=== PATIENT | female | born 1965 | race Caucasian/White ===

== ENCOUNTER → 2020-02-29 11:05 | Outpatient (CLI) | payer OTHER, SELFPAY ==
[2020-02-29 11:20] LABS: Absolute Lymphocyte Count 1.88 X10^3/uL (0.83-4.51); Absolute Neutrophil Count 3.2 X10^3/uL (2.0-7.7); Basophil# 0.04 X10^3/uL; Basophil% 0.7 % (0-1); Eosinophil# 0.08 X10^3/uL; Eosinophils% 1.4 % (0-5); Hematocrit 37.9 % (37-47); Hemoglobin 12.8 g/dL (12.0-15.0); Lymphocyte # 1.88 X10^3/ul (4.0); Mean Corp Hgb Conc 33.8 g/dL (32-36); Mean Corpuscular Hgb 32.9 pg (27.0-32.0); Mean Corpuscular Volume 97.4 fL (81-99); Mean Platelet Vol. 10.2 fl (6.2-12.0); Monocyte# 0.35 X10^3/uL; Monocyte% 6.3 % (0-10); NRBC Flagged by Analyzer 0 % (0-5); Neutrophil # 3.17 X10^3/uL (2.7-7.7); Neutrophil % 57.4 % (47-70); Platelet Count 176 K/mm3 (150-450); RBC Distribution Width CV 12.3 % (11.6-14.6); RBC Distribution Width SD 43.5 fl (35.1-43.9); Red Blood Count 3.89 M/mm3 (4.2-5.4); White Blood Count 5.5 K/mm3 (4.4-11.0)
[2020-02-29 11:43] LABS: Anion Gap 3 (5-15); BUN 17 mg/dL (7-18); Calcium,Total 9.4 mg/dL (8.5-10.1); Chloride 109 mmol/L (98-107); Creatinine, Serum 0.71 mg/dL (0.55-1.02); EST Glomerular Filtration Rate 92 mL/min (>60); Est Glom Filt Rate - Afr Amer 111 mL/min (>60); Glucose 112 mg/dL (74-106); Potassium 3.6 mmol/L (3.5-5.1); Sodium Level 140 mmol/L (136-145)
--- NOTE | 2020-02-29 11:54 | EKG12_ITS ---
Test Reason : Blood Pressure : / mmHG Vent. Rate : 071 BPM Atrial Rate : 071 BPM P-R Int : 172 ms QRS Dur : 092 ms QT Int : 406 ms P-R-T Axes : 070 -07 090 degrees QTc Int : 441 ms Normal sinus rhythm Normal ECG Confirmed by SARAH BACK, RAYMOND ([id number]), video editor FREDIS MEDLEY ([id number]) on 03/03/2020 1:30:41 PM Referred By: Tahmina Vega Confirmed By:RAYMOND SMITH MD
== END ==
PROVIDERS: PCP Family Medicine; Referring Provider Registered Nurse; Visit Provider Registered Nurse
DX: Z01.818 Encounter for other preprocedural examination (principal); Z01.810 Encounter for preprocedural cardiovascular examination; Z11.59 Encounter for screening for other viral diseases
CPT/HCPCS: 36415; 80048; 85025; 87635; 93005; 94799; U0003

== ENCOUNTER 2021-06-05 12:46 | Emergency (ER) | payer MEDICARE, OTHER, SELFPAY ==
[2021-06-05] VITALS (9 sets, daily range): BP systolic 114–141; BP diastolic 71–81; PULSE 82–87; RESP 20–25; TEMP 36.6–37.2; O2SAT 87–96; BMI 41.1
--- NOTE | 2021-06-05 13:30 | CT_ITS ---
INDICATION: sob, hypoxia EXAMINATION: CTA Chest WO/W Contrast Injection TECHNIQUE: Helically acquired images were obtained of the chest following administration of IV contrast. A radiation dose optimization technique was used for this scan. 3D postprocessing images including MIPS were reviewed. IV Contrast dosage and agent: IV 100mL Isovue-370 COMPARISON: None. FINDINGS: Lungs: Diffuse bilateral groundglass and airspace opacities. Mediastinum: The cardiomediastinal silhouette is not enlarged. No mediastinal, hilar or axillary adenopathy. The thoracic aorta is unremarkable. No obvious filling defect seen within the visualized pulmonary arteries. Pleura: Unremarkable Bones/Soft tissues: There are diffuse degenerative changes of the spine. Upper abdomen: No visualized abnormalities in the upper abdomen. CT/CTA Chest W/WO Contrast IMPRESSION: No evidence of acute pulmonary emboli to the segmental level. Diffuse bilateral groundglass and airspace opacities consistent with Covid pneumonia. Electronically Signed: Johny Hernandez MD at 17:03 EST Tel , Service support ,
--- NOTE | 2021-06-05 13:31 | EKG12_ITS ---
Test Reason : SOB Blood Pressure : / mmHG Vent. Rate : 082 BPM Atrial Rate : 082 BPM P-R Int : 126 ms QRS Dur : 086 ms QT Int : 352 ms P-R-T Axes : -59 -11 084 degrees QTc Int : 411 ms Unusual P axis, possible ectopic atrial rhythm Abnormal ECG Confirmed by SIL BACK, BROOK ([id number]), graphics editor ARJUN MORAN ([id number]) on 06/08/2021 11:26:44 AM Referred By: PRAKASH Confirmed By:BROOK MUJICA MD
--- NOTE | 2021-06-05 13:33 | EDS_ITS ---
HPI History of Present Illness Chief Complaint: Shortness of Breath Informant: patient Onset/Context/Timing Onset: Days Current Severity: Mild Maximum Severity: Moderate Narrative Narrative: Patient presents secondary to shortness of breath, fever, chills. Patient reports 7-day history of fever, chills, cough. Last evening she developed shortness of breath. She reportedly went to the [facility] urgent care today where an x-ray revealed pneumonia consistent with Covid pattern. She was referred to the emergency room. O2 sat on room air was 91% however when walking to the room she dropped to 87%. She is on 2 L nasal cannula at the time of my exam. [facility] Medical History Hypertension Meniscal injury Home Medications cholecalciferol (vitamin D3) [Vitamin D3] 25 mcg PO DAILY 06/05/21 [History Last Taken Unknown] dexamethasone [Decadron] 6 mg PO DAILY #9 tab 06/05/21 [Rx Last Taken Unknown] fluoxetine 10 mg PO DAILY 06/05/21 [History Last Taken Unknown] hydrochlorothiazide 12.5 mg PO DAILY 06/05/21 [History Last Taken Unknown] loratadine 10 mg PO DAILY 06/05/21 [History Last Taken Unknown] losartan 50 mg PO DAILY 06/05/21 [History Last Taken Unknown] potassium chloride [Klor-Con M20] 20 meq PO BID 06/05/21 [History Last Taken Unknown] Allergy/AdvReac Type Severity Reaction Status Date / Time No Known Allergies Allergy Verified 06/05/21 12:46 Surgical History History of hysterectomy Previous back surgery Social History Smoking Status: Never smoker ROS ROS ED Constitutional Constitutional ED: Reports chills and fever(s) Eyes Eyes: Denies change in vision ENT ENT ED: Denies sore throat Cardiovascular Cardiovascular: Denies chest pain Respiratory/Chest Respiratory/Chest: Reports cough, dyspnea and sputum Gastrointestinal Gastrointestinal: Reports diarrhea; Denies abdominal pain, nausea or vomiting Genitourinary Genitourinary ED: Denies dysuria Musculoskeletal Musculoskeletal: Reports myalgias; Denies back pain Integumentary Denies rash Neurologic Neurologic: Denies headache(s) or weakness Allergic/Immunologic Allergic/Immunologic ED: Denies urticaria EXAM Physical Exam Const Vital Signs: 06/05/21 12:47 06/05/21 13:06 06/05/21 13:26 Temperature 98.7 F 98.7 F Temperature Source Temporal Oral Pulse Rate 87 83 Respiratory Rate 20 H 21 H Respiratory Effort Non-Labored Short of Breath Respiratory Depth Normal Respiratory Pattern Normal Blood Pressure 141/79 H 121/74 H Blood Pressure Mean 99 89 Pulse Ox 91 93 Oxygen Delivery Method Room Air Nasal Cannula Nasal Cannula Oxygen Flow Rate (L/min) 2 2 06/05/21 15:00 06/05/21 16:42 Temperature 97.9 F Temperature Source Oral Pulse Rate 82 Respiratory Rate 25 H Respiratory Effort Respiratory Depth Respiratory Pattern Blood Pressure 114/71 Blood Pressure Mean 85 Pulse Ox 94 92 Oxygen Delivery Method Nasal Cannula Nasal Cannula Oxygen Flow Rate (L/min) 2 Positive well nourished and well developed General Appearance ED: well developed Eyes PERRL and EOMs intact bilaterally Neck supple Chest Wall inspection of chest normal and palpation of chest normal Resp normal respiratory effort and clear to auscultation bilaterally Cardio regular rate and regular rhythm GI normal to inspection, nondistended, normoactive bowel sounds and non-tender Palpation: soft Extremity normal to inspection General Extremety ED: Negative for edema General Extremity: Negative for edema Neuro oriented x3 Sensorium / Orientation: alert Skin no rashes or lesions noted MDM MDM MDM Narrative Medical decision making narrative: Lab work, Covid swab, CTA chest obtained. Ambulating back to the room patient's O2 sat dropped to 87%. She is currently on 2 L nasal cannula. Lab Data Attestation: I reviewed the patient's lab results. Labs: Laboratory Results - last 24 hr 06/05/21 06/05/21 06/05/21 14:20 14:20 14:20 WBC 2.6 L RBC 3.88 L Hgb 12.5 Hct 35.9 L MCV 92.5 MCH 32.2 H MCHC 34.8 RDW Std Deviation 42.4 RDW Coeff of Brady 12.5 Plt Count 103 L MPV 10.1 Immature Gran % (Auto) 0.400 Neut % (Auto) 68.9 Lymph % (Auto) 27.2 Wilson % (Auto) 3.5 Eos % (Auto) 0.0 Baso % (Auto) 0.0 Absolute Neuts (auto) 1.8 L Absolute Lymphs (auto) 0.70 L Nucleated RBC % 0 Sodium 132 L Potassium 4.0 Chloride 98 Carbon Dioxide 27.0 Anion Gap 7 BUN 9 Creatinine 0.77 Estim Creat Clear Calc 78.19 Est GFR (MDRD) Af Amer 101 Est GFR (MDRD) Non-Af 83 BUN/Creatinine Ratio 11.7 Glucose 114 H Lactic Acid 0.7 Calcium 8.4 L Total Bilirubin 0.60 Direct Bilirubin 0.23 AST 77 H ALT 60 H Alkaline Phosphatase 68 Total Protein 7.6 Albumin 3.4 Globulin 4.2 Radiography Diagnostic Testing: Clinical Impression(s) from Imaging Studies Chest CTA 06/05/21 13:30 IMPRESSION: No evidence of acute pulmonary emboli to the segmental level. Diffuse bilateral groundglass and airspace opacities consistent with Covid pneumonia. Electronically Signed: Johny Hernandez MD at 17:03 EST Tel , Service support , EKG Initial EKG: Attestation: I personally reviewed and interpreted this EKG as follows: Interpretation: Sinus Rhythm (Sinus 82 with no acute ischemia.) Treatment and Re-Evaluation Comments:: Repeat evaluation patient resting comfortably. Lab work unremarkable. CT scan does reveal bilateral infiltrates consistent with Covid pneumonia. She is given p.o. Decadron. At this time patient would prefer to go home with home oxygen. This will be arranged for her. Return instructions are provided. Discharge Plan Triage Chief Complaint: Shortness of Breath ED Provider: Antonette Newsome Dx/Rx/DC Orders Clinical Impression: COVID-19, Pneumonia Instructions: Coronavirus Disease 2019 (COVID-19): Overview, Coronavirus D isease 2019 (COVID-19): Caring for Yourself or Others Prescriptions: New dexamethasone [Decadron] 6 mg tablet 6 mg PO DAILY Qty: 9 RF: 0 No Action losartan 50 mg Tablet 50 mg PO DAILY RF: 0 potassium chloride [Klor-Con M20] 20 mEq Tablet,Er Particles/Crystals 20 meq PO BID RF: 0 hydrochlorothiazide 12.5 mg Capsule 12.5 mg PO DAILY RF: 0 fluoxetine 10 mg Capsule 10 mg PO DAILY RF: 0 loratadine 10 mg Tablet 10 mg PO DAILY RF: 0 cholecalciferol (vitamin D3) [Vitamin D3] 25 mcg (1,000 unit) Capsule 25 mcg PO DAILY RF: 0 Primary Care Provider: Iggy Myers Referrals: Iggy Myers MD [Primary Care Provider] - 1-2 Weeks Disposition Disposition: Home, Self Care
[2021-06-05 14:30] LABS: Absolute Neutrophil Count 1.8 X10^3/uL (2.0-7.7); Hematocrit 35.9 % (37-47); Hemoglobin 12.5 g/dL (12.0-15.0); Lymphocyte % 27.2 % (19-41); Mean Corp Hgb Conc 34.8 g/dL (32-36); Mean Corpuscular Hgb 32.2 pg (27.0-32.0); Mean Corpuscular Volume 92.5 fL (81-99); Mean Platelet Vol. 10.1 fl (6.2-12.0); Monocyte# 0.09 X10^3/uL; Monocyte% 3.5 % (0-10); NRBC Flagged by Analyzer 0 % (0-5); Neutrophil # 1.77 X10^3/uL (2.7-7.7); Neutrophil % 68.9 % (47-70); Platelet Count 103 K/mm3 (150-450); RBC Distribution Width CV 12.5 % (11.6-14.6); RBC Distribution Width SD 42.4 fl (35.1-43.9); Red Blood Count 3.88 M/mm3 (4.2-5.4); White Blood Count 2.6 K/mm3 (4.4-11.0)
[2021-06-05 14:56] LABS: Lactic Acid 0.7 mmol/L (0.4-1.9)
[2021-06-05 14:57] LABS: AST(SGOT) 77 U/L (15-37); Alanine Aminotransfer ALT/SGPT 60 U/L (13-56); Albumin, Serum 3.4 g/dL (3.2-5.0); Alkaline Phosphatase 68 U/L (45-117); Anion Gap 7 (5-15); BUN 9 mg/dL (7-18); BUN/Creat Ratio 11.7 RATIO (10-20); Bilirubin, Direct 0.23 mg/dL (0.00-0.30); Calcium,Total 8.4 mg/dL (8.5-10.1); Chloride 98 mmol/L (98-107); Creatinine, Serum 0.77 mg/dL (0.55-1.02); EST Glomerular Filtration Rate 83 mL/min (>60); Est Glom Filt Rate - Afr Amer 101 mL/min (>60); Estimated Creatinine Clearance 78.19 ml/min; Globulin 4.2 g/dL (2.2-4.2); Glucose 114 mg/dL (74-106); Protein, Total 7.6 g/dL (6.4-8.2); Sodium Level 132 mmol/L (136-145)
[2021-06-05] MEDS: dexAMETHasone 4 MG Tablet 6 MG PO (17:59)
== END 2021-06-05 19:32 | disposition home or self-care (01) ==
PROVIDERS: Emergency Provider Emergency Medicine; PCP Family Medicine
DX: U07.1 COVID-19 (principal); J12.82 Pneumonia due to coronavirus disease 2019; I10 Essential (primary) hypertension; Z79.899 Other long term (current) drug therapy
CPT/HCPCS: 71275; 80048; 80076; 83605; 85025; 87040; 87426; 93005; 99284; Q9967; A4216

== ENCOUNTER 2021-06-07 16:58 | Inpatient (IN) | payer MEDICARE, SELFPAY ==
[2021-06-07] VITALS (12 sets, daily range): BP systolic 135–165; BP diastolic 74–95; PULSE 78–106; RESP 12–32; TEMP 36.8–37; O2SAT 91–95; BMI 40.9; BMI 40.4
--- NOTE | 2021-06-07 17:26 | EKG12_ITS ---
Test Reason : SOB Blood Pressure : / mmHG Vent. Rate : 085 BPM Atrial Rate : 085 BPM P-R Int : 140 ms QRS Dur : 094 ms QT Int : 352 ms P-R-T Axes : -56 -12 076 degrees QTc Int : 418 ms Unusual P axis, possible ectopic atrial rhythm Abnormal ECG Confirmed by KRISTIN MILAN ([id number]), purchase request editor ARJUN MORAN ([id number]) on 06/08/2021 11:10:58 AM Referred By: CANDACE Confirmed By:KRISTIN MILAN
--- NOTE | 2021-06-07 17:27 | RAD_ITS ---
STUDY: X-RAY CHEST REASON FOR EXAM: Female, 55 years old. cough hypoxia on oxygen TECHNIQUE: Frontal portable view of the chest COMPARISON: 05 June 2021 FINDINGS: There are multifocal moderately dense airspace opacities. There is no pneumothorax. Detection of pulmonary edema is not possible due to increased lung opacity. Heart size is normal. There are no effusions. RAD/Chest 1 View (Portable) IMPRESSION: Severe pneumonia. Electronically Signed: Deonna Randhawa MD at 18:05 EST Tel , Service support ,
--- NOTE | 2021-06-07 17:28 | ED.VIS.DYS ---
HPI History of Present Illness Chief Complaint: Shortness of Breath Narrative Narrative: Patient presenting with hypoxia. Patient has had Covid symptoms since 31 May. She tested positive on the . She has been home with home oxygen. She was found to be 88% on 5 L at home. She states she did not wear oxygen for this. She states that her chills, body aches, fevers have all resolved. She does not have any chest pain. She feels as though she cannot catch her breath. She is a past medical history of hypertension and depression. Patient is already been treated with dexamethasone as well. [facility] Medical History Depression Hypertension Meniscal injury Home Medications cholecalciferol (vitamin D3) [Vitamin D3] 25 mcg PO DAILY 06/05/21 [History Last Taken Unknown] dexamethasone [Decadron] 6 mg PO DAILY #9 tab 06/05/21 [Rx Last Taken Unknown] fluoxetine 10 mg PO DAILY 06/05/21 [History Last Taken Unknown] hydrochlorothiazide 12.5 mg PO DAILY 06/05/21 [History Last Taken Unknown] loratadine 10 mg PO DAILY 06/05/21 [History Last Taken Unknown] losartan 50 mg PO DAILY 06/05/21 [History Last Taken Unknown] potassium chloride [Klor-Con M20] 20 meq PO BID 06/05/21 [History Last Taken Unknown] Allergy/AdvReac Type Severity Reaction Status Date / Time No Known Allergies Allergy Verified 06/07/21 17:00 Surgical History History of hysterectomy Previous back surgery Social History Smoking Status: Never smoker ROS ROS ED Constitutional Constitutional ED: Denies chills or fever(s) Eyes Eyes: Denies blurry vision or diplopia ENT ENT ED: Denies rhinorrhea or sore throat Cardiovascular Cardiovascular: Denies chest pain or palpitations Respiratory/Chest Respiratory/Chest: Reports cough, dyspnea and dyspnea on exertion Gastrointestinal Gastrointestinal: Denies abdominal pain, nausea or vomiting Genitourinary Genitourinary ED: Denies dysuria or hematuria Musculoskeletal Musculoskeletal: Denies arthralgias or myalgias Integumentary Denies Abrasions or rash Neurologic Neurologic: Denies headache(s) or paresthesias EXAM Physical Exam Const Vital Signs: 06/07/21 17:00 06/07/21 17:03 06/07/21 18:16 Temperature 98.5 F 98.5 F 98.5 F Temperature Source Oral Oral Oral Pulse Rate 106 H 87 87 Respiratory Rate 29 H 32 H 23 H Respiratory Effort Short of Breath Respiratory Depth Shallow Respiratory Pattern Irregular Blood Pressure 165/94 H 165/94 H 145/95 H Blood Pressure Mean 117 117 111 Pulse Ox 93 93 94 Oxygen Delivery Method Non-Rebreather Non-Rebreather Venturi Mask Oxygen Flow Rate (L/min) 15 15 Fraction of Inspired Oxygen (FIO2) 100 100 06/07/21 19:00 06/07/21 19:12 06/07/21 19:20 Temperature 98.6 F Temperature Source Temporal Pulse Rate 88 85 Respiratory Rate 31 H 16 Respiratory Effort Respiratory Depth Respiratory Pattern Blood Pressure 164/95 H Blood Pressure Mean 118 Pulse Ox 95 92 Oxygen Delivery Method Bi-pap Oxygen Flow Rate (L/min) 15 Fraction of Inspired Oxygen (FIO2) 75 75 65 06/07/21 20:08 Temperature Temperature Source Pulse Rate 81 Respiratory Rate 31 H Respiratory Effort Respiratory Depth Respiratory Pattern Blood Pressure 135/93 H Blood Pressure Mean 107 Pulse Ox 91 Oxygen Delivery Method Bi-pap Oxygen Flow Rate (L/min) Fraction of Inspired Oxygen (FIO2) 65 Slightly tachypneic and 90% on nonrebreather at 15 L Positive well nourished General Appearance ED: Negative for pallor HEENT Reports moist mucous membranes atraumatic Eyes PERRL and EOMs intact bilaterally Resp normal respiratory effort Auscultation: rales bilateral Cardio regular rate and regular rhythm Neuro oriented x3 and CN's II-XII intact bilaterally Sensorium / Orientation: alert Motor Exam: strength 5/5 throughout Psych mental status grossly normal Thought Process: normal thought process Skin General Skin Exam: Negative for jaundice or pallor MDM MDM MDM Narrative Medical decision making narrative: Patient initially on 15 L with nonrebreather. She is switched to BiPAP. She appears to be doing okay with this and maintaining sats were 92 to 95%. Did obtain EKG and on my interpretation this is a sinus rhythm with a ventricular rate of 85 beats minute without sign of ischemic change. Chest x-ray on my interpretation shows diffuse bilateral pulmonary infiltrates. The radiologist does agree. CBC shows a white blood count of 7.8, hemoglobin 13.5, platelets 139, lymphopenia. Renal function and electrolytes are normal. Her AST is 78 her ALT is 61. Troponin is 9. I did obtain a CTA of the chest which does show severe bilateral pulmonary infiltrates without evidence of pulmonary embolism as interpreted by radiologist and reviewed by myself. Given patient's respiratory failure she will need to be admitted for further care. She was discussed with the hospitalist and admitted stable condition. Impression: 1. COVID-19 pneumonitis 2. Hypoxic respiratory failure Lab Data Labs: Laboratory Results - last 24 hr 06/07/21 06/07/21 17:45 17:45 WBC 7.8 RBC 4.17 L Hgb 13.5 Hct 38.5 MCV 92.3 MCH 32.4 H MCHC 35.1 RDW Std Deviation 42.3 RDW Coeff of Brady 12.3 Plt Count 139 L MPV 10.8 Immature Gran % (Auto) 0.500 Neut % (Auto) 89.0 H Lymph % (Auto) 5.4 L [place] % (Auto) 4.7 Eos % (Auto) 0.3 Baso % (Auto) 0.1 Absolute Neuts (auto) 6.9 Absolute Lymphs (auto) 0.42 L Nucleated RBC % 0 Differential Comment SCANNED Platelet Estimate SLT DEC Sodium 133 L Potassium 4.6 Chloride 100 Carbon Dioxide 25.0 Anion Gap 8 BUN 14 Creatinine 0.76 Estim Creat Clear Calc 79.22 Est GFR (MDRD) Af Amer 102 Est GFR (MDRD) Non-Af 84 BUN/Creatinine Ratio 18.4 Glucose 155 H Calcium 8.6 Total Bilirubin 0.50 AST 70 H ALT 61 H Alkaline Phosphatase 74 Troponin I High Sens 9 Total Protein 7.7 Albumin 2.9 L Globulin 4.8 H Albumin/Globulin Ratio 0.6 L Radiography Diagnostic Testing: Clinical Impression(s) from Imaging Studies Chest X-Ray 06/07/21 17:27 IMPRESSION: Severe pneumonia. Electronically Signed: Deonna Randhawa MD at 18:05 EST Tel , Service support , Chest CTA 06/07/21 18:23 IMPRESSION: 1. No demonstrated pulmonary embolism or arterial dissection. 2. There is bilateral pneumonia. Electronically Signed: César Marroquin MD at 18:59 EST , Service support , Discharge Plan Triage Chief Complaint: Shortness of Breath ED Provider: Kevin Mittal Dx/Rx/DC Orders Prescriptions: No Action losartan 50 mg Tablet 50 mg PO DAILY RF: 0 potassium chloride [Klor-Con M20] 20 mEq Tablet,Er Particles/Crystals 20 meq PO BID RF: 0 hydrochlorothiazide 12.5 mg Capsule 12.5 mg PO DAILY RF: 0 fluoxetine 10 mg Capsule 10 mg PO DAILY RF: 0 loratadine 10 mg Tablet 10 mg PO DAILY RF: 0 cholecalciferol (vitamin D3) [Vitamin D3] 25 mcg (1,000 unit) Capsule 25 mcg PO DAILY RF: 0 dexamethasone [Decadron] 6 mg tablet 6 mg PO DAILY Qty: 9 RF: 0 Primary Care Provider: Iggy Myers
[2021-06-07 18:13] LABS: ALB/GLOB Ratio 0.6 RATIO (0.9-2.4); AST(SGOT) 70 U/L (15-37); Alanine Aminotransfer ALT/SGPT 61 U/L (13-56); Albumin, Serum 2.9 g/dL (3.2-5.0); Alkaline Phosphatase 74 U/L (45-117); Anion Gap 8 (5-15); BUN 14 mg/dL (7-18); BUN/Creat Ratio 18.4 RATIO (10-20); Calcium,Total 8.6 mg/dL (8.5-10.1); Chloride 100 mmol/L (98-107); Creatinine, Serum 0.76 mg/dL (0.55-1.02); EST Glomerular Filtration Rate 84 mL/min (>60); Est Glom Filt Rate - Afr Amer 102 mL/min (>60); Estimated Creatinine Clearance 79.22 ml/min; Globulin 4.8 g/dL (2.2-4.2); Glucose 155 mg/dL (74-106); Potassium 4.6 mmol/L (3.5-5.1); Protein, Total 7.7 g/dL (6.4-8.2); Sodium Level 133 mmol/L (136-145); Troponin-I HS 9 pg/mL (3.0-54.0)
[2021-06-07 18:20] LABS: Absolute Lymphocyte Count 0.42 X10^3/uL (0.83-4.51); Absolute Neutrophil Count 6.9 X10^3/uL (2.0-7.7); Basophil# 0.01 X10^3/uL; Basophil% 0.1 % (0-1); Eosinophil# 0.02 X10^3/uL; Eosinophils% 0.3 % (0-5); Hematocrit 38.5 % (37-47); Hemoglobin 13.5 g/dL (12.0-15.0); Lymphocyte # 0.42 X10^3/ul (0.83-4.51); Lymphocyte % 5.4 % (19-41); Mean Corp Hgb Conc 35.1 g/dL (32-36); Mean Corpuscular Hgb 32.4 pg (27.0-32.0); Mean Corpuscular Volume 92.3 fL (81-99); Mean Platelet Vol. 10.8 fl (6.2-12.0); Monocyte# 0.37 X10^3/uL; Monocyte% 4.7 % (0-10); NRBC Flagged by Analyzer 0 % (0-5); Neutrophil # 6.94 X10^3/uL (2.7-7.7); POSITIVE COUNT YES; POSITIVE DIFFERENTIAL YES; RBC Distribution Width CV 12.3 % (11.6-14.6); RBC Distribution Width SD 42.3 fl (35.1-43.9); Red Blood Count 4.17 M/mm3 (4.2-5.4); White Blood Count 7.8 K/mm3 (4.4-11.0)
--- NOTE | 2021-06-07 18:23 | CT_ITS ---
EXAM: CT ANGIOGRAPHY CHEST WITHOUT AND WITH INTRAVENOUS CONTRAST CLINICAL INDICATION: hypoxia TECHNIQUE: Helically acquired angiography images were obtained of the chest without and with intravenous contrast. This CT exam was performed using one or more of the following dose reduction techniques: automated exposure control, adjustment of the mA and/or kV according to patient size, and/or use of iterative reconstruction technique. This report was created using setObject report generation technology. MIP reconstructed images were created and reviewed. CONTRAST: IV 100mL Isovue-370 COMPARISON: None. FINDINGS: PULMONARY ARTERIES: No demonstrated pulmonary embolism or arterial dissection. AORTA: Unremarkable. Normal in caliber. No evidence of dissection. GREAT VESSELS OF AORTIC ARCH: Unremarkable. Normal in caliber. No evidence of dissection. LUNGS AND PLEURAL SPACES: There is bilateral pneumonia. No mass. No pleural effusion or thickening. HEART: Unremarkable. Heart size is normal. No pericardial effusion. No signs of right heart strain, ratio of right ventricle to left ventricle measures less than 1. MEDIASTINUM: Unremarkable. No mediastinal or hilar adenopathy. Esophagus is unremarkable. No hiatal hernia. THYROID: Unremarkable. No thyroid lesions. BONES/JOINTS: There are degenerative findings of the thoracic spine. No suspicious lytic or blastic abnormality. CT/CTA Chest W/WO Contrast IMPRESSION: 1. No demonstrated pulmonary embolism or arterial dissection. 2. There is bilateral pneumonia. Electronically Signed: César Marroquin MD at 18:59 EST , Service support ,
[2021-06-07 18:24] LABS: Differential Indicated SCAN CRITERIA MET
[2021-06-07 18:55] LABS: Platelet Count 139 K/mm3 (150-450)
[2021-06-07 18:56] LABS: Differential Comment SCANNED; Platelet Estimate SLT DEC (ADEQ)
--- NOTE | 2021-06-07 20:21 | HP.PCM.HOS_ITS ---
HPI - General General Date of Admission: 06/07/21 Date of Service: 06/07/21 Chief Complaint: Shortness of breath HPI Narrative RENE MONROE, is a 55 F with a significant history of hypertension who presents to the emergency department with 9-day history of progressively worsening shortness of breath. Associated with her symptom is productive cough of clear and yellow sputum. Now she denies fever and chills. She reports loose stools and diarrhea. She reports anosmia and dysgeusia. She reports poor appetite. She denies muscle aches. She reports weakness. Patient was at hospital on 06/05/2022. She will discharged home on oxygen. At home; and while on 5 L nasal cannula oxygen and with minimal exertion after using the bathroom her oxygen saturation dropped to 73%. At the emergent department patient was placed on BiPAP [facility] Medical History (Updated 06/07/21 @ 20:[address] Paramjit Mcclain MD) Depression Hypertension Meniscal injury Home Medications cholecalciferol (vitamin D3) [Vitamin D3] 25 mcg PO DAILY 06/05/21 [History Last Taken Unknown] dexamethasone [Decadron] 6 mg PO DAILY #9 tab 06/05/21 [Rx Last Taken Unknown] fluoxetine 10 mg PO DAILY 06/05/21 [History Last Taken Unknown] hydrochlorothiazide 12.5 mg PO DAILY 06/05/21 [History Last Taken Unknown] loratadine 10 mg PO DAILY 06/05/21 [History Last Taken Unknown] losartan 50 mg PO DAILY 06/05/21 [History Last Taken Unknown] potassium chloride [Klor-Con M20] 20 meq PO BID 06/05/21 [History Last Taken Unknown] Allergy/AdvReac Type Severity Reaction Status Date / Time No Known Allergies Allergy Verified 06/07/21 17:00 Family History other other (Denies maternal and paternal medical history.) Surgical History (Updated 06/07/21 @ 20:[address] Paramjit Mcclain MD) H/O knee surgery History of hysterectomy Previous back surgery Social History Smoking Status: Never smoker ROS ROS Narrative Constitutional: Reports anorexia. Denies fever, chills, fatigue, and change in weight Eyes: Denies blurry vision, change in eye color, change in vision, discharge from eye(s), double vision, erythema, eye pain, loss of vision or other HEENT: Denies abnormal hearing, dysphagia, ear pain, epistaxis, headache(s), hearing loss, nasal congestion, nasal discharge, post nasal drip, sinus pressure, sore throat or other Cardiovascular: Denies chest pain or palpitations. Denies dyspnea on exertion, orthopnea and paroxysmal nocturnal dyspnea Respiratory/Chest: Reports shortness of breath; cough with sputum production. Gastrointestinal: Reports loose stools and diarrhea. Denies nausea or vomiting. Denies hematochezia or hematemesis. Genitourinary: Denies burning urination, difficulty urinating, dysuria, hematuria, nocturia, urinary frequency, urinary hesitancy, urinary incontinence, urinary urgency or other Musculoskeletal: Denies arthralgias, back pain, joint pain, joint stiffness, joint swelling, myalgias, neck pain or other Neurologic: Denies abnormal gait, abnormal speech, confusion, disequilibrium, dizziness, focal weakness, headache(s), numbness, paresthesias, seizure-like activity, seizures, syncope, tingling, tremor(s) or other Psychiatric: Denies anxiety, depression, homicidal ideation, suicidal ideation or other Endocrinology: Denies change in body appearance, cold intolerance, excessive sweating, heat intolerance, polydipsia, polyuria or other Hematologic/Lymphatic: Denies anemia, easy bleeding, easy bruising, lymphadenopathy or other Integumentary: Denies rashes Allergic/Immunologic: Denies rhinitis, hives, eczema, asthma or other Vital Signs Vital Signs Vital Signs: 06/07/21 17:00 06/07/21 17:03 06/07/21 18:16 Temperature 98.5 F 98.5 F 98.5 F Temperature Source Oral Oral Oral Pulse Rate 106 H 87 87 Respiratory Rate 29 H 32 H 23 H Respiratory Effort Short of Breath Respiratory Depth Shallow Respiratory Pattern Irregular Blood Pressure 165/94 H 165/94 H 145/95 H Blood Pressure Mean 117 117 111 Pulse Ox 93 93 94 Oxygen Delivery Method Non-Rebreather Non-Rebreather Venturi Mask Oxygen Flow Rate (L/min) 15 15 Fraction of Inspired Oxygen (FIO2) 100 100 06/07/21 19:00 06/07/21 19:12 06/07/21 19:20 Temperature 98.6 F Temperature Source Temporal Pulse Rate 88 85 Respiratory Rate 31 H 16 Respiratory Effort Respiratory Depth Respiratory Pattern Blood Pressure 164/95 H Blood Pressure Mean 118 Pulse Ox 95 92 Oxygen Delivery Method Bi-pap Oxygen Flow Rate (L/min) 15 Fraction of Inspired Oxygen (FIO2) 75 75 65 06/07/21 20:08 Temperature Temperature Source Pulse Rate 81 Respiratory Rate 31 H Respiratory Effort Respiratory Depth Respiratory Pattern Blood Pressure 135/93 H Blood Pressure Mean 107 Pulse Ox 91 Oxygen Delivery Method Bi-pap Oxygen Flow Rate (L/min) Fraction of Inspired Oxygen (FIO2) 65 Weight Weight: 115 kg Body Mass Index (BMI) 40.9 Physical Exam Narrative Physical exam: General: Well-nourished, well-developed. Head: Normocephalic, atraumatic, no tenderness Eyes: PERRLA, EOMI ENT, no trauma, moist mucous membranes, no rhinorrhea Neck: Nontender, full range of motion, no spinal tenderness, deformities, step- off CVS: Regular rate and rhythm. S1-S2 present. No murmur, gallop or rub. Respiratory : Using accessory muscles of respiration, tachypnea; Rales. Abdomen: Soft, nontender, nondistended, normal bowel sounds, no masses : Deferred Back: Nontender, no CVA tenderness, no midline spinal tenderness, deformities, step-offs Extremities: Nontender full range of motion, no trauma Skin: Normal color, no trauma, abrasions Neuro: Alert, oriented, cranial nerves II through XII grossly intact. Psychiatry: Normal mood. Normal affect. Not depressed. Not anxious. Results Lab / Micro Data Result Diagrams: 06/07/21 17:45 06/07/21 17:45 Labs: Laboratory Results - last 24 hr 06/07/21 17:45: WBC 7.8, RBC 4.17 L, Hgb 13.5, Hct 38.5, MCV 92.3, MCH 32.4 H, MCHC 35.1, RDW Std Deviation 42.3, RDW Coeff of Brady 12.3, Plt Count 139 L, MPV 10.8, Immature Gran % (Auto) 0.500, Neut % (Auto) 89.0 H, Lymph % (Auto) 5.4 L, [place] % (Auto) 4.7, Eos % (Auto) 0.3, Baso % (Auto) 0.1, Absolute Neuts (auto) 6.9, Absolute Lymphs (auto) 0.42 L, Nucleated RBC % 0, Differential Comment SCANNED, Platelet Estimate SLT DEC 06/07/21 17:45: Sodium 133 L, Potassium 4.6, Chloride 100, Carbon Dioxide 25.0, Anion Gap 8, BUN 14, Creatinine 0.76, Estim Creat Clear Calc 79.22, Est GFR (MDRD) Af Amer 102, Est GFR (MDRD) Non-Af 84, BUN/Creatinine Ratio 18.4, Glucose 155 H, Calcium 8.6, Total Bilirubin 0.50, AST 70 H, ALT 61 H, Alkaline Phosphatase 74, Troponin I High Sens 9, Total Protein 7.7, Albumin 2.9 L, Globulin 4.8 H, Albumin/Globulin Ratio 0.6 L Radiology Impression Chest X-Ray 06/07/21 17:27 IMPRESSION: Severe pneumonia. Electronically Signed: Deonna Randhawa MD at 18:05 EST Tel , Service support , Chest CTA 06/07/21 18:23 IMPRESSION: 1. No demonstrated pulmonary embolism or arterial dissection. 2. There is bilateral pneumonia. Electronically Signed: César Marroquin MD at 18:59 EST , Service support , Assessment & Plan Assessment/Plan (1) Acute hypoxemic respiratory failure: (2) Pneumonia due to COVID-19 virus: (3) COVID-19: PLAN: Acute hypoxemic respiratory failure secondary to SARS- COV 2 Patient while on home oxygen of 5 L was hypoxic with oxygen saturation 2%. At emergent department he was placed on nonrebreather mask, Venturi mask and then transition to BiPAP with FiO2 of 75%. Patient using oxygen most of respiration and tachypneic. BiPAP continued. Rapid Covid antigen on 06/05/2021 was positive. Her thinks that he had Covid recently. Patient is not vaccinated against COVID-19 virus. A chest x-ray and chest CT was independently interpreted. No acute dissection or PE noted. Bilateral severe pneumonia seen. I agree with radiologist interpretation. Procalcitonin ordered. On home Decadron; continue. AST and ALT are mildly elev ated. Creatinine clearance is more than 30. Will start on remdesivir. Trend CBC and CMP. Tylenol for fever and pain as needed. Infectious disease consult. Tylenol for fever Mucinex ordered Hypertension Blood pressure is not within goal Home blood pressure medication continued. Trend blood pressure and adjust blood pressure medications. Depression/anxiety Fluoxetine continued DVT prophylaxis: Subcutaneous Lovenox ordered. Charges/Coding Visit Charges Inpatient E&M: 72573 Init Hosp L3
--- NOTE | 2021-06-07 21:45 | PCS.PANDOC ---
PANDEMIC DOCUMENTATION INITIATED: Date: 03/09/2021 Time: 190
[2021-06-07] MEDS: guaiFENesin 1,200 MG Tablet 1200 MG PO (22:39)
[2021-06-07] MEDS: 0.9% Saline Lock 10 ML Syringe IV (22:39)
[2021-06-07] MEDS: Enoxaparin 40 MG/0.4 ML Syringe SC (22:40)
[2021-06-07] MEDS: MELATONIN 3 MG TABLET PO (22:57)
[2021-06-08] VITALS (20 sets, daily range): BP systolic 127–142; BP diastolic 69–94; PULSE 73–84; RESP 12–29; TEMP 36.6–36.9; O2SAT 86–95
[2021-06-08 07:20] LABS: Absolute Lymphocyte Count 0.67 X10^3/uL (0.83-4.51); Absolute Neutrophil Count 5.5 X10^3/uL (2.0-7.7); Basophil# 0.01 X10^3/uL; Basophil% 0.2 % (0-1); Hematocrit 38.6 % (37-47); Hemoglobin 13.3 g/dL (12.0-15.0); Lymphocyte # 0.67 X10^3/ul (0.83-4.51); Lymphocyte % 10.3 % (19-41); Mean Corp Hgb Conc 34.5 g/dL (32-36); Mean Corpuscular Hgb 31.6 pg (27.0-32.0); Mean Corpuscular Volume 91.7 fL (81-99); Mean Platelet Vol. 9.7 fl (6.2-12.0); Monocyte# 0.31 X10^3/uL; Monocyte% 4.8 % (0-10); NRBC Flagged by Analyzer 0 % (0-5); Neutrophil # 5.46 X10^3/uL (2.7-7.7); Neutrophil % 84.2 % (47-70); Platelet Count 176 K/mm3 (150-450); RBC Distribution Width CV 12.4 % (11.6-14.6); RBC Distribution Width SD 41.8 fl (35.1-43.9); Red Blood Count 4.21 M/mm3 (4.2-5.4); White Blood Count 6.5 K/mm3 (4.4-11.0)
[2021-06-08 07:47] LABS: ALB/GLOB Ratio 0.6 RATIO (0.9-2.4); AST(SGOT) 58 U/L (15-37); Alanine Aminotransfer ALT/SGPT 55 U/L (13-56); Albumin, Serum 2.8 g/dL (3.2-5.0); Alkaline Phosphatase 75 U/L (45-117); Anion Gap 5 (5-15); BUN 15 mg/dL (7-18); Calcium,Total 8.6 mg/dL (8.5-10.1); Chloride 100 mmol/L (98-107); EST Glomerular Filtration Rate 110 mL/min (>60); Est Glom Filt Rate - Afr Amer 133 mL/min (>60); Estimated Creatinine Clearance 100.34 ml/min; Globulin 4.9 g/dL (2.2-4.2); Glucose 122 mg/dL (74-106); Potassium 4.2 mmol/L (3.5-5.1); Protein, Total 7.7 g/dL (6.4-8.2); Sodium Level 133 mmol/L (136-145)
[2021-06-08] MEDS: guaiFENesin 1,200 MG Tablet 1200 MG PO ×2 (09:07→20:57)
[2021-06-08] MEDS: dexAMETHasone 4 MG Tablet 6 MG PO (09:07)
[2021-06-08] MEDS: Acetaminophen 325 MG Tablet 650 MG PO (09:08)
[2021-06-08] MEDS: Enoxaparin 40 MG/0.4 ML Syringe SC ×2 (09:08→20:58)
[2021-06-08 09:34] LABS: Procalcitonin 0.13 ng/mL (0.00-0.09)
--- NOTE | 2021-06-08 13:00 | CASEMGMT ---
RN CM called Karma for initial transition planning/care coordination assessment, as patient is currently on Bipap. RN CHING introduced self and role at [facility]. willing to participate in assessment and is able to answer all questions appropriately. Care providers, pharmacy, and demographics verified. wishes for patient to discharge home, denies need for home health at this time. states he has no further needs or concerns at this time. CM to follow for discharge planning needs that may arise. PCP: Lucia Specialists: none Preferred Pharmacy: [facility] with [facility] retail at discharge. Insurance: [employer] Prescription Benefit: none Living Will/HPOA: yes, Karma Harp LNOK: Living Arrangements: Patient lives with in a 2 story home with bed and bath on first floor. Patient was independent at home. Transportation: driving service DME/HHC: Patient was setup with oxygen through [facility] [employer] through the ED on Tuesday. Will monitor for HHC and additional home oxygen needs. Disposition Plan: Patient to discharge home with family support and follow-up plans in place. Iva VARGAS, RN, CM
--- NOTE | 2021-06-08 15:06 | PCM.CONS.GEN ---
Assessment & Plan Assessment/Plan (1) Pneumonia due to COVID-19 virus: PLAN: Sx since 05/30/21. Unvaccinated. Recommend vaccine after discharge; isolate until 06/19/21. On dex, remdesivir. Reviewed EUA and risks/benefits, we agree to start baricitinib. Will follow, thank you (2) Acute hypoxemic respiratory failure: HPI Consult Data Date of Consult: 06/08/21 HPI Narrative HPI Narrative: RENE MONROE, is a 55 F who presented with sx since 05/30. C/o headache, fever, chills, change in taste/smell, diarrhea, aches. with covid, recovering. Came to ED, hypoxic, admitted on dex and remdesivir. Now on bipap. Full ROS performed and neg except as noted above. Unvaccinated. [facility] Medical History Depression Hypertension Meniscal injury Home Medications cholecalciferol (vitamin D3) [Vitamin D3] 25 mcg PO DAILY 06/05/21 [History Last Taken Unknown] dexamethasone [Decadron] 6 mg PO DAILY #9 tab 06/05/21 [Rx Last Taken Unknown] fluoxetine 10 mg PO DAILY 06/05/21 [History Last Taken Unknown] hydrochlorothiazide 12.5 mg PO DAILY 06/05/21 [History Last Taken Unknown] loratadine 10 mg PO DAILY 06/05/21 [History Last Taken Unknown] losartan 50 mg PO DAILY 06/05/21 [History Last Taken Unknown] potassium chloride [Klor-Con M20] 20 meq PO BID 06/05/21 [History Last Taken Unknown] Allergy/AdvReac Type Severity Reaction Status Date / Time No Known Allergies Allergy Verified 06/07/21 17:00 Family History other Surgical History (Updated 06/07/21 @ 20:[address] Paramjit Mcclain MD) H/O knee surgery History of hysterectomy Previous back surgery Social History Smoking Status: Never smoker Physical Exam Const alert and oriented x3 General Appearance: cooperative Exam Limitations: no limitations HEENT normocephalic and head/scalp atraumatic Eyes PERRL and EOMs intact bilaterally Neck supple and No nodes Resp Auscultation: diminished lung sounds Cardio regular rate and regular rhythm GI normal to inspection, nondistended, normoactive bowel sounds Extremity no clubbing, cyanosis or edema Skin no rashes or lesions noted Neuro CN's II-XII intact bilaterally Lab / Micro Data Result Diagrams: 06/08/21 06:39 06/08/21 06:39 Labs: Laboratory Results - last 24 hr 06/07/21 17:45: WBC 7.8, RBC 4.17 L, Hgb 13.5, Hct 38.5, MCV 92.3, MCH 32.4 H, MCHC 35.1, RDW Std Deviation 42.3, RDW Coeff of Brady 12.3, Plt Count 139 L, MPV 10.8, Immature Gran % (Auto) 0.500, Neut % (Auto) 89.0 H, Lymph % (Auto) 5.4 L, [place] % (Auto) 4.7, Eos % (Auto) 0.3, Baso % (Auto) 0.1, Absolute Neuts (auto) 6.9, Absolute Lymphs (auto) 0.42 L, Nucleated RBC % 0, Differential Comment SCANNED, Platelet Estimate SLT DEC 06/07/21 17:45: Sodium 133 L, Potassium 4.6, Chloride 100, Carbon Dioxide 25.0, Anion Gap 8, BUN 14, Creatinine 0.76, Estim Creat Clear Calc 79.22, Est GFR (MDRD) Af Amer 102, Est GFR (MDRD) Non-Af 84, BUN/Creatinine Ratio 18.4, Glucose 155 H, Calcium 8.6, Total Bilirubin 0.50, AST 70 H, ALT 61 H, Alkaline Phosphatase 74, Troponin I High Sens 9, Total Protein 7.7, Albumin 2.9 L, Globulin 4.8 H, Albumin/Globulin Ratio 0.6 L 06/07/21 21:47: Procalcitonin 0.13 H 06/08/21 06:39: WBC 6.5, RBC 4.21, Hgb 13.3, Hct 38.6, MCV 91.7, MCH 31.6, MCHC 34.5, RDW Std Deviation 41.8, RDW Coeff of Brady 12.4, Plt Count 176, MPV 9.7, Immature Gran % (Auto) 0.500, Neut % (Auto) 84.2 H, Lymph % (Auto) 10.3 L, [place] % (Auto) 4.8, Eos % (Auto) 0.0, Baso % (Auto) 0.2, Absolute Neuts (auto) 5.5, Absolute Lymphs (auto) 0.67 L, Nucleated RBC % 0 06/08/21 06:39: Sodium 133 L, Potassium 4.2, Chloride 100, Carbon Dioxide 28.0, Anion Gap 5, BUN 15, Creatinine 0.60, Estim Creat Clear Calc 100.34, Est GFR (MDRD) Af Amer 133, Est GFR (MDRD) Non-Af 110, BUN/Creatinine Ratio 25.0 H, Glucose 122 H, Calcium 8.6, Total Bilirubin 0.60, AST 58 H, ALT 55, Alkaline Phosphatase 75, Total Protein 7.7, Albumin 2.8 L, Globulin 4.9 H, Albumin/Globulin Ratio 0.6 L Micro: Microbiology 06/08/21 03:45 Urine, Clean Catch Legionella Antigen - Final 06/08/21 03:45 Urine, Clean Catch Streptococcus pneumoniae Antigen (M - Final Radiology Impression Chest X-Ray 06/07/21 17:27 IMPRESSION: Severe pneumonia. Electronically Signed: Deonna Randhawa MD at 18:05 EST Tel , Service support , Chest CTA 06/07/21 18:23 IMPRESSION: 1. No demonstrated pulmonary embolism or arterial dissection. 2. There is bilateral pneumonia. Electronically Signed: César Marroquin MD at 18:59 EST , Service support ,
[2021-06-08] MEDS: Albuterol Sulfate 8 gm Inhaler (60 puffs) 2 PUFF INHALATION (18:34)
--- NOTE | 2021-06-08 19:41 | PN.HOSP_ITS ---
Subjective Subjective Patient was seen and examined today, she is currently on Airvo at a flow rate of 55 L. Patient was seen by infectious diseases today was placed on baricitinib, she remains on dexamethasone and remdesivir. Objective Data Objective Data Vital Signs: Vital Signs Temp Pulse Resp BP Pulse Ox 97.9 F 79 19 H 142/90 H 93 06/08/21 15:07 06/08/21 15:07 06/08/21 15:07 06/08/21 15:07 06/08/21 15:07 Oxygen Flow Rate (L/min) 55 Oxygen Delivery Method Airvo Weight: 113.8 kg Body Mass Index (BMI) 40.4 Intake & Output: Intake and Output for Last 24 Hours 06/06/21 06/07/21 06/08/21 23:59 23:59 23:59 Intake Total 1060.25 / 1060.25 Output Total 520 / 520 Balance 540.25 / 540.25 Lab / Micro Data Result Diagrams: 06/08/21 06:39 06/08/21 06:39 Labs: Laboratory Results - last 24 hr 06/07/21 21:47: Procalcitonin 0.13 H 06/08/21 06:39: WBC 6.5, RBC 4.21, Hgb 13.3, Hct 38.6, MCV 91.7, MCH 31.6, MCHC 34.5, RDW Std Deviation 41.8, RDW Coeff of Brady 12.4, Plt Count 176, MPV 9.7, Immature Gran % (Auto) 0.500, Neut % (Auto) 84.2 H, Lymph % (Auto) 10.3 L, [place] % (Auto) 4.8, Eos % (Auto) 0.0, Baso % (Auto) 0.2, Absolute Neuts (auto) 5.5, Absolute Lymphs (auto) 0.67 L, Nucleated RBC % 0 06/08/21 06:39: Sodium 133 L, Potassium 4.2, Chloride 100, Carbon Dioxide 28.0, Anion Gap 5, BUN 15, Creatinine 0.60, Estim Creat Clear Calc 100.34, Est GFR (MDRD) Af Amer 133, Est GFR (MDRD) Non-Af 110, BUN/Creatinine Ratio 25.0 H, Glucose 122 H, Calcium 8.6, Total Bilirubin 0.60, AST 58 H, ALT 55, Alkaline Phosphatase 75, Total Protein 7.7, Albumin 2.8 L, Globulin 4.9 H, Albumin/Globulin Ratio 0.6 L Micro: Microbiology 06/08/21 03:45 Urine, Clean Catch Legionella Antigen - Final 06/08/21 03:45 Urine, Clean Catch Streptococcus pneumoniae Antigen (M - Final Physical Exam Const alert, oriented x3 and no apparent distress Constitutional Narrative: Patient is morbidly obese General Appearance: cooperative, well kempt and well developed Orientation / Consciousness: awake, oriented to person, oriented to place and oriented to time HEENT normocephalic, head/scalp atraumatic and moist oral mucous membranes Head and Scalp: normocephalic Eyes PERRL, EOMs intact bilaterally and conjunctivae normal Neck nuchal rigidity, supple, no JVD, thyroid normal and no carotid bruits General: trachea midline Resp normal respiratory effort, no retractions, no use of accessory muscles and clear to auscultation bilaterally Auscultation: Negative for rales, rhonchi or wheezes Cardio regular rate, regular rhythm, S1 normal heart sound, S2 normal heart sound, no murmurs, no rub and no gallops GI normal to inspection, nondistended, normoactive bowel sounds, soft to palpation and non-tender GI Narrative: Patient is morbidly obese Extremity no clubbing, cyanosis or edema Skin no rashes or lesions noted General Skin Exam: no breakdown Neuro oriented x3, CN's II-XII intact bilaterally, no focal motor deficits and no sensory deficits noted Sensorium / Orientation: awake and alert Speech: speech normal Psych thought process normal and affect normal Assessment & Plan Assessment/Plan (1) Pneumonia due to COVID-19 virus: PLAN: 1. COVID-19 pneumonia-continue dexamethasone, remdesivir, and baricitinib, ID following patient, patient will need to be isolated until 06/19/2021 #2 acute hypoxic respiratory failure secondary to COVID-19 pneumonia-pulse ox will be monitored, patient states that she needs to be placed on a ventilator s he would agree to this. #3 morbid obesity Charges/Coding Visit Charges Inpatient E&M: 58979 Subs Hosp L2
[2021-06-08] MEDS: 0.9% Saline Lock 10 ML Syringe IV (21:04)
[2021-06-09] VITALS (19 sets, daily range): BP systolic 116–155; BP diastolic 75–94; PULSE 68–89; RESP 12–28; TEMP 36.5–37; O2SAT 87–93
--- NOTE | 2021-06-09 03:03 | CPS ---
o2 increased by nurse to 70% for low sat
--- NOTE | 2021-06-09 03:04 | CPS ---
o2 increased to 80% per nurse for low sat
[2021-06-09 07:18] LABS: Hemoglobin 13.6 g/dL (12.0-15.0); Mean Corp Hgb Conc 32.4 g/dL (32-36); Mean Corpuscular Hgb 31.8 pg (27.0-32.0); Mean Corpuscular Volume 98.1 fL (81-99); Mean Platelet Vol. 10.3 fl (6.2-12.0); Platelet Count 157 K/mm3 (150-450); RBC Distribution Width CV 12.7 % (11.6-14.6); RBC Distribution Width SD 45.4 fl (35.1-43.9); Red Blood Count 4.28 M/mm3 (4.2-5.4); White Blood Count 5.7 K/mm3 (4.4-11.0)
[2021-06-09 08:10] LABS: ALB/GLOB Ratio 0.6 RATIO (0.9-2.4); AST(SGOT) 54 U/L (15-37); Alanine Aminotransfer ALT/SGPT 36 U/L (13-56); Albumin, Serum 2.1 g/dL (3.2-5.0); Alkaline Phosphatase 88 U/L (45-117); Anion Gap 10 (5-15); BUN 21 mg/dL (7-18); BUN/Creat Ratio 21.2 RATIO (10-20); Calcium,Total 7.8 mg/dL (8.5-10.1); Chloride 109 mmol/L (98-107); Creatinine, Serum 0.99 mg/dL (0.55-1.02); EST Glomerular Filtration Rate 62 mL/min (>60); Est Glom Filt Rate - Afr Amer 75 mL/min (>60); Estimated Creatinine Clearance 60.81 ml/min; Globulin 3.6 g/dL (2.2-4.2); Glucose 105 mg/dL (74-106); Potassium 4.8 mmol/L (3.5-5.1); Protein, Total 5.7 g/dL (6.4-8.2); Sodium Level 138 mmol/L (136-145)
[2021-06-09] MEDS: dexAMETHasone 4 MG Tablet 6 MG PO (08:55)
[2021-06-09] MEDS: Acetaminophen 325 MG Tablet 650 MG PO (08:56)
[2021-06-09] MEDS: guaiFENesin 1,200 MG Tablet 1200 MG PO ×2 (08:56→21:11)
[2021-06-09] MEDS: Enoxaparin 40 MG/0.4 ML Syringe SC ×2 (08:58→21:11)
[2021-06-09] MEDS: 0.9% Saline Lock 10 ML Syringe IV ×2 (10:45→21:11)
[2021-06-09] MEDS: Furosemide 20 MG/2 ML VIAL IV (10:45)
--- NOTE | 2021-06-09 20:07 | PN.HOSP_ITS ---
Subjective Subjective Patient was seen and examined today, she states she feels better today, she is presently on Airvo, I wrote for some of her home medications-I have elected to place her on daily Lasix at a small dose orally instead of her hydrochlorothiazide. Patient was given 1 dose of IV Lasix today. Patient denies any shortness of breath at rest, chest pain, fever, or chills. Objective Data Objective Data Vital Signs: Vital Signs Temp Pulse Resp BP Pulse Ox 98.1 F 79 22 H 155/83 H 91 06/09/21 18:14 06/09/21 18:14 06/09/21 18:14 06/09/21 18:14 06/09/21 18:14 Oxygen Flow Rate (L/min) 60 Oxygen Delivery Method Airvo Weight: 113.8 kg Body Mass Index (BMI) 40.4 Intake & Output: Intake and Output for Last 24 Hours 06/07/21 06/08/21 06/09/21 23:59 23:59 23:59 Intake Total 1425.75 / 1425.75 894.75 / 894.75 Output Total 520 / 520 400 / 400 Balance 905.75 / 905.75 494.75 / 494.75 Lab / Micro Data Result Diagrams: 06/09/21 06:50 06/09/21 06:50 Labs: Laboratory Results - last 24 hr 06/09/21 06:50: WBC 5.7, RBC 4.28, Hgb 13.6, Hct 42.0, MCV 98.1 D, MCH 31.8, MCHC 32.4 D, RDW Std Deviation 45.4 H, RDW Coeff of Brady 12.7, Plt Count 157, MPV 10.3 06/09/21 06:50: Sodium 138, Potassium 4.8, Chloride 109 H, Carbon Dioxide 19.0 L , Anion Gap 10, BUN 21 H, Creatinine 0.99, Estim Creat Clear Calc 60.81, Est GFR (MDRD) Af Amer 75, Est GFR (MDRD) Non-Af 62, BUN/Creatinine Ratio 21.2 H, Glucose 105, Calcium 7.8 L, Total Bilirubin 0.80, AST 54 H, ALT 36, Alkaline Phosphatase 88, Total Protein 5.7 L, Albumin 2.1 L, Globulin 3.6, Albumin/Globulin Ratio 0.6 L Micro: Microbiology 06/08/21 03:45 Urine, Clean Catch Legionella Antigen - Final 06/08/21 03:45 Urine, Clean Catch Streptococcus pneumoniae Antigen (M - Final Physical Exam Narrative Physical exam: General: Well-nourished, well-developed. Head: Normocephalic, atraumatic, no tenderness Eyes: PERRLA, EOMI ENT, no trauma, moist mucous membranes, no rhinorrhea Neck: Nontender, full range of motion, no spinal tenderness, deformities, step- off CVS: Regular rate and rhythm. S1-S2 present. No murmur, gallop or rub. Respiratory : Using accessory muscles of respiration, tachypnea; Rales. Abdomen: Soft, nontender, nondistended, normal bowel sounds, no masses, patient is morbidly obese : Deferred Back: Nontender, no CVA tenderness, no midline spinal tenderness, deformities, step-offs Extremities: Nontender full range of motion, no trauma Skin: Normal color, no trauma, abrasions Neuro: Alert, oriented, cranial nerves II through XII grossly intact. Psychiatry: Normal mood. Normal affect. Not depressed. Not anxious. Const alert, oriented x3 and no apparent distress Constitutional Narrative: Patient is morbidly obese General Appearance: cooperative, well kempt and well developed Orientation / Consciousness: awake, oriented to person, oriented to place and oriented to time HEENT normocephalic, head/scalp atraumatic and moist oral mucous membranes Eyes PERRL, EOMs intact bilaterally and conjunctivae normal Neck nuchal rigidity, supple, no JVD, thyroid normal and no carotid bruits General: trachea midline Resp normal respiratory effort, no retractions, no use of accessory muscles and clear to auscultation bilaterally Auscultation: Negative for rales, rhonchi or wheezes Cardio regular rate, regular rhythm, S1 normal heart sound, S2 normal heart sound, no murmurs, no rub and no gallops GI normal to inspection, nondistended, normoactive bowel sounds, soft to palpation and non-tender GI Narrative: Patient is morbidly obese Extremity no clubbing, cyanosis or edema Skin no rashes or lesions noted General Skin Exam: no breakdown Neuro oriented x3, CN's II-XII intact bilaterally, no focal motor deficits and no sensory deficits noted Sensorium / Orientation: awake and alert Speech: speech normal Psych thought process normal and affect normal Assessment & Plan Assessment/Plan (1) Pneumonia due to COVID-19 virus: PLAN: 1. COVID-19 pneumonia-continue dexamethasone, remdesivir, and baricitinib, ID following patient, patient will need to be isolated until 06/19/2021 #2 acute hypoxic respiratory failure secondary to COVID-19 pneumonia-pulse ox will be monitored, patient states that she needs to be placed on a ventilator she would agree to this. #3 morbid obesity #4 chronic depression/anxiety #5 essential hypertension Charges/Coding Visit Charges Inpatient E&M: 36139 Subs Hosp L2
[2021-06-09] MEDS: Potassium Chloride Oral Tablet 20 MEQ PO (21:11)
[2021-06-09] MEDS: FLUoxetine 10 MG Capsule PO (21:11)
[2021-06-10] VITALS (30 sets, daily range): BP systolic 133–166; BP diastolic 03–108; PULSE 68–104; RESP 12–33; TEMP 36.4–37; O2SAT 87–97
[2021-06-10 07:45] LABS: Hematocrit 42.2 % (37-47); Hemoglobin 14.3 g/dL (12.0-15.0); Mean Corp Hgb Conc 33.9 g/dL (32-36); Mean Corpuscular Hgb 31.7 pg (27.0-32.0); Mean Corpuscular Volume 93.6 fL (81-99); Mean Platelet Vol. 9.7 fl (6.2-12.0); Platelet Count 243 K/mm3 (150-450); RBC Distribution Width CV 12.4 % (11.6-14.6); RBC Distribution Width SD 42.7 fl (35.1-43.9); Red Blood Count 4.51 M/mm3 (4.2-5.4)
[2021-06-10 08:29] LABS: ALB/GLOB Ratio 0.5 RATIO (0.9-2.4); AST(SGOT) 64 U/L (15-37); Alanine Aminotransfer ALT/SGPT 63 U/L (13-56); Albumin, Serum 2.8 g/dL (3.2-5.0); Alkaline Phosphatase 88 U/L (45-117); Anion Gap 7 (5-15); BUN 23 mg/dL (7-18); BUN/Creat Ratio 36.8 RATIO (10-20); Chloride 101 mmol/L (98-107); Creatinine, Serum 0.62 mg/dL (0.55-1.02); EST Glomerular Filtration Rate 105 mL/min (>60); Est Glom Filt Rate - Afr Amer 127 mL/min (>60); Estimated Creatinine Clearance 97.11 ml/min; Globulin 5.2 g/dL (2.2-4.2); Glucose 87 mg/dL (74-106); Potassium 3.9 mmol/L (3.5-5.1); Sodium Level 135 mmol/L (136-145)
[2021-06-10] MEDS: Furosemide 20 MG Tablet PO (09:02)
[2021-06-10] MEDS: Potassium Chloride Oral Tablet 20 MEQ PO ×2 (09:02→22:15)
[2021-06-10] MEDS: Enoxaparin 40 MG/0.4 ML Syringe SC ×2 (09:02→22:14)
[2021-06-10] MEDS: dexAMETHasone 4 MG Tablet 6 MG PO (09:02)
[2021-06-10] MEDS: guaiFENesin 1,200 MG Tablet 1200 MG PO ×2 (09:02→22:14)
[2021-06-10] MEDS: Cholecalciferol (VIT D3) 25 MCG TABLET (1,000 UNITS) PO (09:02)
[2021-06-10] MEDS: Losartan Potassium 50 MG Tablet PO (09:02)
--- NOTE | 2021-06-10 10:57 | NURSING ---
This RN called and updated on transfer to ICU 201, updated on POC and pt status
[2021-06-10] MEDS: Furosemide 40 MG/4 ML Vial IV (11:21)
[2021-06-10] MEDS: 0.9% Saline Lock 10 ML Syringe IV ×2 (11:21→22:18)
--- NOTE | 2021-06-10 11:45 | PN.HOSP_ITS ---
Subjective Subjective Worsening resp failure gone from Airvo to BIPAP. Objective Data Objective Data Vital Signs: Vital Signs Temp Pulse Resp BP Pulse Ox 36.9 C 98 27 H 154/97 H 97 06/10/21 11:10 06/10/21 11:27 06/10/21 11:27 06/10/21 11:10 06/10/21 11:27 Oxygen Flow Rate (L/min) 60 Oxygen Delivery Method Bi-pap Weight: 110.994 kg Body Mass Index (BMI) 40.4 Intake & Output: Intake and Output for Last 24 Hours 06/08/21 06/09/21 06/10/21 23:59 23:59 23:59 Intake Total 1425.75 / 1425.75 1144.75 / 1144.75 Output Total 520 / 520 400 / 400 850 / 850 Balance 905.75 / 905.75 744.75 / 744.75 -850 / -850 Lab / Micro Data Result Diagrams: 06/10/21 07:25 06/10/21 07:25 Labs: Laboratory Results - last 24 hr 06/10/21 07:25: WBC 9.0, RBC 4.51, Hgb 14.3, Hct 42.2, MCV 93.6, MCH 31.7, MCHC 33.9, RDW Std Deviation 42.7, RDW Coeff of Brady 12.4, Plt Count 243, MPV 9.7 06/10/21 07:25: Sodium 135 L, Potassium 3.9, Chloride 101, Carbon Dioxide 27.0, Anion Gap 7, BUN 23 H, Creatinine 0.62, Estim Creat Clear Calc 97.11, Est GFR (MDRD) Af Amer 127, Est GFR (MDRD) Non-Af 105, BUN/Creatinine Ratio 36.8 H, Glucose 87, Calcium 9.0, Total Bilirubin 0.90, AST 64 H, ALT 63 H, Alkaline Ph osphatase 88, Total Protein 8.0, Albumin 2.8 L, Globulin 5.2 H, Albumin/Globulin Ratio 0.5 L Micro: Microbiology 06/08/21 03:45 Urine, Clean Catch Legionella Antigen - Final 06/08/21 03:45 Urine, Clean Catch Streptococcus pneumoniae Antigen (M - Final Physical Exam Narrative alert. BiPAP. HEENT Head and Scalp: normocephalic Resp normal respiratory effort and no retractions Cardio regular rate, regular rhythm, S1 normal heart sound and S2 normal heart sound GI normal to inspection, nondistended, normoactive bowel sounds, soft to palpation, non-tender and non-distended Extremity normal to inspection Assessment & Plan Assessment/Plan (1) Acute hypoxemic respiratory failure: (2) Pneumonia due to COVID-19 virus: PLAN: 1. acute hypoxic resp failure * 2/2 covid * on 100%fio2 on BIPAP. * anticipate further decompensation * transfer to ICU * give dose of furosemide 2. COVID 19 pneumonia * unvaccinated * on remd, dexa, slade 3.VTE prophylaxis: LMWH Advanced care planning: spent 16 minutes verifying with pt full code status. Explained high chance of intubation given her rapid decline. Charges/Coding Visit Charges Inpatient E&M: 61884 Subs Hosp L2 Procedures Hospitalists Procedures: [id number] Advncd Care Plan 30 Min
--- NOTE | 2021-06-10 12:53 | PCS.PANDOC ---
PANDEMIC DOCUMENTATION INITIATED: Date: 03/09/2021 Time: 190
[2021-06-10] MEDS: FLUoxetine 10 MG Capsule PO (22:15)
[2021-06-11] VITALS (42 sets, daily range): BP systolic 92–220; BP diastolic 56–134; PULSE 78–124; RESP 12–35; TEMP 37–38.8; O2SAT 82–94
[2021-06-11 04:09] LABS: Absolute Lymphocyte Count 0.88 X10^3/uL (0.83-4.51); Absolute Neutrophil Count 8.7 X10^3/uL (2.0-7.7); Basophil# 0.05 X10^3/uL; Basophil% 0.5 % (0-1); Eosinophil# 0.01 X10^3/uL; Eosinophils% 0.1 % (0-5); Hematocrit 43.4 % (37-47); Hemoglobin 15.8 g/dL (12.0-15.0); Lymphocyte # 0.88 X10^3/ul (0.83-4.51); Lymphocyte % 8.7 % (19-41); Mean Corp Hgb Conc 36.4 g/dL (32-36); Mean Corpuscular Hgb 33.7 pg (27.0-32.0); Mean Corpuscular Volume 92.5 fL (81-99); Mean Platelet Vol. 9.5 fl (6.2-12.0); Monocyte# 0.32 X10^3/uL; Monocyte% 3.2 % (0-10); NRBC Flagged by Analyzer 0 % (0-5); Neutrophil # 8.65 X10^3/uL (2.7-7.7); Neutrophil % 85.9 % (47-70); Platelet Count 300 K/mm3 (150-450); RBC Distribution Width CV 12.3 % (11.6-14.6); RBC Distribution Width SD 42.1 fl (35.1-43.9); Red Blood Count 4.69 M/mm3 (4.2-5.4); White Blood Count 10.1 K/mm3 (4.4-11.0)
[2021-06-11 04:22] LABS: ALB/GLOB Ratio 0.5 RATIO (0.9-2.4); AST(SGOT) 48 U/L (15-37); Alanine Aminotransfer ALT/SGPT 55 U/L (13-56); Albumin, Serum 2.8 g/dL (3.2-5.0); Alkaline Phosphatase 89 U/L (45-117); Anion Gap 8 (5-15); BUN 28 mg/dL (7-18); BUN/Creat Ratio 38.3 RATIO (10-20); Chloride 101 mmol/L (98-107); Creatinine, Serum 0.73 mg/dL (0.55-1.02); EST Glomerular Filtration Rate 88 mL/min (>60); Est Glom Filt Rate - Afr Amer 106 mL/min (>60); Estimated Creatinine Clearance 82.47 ml/min; Globulin 5.5 g/dL (2.2-4.2); Glucose 126 mg/dL (74-106); Protein, Total 8.3 g/dL (6.4-8.2); Sodium Level 135 mmol/L (136-145)
--- NOTE | 2021-06-11 06:19 | EX.PCM.CONCC ---
Assessment & Plan Assessment/Plan (1) Pneumonia due to COVID-19 virus: (2) Acute hypoxemic respiratory failure: PLAN: RECOMMENDATIONS: 1. Continue assist control mode mechanical ventilation. Wean FiO2/PEEP for saturations greater than 90%. 2. Maintain plateau pressures less than 30 cmH2O. 3. Start empiric antimicrobials and check MRSA screen. 4. Continue remdesivir as ordered to complete treatment course. 5. Continue Decadron and baricitinib. 6. Obtain and send sputum for culture. 7. Start appropriate GI prophylaxis. IMPRESSIONS: 1. Acute hypoxemic respiratory failure secondary to COVID-19 pneumonia The patient presented to the hospital with worsening dyspnea and hypoxemia. Given that she was within 10 days of symptom onset, remdesivir was initiated. The patient was also started on Decadron and baricitinib following evaluation by infectious diseases. There was no evidence for PE on CTA chest. Therefore, prophylactic Lovenox will be continued. Despite the aforementioned, the patient continued to worsen from a respiratory perspective and had to be transferred to the ICU and ultimately intubated on June 11 after she failed to respond to noninvasive positive pressure ventilatory support. Plan to continue assist control mode of mechanical ventilation and wean FiO2 and PEEP to maintain saturations at or above 90%. Strive to maintain plateau pressures less than 30 cm of water. 2. Obesity/hypertension Complicates care, management, recovery and prognosis. Hold home antihypertensives for now. TIME: 39 minutes of critical care time, inclusive of procedures, was spent addressing the patient's acute hypoxemic respiratory failure secondary to COVID-19 pneumonia, review of all data and collaboration with the care team. HPI Consult Data Date of Consult: 06/11/21 HPI Narrative Reason for Consultation: Acute hypoxemic respiratory failure secondary to COVID-19 pneumonia HPI Narrative: The patient is a 55-year-old female, with a history as outlined below, who presented to the emergency department on June 07 with worsening dyspnea and hypoxemia. The patient had been evaluated in the emergency department on June 05 with dyspnea. She was found to be positive for COVID-19 and did require supplemental oxygen and Decadron at the time of her discharge from the emergency department. The patient is unvaccinated against coronavirus. On presentation to the emergency department, the patient was noted to be afebrile and hemodynamically stable. Initial laboratory evaluation revealed no evidence of a leukocytosis. Chemistry profile was largely unremarkable. AST and ALT were mildly increased to 70 and 61, respectively. Procalcitonin was noted to be 0.13. Repeat CTA chest showed no evidence for pulmonary embolism. There was evidence of interstitial groundglass changes bilaterally. The patient was initially started on remdesivir, Decadron and Lovenox. In addition, following evaluation by infectious diseases, baricitinib was initiated. Due to increasing oxygen requirements, the patient was transferred to the medical intensive care unit on June 10. She has essentially been dependent on noninvasive positive pressure ventilatory support for 48 hours now. On my evaluation of the patient this morning, she was maintaining saturations around 90% on 100% FiO2. Given her lack of clinical improvement over the last 48 hours, despite being on noninvasive positive pressure ventilatory support, I did recommend proceeding with intubation. This was discussed with the patient. She is in agreement to proceed. Intubation Indication: Respiratory failure Consent was obtained from: Patient The patient was placed in the appropriate sniffing position. Preoxygenated sedation via BiPAP was provided for a minimum of 3 minutes. The patient had continuous cardiac as well as pulse oximetry monitoring during the procedure. Procedure sedation was provided by the administration of 4 mg of Versed, 20 mg of etomidate and 100 mg of succinylcholine. Direct laryngoscopy was then performed using a number 3 MAC blade, which revealed a grade 1 view. A 7.5 mm endotracheal tube was visualized advancing between the cords to the level of 24 cm at the lip. The stylette was then removed and discarded. Tube placement was confirmed by fogging in the tube along with equal and bilateral breath sounds. Colorimetric change was visualized on the CO2 meter. The cuff was then inflated and the tube secured using a commercially available device. A good pulse oximetry waveform was seen on the monitor throughout the procedure. A portable chest x-ray has been ordered to confirm appropriate placement. The patient tolerated the procedure well. [facility] Medical History Depression Hypertension Meniscal injury Home Medications cholecalciferol (vitamin D3) [Vitamin D3] 25 mcg PO DAILY 06/05/21 [History Last Taken Unknown] dexamethasone [Decadron] 6 mg PO DAILY #9 tab 06/05/21 [Rx Last Taken Unknown] fluoxetine 10 mg PO DAILY 06/05/21 [History Last Taken Unknown] hydrochlorothiazide 12.5 mg PO DAILY 06/05/21 [History Last Taken Unknown] loratadine 10 mg PO DAILY 06/05/21 [History Last Taken Unknown] losartan 50 mg PO DAILY 06/05/21 [History Last Taken Unknown] potassium chloride [Klor-Con M20] 20 meq PO BID 06/05/21 [History Last Taken Unknown] Allergy/AdvReac Type Severity Reaction Status Date / Time No Known Allergies Allergy Verified 06/07/21 17:00 Family History other Surgical History (Updated 06/07/21 @ 20:[address] Paramjit Mcclain MD) H/O knee surgery History of hysterectomy Previous back surgery Social History Smoking Status: Never smoker ROS Constitutional Constitutional: Reports chills, fatigue and malaise Eyes Eyes: Denies blurry vision or change in vision ENT HEENT: Reports headache(s); Denies dysphagia, epistaxis, nasal congestion or nasal discharge Cardiovascular Cardiovascular: Reports dyspnea; Denies chest pain Respiratory/Chest Respiratory/Chest: Reports cough and dyspnea Gastrointestinal Gastrointestinal: Denies abdominal pain, diarrhea, nausea or vomiting Genitourinary Genitourinary: Denies difficulty urinating Musculoskeletal Musculoskeletal: Denies arthralgias, back pain or joint pain Integumentary Integumentary: Denies lesions, rash or skin ulcer Neurologic Neurologic: Denies abnormal gait or abnormal speech Psychiatric Psychiatric: Denies anxiety or depression Endocrine Endocrinology: Denies fatigue or polydipsia Hematologic/Lymphatic Hematologic/Lymphatic: Denies easy bleeding or easy bruising Physical Exam Const alert General Appearance: cooperative, ill appearing and on BiPAP Nutritional Appearance: obese HEENT normocephalic and head/scalp atraumatic Eyes PERRL and EOMs intact bilaterally Neck supple General: trachea midline Resp Effort and Inspection: tachypneic Auscultation: diminished lung sounds Cardio regular rate and regular rhythm GI normal to inspection, nondistended, normoactive bowel sounds Extremity no clubbing, cyanosis or edema Skin no rashes or lesions noted Neuro CN's II-XII intact bilaterally and no focal motor deficits Psych cooperative and affect normal Lab / Micro Data Result Diagrams: 06/11/21 03:55 06/11/21 03:55 Labs: Laboratory Results - last 24 hr 06/10/21 07:25: WBC 9.0, RBC 4.51, Hgb 14.3, Hct 42.2, MCV 93.6, MCH 31.7, MCHC 33.9, RDW Std Deviation 42.7, RDW Coeff of Brady 12.4, Plt Count 243, MPV 9.7 06/10/21 07:25: Sodium 135 L, Potassium 3.9, Chloride 101, Carbon Dioxide 27.0, Anion Gap 7, BUN 23 H, Creatinine 0.62, Estim Creat Clear Calc 97.11, Est GFR (MDRD) Af Amer 127, Est GFR (MDRD) Non-Af 105, BUN/Creatinine Ratio 36.8 H, Glucose 87, Calcium 9.0, Total Bilirubin 0.90, AST 64 H, ALT 63 H, Alkaline Phosphatase 88, Total Protein 8.0, Albumin 2.8 L, Globulin 5.2 H, Albumin/Globulin Ratio 0.5 L 06/11/21 03:55: WBC 10.1, RBC 4.69, Hgb 15.8 H, Hct 43.4, MCV 92.5, MCH 33.7 H, MCHC 36.4 H D, RDW Std Deviation 42.1, RDW Coeff of Brady 12.3, Plt Count 300, MPV 9.5, Immature Gran % (Auto) 1.600 H, Neut % (Auto) 85.9 H, Lymph % (Auto) 8.7 L, [place] % (Auto) 3.2, Eos % (Auto) 0.1, Baso % (Auto) 0.5, Absolute Neuts (auto) 8.7 H, Absolute Lymphs (auto) 0.88, Nucleated RBC % 0 06/11/21 03:55: Sodium 135 L, Potassium 4.0, Chloride 101, Carbon Dioxide 26.0, Anion Gap 8, BUN 28 H, Creatinine 0.73, Estim Creat Clear Calc 82.47, Est GFR (MDRD) Af Amer 106, Est GFR (MDRD) Non-Af 88, BUN/Creatinine Ratio 38.3 H, Glucose 126 H, Calcium 9.0, Total Bilirubin 1.20 H, AST 48 H, ALT 55, Alkaline Phosphatase 89, Total Protein 8.3 H, Albumin 2.8 L, Globulin 5.5 H, Albumin/Globulin Ratio 0.5 L Charges/Coding Procedures Hospitalists Procedures: [id number] [facility]
[2021-06-11] MEDS: Midazolam 2 MG/2 ML Syringe 4 MG IV (09:20)
[2021-06-11] MEDS: Etomidate 20 MG/10 ML Vial IV (09:22)
[2021-06-11] MEDS: Propofol 10MG/Ml 1,000 MG/100 ML Bottle 6.6 MG CONT INF (09:25)
--- NOTE | 2021-06-11 09:55 | RAD_ITS ---
STUDY: X-RAY CHEST REASON FOR EXAM: Female, 55 years old. Fever and cough TECHNIQUE: Single AP portable view of the chest. COMPARISON: 06/07/2021 FINDINGS: Since the previous study, the patient has been intubated, tip of the ET tube is 4 cm above the marquise. NG tube tip not seen but is below the diaphragm. Lungs are expanded, the previously described opacifications in both lung logan have become more organized since the previous study. No demonstrated effusions. Normal size heart. Normal mediastinum and scott. Normal visualized pulmonary arteries. Normal visualized aortic arch and descending thoracic aorta. There are diffuse degenerative changes of the visualized thoracic spine. There is degenerative osteoarthritis of the bilateral shoulders. There is no demonstrated abnormality of the visualized soft tissue structures of the upper abdomen. RAD/Chest 1 View (Portable) IMPRESSION: Support lines and tubes as described. No complications Persistent though more consolidated opacifications in both lung logan since the previous study. No demonstrated effusions Electronically Signed: Mj Lira MD at 10:40 EST , Service support ,
--- NOTE | 2021-06-11 10:07 | NURSING ---
Dr. Jones at bedside to intubate patient. RT and RNs present as well. Versed 4mg given at 0920, Etomidate 20mg given at 0922, Succinylcholine 100mg given at 0923. Successful intubation with positive color change and equal b/l breath sounds at 0924. ETT 7.5, 24 lip. Vitals stable
--- NOTE | 2021-06-11 10:23 | RAD_ITS ---
STUDY: X-RAY - ABDOMEN/PELVIS REASON FOR EXAM: Female, 55 years old. NG tube placement TECHNIQUE: Single AP view of the abdomen / pelvis. COMPARISON: None. FINDINGS: Diffuse interstitial edema noted in the visualized lung bases. An NG tube has been placed, tip is in the body of the stomach There is an unremarkable bowel gas pattern. There is no demonstrated free abdominal air. The visualized liver, spleen and kidneys are grossly normal in size and morphology. Normal soft tissue structures. There are diffuse degenerative changes of the visualized lumbar spine. RAD/Abdomen Single View (Portable) IMPRESSION: NG tube tip in the body of the stomach Lung bases show interstitial edema Degenerative bony changes Electronically Signed: Mj Lira MD at 10:37 EST , Service support ,
[2021-06-11 10:30] LABS: Base Excess 1 mmol/L (-2 to +2); Bicarbonate 25.8 mmol/L (22-26); Blood Gas Specimen Type ART; FI02 100; Mode AC; O2 Delivery Device Adult Vent; PEEP 15; PO2 61 mmHG (75-100); RR 15; SO2 91 % (95-99); Total Carbon Dioxide 27 mmol/L; Vt 350; pCO2 42.7 mmHg (35-45); pH 7.39 (7.35-7.45)
[2021-06-11] MEDS: Propofol 10MG/Ml 1,000 MG/100 ML Bottle 32.9 MG CONT INF ×5 (10:32→19:55)
[2021-06-11 11:22] LABS: CPK Total, Creatine Kinase 66 U/L (26-192); Triglycerides 110 mg/dL
[2021-06-11] MEDS: Potassium Chloride Oral Tablet 20 MEQ PO (12:31)
[2021-06-11] MEDS: dexAMETHasone 4 MG Tablet 6 MG PO (12:31)
[2021-06-11] MEDS: Cholecalciferol (VIT D3) 25 MCG TABLET (1,000 UNITS) PO (12:31)
[2021-06-11] MEDS: Enoxaparin 40 MG/0.4 ML Syringe SC ×2 (12:31→21:33)
--- NOTE | 2021-06-11 12:43 | PN.HOSP_ITS ---
Subjective Subjective Intubated today. Objective Data Objective Data Vital Signs: Vital Signs Temp Pulse Resp BP Pulse Ox 37.3 C 112 H 15 140/83 H 93 06/11/21 08:00 06/11/21 11:45 06/11/21 11:00 06/11/21 11:30 06/11/21 11:00 Oxygen Flow Rate (L/min) 60 Oxygen Delivery Method Mechanical Ventilator Weight: 109.6 kg Body Mass Index (BMI) 40.4 Intake & Output: Intake and Output for Last 24 Hours 06/09/21 06/10/21 06/11/21 23:59 23:59 23:59 Intake Total 1144.75 / 1144.75 0 / 0 308.73 / 308.73 Output Total 400 / 400 2400 / 2800 850 / 850 Balance 744.75 / 744.75 -2400 / -2800 -541.27 / -541.27 Lab / Micro Data Result Diagrams: 06/11/21 03:55 06/11/21 03:55 Labs: Laboratory Results - last 24 hr 06/11/21 03:55: WBC 10.1, RBC 4.69, Hgb 15.8 H, Hct 43.4, MCV 92.5, MCH 33.7 H, MCHC 36.4 H D, RDW Std Deviation 42.1, RDW Coeff of Brady 12.3, Plt Count 300, MPV 9.5, Immature Gran % (Auto) 1.600 H, Neut % (Auto) 85.9 H, Lymph % (Auto) 8.7 L, [place] % (Auto) 3.2, Eos % (Auto) 0.1, Baso % (Auto) 0.5, Absolute Neuts (auto) 8.7 H, Absolute Lymphs (auto) 0.88, Nucleated RBC % 0 06/11/21 03:55: Sodium 135 L, Potassium 4.0, Chloride 101, Carbon Dioxide 26.0, Anion Gap 8, BUN 28 H, Creatinine 0.73, Estim Creat Clear Calc 82.47, Est GFR (MDRD) Af Amer 106, Est GFR (MDRD) Non-Af 88, BUN/Creatinine Ratio 38.3 H, Glucose 126 H, Calcium 9.0, Total Bilirubin 1.20 H, AST 48 H, ALT 55, Alkaline Phosphatase 89, Total Protein 8.3 H, Albumin 2.8 L, Globulin 5.5 H, Albumin/Globulin Ratio 0.5 L 06/11/21 10:50: Total Creatine Kinase 66, Triglycerides 110 Micro: Microbiology 06/11/21 11:00 Urine Catheter - Lewis Legionella Antigen - Final 06/11/21 11:00 Urine Catheter - Lewis Streptococcus pneumoniae Antigen (M - Final 06/08/21 03:45 Urine, Clean Catch Legionella Antigen - Final 06/08/21 03:45 Urine, Clean Catch Streptococcus pneumoniae Antigen (M - Final ABG Data ABG results: ABG 06/11/21 10:22 Specimen Type ART pH 7.39 Bicarbonate Actual 25.8 Total CO2 27 Base Excess 1 O2 Saturation 91 L O2 % 100 ABG pCO2 42.7 ABG pO2 61 L Respiration Rate 15 O2 Delivery Device Adult Vent Vent Mode AC Tidal Volume 350 POC PEEP 15 Radiography Diagnostic Testing: Radiology Impression Chest X-Ray 06/11/21 09:55 IMPRESSION: Support lines and tubes as described. No complications Persistent though more consolidated opacifications in both lung logan since the previous study. No demonstrated effusions Electronically Signed: Mj Lira MD at 10:40 EST , Service support , KUB X-Ray 06/11/21 10:23 IMPRESSION: NG tube tip in the body of the stomach Lung bases show interstitial edema Degenerative bony changes Electronically Signed: Mj Lira MD at 10:37 EST , Service support , Physical Exam Const Constitutional Narrative: intubated. sedated. Resp normal respiratory effort and no retractions Resp Narrative: coarse BS bilaterally. Cardio regular rate, regular rhythm, S1 normal heart sound and S2 normal heart sound GI normal to inspection, nondistended, normoactive bowel sounds, soft to palpation, non-tender and non-distended Extremity normal to inspection Skin no rashes or lesions noted Assessment & Plan Assessment/Plan (1) Acute hypoxemic respiratory failure: (2) Pneumonia due to COVID-19 virus: PLAN: 1. acute hypoxic resp failure * 2/2 covid * intubated 06/11. currently on cisatracurium, propofol, fentanyl, dexmedetomidine. 100% FiO2. * CCM mgmt appreciated 2. COVID 19 pneumonia * unvaccinated * on remd, dexa, slade * ID following 3.VTE prophylaxis: LMWH 4. Prognosis: guarded. Charges/Coding Visit Charges Inpatient E&M: 28654 Subs Hosp L2
[2021-06-11 12:56] LABS: International Normalized Ratio 1.4; Prothrombin Time (Protime)PT. 16.7 SECONDS (11.7-14.9)
[2021-06-11 13:11] LABS: M R Staph aureus DNA By PCR Negative (Negative); Probe Check PASS; Specimen Processing Control PASS
[2021-06-11] MEDS: Potassium Chloride Oral Tablet 20 MEQ GT (21:33)
[2021-06-11] MEDS: FLUoxetine 10 MG Capsule GT (21:33)
[2021-06-11] MEDS: Propofol 10MG/Ml 1,000 MG/100 ML Bottle 26.3 MG CONT INF (23:04)
[2021-06-11] MEDS: Acetaminophen 650 MG/20 ML UDC GT (23:41)
[2021-06-12] VITALS (33 sets, daily range): BP systolic 76–106; BP diastolic 48–70; PULSE 61–91; RESP 15–16; TEMP 37.4–38.6; O2SAT 89–95
[2021-06-12] MEDS: Propofol 10MG/Ml 1,000 MG/100 ML Bottle 23 MG CONT INF (02:28)
[2021-06-12] MEDS: 0.9% Saline Lock 10 ML Syringe IV ×2 (03:13→11:38)
[2021-06-12 03:25] LABS: Absolute Lymphocyte Count 0.44 X10^3/uL (0.83-4.51); Absolute Neutrophil Count 9.2 X10^3/uL (2.0-7.7); Basophil# 0.05 X10^3/uL; Basophil% 0.5 % (0-1); Eosinophil# 0.02 X10^3/uL; Eosinophils% 0.2 % (0-5); Hematocrit 38.6 % (37-47); Hemoglobin 12.8 g/dL (12.0-15.0); Lymphocyte # 0.44 X10^3/ul (0.83-4.51); Lymphocyte % 4.3 % (19-41); Mean Corp Hgb Conc 33.2 g/dL (32-36); Mean Corpuscular Hgb 32.9 pg (27.0-32.0); Mean Corpuscular Volume 99.2 fL (81-99); Mean Platelet Vol. 9.6 fl (6.2-12.0); Monocyte# 0.22 X10^3/uL; Monocyte% 2.2 % (0-10); NRBC Flagged by Analyzer 0 % (0-5); Neutrophil # 9.24 X10^3/uL (2.7-7.7); Neutrophil % 90.8 % (47-70); POSITIVE DIFFERENTIAL YES; Platelet Count 214 K/mm3 (150-450); RBC Distribution Width CV 12.4 % (11.6-14.6); RBC Distribution Width SD 45.2 fl (35.1-43.9); Red Blood Count 3.89 M/mm3 (4.2-5.4); White Blood Count 10.2 K/mm3 (4.4-11.0)
[2021-06-12 03:32] LABS: Differential Indicated SCAN CRITERIA MET
[2021-06-12 03:45] LABS: Anion Gap 1 (5-15); BUN 30 mg/dL (7-18); BUN/Creat Ratio 33.6 RATIO (10-20); Calcium,Total 7.4 mg/dL (8.5-10.1); Chloride 102 mmol/L (98-107); Creatinine, Serum 0.89 mg/dL (0.55-1.02); EST Glomerular Filtration Rate 70 mL/min (>60); Est Glom Filt Rate - Afr Amer 84 mL/min (>60); Estimated Creatinine Clearance 67.65 ml/min; Glucose 175 mg/dL (74-106); Potassium 5.1 mmol/L (3.5-5.1); Sodium Level 133 mmol/L (136-145)
[2021-06-12] MEDS: TITRATION PARAMETER CHANGE 1 EACH IV (05:35)
[2021-06-12] MEDS: Propofol 10MG/Ml 1,000 MG/100 ML Bottle 23.2 MG CONT INF (06:12)
--- NOTE | 2021-06-12 06:19 | PN.CC_ITS ---
Assessment & Plan Assessment/Plan (1) Pneumonia due to COVID-19 virus: (2) Acute hypoxemic respiratory failure: PLAN: RECOMMENDATIONS: 1. Continue patient on assist control mode mechanical ventilation. Wean FiO2 and PEEP for saturations greater than 90%. 2. Maintain plateau pressures less than 30. 3. Continue current sedation regimen. 4. Continue cis atracurium for at least 24 additional hours. 5. Continue empiric antimicrobials. 6. Continue prophylactic Lovenox along with Decadron and baricitinib. 7. Continue appropriate GI prophylaxis. IMPRESSIONS: 1. Acute hypoxemic respiratory failure secondary to COVID-19 pneumonia The patient presented to the hospital with worsening dyspnea and hypoxemia. Given that she was within 10 days of symptom onset, remdesivir was initiated. The patient has since completed a treatment course of remdesivir. She will be continued on Decadron and baricitinib. There was no evidence for PE on CTA chest. Therefore, prophylactic Lovenox will be continued. Despite the aforementioned, the patient continued to worsen from a respiratory perspective and had to be transferred to the ICU and ultimately intubated on June 11 after she failed to respond to noninvasive positive pressure ventilatory support. Plan to continue assist control mode of mechanical ventilation and wean FiO2 and PEEP to maintain saturations at or above 90%. Strive to maintain plateau pressures less than 30 cm of water. Continue empiric antimicrobials. Continue paralytic agent for at least an additional 24 hours. 2. Obesity/hypertension Complicates care, management, recovery and prognosis. Hold home antihypertensives for now. TIME: 34 minutes of critical care time, inclusive of procedures, was spent addressing the patient's acute hypoxemic respiratory failure secondary to COVID-19 pneumonia, review of all data and collaboration with the care team. Subjective Subjective The patient was seen and examined at the bedside this morning. Events from the last 24 hours have been reviewed. The patient has been febrile with a T-max overnight of 102 ?F. The patient remains on assist control mode of mechanical ventilation with an FiO2 requirement of 100% and PEEP of 15. She remains sedated on a combination of propofol, fentanyl and Precedex. She is pharmacologically paralyzed on cis atracurium. The patient is currently documented to be overall net even for the hospitalization. Renal function is stable. The patient remains on empiric antimicrobials, twice daily Lovenox, Decadron and baricitinib. Objective Data Objective Data The patient's most recent lab work, culture data and imaging studies have all been personally reviewed. Rapid coronavirus antigen testing was positive on N ovember 12. Strep and urine Legionella antigens were negative. Sputum culture is pending. MRSA screen was negative. Vital Signs: Vital Signs Temp Pulse Resp BP Pulse Ox 101 F H 70 15 89/58 L 93 06/12/21 06:00 06/12/21 06:00 06/12/21 06:00 06/12/21 06:00 06/12/21 06:00 Oxygen Flow Rate (L/min) 100 Oxygen Delivery Method Mechanical Ventilator Weight: 110.7 kg Body Mass Index (BMI) 40.4 Intake & Output: Intake and Output for Last 24 Hours 06/10/21 06/11/21 06/12/21 23:59 23:59 23:59 Intake Total 0 / 0 1920.18 / 1993.36 796.45 / 796.45 Output Total 2400 / 2800 1675 / 1675 200 / 200 Balance -2400 / -2800 245.18 / 318.36 596.45 / 596.45 Lab / Micro Data Attestation: I reviewed the patient's lab results. Result Diagrams: 06/12/21 03:10 06/12/21 03:10 Labs: Laboratory Results - last 24 hr 06/11/21 10:50: Total Creatine Kinase 66, Triglycerides 110 06/11/21 11:00: MRSA (PCR) Negative 06/11/21 12:35: PT 16.7 H, INR 1.4 06/12/21 03:10: WBC 10.2, RBC 3.89 L, Hgb 12.8, Hct 38.6, MCV 99.2 H D, MCH 32.9 H, MCHC 33.2 D, RDW Std Deviation 45.2 H, RDW Coeff of Brady 12.4, Plt Count 214, MPV 9.6, Immature Gran % (Auto) 2.000 H, Neut % (Auto) 90.8 H, Lymph % (Auto) 4.3 L, [place] % (Auto) 2.2, Eos % (Auto) 0.2, Baso % (Auto) 0.5, Absolute Neuts (auto) 9.2 H, Absolute Lymphs (auto) 0.44 L, Nucleated RBC % 0 06/12/21 03:10: Sodium 133 L, Potassium 5.1, Chloride 102, Carbon Dioxide 30.0, Anion Gap 1 L, BUN 30 H, Creatinine 0.89, Estim Creat Clear Calc 67.65, Est GFR (MDRD) Af Amer 84, Est GFR (MDRD) Non-Af 70, BUN/Creatinine Ratio 33.6 H, Glucose 175 H, Calcium 7.4 L Micro: Microbiology 06/11/21 11:00 Urine Catheter - Lewis Legionella Antigen - Final 06/11/21 11:00 Urine Catheter - Lewis Streptococcus pneumoniae Antigen (M - Final 06/08/21 03:45 Urine, Clean Catch Legionella Antigen - Final 06/08/21 03:45 Urine, Clean Catch Streptococcus pneumoniae Antigen (M - Final ABG Data ABG results: ABG 06/11/21 10:22 Specimen Type ART pH 7.39 Bicarbonate Actual 25.8 Total CO2 27 Base Excess 1 O2 Saturation 91 L O2 % 100 ABG pCO2 42.7 ABG pO2 61 L Respiration Rate 15 O2 Delivery Device Adult Vent Vent Mode AC Tidal Volume 350 POC PEEP 15 Radiography Diagnostic Testing: Radiology Impression Chest X-Ray 06/11/21 09:55 IMPRESSION: Support lines and tubes as described. No complications Persistent though more consolidated opacifications in both lung logan since the previous study. No demonstrated effusions Electronically Signed: Mj Lira MD at 10:40 EST , Service support , KUB X-Ray 06/11/21 10:23 IMPRESSION: NG tube tip in the body of the stomach Lung bases show interstitial edema Degenerative bony changes Electronically Signed: Mj Lira MD at 10:37 EST , Service support , Physical Exam Const General Appearance: intubated and patient mechanically ventilated Nutritional Appearance: obese HEENT normocephalic and head/scalp atraumatic Mouth: endotracheal tube in place and OG tube in place Eyes PERRL and EOMs intact bilaterally Neck supple General: trachea midline Chest inspection of chest normal Resp Auscultation: diminished lung sounds; Negative for rales, rhonchi or wheezes Cardio regular rate and regular rhythm GI normal to inspection, nondistended, normoactive bowel sounds Extremity no clubbing, cyanosis or edema Skin no rashes or lesions noted Neuro Sensorium / Orientation: sedated on vent Charges/Coding Procedures Hospitalists Procedures: [id number] Critial Care 1st Hr
[2021-06-12] MEDS: Cholecalciferol (VIT D3) 25 MCG TABLET (1,000 UNITS) GT (09:25)
[2021-06-12] MEDS: dexAMETHasone 4 MG Tablet 6 MG GT (09:26)
[2021-06-12] MEDS: Enoxaparin 40 MG/0.4 ML Syringe SC ×2 (09:26→22:25)
[2021-06-12] MEDS: CHLORHEXIDINE GLUC 2% CLOTH 1 EACH TOWELETTE TOPICAL (09:31)
[2021-06-12] MEDS: Chlorhexidine 15 ML PO ×2 (09:31→22:14)
--- NOTE | 2021-06-12 10:16 | PN.HOSP_ITS ---
Subjective Subjective on vent. intubated and sedated. Objective Data Objective Data Vital Signs: Vital Signs Temp Pulse Resp BP Pulse Ox 37.9 C H 67 15 87/57 L 94 06/12/21 10:00 06/12/21 10:00 06/12/21 10:00 06/12/21 10:00 06/12/21 10:00 Oxygen Flow Rate (L/min) 100 Oxygen Delivery Method Mechanical Ventilator Weight: 110.7 kg Body Mass Index (BMI) 40.4 Intake & Output: Intake and Output for Last 24 Hours 06/10/21 06/11/21 06/12/21 23:59 23:59 23:59 Intake Total 0 / 0 1920.18 / 1993.36 1077.37 / 1077.37 Output Total 2400 / 2800 1675 / 1675 280 / 280 Balance -2400 / -2800 245.18 / 318.36 797.37 / 797.37 Lab / Micro Data Result Diagrams: 06/12/21 03:10 06/12/21 03:10 Labs: Laboratory Results - last 24 hr 06/11/21 10:50: Total Creatine Kinase 66, Triglycerides 110 06/11/21 11:00: MRSA (PCR) Negative 06/11/21 12:35: PT 16.7 H, INR 1.4 06/12/21 03:10: WBC 10.2, RBC 3.89 L, Hgb 12.8, Hct 38.6, MCV 99.2 H D, MCH 32.9 H, MCHC 33.2 D, RDW Std Deviation 45.2 H, RDW Coeff of Brady 12.4, Plt Count 214, MPV 9.6, Immature Gran % (Auto) 2.000 H, Neut % (Auto) 90.8 H, Lymph % (Auto) 4.3 L, [place] % (Auto) 2.2, Eos % (Auto) 0.2, Baso % (Auto) 0.5, Absolute Neuts (auto) 9.2 H, Absolute Lymphs (auto) 0.44 L, Nucleated RBC % 0 06/12/21 03:10: Sodium 133 L, Potassium 5.1, Chloride 102, Carbon Dioxide 30.0, Anion Gap 1 L, BUN 30 H, Creatinine 0.89, Estim Creat Clear Calc 67.65, Est GFR (MDRD) Af Amer 84, Est GFR (MDRD) Non-Af 70, BUN/Creatinine Ratio 33.6 H, Glucose 175 H, Calcium 7.4 L Micro: Microbiology 06/11/21 11:00 Urine Catheter - Lewis Legionella Antigen - Final 06/11/21 11:00 Urine Catheter - Lewis Streptococcus pneumoniae Antigen (M - Final 06/08/21 03:45 Urine, Clean Catch Legionella Antigen - Final 06/08/21 03:45 Urine, Clean Catch Streptococcus pneumoniae Antigen (M - Final ABG Data ABG results: ABG 06/11/21 10:22 Specimen Type ART pH 7.39 Bicarbonate Actual 25.8 Total CO2 27 Base Excess 1 O2 Saturation 91 L O2 % 100 ABG pCO2 42.7 ABG pO2 61 L Respiration Rate 15 O2 Delivery Device Adult Vent Vent Mode AC Tidal Volume 350 POC PEEP 15 Radiography Diagnostic Testing: Radiology Impression Chest X-Ray 06/11/21 09:55 IMPRESSION: Support lines and tubes as described. No complications Persistent though more consolidated opacifications in both lung logan since the previous study. No demonstrated effusions Electronically Signed: Mj Lira MD at 10:40 EST , Service support , KUB X-Ray 06/11/21 10:23 IMPRESSION: NG tube tip in the body of the stomach Lung bases show interstitial edema Degenerative bony changes Electronically Signed: Mj Lira MD at 10:37 EST , Service support , Physical Exam Const Constitutional Narrative: intubated and sedated. Resp normal respiratory effort, no retractions, no use of accessory muscles and clear to auscultation bilaterally Cardio regular rate, regular rhythm, S1 normal heart sound and S2 normal heart sound GI normal to inspection, nondistended, normoactive bowel sounds, soft to palpation, non-tender and non-distended Extremity normal to inspection Assessment & Plan Assessment/Plan (1) Acute hypoxemic respiratory failure: (2) Pneumonia due to COVID-19 virus: PLAN: 1. acute hypoxic resp failure * 2/2 covid * intubated 06/11. currently on cisatracurium, propofol, fentanyl, dexmedetomidine. 90% FiO2. * CCM mgmt appreciated 2. COVID 19 pneumonia * unvaccinated * on remd, dexa, slade * ID following 3.VTE prophylaxis: LMWH 4. Prognosis: guarded. Charges/Coding Visit Charges Inpatient E&M: 74706 Subs Hosp L2
[2021-06-12] MEDS: Propofol 10MG/Ml 1,000 MG/100 ML Bottle 16.6 MG CONT INF (11:42)
--- NOTE | 2021-06-12 15:18 | PCM.PN.ID ---
Physical Exam Narrative On vent, paralyzed Resp Auscultation: diminished lung sounds Cardio regular rate and regular rhythm Skin no rashes or lesions noted ID ID: Route of nutrition/ use of supplements: [] Nutritional Intake: [] IV Site: [] Lewis Catheter: [] Assessment & Plan Assessment/Plan (1) Pneumonia due to COVID-19 virus: PLAN: Sx since 05/30/21. Unvaccinated. Recommend vaccine after discharge; isolate until 06/19/21. On dex, baricitinib, completed remdesivir. Now on vent, paralyzed. Sputum with strep; on zosyn. Will follow (2) Acute hypoxemic respiratory failure:
[2021-06-12] MEDS: Propofol 10MG/Ml 1,000 MG/100 ML Bottle 3.3 MG CONT INF (22:16)
[2021-06-12] MEDS: FLUoxetine 10 MG Capsule GT (22:25)
[2021-06-13] VITALS (37 sets, daily range): BP systolic 98–140; BP diastolic 58–85; PULSE 60–83; RESP 14–17; TEMP 37.1–37.6; O2SAT 91–95
[2021-06-13] MEDS: CHLORHEXIDINE GLUC 2% CLOTH 1 EACH TOWELETTE TOPICAL (05:07)
[2021-06-13 05:24] LABS: Hematocrit 38.8 % (37-47); Hemoglobin 12.8 g/dL (12.0-15.0); Mean Corpuscular Hgb 32.1 pg (27.0-32.0); Mean Corpuscular Volume 97.2 fL (81-99); POSITIVE COUNT YES; POSITIVE MORPHOLOGY YES; Platelet Count 238 K/mm3 (150-450); RBC Distribution Width CV 12.1 % (11.6-14.6); RBC Distribution Width SD 43.8 fl (35.1-43.9); Red Blood Count 3.99 M/mm3 (4.2-5.4); White Blood Count 9.4 K/mm3 (4.4-11.0)
[2021-06-13 05:27] LABS: Differential Indicated MANUAL DIFF
--- NOTE | 2021-06-13 05:30 | PCM.PN.INT ---
Assessment & Plan Assessment/Plan (1) Pneumonia due to COVID-19 virus: (2) Acute hypoxemic respiratory failure: PLAN: RECOMMENDATIONS: 1. Continue patient on assist control mode mechanical ventilation. Wean FiO2 and PEEP for saturations greater than 90%. 2. Maintain plateau pressures less than 30. 3. Continue current sedation regimen. 4. Wean from cis atracurium today. 5. Continue empiric antimicrobials. 6. Continue prophylactic Lovenox along with Decadron and baricitinib. 7. Continue appropriate GI prophylaxis. 8. Gentle IV fluid hydration, given interval development of BRENDEN. IMPRESSIONS: 1. Acute hypoxemic respiratory failure secondary to COVID-19 pneumonia The patient presented to the hospital with worsening dyspnea and hypoxemia. Given that she was within 10 days of symptom onset, remdesivir was initiated. The patient has since completed a treatment course of remdesivir. She will be continued on Decadron and baricitinib. There was no evidence for PE on CTA chest. Therefore, prophylactic Lovenox will be continued. Despite the aforementioned, the patient continued to worsen from a respiratory perspective and had to be transferred to the ICU and ultimately intubated on June 11 after she failed to respond to noninvasive positive pressure ventilatory support. Plan to continue assist control mode of mechanical ventilation and wean FiO2 and PEEP to maintain saturations at or above 90%. Strive to maintain plateau pressures less than 30 cm of water. Continue empiric antimicrobials. Plan to wean off cis atracurium completely today. 2. Acute kidney injury Likely prerenal in etiology. We will start gentle IV fluid hydration today, given improvement in oxygenation status. Continue to monitor urine output for now. No current indication for renal replacement therapy. 3. Obesity/hypertension Complicates care, management, recovery and prognosis. Continue to hold home antihypertensives for now. TIME: 32 minutes of critical care time, inclusive of procedures, was spent addressing the patient's acute hypoxemic respiratory failure secondary to COVID-19 pneumonia, acute kidney injury, review of all data and collaboration with the care team. Subjective Subjective The patient was seen and examined at the bedside this morning. Events from the last 24 hours have been reviewed. The patient is currently afebrile hemodynamically stable. She remains on assist control mode mechanical ventilation with an FiO2 requirement of 60% and PEEP of 15. She remains sedated on a combination of propofol, fentanyl and Precedex. She is pharmacologically paralyzed on cis atracurium. The patient is currently documented to be overall net +950 mL for the hospital admission. Urine output has been on the low side. The patient remains on empiric antimicrobials, twice daily Lovenox, Decadron and baricitinib. Creatinine has worsened this morning to 1.63. Objective Data Objective Data The patient's most recent lab work, culture data and imaging studies have all been personally reviewed. Rapid coronavirus antigen testing was positive on June 05. Strep and urine Legionella antigens were negative. Sputum culture is pending. MRSA screen was negative. Vital Signs: Vital Signs Temp Pulse Resp BP Pulse Ox 99.1 F 80 15 118/67 94 06/13/21 03:00 06/13/21 04:31 06/13/21 04:31 06/13/21 03:00 06/13/21 04:31 Oxygen Flow Rate (L/min) 100 Oxygen Delivery Method Mechanical Ventilator Weight: 113.5 kg Body Mass Index (BMI) 40.4 Intake & Output: Intake and Output for Last 24 Hours 06/11/21 06/12/21 06/13/21 23:59 23:59 23:59 Intake Total 1920.18 / 1993.36 2014.86 / 2060.56 200.10 / 200.10 Output Total 1675 / 1675 445 / 770 325 / 325 Balance 245.18 / 318.36 1569.86 / 1290.56 -124.90 / -124.90 Lab / Micro Data Attestation: I reviewed the patient's lab results. Result Diagrams: 06/13/21 05:00 06/13/21 05:00 Labs: Laboratory Results - last 24 hr 06/13/21 05:00: WBC 9.4, RBC 3.99 L, Hgb 12.8, Hct 38.8, MCV 97.2, MCH 32.1 H, MCHC 33.0, RDW Std Deviation 43.8, RDW Coeff of Brady 12.1, Plt Count 238, MPV 10.0, Neut % (Auto) Not Reportable Micro: Microbiology 06/11/21 09:34 Sputum, Induced/Lukens Gram Stain - Final 06/11/21 09:34 Sputum, Induced/Lukens Respiratory Culture - Preliminary Alpha Hemolytic Streptococcus 06/11/21 11:00 Urine Catheter - Lewis Legionella Antigen - Final 06/11/21 11:00 Urine Catheter - Lewis Streptococcus pneumoniae Antigen (M - Final 06/08/21 03:45 Urine, Clean Catch Legionella Antigen - Final 06/08/21 03:45 Urine, Clean Catch Streptococcus pneumoniae Antigen (M - Final Physical Exam Const General Appearance: intubated and patient mechanically ventilated Nutritional Appearance: obese HEENT normocephalic and head/scalp atraumatic Mouth: endotracheal tube in place and OG tube in place Eyes PERRL and EOMs intact bilaterally Neck supple General: trachea midline Chest inspection of chest normal Resp Auscultation: diminished lung sounds; Negative for rales, rhonchi or wheezes Cardio regular rate and regular rhythm GI normal to inspection, nondistended, normoactive bowel sounds Extremity no clubbing, cyanosis or edema Skin no rashes or lesions noted Neuro Sensorium / Orientation: sedated on vent Charges/Coding Procedures Hospitalists Procedures: [id number] Critial Care 1st Hr
[2021-06-13 05:45] LABS: Absolute Neutrophil Count 7.4 X10^3/uL (2.0-7.7)
[2021-06-13 05:46] LABS: Absolute Lymphocyte Count 0.84 X10^3/uL (0.83-4.51); Eosinophil 1 % (0-5); Lymphocyte 9 % (19-41); Metamyelocyte 2 % (0-1); Monocyte 3 % (0-10); Myelocyte 6 % (0-0); Neutrophil-Band 2 % (0-5); Neutrophil-Segmented 77 % (47-70)
[2021-06-13 05:47] LABS: Platelet Estimate ADEQUATE (ADEQ)
[2021-06-13 05:48] LABS: Red Cell Morphology NORM C+C NORMAL (NORM C&C)
[2021-06-13 05:56] LABS: ALB/GLOB Ratio 0.4 RATIO (0.9-2.4); AST(SGOT) 30 U/L (15-37); Alanine Aminotransfer ALT/SGPT 40 U/L (13-56); Alkaline Phosphatase 62 U/L (45-117); Anion Gap 6 (5-15); BUN 57 mg/dL (7-18); Calcium,Total 7.9 mg/dL (8.5-10.1); Chloride 106 mmol/L (98-107); Creatinine, Serum 1.63 mg/dL (0.55-1.02); EST Glomerular Filtration Rate 35 mL/min (>60); Est Glom Filt Rate - Afr Amer 42 mL/min (>60); Estimated Creatinine Clearance 36.94 ml/min; Globulin 4.8 g/dL (2.2-4.2); Glucose 112 mg/dL (74-106); Potassium 4.4 mmol/L (3.5-5.1); Protein, Total 6.8 g/dL (6.4-8.2); Sodium Level 137 mmol/L (136-145)
[2021-06-13] MEDS: 0.45% Normal Saline 1,000 ML 100 ML IV ×2 (08:12→18:05)
[2021-06-13] MEDS: Chlorhexidine 15 ML PO ×2 (08:41→19:50)
[2021-06-13] MEDS: dexAMETHasone 4 MG Tablet 6 MG GT (10:29)
[2021-06-13] MEDS: Cholecalciferol (VIT D3) 25 MCG TABLET (1,000 UNITS) GT (10:30)
[2021-06-13] MEDS: Enoxaparin 40 MG/0.4 ML Syringe SC ×2 (10:30→19:51)
[2021-06-13] MEDS: Senna/Docusate Sodium 1 Tablet 2 TABLET GT (10:30)
[2021-06-13] MEDS: Vital AF 1.2 Cal Liquid 1,000 ML 25 ML GT (10:37)
[2021-06-13] MEDS: 0.9% Saline Lock 10 ML Syringe IV (10:45)
--- NOTE | 2021-06-13 13:20 | PN.HOSP_ITS ---
Subjective Subjective Decreased FiO2. Taken off cisatracurium. Objective Data Objective Data Vital Signs: Vital Signs Temp Pulse Resp BP Pulse Ox 37.5 C H 76 16 118/68 94 06/13/21 12:00 06/13/21 12:00 06/13/21 12:00 06/13/21 12:00 06/13/21 12:00 Oxygen Flow Rate (L/min) 100 Oxygen Delivery Method Mechanical Ventilator Weight: 113.5 kg Body Mass Index (BMI) 40.4 Intake & Output: Intake and Output for Last 24 Hours 06/11/21 06/12/21 06/13/21 23:59 23:59 23:59 Intake Total 1920.18 / 1993.36 2014.86 / 2060.56 1031.56 / 1031.56 Output Total 1675 / 1675 445 / 770 650 / 650 Balance 245.18 / 318.36 1569.86 / 1290.56 381.56 / 381.56 Lab / Micro Data Result Diagrams: 06/13/21 05:00 06/13/21 05:00 Labs: Laboratory Results - last 24 hr 06/13/21 05:00: WBC 9.4, RBC 3.99 L, Hgb 12.8, Hct 38.8, MCV 97.2, MCH 32.1 H, MCHC 33.0, RDW Std Deviation 43.8, RDW Coeff of Brady 12.1, Plt Count 238, MPV 10.0, Neut % (Auto) Not Reportable, Absolute Neuts (auto) 7.4, Absolute Lymphs (auto) 0.84, Neutrophils % (Manual) 77 H, Band Neutrophils % 2, Lymphocytes % (Manual) 9 L, Monocytes % (Manual) 3, Eosinophils % (Manual) 1, Metamyelocytes % 2 H, Myelocytes % 6 H, Diff Path Review May , Platelet Estimate ADEQUATE, RBC Morphology NORM C+C 06/13/21 05:00: Sodium 137, Potassium 4.4, Chloride 106, Carbon Dioxide 25.0, Anion Gap 6, BUN 57 H, Creatinine 1.63 H, Estim Creat Clear Calc 36.94, Est GFR (MDRD) Af Amer 42 L, Est GFR (MDRD) Non-Af 35 L, BUN/Creatinine Ratio 35.0 H, Glucose 112 H, Calcium 7.9 L, Total Bilirubin 0.80, AST 30, ALT 40, Alkaline Phosphatase 62, Total Protein 6.8, Albumin 2.0 L, Globulin 4.8 H, Albumin/Globulin Ratio 0.4 L Micro: Microbiology 06/11/21 09:34 Sputum, Induced/Lukens Gram Stain - Final 06/11/21 09:34 Sputum, Induced/Lukens Respiratory Culture - Final 06/11/21 11:00 Urine Catheter - Lewis Legionella Antigen - Final 06/11/21 11:00 Urine Catheter - Lewis Streptococcus pneumoniae Antigen (M - Final 06/08/21 03:45 Urine, Clean Catch Legionella Antigen - Final 06/08/21 03:45 Urine, Clean Catch Streptococcus pneumoniae Antigen (M - Final Physical Exam Const Constitutional Narrative: intubated. sedated. afebrile. HEENT head/scalp atraumatic Head and Scalp: normocephalic Resp normal respiratory effort, no retractions, no use of accessory muscles and clear to auscultation bilaterally Cardio regular rate, regular rhythm, S1 normal heart sound and S2 normal heart sound GI normal to inspection, nondistended, normoactive bowel sounds, soft to palpation, non-tender and non-distended Assessment & Plan Assessment/Plan (1) Acute hypoxemic respiratory failure: (2) Pneumonia due to COVID-19 virus: PLAN: 1. acute hypoxic resp failure * improving * 2/2 covid * intubated 06/11. currently on propofol, fentanyl, dexmedetomidine. 90% FiO2. * CCM mgmt appreciated 2. COVID 19 pneumonia * onset 05/30, quarantine through 06/19 * unvaccinated * on remd, dexa, slade * ID following 3.VTE prophylaxis: LMWH 4. Prognosis: guarded. Charges/Coding Visit Charges Inpatient E&M: 08612 Subs Hosp L2
[2021-06-13] MEDS: Propofol 10MG/Ml 1,000 MG/100 ML Bottle 3.4 MG CONT INF (13:25)
[2021-06-13] MEDS: FLUoxetine 10 MG Capsule GT (19:50)
[2021-06-13] MEDS: Vital AF 1.2 Cal Liquid 1,000 ML 35 ML GT (21:44)
[2021-06-14] VITALS (33 sets, daily range): BP systolic 98–141; BP diastolic 61–80; PULSE 60–87; RESP 15–26; TEMP 37.1–38.3; O2SAT 88–94
[2021-06-14 04:25] LABS: Absolute Lymphocyte Count 0.65 X10^3/uL (0.83-4.51); Absolute Neutrophil Count 6.3 X10^3/uL (2.0-7.7); Basophil# 0.02 X10^3/uL; Basophil% 0.3 % (0-1); Eosinophil# 0.08 X10^3/uL; Hematocrit 34.1 % (37-47); Hemoglobin 11.2 g/dL (12.0-15.0); Lymphocyte # 0.65 X10^3/ul (0.83-4.51); Lymphocyte % 8.4 % (19-41); Mean Corp Hgb Conc 32.8 g/dL (32-36); Mean Corpuscular Hgb 31.8 pg (27.0-32.0); Mean Corpuscular Volume 96.9 fL (81-99); Mean Platelet Vol. 9.7 fl (6.2-12.0); Monocyte# 0.36 X10^3/uL; Monocyte% 4.7 % (0-10); NRBC Flagged by Analyzer 0 % (0-5); Neutrophil # 6.26 X10^3/uL (2.7-7.7); Neutrophil % 81.3 % (47-70); Platelet Count 221 K/mm3 (150-450); RBC Distribution Width CV 12.1 % (11.6-14.6); RBC Distribution Width SD 42.5 fl (35.1-43.9); Red Blood Count 3.52 M/mm3 (4.2-5.4); White Blood Count 7.7 K/mm3 (4.4-11.0)
[2021-06-14] MEDS: 0.45% Normal Saline 1,000 ML 100 ML IV (04:39)
[2021-06-14 04:42] LABS: ALB/GLOB Ratio 0.4 RATIO (0.9-2.4); AST(SGOT) 26 U/L (15-37); Alanine Aminotransfer ALT/SGPT 36 U/L (13-56); Albumin, Serum 1.8 g/dL (3.2-5.0); Alkaline Phosphatase 51 U/L (45-117); Anion Gap 5 (5-15); BUN 61 mg/dL (7-18); BUN/Creat Ratio 39.1 RATIO (10-20); Calcium,Total 7.7 mg/dL (8.5-10.1); Chloride 105 mmol/L (98-107); Creatinine, Serum 1.56 mg/dL (0.55-1.02); EST Glomerular Filtration Rate 37 mL/min (>60); Est Glom Filt Rate - Afr Amer 44 mL/min (>60); Estimated Creatinine Clearance 38.59 ml/min; Globulin 4.5 g/dL (2.2-4.2); Glucose 128 mg/dL (74-106); Potassium 4.5 mmol/L (3.5-5.1); Protein, Total 6.3 g/dL (6.4-8.2); Sodium Level 136 mmol/L (136-145)
--- NOTE | 2021-06-14 05:41 | PN.CC_ITS ---
Assessment & Plan Assessment/Plan (1) Pneumonia due to COVID-19 virus: (2) Acute hypoxemic respiratory failure: PLAN: RECOMMENDATIONS: 1. Continue patient on assist control mode mechanical ventilation. Wean FiO2 and PEEP for saturations greater than 90%. 2. Maintain plateau pressures less than 30. 3. Continue current sedation regimen. 4. Continue empiric antimicrobials to complete 7-day treatment course. 5. Continue prophylactic Lovenox along with Decadron and baricitinib. 6. Continue appropriate GI prophylaxis. 7. Continue tube feeds as tolerated. IMPRESSIONS: 1. Acute hypoxemic respiratory failure secondary to COVID-19 pneumonia The patient presented to the hospital with worsening dyspnea and hypoxemia. Given that she was within 10 days of symptom onset, remdesivir was initiated. The patient has since completed a treatment course of remdesivir. She will be continued on Decadron and baricitinib. There was no evidence for PE on CTA chest. Therefore, prophylactic Lovenox will be continued. Despite the aforeme ntioned, the patient continued to worsen from a respiratory perspective and had to be transferred to the ICU and ultimately intubated on June 11, after she failed to respond to noninvasive positive pressure ventilatory support. Plan to continue assist control mode of mechanical ventilation and wean FiO2 and PEEP to maintain saturations at or above 90%. Strive to maintain plateau pressures less than 30 cm of water. Continue empiric antimicrobials. Continue tube feeds as tolerated. 2. Acute kidney injury Likely prerenal in etiology. Creatinine has plateaued at this time. Urine output is improving. No current indication for renal replacement therapy. Avoid nephrotoxic medications. 3. Obesity/hypertension Complicates care, management, recovery and prognosis. Continue to hold home antihypertensives for now. TIME: 33 minutes of critical care time, inclusive of procedures, was spent addressing the patient's acute hypoxemic respiratory failure secondary to COVID-19 pneumonia, acute kidney injury, review of all data and collaboration with the care team. ([id number]) Subjective Subjective The patient was seen and examined at the bedside this morning. Events from the last 24 hours have been reviewed. The patient is currently afebrile and hemodynamically stable. She remains on assist control mode mechanical ventilation with an FiO2 requirement of 50%and PEEP of 8. She remains sedated on fentanyl and Precedex. She is currently documented to be overall net +3.2 L for the hospitalization. Creatinine is somewhat improved this morning at 1.56. The patient remains on empiric antimicrobials, twice daily Lovenox, Decadron and baricitinib. She is tolerant of tube feeds. The patient is able to follow simple commands. Overall, she is improving daily from a respiratory perspective. Objective Data Objective Data The patient's most recent lab work, culture data and imaging studies have all been personally reviewed. Rapid coronavirus antigen testing was positive on June 05. Strep and urine Legionella antigens were negative. Sputum culture is pending. MRSA screen was negative. Sputum culture was negative. Vital Signs: Vital Signs Temp Pulse Resp BP Pulse Ox 99.1 F 72 16 112/69 91 06/14/21 05:00 06/14/21 05:00 06/14/21 05:00 06/14/21 05:00 06/14/21 05:00 Oxygen Flow Rate (L/min) 100 Oxygen Delivery Method Mechanical Ventilator Weight: 113.5 kg Body Mass Index (BMI) 40.4 Intake & Output: Intake and Output for Last 24 Hours 06/12/21 06/13/21 06/14/21 23:59 23:59 23:59 Intake Total 2014.86 / 2060.56 2693.07 / 2816.57 1367.5 / 1367.5 Output Total 445 / 770 1440 / 1590 430 / 430 Balance 1569.86 / 1290.56 1253.07 / 1226.57 937.5 / 937.5 Lab / Micro Data Attestation: I reviewed the patient's lab results. Result Diagrams: 06/14/21 04:00 06/14/21 04:00 Labs: Laboratory Results - last 24 hr 06/13/21 05:00: Absolute Neuts (auto) 7.4, Absolute Lymphs (auto) 0.84, Neutrophils % (Manual) 77 H, Band Neutrophils % 2, Lymphocytes % (Manual) 9 L, Monocytes % (Manual) 3, Eosinophils % (Manual) 1, Metamyelocytes % 2 H, Myelocytes % 6 H, Diff Path Review November, Platelet Estimate ADEQUATE, RBC Morphology NORM C+C 06/13/21 05:00: Sodium 137, Potassium 4.4, Chloride 106, Carbon Dioxide 25.0, Anion Gap 6, BUN 57 H, Creatinine 1.63 H, Estim Creat Clear Calc 36.94, Est GFR (MDRD) Af Amer 42 L, Est GFR (MDRD) Non-Af 35 L, BUN/Creatinine Ratio 35.0 H, Glucose 112 H, Calcium 7.9 L, Total Bilirubin 0.80, AST 30, ALT 40, Alkaline Phosphatase 62, Total Protein 6.8, Albumin 2.0 L, Globulin 4.8 H, Albumin/Glob ulin Ratio 0.4 L 06/14/21 04:00: WBC 7.7, RBC 3.52 L, Hgb 11.2 L, Hct 34.1 L, MCV 96.9, MCH 31.8, MCHC 32.8, RDW Std Deviation 42.5, RDW Coeff of Brady 12.1, Plt Count 221, MPV 9.7, Immature Gran % (Auto) 4.300 H, Neut % (Auto) 81.3 H, Lymph % (Auto) 8.4 L, [place] % (Auto) 4.7, Eos % (Auto) 1.0, Baso % (Auto) 0.3, Absolute Neuts (auto) 6.3, Absolute Lymphs (auto) 0.65 L, Nucleated RBC % 0 06/14/21 04:00: Sodium 136, Potassium 4.5, Chloride 105, Carbon Dioxide 26.0, Anion Gap 5, BUN 61 H, Creatinine 1.56 H, Estim Creat Clear Calc 38.59, Est GFR (MDRD) Af Amer 44 L, Est GFR (MDRD) Non-Af 37 L, BUN/Creatinine Ratio 39.1 H, Glucose 128 H, Calcium 7.7 L, Total Bilirubin 0.40, AST 26, ALT 36, Alkaline Phosphatase 51, Total Protein 6.3 L, Albumin 1.8 L, Globulin 4.5 H, Albumin/Globulin Ratio 0.4 L Micro: Microbiology 06/11/21 09:34 Sputum, Induced/Lukens Gram Stain - Final 06/11/21 09:34 Sputum, Induced/Lukens Respiratory Culture - Final 06/11/21 11:00 Urine Catheter - Lewis Legionella Antigen - Final 06/11/21 11:00 Urine Catheter - Lewis Streptococcus pneumoniae Antigen (M - Final 06/08/21 03:45 Urine, Clean Catch Legionella Antigen - Final 06/08/21 03:45 Urine, Clean Catch Streptococcus pneumoniae Antigen (M - Final Physical Exam Const Constitutional Narrative: No ventilator dyssynchrony. General Appearance: intubated and patient mechanically ventilated Nutritional Appearance: obese HEENT normocephalic and head/scalp atraumatic Mouth: endotracheal tube in place and OG tube in place Eyes PERRL and EOMs intact bilaterally Neck supple General: trachea midline Chest inspection of chest normal Resp Auscultation: diminished lung sounds; Negative for rales, rhonchi or wheezes Cardio regular rate and regular rhythm GI normal to inspection, nondistended, normoactive bowel sounds Extremity no clubbing, cyanosis or edema Skin no rashes or lesions noted Neuro Sensorium / Orientation: sedated on vent Charges/Coding Procedures Hospitalists Procedures: [id number] Critial Care 1st Hr
[2021-06-14] MEDS: Acetaminophen 650 MG/20 ML UDC GT (10:20)
[2021-06-14] MEDS: Senna/Docusate Sodium 1 Tablet 2 TABLET GT (10:21)
[2021-06-14] MEDS: Cholecalciferol (VIT D3) 25 MCG TABLET (1,000 UNITS) GT (10:21)
[2021-06-14] MEDS: dexAMETHasone 4 MG Tablet 6 MG GT (10:21)
[2021-06-14] MEDS: Enoxaparin 40 MG/0.4 ML Syringe SC ×2 (10:22→20:30)
[2021-06-14] MEDS: Chlorhexidine 15 ML PO ×2 (10:22→20:30)
--- NOTE | 2021-06-14 11:41 | PN.HOSP_ITS ---
Subjective Subjective Still on vent. Objective Data Objective Data Vital Signs: Vital Signs Temp Pulse Resp BP Pulse Ox 38.3 C H 85 23 H 134/74 H 89 06/14/21 11:00 06/14/21 11:00 06/14/21 11:00 06/14/21 11:00 06/14/21 11:00 Oxygen Flow Rate (L/min) 100 Oxygen Delivery Method Mechanical Ventilator Weight: 111.6 kg Body Mass Index (BMI) 40.4 Intake & Output: Intake and Output for Last 24 Hours 06/12/21 06/13/21 06/14/21 23:59 23:59 23:59 Intake Total 2014.86 / 2060.56 2693.07 / 2816.57 2176.49 / 2176.49 Output Total 445 / 770 1440 / 1590 705 / 705 Balance 1569.86 / 1290.56 1253.07 / 1226.57 1471.49 / 1471.49 Lab / Micro Data Result Diagrams: 06/14/21 04:00 06/14/21 04:00 Labs: Laboratory Results - last 24 hr 06/14/21 04:00: WBC 7.7, RBC 3.52 L, Hgb 11.2 L, Hct 34.1 L, MCV 96.9, MCH 31.8, MCHC 32.8, RDW Std Deviation 42.5, RDW Coeff of Brady 12.1, Plt Count 221, MPV 9.7, Immature Gran % (Auto) 4.300 H, Neut % (Auto) 81.3 H, Lymph % (Auto) 8.4 L, [place] % (Auto) 4.7, Eos % (Auto) 1.0, Baso % (Auto) 0.3, Absolute Neuts (auto) 6.3, Absolute Lymphs (auto) 0.65 L, Nucleated RBC % 0 06/14/21 04:00: Sodium 136, Potassium 4.5, Chloride 105, Carbon Dioxide 26.0, Anion Gap 5, BUN 61 H, Creatinine 1.56 H, Estim Creat Clear Calc 38.59, Est GFR (MDRD) Af Amer 44 L, Est GFR (MDRD) Non-Af 37 L, BUN/Creatinine Ratio 39.1 H, Glucose 128 H, Calcium 7.7 L, Total Bilirubin 0.40, AST 26, ALT 36, Alkaline Phosphatase 51, Total Protein 6.3 L, Albumin 1.8 L, Globulin 4.5 H, Albumin/Globulin Ratio 0.4 L Micro: Microbiology 06/11/21 09:34 Sputum, Induced/Lukens Gram Stain - Final 06/11/21 09:34 Sputum, Induced/Lukens Respiratory Culture - Final 06/11/21 11:00 Urine Catheter - Lewis Legionella Antigen - Final 06/11/21 11:00 Urine Catheter - Lewis Streptococcus pneumoniae Antigen (M - Final 06/08/21 03:45 Urine, Clean Catch Legionella Antigen - Final 06/08/21 03:45 Urine, Clean Catch Streptococcus pneumoniae Antigen (M - Final Physical Exam Const Constitutional Narrative: intubated and sedated HEENT Head and Scalp: normocephalic Resp normal respiratory effort and no retractions Resp Narrative: coarse BS bilaterally Cardio regular rate and regular rhythm Assessment & Plan Assessment/Plan (1) Acute hypoxemic respiratory failure: (2) Pneumonia due to COVID-19 virus: PLAN: 1. acute hypoxic resp failure * improving * 2/2 covid * intubated 06/11. currently on propofol, fentanyl, dexmedetomidine. 50% FiO2. * CCM mgmt appreciated 2. COVID 19 pneumonia * onset 05/30, quarantine through 06/19 * unvaccinated * on remd, dexa, slade * ID following 3.VTE prophylaxis: LMWH Charges/Coding Visit Charges Inpatient E&M: 06262 Subs Hosp L2
[2021-06-14] MEDS: Vital AF 1.2 Cal Liquid 1,000 ML 45 ML GT (12:23)
[2021-06-14] MEDS: CHLORHEXIDINE GLUC 2% CLOTH 1 EACH TOWELETTE TOPICAL (12:23)
[2021-06-14] MEDS: FLUoxetine 10 MG Capsule GT (20:30)
[2021-06-14] MEDS: Vital AF 1.2 Cal Liquid 1,000 ML 55 ML GT (22:53)
[2021-06-15] VITALS (39 sets, daily range): BP systolic 104–156; BP diastolic 64–88; PULSE 61–90; RESP 15–31; TEMP 37.3–38.6; O2SAT 89–98
[2021-06-15 04:01] LABS: Absolute Lymphocyte Count 0.71 X10^3/uL (0.83-4.51); Basophil# 0.02 X10^3/uL; Basophil% 0.2 % (0-1); Eosinophils% 1.1 % (0-5); Hematocrit 33.6 % (37-47); Hemoglobin 11.3 g/dL (12.0-15.0); Lymphocyte # 0.71 X10^3/ul (0.83-4.51); Lymphocyte % 7.6 % (19-41); Mean Corp Hgb Conc 33.6 g/dL (32-36); Mean Corpuscular Hgb 31.9 pg (27.0-32.0); Mean Corpuscular Volume 94.9 fL (81-99); Mean Platelet Vol. 9.9 fl (6.2-12.0); Monocyte# 0.29 X10^3/uL; Monocyte% 3.1 % (0-10); NRBC Flagged by Analyzer 0 % (0-5); Neutrophil # 8.03 X10^3/uL (2.7-7.7); Neutrophil % 85.8 % (47-70); Platelet Count 221 K/mm3 (150-450); RBC Distribution Width CV 11.9 % (11.6-14.6); RBC Distribution Width SD 41.8 fl (35.1-43.9); Red Blood Count 3.54 M/mm3 (4.2-5.4); White Blood Count 9.4 K/mm3 (4.4-11.0)
[2021-06-15 04:14] LABS: ALB/GLOB Ratio 0.4 RATIO (0.9-2.4); AST(SGOT) 31 U/L (15-37); Alanine Aminotransfer ALT/SGPT 32 U/L (13-56); Albumin, Serum 1.9 g/dL (3.2-5.0); Alkaline Phosphatase 51 U/L (45-117); Anion Gap 4 (5-15); BUN 52 mg/dL (7-18); BUN/Creat Ratio 38.5 RATIO (10-20); Calcium,Total 7.9 mg/dL (8.5-10.1); Chloride 106 mmol/L (98-107); Creatinine, Serum 1.35 mg/dL (0.55-1.02); EST Glomerular Filtration Rate 43 mL/min (>60); Est Glom Filt Rate - Afr Amer 52 mL/min (>60); Globulin 4.7 g/dL (2.2-4.2); Glucose 118 mg/dL (74-106); Potassium 4.3 mmol/L (3.5-5.1); Protein, Total 6.6 g/dL (6.4-8.2); Sodium Level 137 mmol/L (136-145)
--- NOTE | 2021-06-15 06:02 | RAD_ITS ---
HISTORY: Possible crepitus EXAMINATION/TECHNIQUE: XR Chest 1 View COMPARISON: [facility] chest x-ray from 06/11/21 FINDINGS: LINES/DEVICES: ET tube tip at level of clavicular heads. Left PICC tip at right atrium. Enteric tube tip below diaphragm and field of view. LUNGS: Hazy and prominent bilateral pulmonary interstitial markings with scattered airspace opacities. Stable mildly elevated right hemidiaphragm. No sizable pleural effusion. No pneumothorax detected. MEDIASTINUM AND CARDIOVASCULAR STRUCTURES: Heart size within normal limits for imaging technique. Central airways and mediastinal contour are unremarkable. BONES AND SOFT TISSUES: Degenerative changes and mild scoliotic curvature along spine. No subcutaneous emphysema demonstrated. RAD/Chest 1 View (Portable) IMPRESSION: Bilateral pulmonary airspace disease and probable mild pulmonary edema. at [id number] Reported and signed by: Valentin Son MD Electronically Signed: Valentin Son MD at 6:47 EST Tel , Service support ,
--- NOTE | 2021-06-15 06:59 | PCM.PN.INT ---
Assessment & Plan Assessment/Plan (1) Pneumonia due to COVID-19 virus: (2) Acute hypoxemic respiratory failure: PLAN: RECOMMENDATIONS: 1. Continue patient on assist control mode mechanical ventilation. Wean FiO2 and PEEP for saturations greater than 90%. 2. Maintain plateau pressures less than 30. 3. Continue current sedation regimen. 4. Continue empiric antimicrobials to complete 7-day treatment course. 5. Continue prophylactic Lovenox along with Decadron and baricitinib. 6. Continue appropriate GI prophylaxis. Advance tube feeds as tolerated 7. Challenge with diuretic therapy IMPRESSIONS: 1. Acute hypoxemic respiratory failure secondary to COVID-19 pneumonia The patient presented to the hospital with worsening dyspnea and hypoxemia. Given that she was within 10 days of symptom onset, remdesivir was initiated. The patient has since completed a treatment course of remdesivir. She will be continued on Decadron and baricitinib. There was no evidence for PE on CTA chest. Therefore, prophylactic Lovenox will be continued. Despite the aforementioned, the patient continued to worsen from a respiratory perspective and had to be transferred to the ICU and ultimately intubated on June 11, after she failed to respond to noninvasive positive pressure ventilatory support. Plan to continue assist control mode of mechanical ventilation and wean FiO2 and PEEP to maintain saturations at or above 90%. Strive to maintain plateau pressures less than 30 cm of water. Continue empiric antimicrobials. Continue tube feeds as tolerated. 2. Acute kidney injury Likely prerenal in etiology. Creatinine has plateaued at this time. Urine output is improving. No current indication for renal replacement therapy. Avoid nephrotoxic medications. Will attempt to challenge of diuretics as patient is 4 L positive over the course of the hospitalization 3. Obesity/hypertension Complicates care, management, recovery and prognosis. Continue to hold home antihypertensives for now. TIME: 35 minutes of critical care time, inclusive of procedures, was spent addressing the patient's acute hypoxemic respiratory failure secondary to COVID-19 pneumonia, acute kidney injury, review of all data and collaboration with the care team. (5:20 AM to 6:20 AM) Subjective Subjective Patient was some decompensation in respiratory status overnight. Nursing reported decreased synchrony leading to an increase in FiO2 to 70% and a PEEP of 8. There was also some concern the patient may have developed crepitus in the right neck, so a chest x-ray was obtained. Patient tolerating tube feeds, but not at goal. No bowel movement has been noted. Objective Data Objective Data Chest x-ray was personally reviewed and does not show any pneumomediastinum or subcutaneous emphysema that I can appreciate. Bilateral infiltrates still present. Vital Signs: Vital Signs Temp Pulse Resp BP Pulse Ox 38.2 C H 83 29 H 122/69 H 90 06/15/21 05:00 06/15/21 06:00 06/15/21 06:00 06/15/21 06:00 06/15/21 06:00 Oxygen Flow Rate (L/min) 100 Oxygen Delivery Method Mechanical Ventilator Weight: 112.9 kg Body Mass Index (BMI) 40.4 Intake & Output: Intake and Output for Last 24 Hours 06/13/21 06/14/21 06/15/21 23:59 23:59 23:59 Intake Total 2693.07 / 2816.57 3870.57 / 3896.77 432.54 / 432.54 Output Total 1440 / 1590 2030 / 2210 655 / 655 Balance 1253.07 / 1226.57 1840.57 / 1686.77 -222.46 / -222.46 Lab / Micro Data Result Diagrams: 06/15/21 03:45 06/15/21 03:45 Labs: Laboratory Results - last 24 hr 06/15/21 03:45: WBC 9.4, RBC 3.54 L, Hgb 11.3 L, Hct 33.6 L, MCV 94.9, MCH 31.9, MCHC 33.6, RDW Std Deviation 41.8, RDW Coeff of Brady 11.9, Plt Count 221, MPV 9.9, Immature Gran % (Auto) 2.200 H, Neut % (Auto) 85.8 H, Lymph % (Auto) 7.6 L, [place] % (Auto) 3.1, Eos % (Auto) 1.1, Baso % (Auto) 0.2, Absolute Neuts (auto) 8.0 H, Absolute Lymphs (auto) 0.71 L, Nucleated RBC % 0 06/15/21 03:45: Sodium 137, Potassium 4.3, Chloride 106, Carbon Dioxide 27.0, Anion Gap 4 L, BUN 52 H, Creatinine 1.35 H, Estim Creat Clear Calc 44.60, Est GFR (MDRD) Af Amer 52 L, Est GFR (MDRD) Non-Af 43 L, BUN/Creatinine Ratio 38.5 H, Glucose 118 H, Calcium 7.9 L, Total Bilirubin 0.60, AST 31, ALT 32, Alkaline Phosphatase 51, Total Protein 6.6, Albumin 1.9 L, Globulin 4.7 H, Albumin/Globulin Ratio 0.4 L Micro: Microbiology 06/11/21 09:34 Sputum, Induced/Lukens Gram Stain - Final 06/11/21 09:34 Sputum, Induced/Lukens Respiratory Culture - Final 06/11/21 11:00 Urine Catheter - Lewis Legionella Antigen - Final 06/11/21 11:00 Urine Catheter - Lewis Streptococcus pneumoniae Antigen (M - Final 06/08/21 03:45 Urine, Clean Catch Legionella Antigen - Final 06/08/21 03:45 Urine, Clean Catch Streptococcus pneumoniae Antigen (M - Final Radiography Diagnostic Testing: Radiology Impression Chest X-Ray 06/15/21 06:02 IMPRESSION: Bilateral pulmonary airspace disease and probable mild pulmonary edema. at 0648 Reported and signed by: Valentin Son MD Electronically Signed: Valentin Son MD at 6:47 EST Tel , Service support , Physical Exam Const Constitutional Narrative: No ventilator dyssynchrony. General Appearance: intubated and patient mechanically ventilated Nutritional Appearance: obese HEENT normocephalic and head/scalp atraumatic Mouth: endotracheal tube in place and OG tube in place Eyes PERRL and EOMs intact bilaterally Neck supple General: trachea midline Chest inspection of chest normal Chest: symmetrical chest wall rise; Negative for crepitus Resp Auscultation: diminished lung sounds; Negative for rales, rhonchi or wheezes Cardio regular rate and regular rhythm GI normal to inspection, nondistended, normoactive bowel sounds Extremity General Extremity: edema bilateral (Trace anasarca); Negative for clubbing or cyanosis Skin no rashes or lesions noted Neuro Sensorium / Orientation: sedated on vent Charges/Coding Procedures Hospitalists Procedures: 45223 Critial Care 1st Hr
--- NOTE | 2021-06-15 07:14 | PN.HOSP_ITS ---
Subjective Subjective Patient is intubated on ventilator. Low-grade fever, T-max 101.5 Fahrenheit Objective Data Objective Data Vital Signs: Vital Signs Temp Pulse Resp BP Pulse Ox 101.5 F H 81 27 H 130/79 H 91 06/15/21 07:00 06/15/21 07:00 06/15/21 07:00 06/15/21 07:00 06/15/21 07:00 Oxygen Flow Rate (L/min) 100 Oxygen Delivery Method Mechanical Ventilator Weight: 248 lb 14.43 oz Body Mass Index (BMI) 40.4 Intake & Output: Intake and Output for Last 24 Hours 06/13/21 06/14/21 06/15/21 23:59 23:59 23:59 Intake Total 2693.07 / 2816.57 3870.57 / 3896.77 466.74 / 466.74 Output Total 1440 / 1590 2030 / 2210 655 / 655 Balance 1253.07 / 1226.57 1840.57 / 1686.77 -188.26 / -188.26 Lab / Micro Data Result Diagrams: 06/15/21 03:45 06/15/21 03:45 Labs: Laboratory Results - last 24 hr 06/15/21 03:45: WBC 9.4, RBC 3.54 L, Hgb 11.3 L, Hct 33.6 L, MCV 94.9, MCH 31.9, MCHC 33.6, RDW Std Deviation 41.8, RDW Coeff of Brady 11.9, Plt Count 221, MPV 9.9, Immature Gran % (Auto) 2.200 H, Neut % (Auto) 85.8 H, Lymph % (Auto) 7.6 L, [place] % (Auto) 3.1, Eos % (Auto) 1.1, Baso % (Auto) 0.2, Absolute Neuts (auto) 8.0 H, Absolute Lymphs (auto) 0.71 L, Nucleated RBC % 0 06/15/21 03:45: Sodium 137, Potassium 4.3, Chloride 106, Carbon Dioxide 27.0, Anion Gap 4 L, BUN 52 H, Creatinine 1.35 H, Estim Creat Clear Calc 44.60, Est GFR (MDRD) Af Amer 52 L, Est GFR (MDRD) Non-Af 43 L, BUN/Creatinine Ratio 38.5 H , Glucose 118 H, Calcium 7.9 L, Total Bilirubin 0.60, AST 31, ALT 32, Alkaline Phosphatase 51, Total Protein 6.6, Albumin 1.9 L, Globulin 4.7 H, Albumin/Globulin Ratio 0.4 L Micro: Microbiology 06/11/21 09:34 Sputum, Induced/Lukens Gram Stain - Final 06/11/21 09:34 Sputum, Induced/Lukens Respiratory Culture - Final 06/11/21 11:00 Urine Catheter - Lewis Legionella Antigen - Final 06/11/21 11:00 Urine Catheter - Lewis Streptococcus pneumoniae Antigen (M - Final 06/08/21 03:45 Urine, Clean Catch Legionella Antigen - Final 06/08/21 03:45 Urine, Clean Catch Streptococcus pneumoniae Antigen (M - Final Radiography Diagnostic Testing: Radiology Impression Chest X-Ray 06/15/21 06:02 IMPRESSION: Bilateral pulmonary airspace disease and probable mild pulmonary edema. at 0648 Reported and signed by: Valentin Son MD Electronically Signed: Valentin Son MD at 6:47 EST Tel , Service support , Physical Exam Narrative As per nursing staff, the patient did not move bowel. On MiraLAX General: Sedated. HEENT: Atraumatic, PERRLA, EOMI, Normocephalic Oral: No Gingival or Mucosal Lesions/ Ulcerations Neck: Supple, No JVD, Negative Carotid Bruits Lungs: Air entry diminished in bilateral lung bases. Bilateral rhonchi. On ventilator. High FiO2 and PEEP Cardiovascular: Sinus rhythm rhythm, Normal S1, Normal S2, No murmurs Abdomen: Bowel Sounds sluggish, soft, Non Tender, Non-Distended : No renal angle tenderness. No suprapubic tenderness. Extremities: No edema, Capillary Refill Less than 3 Seconds Skin: No rashes, No breakdown Musculoskeletal: No Tenderness to Palpation of Joints or Extremities Neurological: C detail neuro exam no palpable Psych/Mental Status: Assessment & Plan Assessment/Plan (1) Acute hypoxemic respiratory failure: (2) Pneumonia due to COVID-19 virus: PLAN: 1. acute hypoxic resp failure secondary to bilateral COVID-19 pneumonia: Patient intubated on 06/11. Currently on sedatives. High FiO2 and PEEP. 90% FiO2 PEEP 10. Being managed by new client banking services clerk. No palpable subcutaneous emphysema or crepitations in the neck and supraclavicular area. 2. COVID 19 pneumonia: Onset 05/30, quarantine through 06/19. Patient on dexamethasone remdesivir and baricitinib. She is unvaccinated. ID has been consulted. 3.VTE prophylaxis: LMWH Charges/Coding Visit Charges Inpatient E&M: 05654 Subs Hosp L3
[2021-06-15] MEDS: Furosemide 40 MG/4 ML Vial IV (08:39)
[2021-06-15] MEDS: Enoxaparin 40 MG/0.4 ML Syringe SC ×2 (08:41→20:25)
[2021-06-15] MEDS: Senna/Docusate Sodium 1 Tablet 2 TABLET GT (08:41)
[2021-06-15] MEDS: Polyethylene Glycol 3350 17 GM PACKET PO (08:41)
[2021-06-15] MEDS: dexAMETHasone 4 MG Tablet 6 MG GT (08:43)
[2021-06-15] MEDS: Cholecalciferol (VIT D3) 25 MCG TABLET (1,000 UNITS) GT (08:43)
[2021-06-15] MEDS: Vital AF 1.2 Cal Liquid 1,000 ML 55 ML GT (08:44)
[2021-06-15] MEDS: Chlorhexidine 15 ML PO ×2 (08:45→20:26)
[2021-06-15] MEDS: CHLORHEXIDINE GLUC 2% CLOTH 1 EACH TOWELETTE TOPICAL (08:46)
[2021-06-15] MEDS: Acetaminophen 650 MG/20 ML UDC GT ×2 (12:05→20:25)
--- NOTE | 2021-06-15 15:07 | PCM.PN.ID ---
Physical Exam Narrative On vent. Fever. Const Constitutional Narrative: sedated Resp Auscultation: diminished lung sounds Cardio regular rate and regular rhythm GI normal to inspection, nondistended, normoactive bowel sounds Skin no rashes or lesions noted ID ID: Route of nutrition/ use of supplements: [] Nutritional Intake: [] IV Site: [] Lewis Catheter: [] Assessment & Plan Assessment/Plan (1) Pneumonia due to COVID-19 virus: PLAN: Sx since 05/30/21. Unvaccinated. Recommend vaccine after discharge; isolate until 06/19/21. On dex, baricitinib, completed remdesivir. Now on vent, off paralytics. Fever, so will check sputum cx, bcx x2, d-dimer. On zosyn. Will follow (2) Acute hypoxemic respiratory failure:
[2021-06-15 16:30] LABS: D-Dimer Quantitative (DVT/PE) 2.18 FEU/ug/m (0.27-0.49)
[2021-06-15 16:52] LABS: BNP,B-Type NATRIURETIC PEPTIDE 56.7 pg/mL (0-100)
[2021-06-15 17:01] LABS: Procalcitonin 0.26 ng/mL (0.00-0.09)
[2021-06-15] MEDS: Bisacodyl 10 MG Suppository RC (18:26)
--- NOTE | 2021-06-15 19:04 | NURSING ---
reviewed Mina Lind RN charting
[2021-06-15] MEDS: FLUoxetine 10 MG Capsule GT (20:25)
[2021-06-15] MEDS: 0.9% Saline Lock 10 ML Syringe IV (20:30)
[2021-06-16] VITALS (34 sets, daily range): BP systolic 110–169; BP diastolic 70–102; PULSE 61–88; RESP 15–35; TEMP 37.2–38.1; O2SAT 17–95
[2021-06-16] MEDS: Vital AF 1.2 Cal Liquid 1,000 ML 70 ML GT ×2 (00:49→16:11)
[2021-06-16 05:58] LABS: Absolute Lymphocyte Count 0.71 X10^3/uL (0.83-4.51); Absolute Neutrophil Count 8.1 X10^3/uL (2.0-7.7); Basophil# 0.01 X10^3/uL; Basophil% 0.1 % (0-1); Eosinophil# 0.08 X10^3/uL; Eosinophils% 0.9 % (0-5); Hematocrit 31.6 % (37-47); Hemoglobin 10.9 g/dL (12.0-15.0); Lymphocyte # 0.71 X10^3/ul (0.83-4.51); Lymphocyte % 7.6 % (19-41); Mean Corp Hgb Conc 34.5 g/dL (32-36); Mean Corpuscular Hgb 32.2 pg (27.0-32.0); Mean Corpuscular Volume 93.2 fL (81-99); Mean Platelet Vol. 10.5 fl (6.2-12.0); Monocyte# 0.25 X10^3/uL; Monocyte% 2.7 % (0-10); NRBC Flagged by Analyzer 0 % (0-5); Neutrophil # 8.14 X10^3/uL (2.7-7.7); Neutrophil % 86.6 % (47-70); Platelet Count 202 K/mm3 (150-450); RBC Distribution Width CV 12.1 % (11.6-14.6); RBC Distribution Width SD 41.2 fl (35.1-43.9); Red Blood Count 3.39 M/mm3 (4.2-5.4); White Blood Count 9.4 K/mm3 (4.4-11.0)
[2021-06-16 06:10] LABS: ALB/GLOB Ratio 0.4 RATIO (0.9-2.4); AST(SGOT) 31 U/L (15-37); Alanine Aminotransfer ALT/SGPT 37 U/L (13-56); Albumin, Serum 1.8 g/dL (3.2-5.0); Alkaline Phosphatase 50 U/L (45-117); Anion Gap 5 (5-15); BUN 54 mg/dL (7-18); BUN/Creat Ratio 41.9 RATIO (10-20); Calcium,Total 8.1 mg/dL (8.5-10.1); Chloride 104 mmol/L (98-107); Creatinine, Serum 1.29 mg/dL (0.55-1.02); EST Glomerular Filtration Rate 46 mL/min (>60); Est Glom Filt Rate - Afr Amer 55 mL/min (>60); Estimated Creatinine Clearance 46.67 ml/min; Globulin 4.9 g/dL (2.2-4.2); Glucose 130 mg/dL (74-106); Potassium 3.9 mmol/L (3.5-5.1); Protein, Total 6.7 g/dL (6.4-8.2); Sodium Level 138 mmol/L (136-145)
[2021-06-16] MEDS: TITRATION PARAMETER CHANGE 1 EACH IV (06:36)
--- NOTE | 2021-06-16 06:53 | PCM.PN.INT ---
Assessment & Plan Assessment/Plan (1) Pneumonia due to COVID-19 virus: (2) Acute hypoxemic respiratory failure: PLAN: RECOMMENDATIONS: 1. Continue patient on assist control mode mechanical ventilation. Wean FiO2 and PEEP for saturations greater than 90%. 2. Maintain plateau pressures less than 30. 3. Continue current sedation regimen. 4. Continue empiric antimicrobials to complete 7-day treatment course. 5. Continue prophylactic Lovenox along with Decadron (05/17/2021) and baricitinib (05/21/2021). 6. Continue appropriate GI prophylaxis. Advance tube feeds as tolerated 7. Challenge with diuretic therapy IMPRESSIONS: 1. Acute hypoxemic respiratory failure secondary to COVID-19 pneumonia The patient presented to the hospital with worsening dyspnea and hypoxemia. Given that she was within 10 days of symptom onset on presentation, remdesivir was initiated and subsequently completed. She will be continued on Decadron and baricitinib. There was no evidence for PE on CTA chest. Therefore, prophylactic Lovenox will be continued. Despite the aforementioned, the patient continued to worsen from a respiratory perspective and had to be transferred to the ICU and ultimately intubated on June 11, after she failed to respond to noninvasive positive pressure ventilatory support. Plan to continue assist control mode of mechanical ventilation and wean FiO2 and PEEP to maintain saturations at or above 90%. Strive to maintain plateau pressures less than 30 cm of water. Continue empiric antimicrobials. Continue tube feeds as tolerated. Unfortunately, PEEP did have to be increased yesterday. Patient appears to be stabilizing. 2. Acute kidney injury Improving. Likely prerenal in etiology. Creatinine has plateaued at this time. Urine output is improving. No current indication for renal replacement therapy. Avoid nephrotoxic medications. Will attempt to challenge of diuretics as patient is 4 L positive over the course of the hospitalization 3. Obesity/hypertension Complicates care, management, recovery and prognosis. Continue to hold home antihypertensives for now. TIME: 32 minutes of critical care time, inclusive of procedures, was spent addressing the patient's acute hypoxemic respiratory failure secondary to COVID-19 pneumonia, acute kidney injury, review of all data and collaboration with the care team. (5:30 AM to 6:30 AM) Subjective Subjective Patient did okay overnight. No acute issues were reported. Patient is more interactive today. No bowel movements have been noted. Nursing did report increased residuals overnight, but tube feeds have been continued. Oxygenation is slightly improved compared to yesterday. Objective Data Objective Data Vital Signs: Vital Signs Temp Pulse Resp BP Pulse Ox 37.4 C H 78 22 H 126/80 H 92 06/16/21 06:00 06/16/21 06:00 06/16/21 06:00 06/16/21 06:00 06/16/21 06:00 Oxygen Flow Rate (L/min) 100 Oxygen Delivery Method Mechanical Ventilator Weight: 111.4 kg Body Mass Index (BMI) 40.4 Intake & Output: Intake and Output for Last 24 Hours 06/14/21 06/15/21 06/16/21 23:59 23:59 23:59 Intake Total 3922.57 / 3948.77 3856.04 / 3890.04 1003.15 / 1003.15 Output Total 2029 / 2209 3595 / 3995 800 / 800 Balance 1892.57 / 1738.77 261.04 / -104.96 203.15 / 203.15 Lab / Micro Data Result Diagrams: 06/16/21 04:00 06/16/21 04:00 Labs: Laboratory Results - last 24 hr 06/15/21 15:50: D-Dimer Quant (PE/DVT) 2.18 H* 06/15/21 15:50: B-Natriuretic Peptide 56.7 06/15/21 15:50: Procalcitonin 0.26 H 06/16/21 04:00: Sodium 138, Potassium 3.9, Chloride 104, Carbon Dioxide 29.0, Anion Gap 5, BUN 54 H, Creatinine 1.29 H, Estim Creat Clear Calc 46.67, Est GFR (MDRD) Af Amer 55 L, Est GFR (MDRD) Non-Af 46 L, BUN/Creatinine Ratio 41.9 H, Glucose 130 H, Calcium 8.1 L, Total Bilirubin 0.60, AST 31, ALT 37, Alkaline Phosphatase 50, Total Protein 6.7, Albumin 1.8 L, Globulin 4.9 H, Albumin/Globulin Ratio 0.4 L 06/16/21 04:00: WBC 9.4, RBC 3.39 L, Hgb 10.9 L, Hct 31.6 L, MCV 93.2, MCH 32.2 H, MCHC 34.5, RDW Std Deviation 41.2, RDW Coeff of Brady 12.1, Plt Count 202, MPV 10.5, Immature Gran % (Auto) 2.100 H, Neut % (Auto) 86.6 H, Lymph % (Auto) 7.6 L, [place] % (Auto) 2.7, Eos % (Auto) 0.9, Baso % (Auto) 0.1, Absolute Neuts (auto) 8.1 H, Absolute Lymphs (auto) 0.71 L, Nucleated RBC % 0 Micro: Microbiology 06/11/21 09:34 Sputum, Induced/Lukens Gram Stain - Final 06/11/21 09:34 Sputum, Induced/Lukens Respiratory Culture - Final 06/11/21 11:00 Urine Catheter - Lewis Legionella Antigen - Final 06/11/21 11:00 Urine Catheter - Lewis Streptococcus pneumoniae Antigen (M - Final 06/08/21 03:45 Urine, Clean Catch Legionella Antigen - Final 06/08/21 03:45 Urine, Clean Catch Streptococcus pneumoniae Antigen (M - Final Physical Exam Const Constitutional Narrative: No ventilator dyssynchrony. General Appearance: intubated and patient mechanically ventilated Nutritional Appearance: obese HEENT normocephalic and head/scalp atraumatic Mouth: endotracheal tube in place and OG tube in place Eyes PERRL and EOMs intact bilaterally Neck supple General: trachea midline Chest inspection of chest normal Chest: symmetrical chest wall rise; Negative for crepitus Resp Auscultation: diminished lung sounds; Negative for rales, rhonchi or wheezes Cardio regular rate and regular rhythm GI normal to inspection, nondistended, normoactive bowel sounds Extremity General Extremity: edema bilateral (Trace anasarca); Negative for clubbing or cyanosis Skin no rashes or lesions noted Neuro Sensorium / Orientation: sedated on vent Charges/Coding Procedures Hospitalists Procedures: [id number] Critial Care 1st Hr
--- NOTE | 2021-06-16 07:26 | PN.HOSP_ITS ---
Subjective Subjective Patient has low-grade fever T-max 100.1 Fahrenheit. On maximum vent capacity 100% FiO2, PEEP 12 Objective Data Objective Data Vital Signs: Vital Signs Temp Pulse Resp BP Pulse Ox 99.6 F H 77 22 H 144/86 H 90 06/16/21 07:00 06/16/21 07:10 06/16/21 07:10 06/16/21 07:00 06/16/21 07:10 Oxygen Flow Rate (L/min) 100 Oxygen Delivery Method Mechanical Ventilator Weight: 245 lb 9.519 oz Body Mass Index (BMI) 40.4 Intake & Output: Intake and Output for Last 24 Hours 06/14/21 06/15/21 06/16/21 23:59 23:59 23:59 Intake Total 3922.57 / 3948.77 3856.04 / 3890.04 1026.50 / 1026.50 Output Total 2029 / 2209 3595 / 3995 800 / 800 Balance 1892.57 / 1738.77 261.04 / -104.96 226.50 / 226.50 Lab / Micro Data Result Diagrams: 06/16/21 04:00 06/16/21 04:00 Labs: Laboratory Results - last 24 hr 06/15/21 15:50: D-Dimer Quant (PE/DVT) 2.18 H* 06/15/21 15:50: B-Natriuretic Peptide 56.7 06/15/21 15:50: Procalcitonin 0.26 H 06/16/21 04:00: Sodium 138, Potassium 3.9, Chloride 104, Carbon Dioxide 29.0, Anion Gap 5, BUN 54 H, Creatinine 1.29 H, Estim Creat Clear Calc 46.67, Est GFR (MDRD) Af Amer 55 L, Est GFR (MDRD) Non-Af 46 L, BUN/Creatinine Ratio 41.9 H, Glucose 130 H, Calcium 8.1 L, Total Bilirubin 0.60, AST 31, ALT 37, Alkaline Phosphatase 50, Total Protein 6.7, Albumin 1.8 L, Globulin 4.9 H, Albumin/Globulin Ratio 0.4 L 06/16/21 04:00: WBC 9.4, RBC 3.39 L, Hgb 10.9 L, Hct 31.6 L, MCV 93.2, MCH 32.2 H, MCHC 34.5, RDW Std Deviation 41.2, RDW Coeff of Brady 12.1, Plt Count 202, MPV 10.5, Immature Gran % (Auto) 2.100 H, Neut % (Auto) 86.6 H, Lymph % (Auto) 7.6 L , [place] % (Auto) 2.7, Eos % (Auto) 0.9, Baso % (Auto) 0.1, Absolute Neuts (auto) 8.1 H, Absolute Lymphs (auto) 0.71 L, Nucleated RBC % 0 Micro: Microbiology 06/11/21 09:34 Sputum, Induced/Lukens Gram Stain - Final 06/11/21 09:34 Sputum, Induced/Lukens Respiratory Culture - Final 06/11/21 11:00 Urine Catheter - Lewis Legionella Antigen - Final 06/11/21 11:00 Urine Catheter - Lewis Streptococcus pneumoniae Antigen (M - Final 06/08/21 03:45 Urine, Clean Catch Legionella Antigen - Final 06/08/21 03:45 Urine, Clean Catch Streptococcus pneumoniae Antigen (M - Final Physical Exam Narrative On exam General: Sedated. HEENT: Atraumatic, PERRLA, EOMI, Normocephalic. No palpable subcu emphysema or crepitus Oral: No Gingival or Mucosal Lesions/ Ulcerations Neck: Supple, No JVD, Negative Carotid Bruits Lungs: Air entry diminished in bilateral lung bases. Bilateral rhonchi. On ventilator. High FiO2 and PEEP Cardiovascular: Sinus rhythm rhythm, Normal S1, Normal S2, No murmurs Abdomen: Bowel Sounds sluggish, soft, Non Tender, Non-Distended : No renal angle tenderness. No suprapubic tenderness. Extremities: No edema, Capillary Refill Less than 3 Seconds Skin: No rashes, No breakdown Musculoskeletal: No Tenderness to Palpation of Joints or Extremities Neurological: detail neuro exam no palpable Psych/Mental Status: Sedated Assessment & Plan Assessment/Plan (1) Acute hypoxemic respiratory failure: (2) Pneumonia due to COVID-19 virus: PLAN: 1. acute hypoxic resp failure secondary to bilateral COVID-19 pneumonia: Patient intubated on 06/11. Currently on sedatives. High FiO2 and PEEP. 90% FiO2 PEEP 10. Being managed by shank tapper. No palpable subcutaneous emphysema or crepitations in the neck and supraclavicular area. 06/16: Patient 100% FiO2, PEEP 12, maximal capacity of ventilator. I did not feel subcutaneous emphysema crepitations but patient is likely to have barotrauma, pneumomediastinum or pneumothorax or subcu emphysema. Bowel and bladder care 2. COVID 19 pneumonia: Onset 05/30, quarantine through 06/19. Patient on dexamethasone remdesivir and baricitinib. She is unvaccinated. ID has been consulted. 3.VTE prophylaxis: LMWH Charges/Coding Visit Charges Inpatient E&M: 25315 Subs Hosp L3
[2021-06-16] MEDS: Chlorhexidine 15 ML PO ×2 (07:46→21:13)
[2021-06-16] MEDS: Potassium Chloride Oral Soln 20 MEQ/15 ML UDC 40 MEQ PO (07:49)
[2021-06-16] MEDS: Polyethylene Glycol 3350 17 GM PACKET PO (07:53)
[2021-06-16] MEDS: Enoxaparin 40 MG/0.4 ML Syringe SC ×2 (07:53→21:16)
[2021-06-16] MEDS: dexAMETHasone 4 MG Tablet 6 MG GT (07:55)
[2021-06-16] MEDS: CHLORHEXIDINE GLUC 2% CLOTH 1 EACH TOWELETTE TOPICAL (07:55)
[2021-06-16] MEDS: Cholecalciferol (VIT D3) 25 MCG TABLET (1,000 UNITS) GT (07:56)
[2021-06-16] MEDS: Furosemide 10 MG/ML Liquid 40 MG PO ×3 (07:57→21:14)
[2021-06-16] MEDS: guaiFENesin 10 ML UDC (200MG/10ML) 20 ML PO ×2 (10:15→21:17)
[2021-06-16] MEDS: FLUoxetine 10 MG Capsule GT (21:17)
[2021-06-16] MEDS: Acetaminophen 650 MG/20 ML UDC GT (21:17)
[2021-06-17] VITALS (37 sets, daily range): BP systolic 111–143; BP diastolic 75–92; PULSE 67–107; RESP 14–38; TEMP 37.9–38.2; O2SAT 87–93
--- NOTE | 2021-06-17 03:39 | NURSING ---
According to MAR it shows that Precedex drip was due to be changed at 0237. There was still volume left in the bag and drip was not changed to new bag until 314. Mar also showed that Fentanyl drip was due to be changed at 0156. There was still volume left in bag and drip was not changed to new bag until 314. When administering new drips both were verified with Mark Ziegler RN.
[2021-06-17 03:43] LABS: Absolute Lymphocyte Count 0.95 X10^3/uL (0.83-4.51); Absolute Neutrophil Count 10.7 X10^3/uL (2.0-7.7); Basophil# 0.02 X10^3/uL; Basophil% 0.2 % (0-1); Eosinophil# 0.14 X10^3/uL; Eosinophils% 1.1 % (0-5); Hemoglobin 11.5 g/dL (12.0-15.0); Lymphocyte # 0.95 X10^3/ul (0.83-4.51); Lymphocyte % 7.7 % (19-41); Mean Corp Hgb Conc 33.8 g/dL (32-36); Mean Corpuscular Hgb 31.6 pg (27.0-32.0); Mean Corpuscular Volume 93.4 fL (81-99); Mean Platelet Vol. 10.6 fl (6.2-12.0); Monocyte# 0.35 X10^3/uL; Monocyte% 2.8 % (0-10); NRBC Flagged by Analyzer 0 % (0-5); Neutrophil # 10.74 X10^3/uL (2.7-7.7); Neutrophil % 86.9 % (47-70); Platelet Count 231 K/mm3 (150-450); RBC Distribution Width CV 12.1 % (11.6-14.6); RBC Distribution Width SD 42.2 fl (35.1-43.9); Red Blood Count 3.64 M/mm3 (4.2-5.4); White Blood Count 12.4 K/mm3 (4.4-11.0)
[2021-06-17 03:57] LABS: ALB/GLOB Ratio 0.4 RATIO (0.9-2.4); AST(SGOT) 31 U/L (15-37); Alanine Aminotransfer ALT/SGPT 45 U/L (13-56); Albumin, Serum 2.1 g/dL (3.2-5.0); Alkaline Phosphatase 72 U/L (45-117); Anion Gap 7 (5-15); BUN 55 mg/dL (7-18); BUN/Creat Ratio 35.9 RATIO (10-20); Calcium,Total 8.9 mg/dL (8.5-10.1); Chloride 98 mmol/L (98-107); Creatinine, Serum 1.53 mg/dL (0.55-1.02); EST Glomerular Filtration Rate 38 mL/min (>60); Est Glom Filt Rate - Afr Amer 45 mL/min (>60); Estimated Creatinine Clearance 39.35 ml/min; Globulin 5.5 g/dL (2.2-4.2); Glucose 141 mg/dL (74-106); Potassium 3.7 mmol/L (3.5-5.1); Protein, Total 7.6 g/dL (6.4-8.2); Sodium Level 137 mmol/L (136-145)
--- NOTE | 2021-06-17 07:35 | PN.CC_ITS ---
Assessment & Plan Assessment/Plan (1) Pneumonia due to COVID-19 virus: (2) Acute hypoxemic respiratory failure: PLAN: RECOMMENDATIONS: 1. Continue patient on assist control mode mechanical ventilation. Wean FiO2 and PEEP for saturations greater than 90%. 2. Maintain plateau pressures less than 30. 3. Continue current sedation regimen. 4. Continue empiric antimicrobials (06/18/2021) to complete 7-day treatment course. 5. Continue prophylactic Lovenox along with Decadron (05/17/2021) and baricitinib (05/21/2021). 6. Continue appropriate GI prophylaxis. Advance tube feeds as tolerated 7. Hold challenge with diuretic therapy given increase in creatinine IMPRESSIONS: 1. Acute hypoxemic respiratory failure secondary to COVID-19 pneumonia The patient presented to the hospital with worsening dyspnea and hypoxemi a. Given that she was within 10 days of symptom onset on presentation, remdesivir was initiated and subsequently completed. She will be continued on Decadron and baricitinib. There was no evidence for PE on CTA chest. Therefore, prophylactic Lovenox will be continued. Despite the aforementioned, the patient continued to worsen from a respiratory perspective and had to be transferred to the ICU and ultimately intubated on June 11, after she failed to respond to noninvasive positive pressure ventilatory support. Plan to continue assist control mode of mechanical ventilation and wean FiO2 and PEEP to maintain saturations at or above 90%. Strive to maintain plateau pressures less than 30 cm of water. Continue empiric antimicrobials until 06/18/2021. Continue tube feeds as tolerated. Unfortunately, PEEP did have to be increased yesterday. Patient appears to be stabilizing. 2. Acute kidney injury Worse. Likely prerenal in etiology. Urine output is improving. No current indication for renal replacement therapy. Avoid nephrotoxic medications. Patient is down to only +1.5 L over the course of the hospitalization. We will hold on diuretic therapy today. 3. Obesity/hypertension Complicates care, management, recovery and prognosis. Continue to hold home antihypertensives for now. TIME: 35 minutes of critical care time, inclusive of procedures, was spent addressing the patient's acute hypoxemic respiratory failure secondary to COVID- 19 pneumonia, acute kidney injury, review of all data and collaboration with the care team. (6 AM to 7 AM) Subjective Subjective The patient did okay overnight. Patient was able to be advanced to full tube feeds. Patient did tolerate diuresis well. Patient is not reporting any pain. Oxygenation has remained relatively stable. No change in secretions reported by nursing or respiratory. Objective Data Objective Data Vital Signs: Vital Signs Temp Pulse Resp BP Pulse Ox 38.1 C H 83 26 H 122/85 H 90 06/17/21 04:00 06/17/21 07:24 06/17/21 07:24 06/17/21 06:00 06/17/21 07:24 Oxygen Flow Rate (L/min) 100 Oxygen Delivery Method Mechanical Ventilator Weight: 110.8 kg Body Mass Index (BMI) 40.4 Intake & Output: Intake and Output for Last 24 Hours 06/15/21 06/16/21 06/17/21 23:59 23:59 23:59 Intake Total 3856.04 / 3890.04 3480.20 / 3520.00 574.50 / 574.50 Output Total 3595 / 3995 5350 / 5750 1750 / 1750 Balance 261.04 / -104.96 -1869.80 / -2230.00 -1175.50 / -1175.50 Lab / Micro Data Result Diagrams: 06/17/21 03:10 06/17/21 03:10 Labs: Laboratory Results - last 24 hr 06/17/21 03:10: WBC 12.4 H, RBC 3.64 L, Hgb 11.5 L, Hct 34.0 L, MCV 93.4, MCH 31.6, MCHC 33.8, RDW Std Deviation 42.2, RDW Coeff of Brady 12.1, Plt Count 231, MPV 10.6, Immature Gran % (Auto) 1.300 H, Neut % (Auto) 86.9 H, Lymph % (Auto) 7.7 L, [place] % (Auto) 2.8, Eos % (Auto) 1.1, Baso % (Auto) 0.2, Absolute Neuts (auto) 10.7 H, Absolute Lymphs (auto) 0.95, Nucleated RBC % 0 06/17/21 03:10: Sodium 137, Potassium 3.7, Chloride 98, Carbon Dioxide 32.0, Anion Gap 7, BUN 55 H, Creatinine 1.53 H, Estim Creat Clear Calc 39.35, Est GFR (MDRD) Af Amer 45 L, Est GFR (MDRD) Non-Af 38 L, BUN/Creatinine Ratio 35.9 H, Glucose 141 H, Calcium 8.9, Total Bilirubin 0.80, AST 31, ALT 45, Alkaline Phosphatase 72, Total Protein 7.6, Albumin 2.1 L, Globulin 5.5 H, Albumin/Rohini bulin Ratio 0.4 L Micro: Microbiology 06/15/21 13:50 Sputum, Induced/Lukens Gram Stain - Final 06/11/21 09:34 Sputum, Induced/Lukens Gram Stain - Final 06/11/21 09:34 Sputum, Induced/Lukens Respiratory Culture - Final 06/11/21 11:00 Urine Catheter - Lewis Legionella Antigen - Final 06/11/21 11:00 Urine Catheter - Lewis Streptococcus pneumoniae Antigen (M - Final 06/08/21 03:45 Urine, Clean Catch Legionella Antigen - Final 06/08/21 03:45 Urine, Clean Catch Streptococcus pneumoniae Antigen (M - Final Physical Exam Const Constitutional Narrative: No ventilator dyssynchrony. General Appearance: intubated and patient mechanically ventilated Nutritional Appearance: obese HEENT normocephalic and head/scalp atraumatic Mouth: endotracheal tube in place and OG tube in place Eyes PERRL and EOMs intact bilaterally Neck supple General: trachea midline Chest inspection of chest normal Chest: symmetrical chest wall rise; Negative for crepitus Resp Auscultation: diminished lung sounds; Negative for rales, rhonchi or wheezes Cardio regular rate and regular rhythm GI normal to inspection, nondistended, normoactive bowel sounds Extremity General Extremity: edema bilateral (Trace anasarca); Negative for clubbing or cyanosis Skin no rashes or lesions noted Neuro Sensorium / Orientation: sedated on vent Charges/Coding Procedures Hospitalists Procedures: 82469 Critial Care 1st Hr
[2021-06-17] MEDS: Potassium Chloride 20mEq/100mL 20 MEQ/100 ML IV.SOLN. 100 MEQ IV BOLUS ×2 (08:28→09:50)
[2021-06-17] MEDS: guaiFENesin 10 ML UDC (200MG/10ML) 20 ML PO ×2 (08:29→19:46)
[2021-06-17] MEDS: dexAMETHasone 4 MG Tablet 6 MG GT (08:30)
[2021-06-17] MEDS: Potassium Chloride Oral Soln 20 MEQ/15 ML UDC 40 MEQ GT (08:30)
[2021-06-17] MEDS: Cholecalciferol (VIT D3) 25 MCG TABLET (1,000 UNITS) GT (08:32)
[2021-06-17] MEDS: Polyethylene Glycol 3350 17 GM PACKET PO (08:33)
[2021-06-17] MEDS: Enoxaparin 40 MG/0.4 ML Syringe SC ×2 (08:33→19:46)
[2021-06-17] MEDS: Senna/Docusate Sodium 1 Tablet 2 TABLET GT (08:33)
[2021-06-17] MEDS: Vital AF 1.2 Cal Liquid 1,000 ML 70 ML GT (08:37)
[2021-06-17] MEDS: Chlorhexidine 15 ML PO ×2 (08:40→19:46)
[2021-06-17 09:21] LABS: Pathologist Review Reviewed
--- NOTE | 2021-06-17 09:34 | CASEMGMT ---
SW participated in ICU rounds, called [facility] to offer support, message left. SW remains available for support to family. CINDY Nunez
[2021-06-17] MEDS: CHLORHEXIDINE GLUC 2% CLOTH 1 EACH TOWELETTE TOPICAL (12:11)
--- NOTE | 2021-06-17 13:04 | PCM.PN.HOSP ---
Subjective Subjective Currently on FiO2 65%, PEEP 12. Patient is awake, on light sedation Objective Data Objective Data Vital Signs: Vital Signs Temp Pulse Resp BP Pulse Ox 100.8 F H 80 23 H 123/80 H 90 06/17/21 12:00 06/17/21 12:00 06/17/21 12:00 06/17/21 12:00 06/17/21 12:00 Oxygen Flow Rate (L/min) 100 Oxygen Delivery Method Mechanical Ventilator Weight: 244 lb 4.355 oz Body Mass Index (BMI) 40.4 Intake & Output: Intake and Output for Last 24 Hours 06/15/21 06/16/21 06/17/21 23:59 23:59 23:59 Intake Total 3856.04 / 3890.04 3480.20 / 3520.00 823.14 / 823.14 Output Total 3595 / 3995 5350 / 5750 2200 / 2200 Balance 261.04 / -104.96 -1869.80 / -2230.00 -1376.86 / -1376.86 Lab / Micro Data Result Diagrams: 06/17/21 03:10 06/17/21 03:10 Labs: Laboratory Results - last 24 hr 06/13/21 05:00: Diff Path Review Reviewed 06/17/21 03:10: WBC 12.4 H, RBC 3.64 L, Hgb 11.5 L, Hct 34.0 L, MCV 93.4, MCH 31.6, MCHC 33.8, RDW Std Deviation 42.2, RDW Coeff of Brady 12.1, Plt Count 231, MPV 10.6, Immature Gran % (Auto) 1.300 H, Neut % (Auto) 86.9 H, Lymph % (Auto) 7.7 L, [place] % (Auto) 2.8, Eos % (Auto) 1.1, Baso % (Auto) 0.2, Absolute Neuts (auto) 10.7 H, Absolute Lymphs (auto) 0.95, Nucleated RBC % 0 06/17/21 03:10: Sodium 137, Potassium 3.7, Chloride 98, Carbon Dioxide 32.0, Anion Gap 7, BUN 55 H, Creatinine 1.53 H, Estim Creat Clear Calc 39.35, Est GFR (MDRD) Af Amer 45 L, Est GFR (MDRD) Non-Af 38 L, BUN/Creatinine Ratio 35.9 H, Glucose 141 H, Calcium 8.9, Total Bilirubin 0.80, AST 31, ALT 45, Alkaline Phosphatase 72, Total Protein 7.6, Albumin 2.1 L, Globulin 5.5 H, Albumin/Globulin Ratio 0.4 L Micro: Microbiology 06/15/21 13:50 Sputum, Induced/Lukens Gram Stain - Final 06/15/21 13:50 Sputum, Induced/Lukens Respiratory Culture - Final Presumptive C albicans 06/11/21 09:34 Sputum, Induced/Lukens Gram Stain - Final 06/11/21 09:34 Sputum, Induced/Lukens Respiratory Culture - Final 06/11/21 11:00 Urine Catheter - Lewis Legionella Antigen - Final 06/11/21 11:00 Urine Catheter - Lewis Streptococcus pneumoniae Antigen (M - Final 06/08/21 03:45 Urine, Clean Catch Legionella Antigen - Final 06/08/21 03:45 Urine, Clean Catch Streptococcus pneumoniae Antigen (M - Final Physical Exam Narrative On exam General: Awake HEENT: Atraumatic, PERRLA, EOMI, Normocephalic. No palpable subcut emphysema or crepitus Oral: No Gingival or Mucosal Lesions/ Ulcerations Neck: Supple, No JVD, Negative Carotid Bruits Lungs: Air entry diminished in bilateral lung bases. On controlled mode ventilator. Cardiovascular: Sinus rhythm rhythm, Normal S1, Normal S2, No murmurs Abdomen: Bowel Sounds sluggish, soft, Non Tender, Non-Distended : No renal angle tenderness. No suprapubic tenderness. Extremities: No edema, Capillary Refill Less than 3 Seconds Skin: No rashes, No breakdown Musculoskeletal: No Tenderness to Palpation of Joints or Extremities Neurological: detail neuro exam no palpable Psych/Mental Status: Awake Assessment & Plan Assessment/Plan (1) Acute hypoxemic respiratory failure: (2) Pneumonia due to COVID-19 virus: PLAN: 1. acute hypoxic resp failure secondary to bilateral COVID-19 pneumonia: Patient intubated on 06/11. Currently on sedatives. High FiO2 and PEEP. 90% FiO2 PEEP 10. Being managed by staff nurse midwife. No palpable subcutaneous emphysema or crepitations in the neck and supraclavicular area. 06/16: Patient 100% FiO2, PEEP 12, maximal capacity of ventilator. I did not feel subcutaneous emphysema crepitations but patient is likely to have barotrauma, pneumomediastinum or pneumothorax or subcu emphysema. Bowel and bladder care 06/17: FiO2 65%, PEEP 12. Patient is on synchronized sleep awake sedative ICU protocol. 2. COVID 19 pneumonia: Onset 05/30, quarantine through 06/19. Patient on dexamethasone remdesivir and baricitinib. She is unvaccinated. ID has been consulted. IV Zosyn was started on 06/11. Will complete 7-day tomorrow and discontinue afterwards 3.VTE prophylaxis: LMWH Charges/Coding Visit Charges Inpatient E&M: 00519 Subs Hosp L3
--- NOTE | 2021-06-17 13:59 | PCM.PN.ID ---
Physical Exam Narrative Eyes open, on vent, low grade fever Const no apparent distress Resp clear to auscultation bilaterally Auscultation: diminished lung sounds Cardio regular rate and regular rhythm GI normal to inspection, nondistended, normoactive bowel sounds Skin no rashes or lesions noted ID ID: Route of nutrition/ use of supplements: [] Nutritional Intake: [] IV Site: [] Lewis Catheter: [] Assessment & Plan Assessment/Plan (1) Pneumonia due to COVID-19 virus: PLAN: Sx since 05/30/21. Unvaccinated. Recommend vaccine after discharge; isolate until 06/19/21. On dex, baricitinib, completed remdesivir. Now on vent, off paralytics. O2 improving slowly. On zosyn since 06/11, cxs have all been neg. Wbc slightly up today, still low grade fever, may be related to precedex. Ok to stop zosyn tomorrow to complete 7 day course if she remains stable. Will follow (2) Acute hypoxemic respiratory failure:
[2021-06-17] MEDS: FLUoxetine 10 MG Capsule GT (19:46)
[2021-06-17] MEDS: Dexmedetomidine 1,000 mcg in 0.9% NS 240 mL 27.7 MCG CONT INF (23:44)
[2021-06-18] VITALS (36 sets, daily range): BP systolic 107–153; BP diastolic 72–101; PULSE 69–88; RESP 15–32; TEMP 38–38.5; O2SAT 90–94
[2021-06-18] MEDS: Vital AF 1.2 Cal Liquid 1,000 ML 70 ML GT ×2 (02:54→17:30)
[2021-06-18 04:23] LABS: Absolute Lymphocyte Count 0.96 X10^3/uL (0.83-4.51); Absolute Neutrophil Count 10.3 X10^3/uL (2.0-7.7); Basophil# 0.01 X10^3/uL; Basophil% 0.1 % (0-1); Eosinophils% 0.8 % (0-5); Hematocrit 32.3 % (37-47); Hemoglobin 10.9 g/dL (12.0-15.0); Lymphocyte # 0.96 X10^3/ul (0.83-4.51); Mean Corp Hgb Conc 33.7 g/dL (32-36); Mean Corpuscular Hgb 31.9 pg (27.0-32.0); Mean Corpuscular Volume 94.4 fL (81-99); Mean Platelet Vol. 10.5 fl (6.2-12.0); Monocyte# 0.42 X10^3/uL; Monocyte% 3.5 % (0-10); NRBC Flagged by Analyzer 0 % (0-5); Neutrophil # 10.33 X10^3/uL (2.7-7.7); Neutrophil % 86.7 % (47-70); Platelet Count 230 K/mm3 (150-450); RBC Distribution Width CV 12.2 % (11.6-14.6); RBC Distribution Width SD 42.2 fl (35.1-43.9); Red Blood Count 3.42 M/mm3 (4.2-5.4); White Blood Count 11.9 K/mm3 (4.4-11.0)
[2021-06-18 04:58] LABS: ALB/GLOB Ratio 0.4 RATIO (0.9-2.4); AST(SGOT) 30 U/L (15-37); Alanine Aminotransfer ALT/SGPT 44 U/L (13-56); Albumin, Serum 1.9 g/dL (3.2-5.0); Alkaline Phosphatase 53 U/L (45-117); Anion Gap 7 (5-15); BUN 59 mg/dL (7-18); BUN/Creat Ratio 46.5 RATIO (10-20); Calcium,Total 8.5 mg/dL (8.5-10.1); Chloride 101 mmol/L (98-107); Creatinine, Serum 1.27 mg/dL (0.55-1.02); EST Glomerular Filtration Rate 47 mL/min (>60); Est Glom Filt Rate - Afr Amer 56 mL/min (>60); Estimated Creatinine Clearance 47.41 ml/min; Globulin 5.2 g/dL (2.2-4.2); Glucose 158 mg/dL (74-106); Protein, Total 7.1 g/dL (6.4-8.2); Sodium Level 137 mmol/L (136-145)
--- NOTE | 2021-06-18 05:36 | PN.CC_ITS ---
Assessment & Plan Assessment/Plan (1) Pneumonia due to COVID-19 virus: (2) Acute hypoxemic respiratory failure: PLAN: RECOMMENDATIONS: 1. Continue patient on assist control mode mechanical ventilation. Wean FiO2 and PEEP for saturations greater than 90%. 2. Maintain plateau pressures less than 30. 3. Continue current sedation regimen. 4. Continue empiric antimicrobials to complete 7-day treatment course. 5. Continue prophylactic Lovenox along with baricitinib. 6. Continue appropriate GI prophylaxis. 7. Continue tube feeds as tolerated. IMPRESSIONS: 1. Acute hypoxemic respiratory failure secondary to COVID-19 pneumonia The patient presented to the hospital with worsening dyspnea and hypoxemia. Given that she was within 10 days of symptom onset, remdesivir was initiated. The patient has since completed a treatment course of remdesivir. She will be continued on baricitinib. There was no evidence for PE on CTA chest. Therefore, prophylactic Lovenox will be continued. Despite the aforementioned, the patient continued to worsen from a respiratory perspective and had to be transferred to the ICU and ultimately intubated on June 11, after she failed to respond to noninvasive positive pressure ventilatory support. Plan to continue assist control mode of mechanical ventilation and wean FiO2 and PEEP to maintain saturations at or above 90%. Strive to maintain plateau pressures less than 30 cm of water. Continue empiric antimicrobials. Continue tube feeds as tolerated. 2. Acute kidney injury Likely prerenal in etiology. Creatinine has plateaued at this time. Urine output is improving. No current indication for renal replacement therapy. Avoid nephrotoxic medications. 3. Obesity/hypertension Complicates care, management, recovery and prognosis. Continue to hold home antihypertensives for now. TIME: 34 minutes of critical care time, inclusive of procedures, was spent addressing the patient's acute hypoxemic respiratory failure secondary to COVID-19 pneumonia, acute kidney injury, review of all data and collaboration with the care team. Subjective Subjective The patient was seen and examined at the bedside this morning. Events from the last 24 hours have been reviewed. The patient currently has a low-grade fever but remains otherwise hemodynamically stable. She remains on assist control mode of mechanical ventilation with an FiO2 requirement of 65%. She is currently documented to be overall net +900 mL for the hospitalization. Creatinine is stable at 1.27. The patient remains sedated on a combination of propofol, fentanyl and Precedex. She remains on antimicrobials, twice daily Lovenox and baricitinib. Objective Data Objective Data The patient's most recent lab work, culture data and imaging studies have all been personally reviewed. Rapid coronavirus antigen testing was positive on June 05. Strep and urine Legionella antigens were negative. Sputum culture is pending. MRSA screen was negative. Sputum culture was negative. Vital Signs: Vital Signs Temp Pulse Resp BP Pulse Ox 100.5 F H 73 28 H 139/93 H 92 06/18/21 04:00 06/18/21 05:13 06/18/21 05:13 06/18/21 04:00 06/18/21 05:13 Oxygen Flow Rate (L/min) 100 Oxygen Delivery Method Mechanical Ventilator Weight: 113.6 kg Body Mass Index (BMI) 40.4 Intake & Output: Intake and Output for Last 24 Hours 06/16/21 06/17/21 06/18/21 23:59 23:59 23:59 Intake Total 3480.20 / 3520.00 2356.64 / 2381.53 415.79 / 415.79 Output Total 5350 / 5750 3875 / 3875 570 / 570 Balance -1869.80 / -2230.00 -1518.36 / -1493.47 -154.21 / -154.21 Lab / Micro Data Attestation: I reviewed the patient's lab results. Result Diagrams: 06/18/21 04:15 06/18/21 04:15 Labs: Laboratory Results - last 24 hr 06/13/21 05:00: Diff Path Review Reviewed 06/18/21 04:15: WBC 11.9 H, RBC 3.42 L, Hgb 10.9 L, Hct 32.3 L, MCV 94.4, MCH 31.9, MCHC 33.7, RDW Std Deviation 42.2, RDW Coeff of Brady 12.2, Plt Count 230, MPV 10.5, Immature Gran % (Auto) 0.900, Neut % (Auto) 86.7 H, Lymph % (Auto) 8.0 L, [place] % (Auto) 3.5, Eos % (Auto) 0.8, Baso % (Auto) 0.1, Absolute Neuts (auto) 10.3 H, Absolute Lymphs (auto) 0.96, Nucleated RBC % 0 06/18/21 04:15: Sodium 137, Potassium 4.0, Chloride 101, Carbon Dioxide 29.0, Anion Gap 7, BUN 59 H, Creatinine 1.27 H, Estim Creat Clear Calc 47.41, Est GFR (MDRD) Af Amer 56 L, Est GFR (MDRD) Non-Af 47 L, BUN/Creatinine Ratio 46.5 H, Glucose 158 H, Calcium 8.5, Total Bilirubin 0.70, AST 30, ALT 44, Alkaline Phosphatase 53, Total Protein 7.1, Albumin 1.9 L, Globulin 5.2 H, Albumin/Rohini bulin Ratio 0.4 L Micro: Microbiology 06/15/21 13:50 Sputum, Induced/Lukens Gram Stain - Final 06/15/21 13:50 Sputum, Induced/Lukens Respiratory Culture - Final Presumptive C albicans 06/11/21 09:34 Sputum, Induced/Lukens Gram Stain - Final 06/11/21 09:34 Sputum, Induced/Lukens Respiratory Culture - Final 06/11/21 11:00 Urine Catheter - Lewis Legionella Antigen - Final 06/11/21 11:00 Urine Catheter - Lewis Streptococcus pneumoniae Antigen (M - Final 06/08/21 03:45 Urine, Clean Catch Legionella Antigen - Final 06/08/21 03:45 Urine, Clean Catch Streptococcus pneumoniae Antigen (M - Final Physical Exam Const Constitutional Narrative: No ventilator dyssynchrony. General Appearance: intubated and patient mechanically ventilated Nutritional Appearance: obese HEENT normocephalic and head/scalp atraumatic Mouth: endotracheal tube in place and OG tube in place Eyes PERRL and EOMs intact bilaterally Neck supple General: trachea midline Chest inspection of chest normal Resp Auscultation: diminished lung sounds; Negative for rales, rhonchi or wheezes Cardio regular rate and regular rhythm GI normal to inspection, nondistended, normoactive bowel sounds Extremity no clubbing, cyanosis or edema Skin no rashes or lesions noted Neuro Sensorium / Orientation: sedated on vent Charges/Coding Procedures Hospitalists Procedures: [id number] Critial Care 1st Hr
--- NOTE | 2021-06-18 07:38 | PCM.PN.HOSP ---
Subjective Subjective Patient overnight with low-grade temperatures, stable vital signs otherwise with continued FiO2 65%, continued antimicrobials with plan 7-day course IV zosyn empirically. Patient tolerating tube feeds. Patient continued on barcitinib. Patient answering questions with head nodding, still interactive despite sedation and denies any acute needs or complaints at this time. Patient without obvious evidence of chills, nausea, emesis, abdominal pain, chest pain. Objective Data Objective Data Vital Signs: Vital Signs Temp Pulse Resp BP Pulse Ox 100.7 F H 77 29 H 136/90 H 93 06/18/21 06:00 06/18/21 07:06 06/18/21 07:06 06/18/21 07:00 06/18/21 07:06 Oxygen Flow Rate (L/min) 100 Oxygen Delivery Method Mechanical Ventilator Weight: 250 lb 7.122 oz Body Mass Index (BMI) 40.4 Intake & Output: Intake and Output for Last 24 Hours 06/16/21 06/17/21 06/18/21 23:59 23:59 23:59 Intake Total 3480.20 / 3520.00 2356.64 / 2381.53 508.89 / 508.89 Output Total 5350 / 5750 3875 / 3875 570 / 570 Balance -1869.80 / -2230.00 -1518.36 / -1493.47 -61.11 / -61.11 Lab / Micro Data Result Diagrams: 06/18/21 04:15 06/18/21 04:15 Labs: Laboratory Results - last 24 hr 06/13/21 05:00: Diff Path Review Reviewed 06/18/21 04:15: WBC 11.9 H, RBC 3.42 L, Hgb 10.9 L, Hct 32.3 L, MCV 94.4, MCH 31.9, MCHC 33.7, RDW Std Deviation 42.2, RDW Coeff of Brady 12.2, Plt Count 230, MPV 10.5, Immature Gran % (Auto) 0.900, Neut % (Auto) 86.7 H, Lymph % (Auto) 8.0 L, [place] % (Auto) 3.5, Eos % (Auto) 0.8, Baso % (Auto) 0.1, Absolute Neuts (auto) 10.3 H, Absolute Lymphs (auto) 0.96, Nucleated RBC % 0 06/18/21 04:15: Sodium 137, Potassium 4.0, Chloride 101, Carbon Dioxide 29.0, Anion Gap 7, BUN 59 H, Creatinine 1.27 H, Estim Creat Clear Calc 47.41, Est GFR (MDRD) Af Amer 56 L, Est GFR (MDRD) Non-Af 47 L, BUN/Creatinine Ratio 46.5 H, Glucose 158 H, Calcium 8.5, Total Bilirubin 0.70, AST 30, ALT 44, Alkaline Phosphatase 53, Total Protein 7.1, Albumin 1.9 L, Globulin 5.2 H, Albumin/Globulin Ratio 0.4 L Micro: Microbiology 06/15/21 15:40 Blood Culture (Wb) - Right Hand Blood Culture - Preliminary No growth in 48 hours. 06/15/21 15:50 Blood Culture (Wb) - Pic Blood Culture - Preliminary No growth in 48 hours. 06/15/21 13:50 Sputum, Induced/Lukens Gram Stain - Final 06/15/21 13:50 Sputum, Induced/Lukens Respiratory Culture - Final Presumptive C albicans 06/11/21 09:34 Sputum, Induced/Lukens Gram Stain - Final 06/11/21 09:34 Sputum, Induced/Lukens Respiratory Culture - Final 06/11/21 11:00 Urine Catheter - Lewis Legionella Antigen - Final 06/11/21 11:00 Urine Catheter - Lewis Streptococcus pneumoniae Antigen (M - Final 06/08/21 03:45 Urine, Clean Catch Legionella Antigen - Final 06/08/21 03:45 Urine, Clean Catch Streptococcus pneumoniae Antigen (M - Final Physical Exam Narrative Physical Examination: General: Awake, alert, unable to answer orientation questions secondary to intubated status, patient is sedated however she is alert and can nod her head, denies any acute needs or complaints at this time. Skin: Normal color, normal turgor, no icterus, no cyanosis. HEENT: AT/NC, EOMI, PERRLA, mildly dry MM, intubated. Lungs: Diffusely diminished, greater bilateral bases, intubated with symmetric rise, no rales, ronchi or wheezing. Heart: Regular rate and rhythm; no gallop, rub audible. Abdomen: Soft, morbidly obese, NTTP, mildly distended, distant mildly hyperactive BS. Extremities: No cyanosis, no clubbing, mild bilateral ankle edema. Neurological: Patient awake, alert, oriented as noted, cognitive function improved and despite sedation is able to interact however not completely baseline intact; pupils equally reactive to light and accommodation, cranial nerves grossly normal except limited given intubated and sedated status, moving all extremities, strength severely global decreased given acute presentation. Psychiatric: Affect appears fatigued, no acute evidence of depressive or anxiety feelings. Assessment & Plan Assessment/Plan (1) Pneumonia due to COVID-19 virus: (2) Acute hypoxemic respiratory failure: PLAN: The patient is a 55 y/o F w/ PMHx: HTN, Depression and Anxiety, Allergic rhinitis who presented to the [facility] ED on 06/07/21 secondary to 9 day history of worsening dyspnea, mildly productive cough, diarrhea as well as altered taste and smell with hypoxia noted in the ED with evidence of respiratory failure requiring BIPAP w/ + COVID testing. 1. Acute Hypoxic Respiratory Failure secondary to Acute Bilateral Pneumonia secondary to Acute Viral Syndrome, COVID-19 with unvaccinated status: Patient maintained in the ICU, 06/07/2021 CTPA with no demonstrated PE or dissection with bilateral pneumonia evident, Legionella as well as streptococcal antigens negative, 06/11/2021 respiratory culture with mixed organisms with repeat 06/15/2021 with noted presumptive albicans otherwise no organisms, 06/15/2021 blood culture pending, intubated 06/11 and prior to this had been maintained on BiPAP however worsened, technical planner following, continued quarantine through 06/19/2021, treated with dexamethasone, remdesivir as well as barcitinib with infectious disease also consulted and following, started 06/11/2021 on IV Zosyn secondary to concern for concurrent bacterial superimposed infection with completion of 7-day regimen 06/18/2021. 2. Acute kidney injury: Secondary to likely acute presentation #1 and prerenal additionally, initial urine output has been decreased but is been improving. Admission BUN/Cr appropriate however function increased 06/13/2021 with BUN/creatinine 57/1.63 with baseline creatinine 0.89, most recently 06/17/21 BUN/Cr 55/1.53--> 06/18/2021 BUN/creatinine 59/1.27, improving. Patient had been diuresing with Lasix given acute presentation #1, temporarily on hold. Avoid nephrotoxic regimen as able. Currently +900 positive since admission. 3. Hypertension: Holding patient home oral regimen, currently low normal BP possibly secondary to sedation with acute #1 as well as pulse dose IV Lasix, will add back once clinically appropriate. 4. Anxiety and depression: Continued on patient Prozac regimen. 5. Obesity: Weight loss and lifestyle changes encouraged. 6. GI prophylaxis/GERD: Continued on PPI. 7. DVT prophylaxis: SCDs, Lovenox. 8. CODE STATUS: Full code. Charges/Coding Visit Charges Inpatient E&M: 71814 Subs Hosp L3
[2021-06-18] MEDS: Dexmedetomidine 1,000 mcg in 0.9% NS 240 mL 33.2 MCG CONT INF ×2 (08:07→15:58)
[2021-06-18] MEDS: Acetaminophen 650 MG/20 ML UDC GT ×2 (08:07→18:45)
[2021-06-18] MEDS: Chlorhexidine 15 ML PO ×2 (10:03→20:07)
[2021-06-18] MEDS: Senna/Docusate Sodium 1 Tablet 2 TABLET GT ×2 (10:04)
[2021-06-18] MEDS: Enoxaparin 40 MG/0.4 ML Syringe SC ×2 (10:04→20:07)
[2021-06-18] MEDS: CHLORHEXIDINE GLUC 2% CLOTH 1 EACH TOWELETTE TOPICAL (10:04)
[2021-06-18] MEDS: guaiFENesin 10 ML UDC (200MG/10ML) 20 ML PO ×2 (10:04→20:06)
[2021-06-18] MEDS: Polyethylene Glycol 3350 17 GM PACKET PO (10:05)
[2021-06-18] MEDS: Cholecalciferol (VIT D3) 25 MCG TABLET (1,000 UNITS) GT (10:05)
[2021-06-18] MEDS: FLUoxetine 10 MG Capsule GT (20:07)
[2021-06-19] VITALS (35 sets, daily range): BP systolic 129–168; BP diastolic 74–97; PULSE 75–122; RESP 15–40; TEMP 37.9–38.6; O2SAT 89–94
[2021-06-19] MEDS: Dexmedetomidine 1,000 mcg in 0.9% NS 240 mL 33.2 MCG CONT INF (00:01)
[2021-06-19] MEDS: Acetaminophen 650 MG/20 ML UDC GT ×3 (00:31→23:26)
[2021-06-19 04:16] LABS: Absolute Lymphocyte Count 0.72 X10^3/uL (0.83-4.51); Absolute Neutrophil Count 10.8 X10^3/uL (2.0-7.7); Basophil# 0.02 X10^3/uL; Basophil% 0.2 % (0-1); Eosinophil# 0.08 X10^3/uL; Eosinophils% 0.7 % (0-5); Hematocrit 29.9 % (37-47); Hemoglobin 10.3 g/dL (12.0-15.0); Lymphocyte # 0.72 X10^3/ul (0.83-4.51); Mean Corp Hgb Conc 34.4 g/dL (32-36); Mean Corpuscular Hgb 32.7 pg (27.0-32.0); Mean Corpuscular Volume 94.9 fL (81-99); Mean Platelet Vol. 11.1 fl (6.2-12.0); Monocyte# 0.44 X10^3/uL; Monocyte% 3.6 % (0-10); NRBC Flagged by Analyzer 0 % (0-5); Neutrophil # 10.76 X10^3/uL (2.7-7.7); Neutrophil % 88.8 % (47-70); Platelet Count 219 K/mm3 (150-450); RBC Distribution Width CV 12.5 % (11.6-14.6); RBC Distribution Width SD 43.3 fl (35.1-43.9); Red Blood Count 3.15 M/mm3 (4.2-5.4); White Blood Count 12.1 K/mm3 (4.4-11.0)
[2021-06-19 04:37] LABS: ALB/GLOB Ratio 0.4 RATIO (0.9-2.4); AST(SGOT) 30 U/L (15-37); Alanine Aminotransfer ALT/SGPT 49 U/L (13-56); Albumin, Serum 1.9 g/dL (3.2-5.0); Alkaline Phosphatase 53 U/L (45-117); Anion Gap 6 (5-15); BUN 54 mg/dL (7-18); BUN/Creat Ratio 42.9 RATIO (10-20); Calcium,Total 8.3 mg/dL (8.5-10.1); Chloride 105 mmol/L (98-107); Creatinine, Serum 1.26 mg/dL (0.55-1.02); EST Glomerular Filtration Rate 47 mL/min (>60); Est Glom Filt Rate - Afr Amer 57 mL/min (>60); Estimated Creatinine Clearance 47.78 ml/min; Glucose 152 mg/dL (74-106); Protein, Total 6.9 g/dL (6.4-8.2); Sodium Level 138 mmol/L (136-145)
--- NOTE | 2021-06-19 05:54 | PN.CC_ITS ---
Assessment & Plan Assessment/Plan (1) Pneumonia due to COVID-19 virus: (2) Acute hypoxemic respiratory failure: PLAN: RECOMMENDATIONS: 1. Continue patient on assist control mode mechanical ventilation. Wean FiO2 and PEEP for saturations greater than 90%. 2. Maintain plateau pressures less than 30. 3. Continue current sedation regimen. 4. 7-day treatment course of antimicrobials completed. Continue prophylactic Lovenox along with baricitinib. 5. Continue appropriate GI prophylaxis. 6. Continue tube feeds as tolerated. IMPRESSIONS: 1. Acute hypoxemic respiratory failure secondary to COVID-19 pneumonia The patient presented to the hospital with worsening dyspnea and hypoxemia. Given that she was within 10 days of symptom onset, remdesivir was initiated. The patient has since completed a treatment course of remdesivir and antimicrobials. She will be continued on baricitinib. There was no evidence for PE on CTA chest. Therefore, prophylactic Lovenox will be continued. Despite the aforementioned, the patient continued to worsen from a respiratory perspective and had to be transferred to the ICU and ultimately intubated on June 11, after she failed to respond to noninvasive positive pressure ventilatory support. Plan to continue assist control mode of mechanical ventilation and wean FiO2 and PEEP to maintain saturations at or above 90%. Strive to maintain plateau pressures less than 30 cm of water. Continue tube feeds as tolerated. 2. Acute kidney injury Likely prerenal in etiology. Creatinine has plateaued at this time. Urine output is improving. No current indication for renal replacement therapy. Avoid nephrotoxic medications. 3. Obesity/hypertension Complicates care, management, recovery and prognosis. Continue to hold home antihypertensives for now. TIME: 33 minutes of critical care time, inclusive of procedures, was spent addressing the patient's acute hypoxemic respiratory failure secondary to COVID-19 pneumonia, acute kidney injury, review of all data and collaboration with the care team. Subjective Subjective The patient was seen and examined at the bedside this morning. Events from the last 24 hours have been reviewed. The patient is currently febrile with a T-max overnight of 101.2 ?F. She remains otherwise hemodynamically stable. She remains on assist control mode of mechanical ventilation with an FiO2 re quirement of 65% and PEEP of 12. Nursing staff did report that the patient experienced anxiety overnight. She is currently documented to be overall net +500 mL for the hospitalization. Creatinine is stable at 1.26. The patient remains sedated on a combination of propofol, fentanyl and Precedex. She has completed her treatment course of antimicrobials. She remains on twice daily Lovenox and baricitinib. She is currently tolerating tube feeds. Objective Data Objective Data The patient's most recent lab work, culture data and imaging studies have all been personally reviewed. Rapid coronavirus antigen testing was positive on June 05. Strep and urine Legionella antigens were negative. Sputum culture is pending. MRSA screen was negative. Sputum culture was negative. Vital Signs: Vital Signs Temp Pulse Resp BP Pulse Ox 101.1 F H 75 34 H 132/85 H 89 06/19/21 05:00 06/19/21 05:00 06/19/21 05:00 06/19/21 05:00 06/19/21 05:00 Oxygen Flow Rate (L/min) 100 Oxygen Delivery Method Mechanical Ventilator Weight: 108.9 kg Body Mass Index (BMI) 40.4 Intake & Output: Intake and Output for Last 24 Hours 06/17/21 06/18/21 06/19/21 23:59 23:59 23:59 Intake Total 2356.64 / 2381.53 1565.55 / 1599.54 576.30 / 576.30 Output Total 3875 / 3875 2155 / 2155 600 / 600 Balance -1518.36 / -1493.47 -589.45 / -555.46 -23.70 / -23.70 Lab / Micro Data Attestation: I reviewed the patient's lab results. Result Diagrams: 06/19/21 03:45 06/19/21 03:45 Labs: Laboratory Results - last 24 hr 06/19/21 03:45: WBC 12.1 H, RBC 3.15 L, Hgb 10.3 L, Hct 29.9 L, MCV 94.9, MCH 32.7 H, MCHC 34.4, RDW Std Deviation 43.3, RDW Coeff of Brady 12.5, Plt Count 219, MPV 11.1, Immature Gran % (Auto) 0.700, Neut % (Auto) 88.8 H, Lymph % (Auto) 6.0 L, [place] % (Auto) 3.6, Eos % (Auto) 0.7, Baso % (Auto) 0.2, Absolute Neuts (auto) 10.8 H, Absolute Lymphs (auto) 0.72 L, Nucleated RBC % 0 06/19/21 03:45: Sodium 138, Potassium 4.0, Chloride 105, Carbon Dioxide 27.0, Anion Gap 6, BUN 54 H, Creatinine 1.26 H, Estim Creat Clear Calc 47.78, Est GFR (MDRD) Af Amer 57 L, Est GFR (MDRD) Non-Af 47 L, BUN/Creatinine Ratio 42.9 H, Glucose 152 H, Calcium 8.3 L, Total Bilirubin 0.70, AST 30, ALT 49, Alkaline Phosphatase 53, Total Protein 6.9, Albumin 1.9 L, Globulin 5.0 H, Albumin/Globulin Ratio 0.4 L Micro: Microbiology 06/15/21 15:40 Blood Culture (Wb) - Right Hand Blood Culture - Preliminary No growth in 48 hours. 06/15/21 15:50 Blood Culture (Wb) - Pic Blood Culture - Preliminary No growth in 48 hours. 06/15/21 13:50 Sputum, Induced/Lukens Gram Stain - Final 06/15/21 13:50 Sputum, Induced/Lukens Respiratory Culture - Final Presumptive C albicans 06/11/21 09:34 Sputum, Induced/Lukens Gram Stain - Final 06/11/21 09:34 Sputum, Induced/Lukens Respiratory Culture - Final 06/11/21 11:00 Urine Catheter - Lewis Legionella Antigen - Final 06/11/21 11:00 Urine Catheter - Lewis Streptococcus pneumoniae Antigen (M - Final 06/08/21 03:45 Urine, Clean Catch Legionella Antigen - Final 06/08/21 03:45 Urine, Clean Catch Streptococcus pneumoniae Antigen (M - Final Physical Exam Const Constitutional Narrative: No ventilator dyssynchrony. General Appearance: intubated and patient mechanically ventilated Nutritional Appearance: obese HEENT normocephalic and head/scalp atraumatic Mouth: endotracheal tube in place and OG tube in place Eyes PERRL and EOMs intact bilaterally Neck supple General: trachea midline Chest inspection of chest normal Resp Auscultation: diminished lung sounds; Negative for rales, rhonchi or wheezes Cardio regular rate and regular rhythm GI normal to inspection, nondistended, normoactive bowel sounds Extremity no clubbing, cyanosis or edema Skin no rashes or lesions noted Neuro Sensorium / Orientation: sedated on vent Charges/Coding Procedures Hospitalists Procedures: 85218 Critial Care 1st Hr
--- NOTE | 2021-06-19 06:33 | PCM.PN.HOSP ---
Subjective Subjective Patient with continued fevers overnight with stable vital signs, continued ventilation with FiO2 65% and PEEP of 12 with episodes of significant anxiety per discussion with ICU staff. Patient upon evaluation today was extremely diaphoretic and febrile at the time but had recently had significant anxiety. She is also on Precedex which could be contributing. Patient of note has completed her recent Zosyn antibiotic therapy. Patient denies any acute complaints at this time. Patient denies fevers, chills, nausea, emesis, abdominal pain, chest pain. Objective Data Objective Data Vital Signs: Vital Signs Temp Pulse Resp BP Pulse Ox 101.2 F H 77 31 H 129/84 H 92 06/19/21 06:00 06/19/21 06:00 06/19/21 06:00 06/19/21 06:00 06/19/21 06:00 Oxygen Flow Rate (L/min) 100 Oxygen Delivery Method Mechanical Ventilator Weight: 240 lb 1.334 oz Body Mass Index (BMI) 40.4 Intake & Output: Intake and Output for Last 24 Hours 06/17/21 06/18/21 06/19/21 23:59 23:59 23:59 Intake Total 2356.64 / 2381.53 1565.55 / 1599.54 605.70 / 605.70 Output Total 3875 / 3875 2155 / 2155 600 / 600 Balance -1518.36 / -1493.47 -589.45 / -555.46 5.70 / 5.70 Lab / Micro Data Result Diagrams: 06/19/21 03:45 06/19/21 03:45 Labs: Laboratory Results - last 24 hr 06/19/21 03:45: WBC 12.1 H, RBC 3.15 L, Hgb 10.3 L, Hct 29.9 L, MCV 94.9, MCH 32.7 H, MCHC 34.4, RDW Std Deviation 43.3, RDW Coeff of Brady 12.5, Plt Count 219, MPV 11.1, Immature Gran % (Auto) 0.700, Neut % (Auto) 88.8 H, Lymph % (Auto) 6.0 L, [place] % (Auto) 3.6, Eos % (Auto) 0.7, Baso % (Auto) 0.2, Absolute Neuts (auto) 10.8 H, Absolute Lymphs (auto) 0.72 L, Nucleated RBC % 0 06/19/21 03:45: Sodium 138, Potassium 4.0, Chloride 105, Carbon Dioxide 27.0, Anion Gap 6, BUN 54 H, Creatinine 1.26 H, Estim Creat Clear Calc 47.78, Est GFR (MDRD) Af Amer 57 L, Est GFR (MDRD) Non-Af 47 L, BUN/Creatinine Ratio 42.9 H, Glucose 152 H, Calcium 8.3 L, Total Bilirubin 0.70, AST 30, ALT 49, Alkaline Phosphatase 53, Total Protein 6.9, Albumin 1.9 L, Globulin 5.0 H, Albumin/Globulin Ratio 0.4 L Micro: Microbiology 06/15/21 15:40 Blood Culture (Wb) - Right Hand Blood Culture - Preliminary No growth in 48 hours. 06/15/21 15:50 Blood Culture (Wb) - Pic Blood Culture - Preliminary No growth in 48 hours. 06/15/21 13:50 Sputum, Induced/Lukens Gram Stain - Final 06/15/21 13:50 Sputum, Induced/Lukens Respiratory Culture - Final Presumptive C albicans 06/11/21 09:34 Sputum, Induced/Lukens Gram Stain - Final 06/11/21 09:34 Sputum, Induced/Lukens Respiratory Culture - Final 06/11/21 11:00 Urine Catheter - Lewis Legionella Antigen - Final 06/11/21 11:00 Urine Catheter - Lewis Streptococcus pneumoniae Antigen (M - Final 06/08/21 03:45 Urine, Clean Catch Legionella Antigen - Final 06/08/21 03:45 Urine, Clean Catch Streptococcus pneumoniae Antigen (M - Final Physical Exam Narrative Physical Examination: General: Awake, alert, unable to answer orientation questions secondary to intubated status, patient answering questions with head nod, flushed and diaphoretic this time, febrile on monitor. Skin: Flushed color, normal turgor, no icterus, no cyanosis. HEENT: AT/NC, EOMI, PERRLA, mildly dry MM, intubated. Lungs: Diffusely diminished, greater bilateral bases, intubated with symmetric rise, no rales, ronchi or wheezing. Heart: Regular rate and rhythm; no gallop, rub audible. Abdomen: Soft, morbidly obese, NTTP, mildly distended, distant mildly hyperactive BS. Extremities: No cyanosis, no clubbing, mild bilateral ankle edema. Neurological: Patient awake, alert, oriented as noted, cognitive function improved and despite sedation is able to interact however not completely baseline intact; pupils equally reactive to light and accommodation, cranial nerves grossly normal except limited given intubated and sedated status, moving all extremities, strength remains severely global decreased given acute presentation. Psychiatric: Affect appears fatigued, no acute evidence of depressive or anxiety feelings. Assessment & Plan Assessment/Plan (1) Pneumonia due to COVID-19 virus: (2) Acute hypoxemic respiratory failure: PLAN: The patient is a 55 y/o F w/ PMHx: HTN, Depression and Anxiety, Allergic rhinitis who presented to the [facility] ED on 06/07/21 secondary to 9 day history of worsening dyspnea, mildly productive cough, diarrhea as well as altered taste and smell with hypoxia noted in the ED with evidence of respiratory failure requiring BIPAP w/ + COVID testing. 1. Acute Hypoxic Respiratory Failure secondary to Acute Bilateral Pneumonia secondary to Acute Viral Syndrome, COVID-19 with unvaccinated status: Patient maintained in the ICU, 06/07/2021 CTPA with no demonstrated PE or dissection with bilateral pneumonia evident, Legionella as well as streptococcal antigens negative, 06/11/2021 respiratory culture with mixed organisms with repeat 06/15/2021 with noted presumptive albicans otherwise no organisms, 06/15/2021 blood culture with no growth, intubated 06/11 and prior to this had been maintained on BiPAP however worsened, script girl following, off quarantine 06/19/2021, treated with dexamethasone, remdesivir as well as barcitinib with infectious disease also consulted and following, started 06/11/2021 on IV Zosyn secondary to concern for concurrent bacterial superimposed infection possibility completed 06/18/2021. Repeat sputum culture requested 06/19/2021. 2. Acute kidney injury: Secondary to likely acute presentation #1 and prerenal additionally, initial urine output has been decreased but is been improving. Admission BUN/Cr appropriate however function increased 06/13/2021 with BUN/creatinine 57/1.63 with baseline creatinine 0.89, most recently 06/17/21 BUN/Cr 55/1.53--> 06/19/2021 BUN/creatinine 54/1.26, improving. Patient had been diuresing with Lasix given acute presentation #1, temporarily on hold. Avoid nephrotoxic regimen as able. Currently +500 positive since admission. 3. Hypertension: Holding patient home oral regimen, currently low normal BP possibly secondary to sedation with acute #1 as well as pulse dose IV Lasix, will add back once clinically appropriate. 4. Anxiety and depression: Continued on patient Prozac regimen. 5. Obesity: Weight loss and lifestyle changes encouraged. 6. GI prophylaxis/GERD: Continued on PPI. 7. DVT prophylaxis: SCDs, Lovenox. 8. CODE STATUS: Full code. Charges/Coding Visit Charges Inpatient E&M: 82558 Subs Hosp L2
[2021-06-19] MEDS: Dexmedetomidine 1,000 mcg in 0.9% NS 240 mL 38.8 MCG CONT INF (07:02)
[2021-06-19] MEDS: guaiFENesin 10 ML UDC (200MG/10ML) 20 ML PO ×2 (09:58→21:58)
[2021-06-19] MEDS: CHLORHEXIDINE GLUC 2% CLOTH 1 EACH TOWELETTE TOPICAL (09:58)
[2021-06-19] MEDS: Chlorhexidine 15 ML PO ×2 (09:58→22:05)
[2021-06-19] MEDS: Cholecalciferol (VIT D3) 25 MCG TABLET (1,000 UNITS) GT (09:59)
[2021-06-19] MEDS: Polyethylene Glycol 3350 17 GM PACKET PO (09:59)
[2021-06-19] MEDS: Enoxaparin 40 MG/0.4 ML Syringe SC ×2 (09:59→22:03)
[2021-06-19] MEDS: Vital AF 1.2 Cal Liquid 1,000 ML 70 ML GT (10:10)
--- NOTE | 2021-06-19 10:47 | PCM.PN.ID ---
Physical Exam Narrative Awake, on vent, still fever Const no apparent distress Resp Effort and Inspection: mechanically ventilated Auscultation: diminished lung sounds Cardio regular rate and regular rhythm GI normal to inspection, nondistended, normoactive bowel sounds Neuro CN's II-XII intact bilaterally ID ID: Route of nutrition/ use of supplements: [] Nutritional Intake: [] IV Site: [] Lewis Catheter: [] Assessment & Plan Assessment/Plan (1) Pneumonia due to COVID-19 virus: PLAN: Sx since 05/30/21. Unvaccinated. Recommend vaccine after discharge; isolate until 06/19/21. On dex, baricitinib, completed remdesivir. Now on vent, off paralytics. O2 improving slowly. On zosyn since 06/11, cxs have all been neg. Wbc stable, still low grade fever, may be related to precedex. Completed 7 days of zosyn. Will follow (2) Acute hypoxemic respiratory failure:
[2021-06-19] MEDS: Dexmedetomidine 1,000 mcg in 0.9% NS 240 mL 40.8 MCG CONT INF ×2 (13:27→19:30)
[2021-06-19] MEDS: FLUoxetine 10 MG Capsule GT (22:04)
[2021-06-20] VITALS (37 sets, daily range): BP systolic 107–181; BP diastolic 70–102; PULSE 74–113; RESP 15–41; TEMP 37.7–38.6; O2SAT 86–97
[2021-06-20] MEDS: Vital AF 1.2 Cal Liquid 1,000 ML 70 ML GT ×2 (01:00→14:38)
[2021-06-20] MEDS: Dexmedetomidine 1,000 mcg in 0.9% NS 240 mL 40.8 MCG CONT INF ×2 (01:38→08:34)
[2021-06-20 04:13] LABS: Absolute Lymphocyte Count 0.75 X10^3/uL (0.83-4.51); Absolute Neutrophil Count 11.1 X10^3/uL (2.0-7.7); Basophil# 0.02 X10^3/uL; Basophil% 0.2 % (0-1); Eosinophil# 0.08 X10^3/uL; Eosinophils% 0.6 % (0-5); Hematocrit 31.8 % (37-47); Hemoglobin 10.7 g/dL (12.0-15.0); Lymphocyte # 0.75 X10^3/ul (0.83-4.51); Mean Corp Hgb Conc 33.6 g/dL (32-36); Mean Corpuscular Hgb 32.3 pg (27.0-32.0); Mean Corpuscular Volume 96.1 fL (81-99); Mean Platelet Vol. 10.7 fl (6.2-12.0); Monocyte# 0.53 X10^3/uL; Monocyte% 4.2 % (0-10); NRBC Flagged by Analyzer 0 % (0-5); Neutrophil # 11.09 X10^3/uL (2.7-7.7); Neutrophil % 88.4 % (47-70); Platelet Count 249 K/mm3 (150-450); RBC Distribution Width CV 12.2 % (11.6-14.6); RBC Distribution Width SD 43.2 fl (35.1-43.9); Red Blood Count 3.31 M/mm3 (4.2-5.4); White Blood Count 12.6 K/mm3 (4.4-11.0)
[2021-06-20] MEDS: 0.9% Saline Lock 10 ML Syringe IV (04:18)
[2021-06-20 04:31] LABS: ALB/GLOB Ratio 0.4 RATIO (0.9-2.4); AST(SGOT) 28 U/L (15-37); Alanine Aminotransfer ALT/SGPT 51 U/L (13-56); Albumin, Serum 2.1 g/dL (3.2-5.0); Alkaline Phosphatase 58 U/L (45-117); Anion Gap 6 (5-15); BUN 46 mg/dL (7-18); Calcium,Total 8.7 mg/dL (8.5-10.1); Chloride 105 mmol/L (98-107); Creatinine, Serum 1.15 mg/dL (0.55-1.02); EST Glomerular Filtration Rate 52 mL/min (>60); Est Glom Filt Rate - Afr Amer 63 mL/min (>60); Estimated Creatinine Clearance 52.35 ml/min; Globulin 5.5 g/dL (2.2-4.2); Glucose 172 mg/dL (74-106); Protein, Total 7.6 g/dL (6.4-8.2); Sodium Level 139 mmol/L (136-145)
[2021-06-20] MEDS: Acetaminophen 650 MG/20 ML UDC GT ×2 (06:09→21:26)
--- NOTE | 2021-06-20 06:13 | PCM.PN.HOSP ---
Subjective Subjective Patient with no acute events overnight per self with head nod responding, staff and discussion with ICU physician except ongoing febrile state suspected secondary to Precedex sedation. Patient continued on baricitinib regimen, nearly completed. Patient denies chills, nausea, emesis, abdominal pain, chest pain. Objective Data Objective Data Vital Signs: Vital Signs Temp Pulse Resp BP Pulse Ox 101.5 F H 86 30 H 155/95 H 92 06/20/21 06:00 06/20/21 06:00 06/20/21 06:00 06/20/21 06:00 06/20/21 06:00 Oxygen Flow Rate (L/min) 100 Oxygen Delivery Method Mechanical Ventilator Weight: 251 lb 1.704 oz Body Mass Index (BMI) 40.4 Intake & Output: Intake and Output for Last 24 Hours 06/18/21 06/19/21 06/20/21 23:59 23:59 23:59 Intake Total 1565.55 / 1599.54 2447.97 / 2505.44 1131.76 / 1131.76 Output Total 2155 / 2155 1300 / 2100 1250 / 1250 Balance -589.45 / -555.46 1147.97 / 405.44 -118.24 / -118.24 Lab / Micro Data Result Diagrams: 06/20/21 04:00 06/20/21 04:00 Labs: Laboratory Results - last 24 hr 06/20/21 04:00: WBC 12.6 H, RBC 3.31 L, Hgb 10.7 L, Hct 31.8 L, MCV 96.1, MCH 32.3 H, MCHC 33.6, RDW Std Deviation 43.2, RDW Coeff of Brady 12.2, Plt Count 249, MPV 10.7, Immature Gran % (Auto) 0.600, Neut % (Auto) 88.4 H, Lymph % (Auto) 6.0 L, [place] % (Auto) 4.2, Eos % (Auto) 0.6, Baso % (Auto) 0.2, Absolute Neuts (auto) 11.1 H, Absolute Lymphs (auto) 0.75 L, Nucleated RBC % 0 06/20/21 04:00: Sodium 139, Potassium 4.0, Chloride 105, Carbon Dioxide 28.0, Anion Gap 6, BUN 46 H, Creatinine 1.15 H, Estim Creat Clear Calc 52.35, Est GFR (MDRD) Af Amer 63, Est GFR (MDRD) Non-Af 52 L, BUN/Creatinine Ratio 40.0 H, Glucose 172 H, Calcium 8.7, Total Bilirubin 0.70, AST 28, ALT 51, Alkaline Phosphatase 58, Total Protein 7.6, Albumin 2.1 L, Globulin 5.5 H, Albumin/Globulin Ratio 0.4 L Micro: Microbiology 06/19/21 12:00 Sputum, Induced/Lukens Gram Stain - Final 06/15/21 15:40 Blood Culture (Wb) - Right Hand Blood Culture - Preliminary No growth in 48 hours. 06/15/21 15:50 Blood Culture (Wb) - Pic Blood Culture - Preliminary No growth in 48 hours. 06/15/21 13:50 Sputum, Induced/Lukens Gram Stain - Final 06/15/21 13:50 Sputum, Induced/Lukens Respiratory Culture - Final Presumptive C albicans 06/11/21 09:34 Sputum, Induced/Lukens Gram Stain - Final 06/11/21 09:34 Sputum, Induced/Lukens Respiratory Culture - Final 06/11/21 11:00 Urine Catheter - Lewis Legionella Antigen - Final 06/11/21 11:00 Urine Catheter - Lewis Streptococcus pneumoniae Antigen (M - Final 06/08/21 03:45 Urine, Clean Catch Legionella Antigen - Final 06/08/21 03:45 Urine, Clean Catch Streptococcus pneumoniae Antigen (M - Final Physical Exam Narrative Physical Examination: General: Awake, alert, unable to answer orientation questions secondary to intubated status, patient answering questions with head nod, less flushed than day prior. Skin: Less flushed color, normal turgor, no icterus, no cyanosis. HEENT: AT/NC, EOMI, PERRLA, mildly dry MM, intubated. Lungs: Diffusely diminished, greater bilateral bases, intubated with symmetric rise, no rales, ronchi or wheezing. Heart: Regular rate and rhythm; no gallop, rub audible. Abdomen: Soft, morbidly obese, NTTP, mildly distended, normalized bowel sounds. Extremities: No cyanosis, no clubbing, mild bilateral ankle edema. Neurological: Patient awake, alert, oriented as noted, cognitive function improved and despite sedation is able to interact however not completely baseline intact; pupils equally reactive to light and accommodation, cranial nerves grossly normal except limited given intubated and sedated status, moving all extremities, strength remains severely global decreased given acute presentation. Psychiatric: Affect appears more awake, less fatigued, no acute evidence of depressive or anxiety feelings. Assessment & Plan Assessment/Plan (1) Pneumonia due to COVID-19 virus: (2) Acute hypoxemic respiratory failure: PLAN: The patient is a 55 y/o F w/ PMHx: HTN, Depression and Anxiety, Allergic rhinitis who presented to the [facility] ED on 06/07/21 secondary to 9 day history of worsening dyspnea, mildly productive cough, diarrhea as well as altered taste and smell with hypoxia noted in the ED with evidence of respiratory failure requiring BIPAP w/ + COVID testing. 1. Acute Hypoxic Respiratory Failure secondary to Acute Bilateral Pneumonia secondary to Acute Viral Syndrome, COVID-19 with unvaccinated status: Patient maintained in the ICU, 06/07/2021 CTPA with no demonstrated PE or dissection with bilateral pneumonia evident, Legionella as well as streptococcal antigens negative, 06/11/2021 respiratory culture with mixed organisms with repeat 06/15/2021 with noted presumptive albicans otherwise no organisms, 06/15/2021 blood culture with no growth, intubated 06/11 and prior to this had been maintained on BiPAP however worsened, environmental economist following, off quarantine 06/19/2021, treated with dexamethasone, remdesivir as well as barcitinib 06/20/2021 5 of 6 doses completed. Completed 7-day course of IV Zosyn therapy for concern for superimposed bacterial infection. 06/19/2021 sputum culture still pending. Patient has been febrile but this is suspected secondary to Precedex therapy. 2. Acute kidney injury: Secondary to likely acute presentation #1 and prerenal additionally, initial urine output has been decreased but is been improving. Admission BUN/Cr appropriate however function increased 06/13/2021 with BUN/creatinine 57/1.63 with baseline creatinine 0.89, most recently 06/17/21 BUN/Cr 55/1.53--> 06/20/2021 BUN/creatinine 46/1.15, improving. Avoiding nephrotoxic regimen as able in addition to avoiding aggressive IV fluids given #1. Patient baseline renal function prior 0.6 primarily 0.8, add back hydrochlorothiazide, losartan once appropriate. 3. Hypertension: Initially held patient oral regimen, BP is initially low, had been given pulse dose IV Lasix as noted above which was held given BRENDEN. BP is now elevated holding patient home oral regimen, currently low normal BP possibly secondary to sedation with acute #1 as well as pulse dose IV Lasix, will add back once clinically appropriate. Will have as needed IV hydralazine added. Patient baseline renal function prior 0.6 primarily 0.8, add back hydrochlorothiazide, losartan once appropriate. 4. Anxiety and depression: Continued on patient Prozac regimen. 5. Obesity: Weight loss and lifestyle changes encouraged. 6. GI prophylaxis/GERD: Continued on PPI. 7. DVT prophylaxis: SCDs, Lovenox. 8. CODE STATUS: Full code. Charges/Coding Visit Charges Inpatient E&M: 93791 Subs Hosp L2
--- NOTE | 2021-06-20 06:53 | PCM.PN.INT ---
Assessment & Plan Assessment/Plan (1) Pneumonia due to COVID-19 virus: (2) Acute hypoxemic respiratory failure: PLAN: RECOMMENDATIONS: 1. Continue patient on assist control mode mechanical ventilation. Wean FiO2 and PEEP for saturations greater than 90%. 2. Maintain plateau pressures less than 30. 3. Continue current sedation regimen. 4. 7-day treatment course of antimicrobials completed. Continue prophylactic Lovenox along with baricitinib. 5. Continue appropriate GI prophylaxis. 6. Continue tube feeds as tolerated. IMPRESSIONS: 1. Acute hypoxemic respiratory failure secondary to COVID-19 pneumonia The patient presented to the hospital with worsening dyspnea and hypoxemia. Given that she was within 10 days of symptom onset, remdesivir was initiated. The patient has since completed a treatment course of remdesivir and antimicrobials. She will be continued on baricitinib. There was no evidence for PE on CTA chest. Therefore, prophylactic Lovenox will be continued. Despite the aforementioned, the patient continued to worsen from a respiratory perspective and had to be transferred to the ICU and ultimately intubated on June 11, after she failed to respond to noninvasive positive pressure ventilatory support. Plan to continue assist control mode of mechanical ventilation and wean FiO2 and PEEP to maintain saturations at or above 90%. Strive to maintain plateau pressures less than 30 cm of water. Continue tube feeds as tolerated. Continue mucolytic therapy 2. Acute kidney injury Likely prerenal in etiology. Creatinine is improving at this time. Urine output is improving. No current indication for renal replacement therapy. Avoid nephrotoxic medications. We will hold on diuresis for now as patient is only +1.6 L. 3. Obesity/hypertension Complicates care, management, recovery and prognosis. Continue to hold home antihypertensives for now. 4. Persistent fever Patient has not shown any change in secretions or hemodynamic instability. Clinical suspicion for drug fever secondary to Precedex therapy. TIME: 35 minutes of critical care time, inclusive of procedures, was spent addressing the patient's acute hypoxemic respiratory failure secondary to COVID-19 pneumonia, acute kidney injury, review of all data and collaboration with the care team (5:15 AM to 6:15 AM). Subjective Subjective Patient did okay overnight. Patient has been persistently febrile, but nursing is not reporting any change in respiratory secretions. Patient has been tolerating tube feeds. No hemodynamic instability is reported. Objective Data Objective Data Vital Signs: Vital Signs Temp Pulse Resp BP Pulse Ox 38.6 C H 86 30 H 155/95 H 92 06/20/21 06:00 06/20/21 06:00 06/20/21 06:00 06/20/21 06:00 06/20/21 06:00 Oxygen Flow Rate (L/min) 100 Oxygen Delivery Method Mechanical Ventilator Weight: 113.9 kg Body Mass Index (BMI) 40.4 Intake & Output: Intake and Output for Last 24 Hours 06/18/21 06/19/21 06/20/21 23:59 23:59 23:59 Intake Total 1565.55 / 1599.54 2447.97 / 2505.44 1250.03 / 1250.03 Output Total 2155 / 2155 1300 / 2100 1250 / 1250 Balance -589.45 / -555.46 1147.97 / 405.44 0.03 / 0.03 Lab / Micro Data Result Diagrams: 06/20/21 04:00 06/20/21 04:00 Labs: Laboratory Results - last 24 hr 06/20/21 04:00: WBC 12.6 H, RBC 3.31 L, Hgb 10.7 L, Hct 31.8 L, MCV 96.1, MCH 32.3 H, MCHC 33.6, RDW Std Deviation 43.2, RDW Coeff of Brady 12.2, Plt Count 249, MPV 10.7, Immature Gran % (Auto) 0.600, Neut % (Auto) 88.4 H, Lymph % (Auto) 6.0 L, [place] % (Auto) 4.2, Eos % (Auto) 0.6, Baso % (Auto) 0.2, Absolute Neuts (auto) 11.1 H, Absolute Lymphs (auto) 0.75 L, Nucleated RBC % 0 06/20/21 04:00: Sodium 139, Potassium 4.0, Chloride 105, Carbon Dioxide 28.0, Anion Gap 6, BUN 46 H, Creatinine 1.15 H, Estim Creat Clear Calc 52.35, Est GFR (MDRD) Af Amer 63, Est GFR (MDRD) Non-Af 52 L, BUN/Creatinine Ratio 40.0 H, Glucose 172 H, Calcium 8.7, Total Bilirubin 0.70, AST 28, ALT 51, Alkaline Phosphatase 58, Total Protein 7.6, Albumin 2.1 L, Globulin 5.5 H, Albumin/Globulin Ratio 0.4 L Micro: Microbiology 06/19/21 12:00 Sputum, Induced/Lukens Gram Stain - Final 06/15/21 15:40 Blood Culture (Wb) - Right Hand Blood Culture - Preliminary No growth in 48 hours. 06/15/21 15:50 Blood Culture (Wb) - Pic Blood Culture - Preliminary No growth in 48 hours. 06/15/21 13:50 Sputum, Induced/Lukens Gram Stain - Final 06/15/21 13:50 Sputum, Induced/Lukens Respiratory Culture - Final Presumptive C albicans 06/11/21 09:34 Sputum, Induced/Lukens Gram Stain - Final 06/11/21 09:34 Sputum, Induced/Lukens Respiratory Culture - Final 06/11/21 11:00 Urine Catheter - Lewis Legionella Antigen - Final 06/11/21 11:00 Urine Catheter - Lewis Streptococcus pneumoniae Antigen (M - Final 06/08/21 03:45 Urine, Clean Catch Legionella Antigen - Final 06/08/21 03:45 Urine, Clean Catch Streptococcus pneumoniae Antigen (M - Final Physical Exam Const Constitutional Narrative: No ventilator dyssynchrony. General Appearance: intubated and patient mechanically ventilated Nutritional Appearance: obese HEENT normocephalic and head/scalp atraumatic Mouth: endotracheal tube in place and OG tube in place Eyes PERRL and EOMs intact bilaterally Neck supple General: trachea midline Chest inspection of chest normal Chest: symmetrical chest wall rise; Negative for crepitus Resp Auscultation: diminished lung sounds; Negative for rales, rhonchi or wheezes Cardio regular rate and regular rhythm GI normal to inspection, nondistended, normoactive bowel sounds Extremity no clubbing, cyanosis or edema Skin no rashes or lesions noted Neuro Sensorium / Orientation: sedated on vent Charges/Coding Procedures Hospitalists Procedures: [id number] Critial Care 1st Hr
[2021-06-20] MEDS: Polyethylene Glycol 3350 17 GM PACKET PO (08:35)
[2021-06-20] MEDS: Enoxaparin 40 MG/0.4 ML Syringe SC ×2 (08:35→21:28)
[2021-06-20] MEDS: Senna/Docusate Sodium 1 Tablet 2 TABLET GT (08:36)
[2021-06-20] MEDS: guaiFENesin 10 ML UDC (200MG/10ML) 20 ML PO ×2 (08:36→21:35)
[2021-06-20] MEDS: Cholecalciferol (VIT D3) 25 MCG TABLET (1,000 UNITS) GT (08:36)
[2021-06-20] MEDS: Propofol 10MG/Ml 1,000 MG/100 ML Bottle 6.5 MG CONT INF (09:27)
[2021-06-20] MEDS: Chlorhexidine 15 ML PO ×2 (10:44→21:28)
[2021-06-20] MEDS: CHLORHEXIDINE GLUC 2% CLOTH 1 EACH TOWELETTE TOPICAL ×2 (12:21→22:28)
[2021-06-20] MEDS: Dexmedetomidine 1,000 mcg in 0.9% NS 240 mL 35.4 MCG CONT INF ×2 (14:37→21:29)
[2021-06-20] MEDS: Propofol 10MG/Ml 1,000 MG/100 ML Bottle 13.1 MG CONT INF ×2 (16:23→21:30)
[2021-06-20] MEDS: FLUoxetine 10 MG Capsule GT (21:27)
[2021-06-21] VITALS (39 sets, daily range): BP systolic 87–130; BP diastolic 58–83; PULSE 61–91; RESP 15–32; TEMP 37.5–38.4; O2SAT 90–99
[2021-06-21] MEDS: Propofol 10MG/Ml 1,000 MG/100 ML Bottle 19.6 MG CONT INF (02:06)
[2021-06-21] MEDS: Vital AF 1.2 Cal Liquid 1,000 ML 70 ML GT ×2 (03:58→17:44)
[2021-06-21 04:14] LABS: Absolute Lymphocyte Count 0.77 X10^3/uL (0.83-4.51); Basophil# 0.02 X10^3/uL; Basophil% 0.2 % (0-1); Eosinophil# 0.12 X10^3/uL; Eosinophils% 1.3 % (0-5); Hematocrit 30.7 % (37-47); Hemoglobin 9.9 g/dL (12.0-15.0); Lymphocyte # 0.77 X10^3/ul (0.83-4.51); Lymphocyte % 8.2 % (19-41); Mean Corp Hgb Conc 32.2 g/dL (32-36); Mean Corpuscular Hgb 31.9 pg (27.0-32.0); Monocyte# 0.42 X10^3/uL; Monocyte% 4.5 % (0-10); NRBC Flagged by Analyzer 0 % (0-5); Neutrophil # 7.97 X10^3/uL (2.7-7.7); Neutrophil % 85.4 % (47-70); Platelet Count 235 K/mm3 (150-450); RBC Distribution Width CV 12.6 % (11.6-14.6); RBC Distribution Width SD 45.5 fl (35.1-43.9); White Blood Count 9.3 K/mm3 (4.4-11.0)
[2021-06-21 05:00] LABS: ALB/GLOB Ratio 0.4 RATIO (0.9-2.4); AST(SGOT) 26 U/L (15-37); Alanine Aminotransfer ALT/SGPT 48 U/L (13-56); Albumin, Serum 1.9 g/dL (3.2-5.0); Alkaline Phosphatase 57 U/L (45-117); Anion Gap 5 (5-15); BUN 42 mg/dL (7-18); BUN/Creat Ratio 40.8 RATIO (10-20); Calcium,Total 8.9 mg/dL (8.5-10.1); Chloride 108 mmol/L (98-107); Creatinine, Serum 1.03 mg/dL (0.55-1.02); EST Glomerular Filtration Rate 59 mL/min (>60); Est Glom Filt Rate - Afr Amer 72 mL/min (>60); Estimated Creatinine Clearance 58.45 ml/min; Globulin 5.3 g/dL (2.2-4.2); Glucose 183 mg/dL (74-106); Potassium 3.9 mmol/L (3.5-5.1); Protein, Total 7.2 g/dL (6.4-8.2); Sodium Level 140 mmol/L (136-145)
[2021-06-21] MEDS: Dexmedetomidine 1,000 mcg in 0.9% NS 240 mL 40.8 MCG CONT INF (05:05)
--- NOTE | 2021-06-21 05:43 | PN.HOSP_ITS ---
Subjective Subjective Patient overnight with increased sedation requirements. Patient continues to have increased work of breathing appearance despite increase sedation. Discussed with sugar cane planting equipment operator and he noted intention to obtain ABG. Patient denies any acute complaints at this time and remains able to answer questions with head nodding. Patient denies chills, nausea, emesis, abdominal pain, chest pain or dyspnea. Objective Data Objective Data Vital Signs: Vital Signs Temp Pulse Resp BP Pulse Ox 100 F H 89 23 H 124/80 H 93 06/21/21 00:00 06/21/21 04:23 06/21/21 04:23 06/21/21 03:00 06/21/21 04:23 Oxygen Flow Rate (L/min) 100 Oxygen Delivery Method Mechanical Ventilator Weight: 243 lb 6.245 oz Body Mass Index (BMI) 40.4 Intake & Output: Intake and Output for Last 24 Hours 06/19/21 06/20/21 06/21/21 23:59 23:59 23:59 Intake Total 2447.97 / 2505.44 3689.16 / 3757.46 1083.42 / 1083.42 Output Total 1300 / 2100 2425 / 2425 350 / 350 Balance 1147.97 / 405.44 1264.16 / 1332.46 733.42 / 733.42 Lab / Micro Data Result Diagrams: 06/21/21 03:45 06/21/21 03:45 Labs: Laboratory Results - last 24 hr 06/21/21 03:45: WBC 9.3, RBC 3.10 L, Hgb 9.9 L, Hct 30.7 L, MCV 99.0, MCH 31.9, MCHC 32.2, RDW Std Deviation 45.5 H, RDW Coeff of Brady 12.6, Plt Count 235, MPV 11.0, Immature Gran % (Auto) 0.400, Neut % (Auto) 85.4 H, Lymph % (Auto) 8.2 L, [place] % (Auto) 4.5, Eos % (Auto) 1.3, Baso % (Auto) 0.2, Absolute Neuts (auto) 8.0 H, Absolute Lymphs (auto) 0.77 L, Nucleated RBC % 0 06/21/21 03:45: Sodium 140, Potassium 3.9, Chloride 108 H, Carbon Dioxide 27.0, Anion Gap 5, BUN 42 H, Creatinine 1.03 H, Estim Creat Clear Calc 58.45, Est GFR (MDRD) Af Amer 72, Est GFR (MDRD) Non-Af 59 L, BUN/Creatinine Ratio 40.8 H, Glucose 183 H, Calcium 8.9, Total Bilirubin 0.60, AST 26, ALT 48, Alkaline Phosphatase 57, Total Protein 7.2, Albumin 1.9 L, Globulin 5.3 H, Albumin/Globulin Ratio 0.4 L Micro: Microbiology 06/19/21 12:00 Sputum, Induced/Lukens Gram Stain - Final 06/15/21 15:40 Blood Culture (Wb) - Right Hand Blood Culture - Preliminary No growth in 48 hours. 06/15/21 15:50 Blood Culture (Wb) - Pic Blood Culture - Preliminary No growth in 48 hours. 06/15/21 13:50 Sputum, Induced/Lukens Gram Stain - Final 06/15/21 13:50 Sputum, Induced/Lukens Respiratory Culture - Final Presumptive C albicans 06/11/21 09:34 Sputum, Induced/Lukens Gram Stain - Final 06/11/21 09:34 Sputum, Induced/Lukens Respiratory Culture - Final 06/11/21 11:00 Urine Catheter - Lewis Legionella Antigen - Final 06/11/21 11:00 Urine Catheter - Lewis Streptococcus pneumoniae Antigen (M - Final 06/08/21 03:45 Urine, Clean Catch Legionella Antigen - Final 06/08/21 03:45 Urine, Clean Catch Streptococcus pneumoniae Antigen (M - Final Physical Exam Narrative Physical Examination: General: Awake, alert, unable to answer orientation questions secondary to intubated status, patient answering questions with head nod despite maximize sedation, fatigued appearance. Skin: Normal color, normal turgor, no icterus, no cyanosis. HEENT: AT/NC, EOMI, PERRLA, mildly dry MM, intubated. Lungs: Diffusely diminished, greater bilateral bases, intubated with symmetric rise, no rales, ronchi or wheezing. Heart: Regular rate and rhythm; no gallop, rub audible. Abdomen: Soft, morbidly obese, NTTP, remains mildly distended, normalized bowel sounds. Extremities: No cyanosis, no clubbing, mild bilateral ankle edema. Neurological: Patient awake, alert, oriented as noted, cognitive function improved and despite sedation is able to interact however not completely baseline intact; pupils equally reactive to light and accommodation, cranial nerves grossly normal except limited given intubated and sedated status, moving all extremities, strength remains severely global decreased given acute presentation. Psychiatric: Affect appears alert and awake despite increased sedation at times, no acute evidence of depressive or anxiety feelings. Assessment & Plan Assessment/Plan (1) Pneumonia due to COVID-19 virus: (2) Acute hypoxemic respiratory failure: PLAN: The patient is a 55 y/o F w/ PMHx: HTN, Depression and Anxiety, Allergic rhinitis who presented to the [facility] ED on 06/07/21 secondary to 9 day history of worsening dyspnea, mildly productive cough, diarrhea as well as altered taste and smell with hypoxia noted in the ED with evidence of respiratory failure requiring BIPAP w/ + COVID testing. 1. Acute Hypoxic Respiratory Failure secondary to Acute Bilateral Pneumonia secondary to Acute Viral Syndrome, COVID-19 with unvaccinated status: Patient maintained in the ICU, 06/07/2021 CTPA with no demonstrated PE or dissection with bilateral pneumonia evident, Legionella as well as streptococcal antigens negative, 06/11/2021 respiratory culture with mixed organisms with repeat 06/15/2021 with noted presumptive albicans otherwise no organisms, 06/15/2021 blood culture with no growth, intubated 06/11 and prior to this had been maintained on BiPAP however worsened, sugar cane planting equipment operator following, off quarantine 06/19/2021, treated with dexamethasone, remdesivir as well as barcitinib 06/20/2021 5 of 6 doses completed. Completed 7-day course of IV Zosyn therapy for concern for superimposed bacterial infection. 06/19/2021 sputum culture still pending. Patient has been intermittently febrile but this is suspected secondary to Precedex therapy. 06/21/2021 increased appearance of work of b reathing with maximize sedation settings, ABG pending per sugar cane planting equipment operator. 2. Acute kidney injury: Secondary to likely acute presentation #1 and prerenal additionally, initial urine output has been decreased but is been improving. Admission BUN/Cr appropriate however function increased 06/13/2021 with BUN/creatinine 57/1.63 with baseline creatinine 0.89, most recently 06/17/21 BUN/Cr 55/1.53--> 06/21/2021 BUN/creatinine 42/1.03, improving. Patient baseline renal function prior 0.6 primarily 0.8, consider adding back hydrochlorothiazide, losartan once renal function resolved and BP appropriate, currently decreased given maximize sedation as noted above #1. 3. Hypertension: Initially held patient oral regimen, BP is initially low, had been given pulse dose IV Lasix as noted above which was held given BRENDEN. BP was transiently elevated however now 06/21/2021 decrease likely secondary to max imize sedation on several agents. 4. Anxiety and depression: Continued on patient Prozac regimen. 5. Obesity: Weight loss and lifestyle changes encouraged. 6. GI prophylaxis/GERD: Continued on PPI. 7. DVT prophylaxis: SCDs, Lovenox. 8. CODE STATUS: Full code. Charges/Coding Visit Charges Inpatient E&M: 75951 Subs Hosp L2
[2021-06-21] MEDS: Propofol 10MG/Ml 1,000 MG/100 ML Bottle 19.9 MG CONT INF ×2 (06:40→10:57)
[2021-06-21] MEDS: TITRATION PARAMETER CHANGE 1 EACH IV (06:47)
--- NOTE | 2021-06-21 08:09 | PN.CC_ITS ---
Assessment & Plan Assessment/Plan (1) Pneumonia due to COVID-19 virus: (2) Acute hypoxemic respiratory failure: PLAN: RECOMMENDATIONS: 1. Continue patient on assist control mode mechanical ventilation. Wean FiO2 and PEEP for saturations greater than 90%. 2. Maintain plateau pressures less than 30. Increase tidal volume 3. Continue current sedation regimen. 4. 7-day treatment course of antimicrobials completed. Continue prophylactic Lovenox along with baricitinib. 5. Continue appropriate GI prophylaxis. 6. Continue tube feeds as tolerated. IMPRESSIONS: 1. Acute hypoxemic respiratory failure secondary to COVID-19 pneumonia The patient presented to the hospital with worsening dyspnea and hypoxemia. Given that she was within 10 days of symptom onset, remdesivir was initiated. The patient has since completed a treatment course of remdesivir and antimicrobials. She will be continued on baricitinib. There was no evidence for PE on CTA chest. Therefore, prophylactic Lovenox will be continued. Despite the aforementioned, the patient continued to worsen from a respiratory perspective and had to be transferred to the ICU and ultimately intubated on June 11, after she failed to respond to noninvasive positive pressure ventilatory support. Patient has continued to be tachypneic, but ABG shows adequate oxygenation and ventilation on the current settings. Will increase tidal volume in an effort to minimize barotrauma. Patient will also be challenged with Lasix therapy today. 2. Acute kidney injury Likely prerenal in etiology. Creatinine is improving at this time. Urine output is improving. No current indication for renal replacement therapy. Avoid nephrotoxic medications. Patient 3 L positive for hospitalization. 3. Obesity/hypertension Complicates care, management, recovery and prognosis. Continue to hold home antihypertensives for now. 4. Persistent fever Patient has not shown any change in secretions or hemodynamic instability. Clinical suspicion for drug fever secondary to Precedex therapy. TIME: 32 minutes of critical care time, inclusive of procedures, was spent addressing the patient's acute hypoxemic respiratory failure secondary to COVID- 19 pneumonia, acute kidney injury, review of all data and collaboration with the care team. Subjective Subjective Patient did okay overnight. Patient continues to be difficult to sedate and is currently on propofol, fentanyl and Precedex. Patient has been tolerating tube feeds. No changes on FiO2 of been accomplished overnight. Patient was febrile, but no hemodynamic instability was reported. Given persistent tachypnea, an ABG was ordered this morning. Objective Data Objective Data Vital Signs: Vital Signs Temp Pulse Resp BP Pulse Ox 37.5 C H 78 27 H 122/76 H 93 06/21/21 04:00 06/21/21 07:43 06/21/21 07:00 06/21/21 07:00 06/21/21 07:00 Oxygen Flow Rate (L/min) 100 Oxygen Delivery Method Mechanical Ventilator Weight: 110.4 kg Body Mass Index (BMI) 40.4 Intake & Output: Intake and Output for Last 24 Hours 06/19/21 06/20/21 06/21/21 23:59 23:59 23:59 Intake Total 2447.97 / 2505.44 3689.16 / 3757.46 1352.39 / 1352.39 Output Total 1300 / 2100 2425 / 2425 950 / 950 Balance 1147.97 / 405.44 1264.16 / 1332.46 402.39 / 402.39 Lab / Micro Data Result Diagrams: 06/21/21 03:45 06/21/21 03:45 Labs: Laboratory Results - last 24 hr 06/21/21 03:45: WBC 9.3, RBC 3.10 L, Hgb 9.9 L, Hct 30.7 L, MCV 99.0, MCH 31.9, MCHC 32.2, RDW Std Deviation 45.5 H, RDW Coeff of Brady 12.6, Plt Count 235, MPV 11.0, Immature Gran % (Auto) 0.400, Neut % (Auto) 85.4 H, Lymph % (Auto) 8.2 L, [place] % (Auto) 4.5, Eos % (Auto) 1.3, Baso % (Auto) 0.2, Absolute Neuts (auto) 8.0 H, Absolute Lymphs (auto) 0.77 L, Nucleated RBC % 0 06/21/21 03:45: Sodium 140, Potassium 3.9, Chloride 108 H, Carbon Dioxide 27.0, Anion Gap 5, BUN 42 H, Creatinine 1.03 H, Estim Creat Clear Calc 58.45, Est GFR (MDRD) Af Amer 72, Est GFR (MDRD) Non-Af 59 L, BUN/Creatinine Ratio 40.8 H, Glucose 183 H, Calcium 8.9, Total Bilirubin 0.60, AST 26, ALT 48, Alkaline Phosphatase 57, Total Protein 7.2, Albumin 1.9 L, Globulin 5.3 H, Albumin/Rohini bulin Ratio 0.4 L Micro: Microbiology 06/15/21 15:40 Blood Culture (Wb) - Right Hand Blood Culture - Final No growth in 5 days. 06/15/21 15:50 Blood Culture (Wb) - Pic Blood Culture - Final No growth in 5 days. 06/19/21 12:00 Sputum, Induced/Lukens Gram Stain - Final 06/15/21 13:50 Sputum, Induced/Lukens Gram Stain - Final 06/15/21 13:50 Sputum, Induced/Lukens Respiratory Culture - Final Presumptive C albicans 06/11/21 09:34 Sputum, Induced/Lukens Gram Stain - Final 06/11/21 09:34 Sputum, Induced/Lukens Respiratory Culture - Final 06/11/21 11:00 Urine Catheter - Lewis Legionella Antigen - Final 06/11/21 11:00 Urine Catheter - Lewis Streptococcus pneumoniae Antigen (M - Final 06/08/21 03:45 Urine, Clean Catch Legionella Antigen - Final 06/08/21 03:45 Urine, Clean Catch Streptococcus pneumoniae Antigen (M - Final Physical Exam Const Constitutional Narrative: No ventilator dyssynchrony, but tachypneic. General Appearance: intubated and patient mechanically ventilated Nutritional Appearance: obese HEENT normocephalic and head/scalp atraumatic Mouth: endotracheal tube in place and OG tube in place Eyes PERRL and EOMs intact bilaterally Neck supple General: trachea midline Chest inspection of chest normal Chest: symmetrical chest wall rise; Negative for crepitus Resp Auscultation: diminished lung sounds; Negative for rales, rhonchi or wheezes Cardio regular rate and regular rhythm GI normal to inspection, nondistended, normoactive bowel sounds Extremity no clubbing, cyanosis or edema Skin no rashes or lesions noted Neuro Sensorium / Orientation: sedated on vent Charges/Coding Procedures Hospitalists Procedures: [id number] Critial Care 1st Hr
[2021-06-21 08:11] LABS: Allen Test Positive; Base Excess 1 mmol/L (-2 to +2); Bicarbonate 26.9 mmol/L (22-26); Blood Gas Specimen Type ART; FI02 70; Mode AC; O2 Delivery Device Adult Vent; PEEP 12; PO2 56 mmHG (75-100); RR 15; SITE R Radial; SO2 87 % (95-99); Total Carbon Dioxide 28 mmol/L; Vt 350; pCO2 49.2 mmHg (35-45); pH 7.35 (7.35-7.45)
[2021-06-21] MEDS: Acetaminophen 650 MG/20 ML UDC GT (08:51)
[2021-06-21] MEDS: Chlorhexidine 15 ML PO ×2 (08:51→21:49)
[2021-06-21] MEDS: Furosemide 40 MG/4 ML Vial IV (08:51)
[2021-06-21] MEDS: Polyethylene Glycol 3350 17 GM PACKET PO (08:52)
[2021-06-21] MEDS: Enoxaparin 40 MG/0.4 ML Syringe SC ×2 (08:52→21:49)
[2021-06-21] MEDS: Cholecalciferol (VIT D3) 25 MCG TABLET (1,000 UNITS) GT (08:52)
[2021-06-21] MEDS: Senna/Docusate Sodium 1 Tablet 2 TABLET GT (08:52)
[2021-06-21] MEDS: guaiFENesin 10 ML UDC (200MG/10ML) 20 ML PO ×2 (08:54→21:49)
[2021-06-21] MEDS: Dexmedetomidine 1,000 mcg in 0.9% NS 240 mL 41.4 MCG CONT INF ×2 (10:57→17:05)
[2021-06-21] MEDS: Propofol 10MG/Ml 1,000 MG/100 ML Bottle 16.6 MG CONT INF ×2 (15:53→21:24)
[2021-06-21] MEDS: FLUoxetine 10 MG Capsule GT (21:49)
[2021-06-22] VITALS (37 sets, daily range): BP systolic 85–131; BP diastolic 54–87; PULSE 64–103; RESP 14–33; TEMP 37.7–38.4; O2SAT 89–95
[2021-06-22] MEDS: Propofol 10MG/Ml 1,000 MG/100 ML Bottle 16.6 MG CONT INF (01:28)
[2021-06-22] MEDS: CHLORHEXIDINE GLUC 2% CLOTH 1 EACH TOWELETTE TOPICAL (03:53)
[2021-06-22 04:22] LABS: Absolute Lymphocyte Count 0.72 X10^3/uL (0.83-4.51); Absolute Neutrophil Count 6.3 X10^3/uL (2.0-7.7); Basophil# 0.02 X10^3/uL; Basophil% 0.3 % (0-1); Eosinophil# 0.12 X10^3/uL; Eosinophils% 1.6 % (0-5); Hematocrit 26.7 % (37-47); Hemoglobin 8.7 g/dL (12.0-15.0); Lymphocyte # 0.72 X10^3/ul (0.83-4.51); Lymphocyte % 9.4 % (19-41); Mean Corp Hgb Conc 32.6 g/dL (32-36); Mean Corpuscular Hgb 31.9 pg (27.0-32.0); Mean Corpuscular Volume 97.8 fL (81-99); Mean Platelet Vol. 10.8 fl (6.2-12.0); Monocyte# 0.39 X10^3/uL; Monocyte% 5.1 % (0-10); NRBC Flagged by Analyzer 0 % (0-5); Neutrophil # 6.32 X10^3/uL (2.7-7.7); Neutrophil % 82.9 % (47-70); Platelet Count 219 K/mm3 (150-450); RBC Distribution Width CV 12.6 % (11.6-14.6); RBC Distribution Width SD 45.2 fl (35.1-43.9); Red Blood Count 2.73 M/mm3 (4.2-5.4); White Blood Count 7.6 K/mm3 (4.4-11.0)
[2021-06-22 04:43] LABS: ALB/GLOB Ratio 0.3 RATIO (0.9-2.4); AST(SGOT) 23 U/L (15-37); Alanine Aminotransfer ALT/SGPT 41 U/L (13-56); Albumin, Serum 1.7 g/dL (3.2-5.0); Alkaline Phosphatase 65 U/L (45-117); Anion Gap 6 (5-15); BUN 43 mg/dL (7-18); BUN/Creat Ratio 36.4 RATIO (10-20); Calcium,Total 8.9 mg/dL (8.5-10.1); Chloride 107 mmol/L (98-107); Creatinine, Serum 1.18 mg/dL (0.55-1.02); EST Glomerular Filtration Rate 51 mL/min (>60); Est Glom Filt Rate - Afr Amer 61 mL/min (>60); Estimated Creatinine Clearance 51.02 ml/min; Globulin 5.1 g/dL (2.2-4.2); Glucose 165 mg/dL (74-106); Potassium 3.6 mmol/L (3.5-5.1); Protein, Total 6.8 g/dL (6.4-8.2); Sodium Level 139 mmol/L (136-145)
[2021-06-22] MEDS: TITRATION PARAMETER CHANGE 1 EACH IV (05:15)
[2021-06-22] MEDS: Dexmedetomidine 1,000 mcg in 0.9% NS 240 mL 41.4 MCG CONT INF ×2 (05:27)
[2021-06-22] MEDS: Propofol 10MG/Ml 1,000 MG/100 ML Bottle 19.9 MG CONT INF (05:27)
[2021-06-22] MEDS: Potassium Chloride Oral Tablet 20 MEQ 40 MEQ GT (05:43)
[2021-06-22] MEDS: Furosemide 40 MG/4 ML Vial IV (05:43)
--- NOTE | 2021-06-22 06:17 | PCM.PN.HOSP ---
Subjective Subjective Patient overnight with unfortunately events valve malfunction with vent replacement however patient transiently did require higher FiO2 but is since resumed previous 70%. Patient vitals otherwise remained stable and patient did receive pulse dose of Lasix IV x1. Patient remains alert and able to head nod despite sedation. Patient denies chills, nausea, emesis, abdominal pain, chest pain or dyspnea. Objective Data Objective Data Vital Signs: Vital Signs Temp Pulse Resp BP Pulse Ox 100.3 F H 98 22 H 131/87 H 93 06/22/21 04:00 06/22/21 06:00 06/22/21 06:00 06/22/21 06:00 06/22/21 06:00 Oxygen Flow Rate (L/min) 100 Oxygen Delivery Method Mechanical Ventilator Weight: 253 lb 12.033 oz Body Mass Index (BMI) 40.4 Intake & Output: Intake and Output for Last 24 Hours 06/20/21 06/21/21 06/22/21 23:59 23:59 23:59 Intake Total 3689.16 / 3757.46 4080.67 / 4122.32 804.46 / 804.46 Output Total 2425 / 2425 3350 / 3450 350 / 350 Balance 1264.16 / 1332.46 730.67 / 672.32 454.46 / 454.46 Lab / Micro Data Result Diagrams: 06/22/21 04:00 06/22/21 04:00 Labs: Laboratory Results - last 24 hr 06/22/21 04:00: WBC 7.6, RBC 2.73 L, Hgb 8.7 L, Hct 26.7 L, MCV 97.8, MCH 31.9, MCHC 32.6, RDW Std Deviation 45.2 H, RDW Coeff of Brady 12.6, Plt Count 219, MPV 10.8, Immature Gran % (Auto) 0.700, Neut % (Auto) 82.9 H, Lymph % (Auto) 9.4 L, [place] % (Auto) 5.1, Eos % (Auto) 1.6, Baso % (Auto) 0.3, Absolute Neuts (auto) 6.3, Absolute Lymphs (auto) 0.72 L, Nucleated RBC % 0 06/22/21 04:00: Sodium 139, Potassium 3.6, Chloride 107, Carbon Dioxide 26.0, Anion Gap 6, BUN 43 H, Creatinine 1.18 H, Estim Creat Clear Calc 51.02, Est GFR (MDRD) Af Amer 61, Est GFR (MDRD) Non-Af 51 L, BUN/Creatinine Ratio 36.4 H, Glucose 165 H, Calcium 8.9, Total Bilirubin 0.60, AST 23, ALT 41, Alkaline Phosphatase 65, Total Protein 6.8, Albumin 1.7 L, Globulin 5.1 H, Albumin/Globulin Ratio 0.3 L Micro: Microbiology 06/19/21 12:00 Sputum, Induced/Lukens Gram Stain - Final 06/19/21 12:00 Sputum, Induced/Lukens Respiratory Culture - Final Presumptive C albicans 06/15/21 15:40 Blood Culture (Wb) - Right Hand Blood Culture - Final No growth in 5 days. 06/15/21 15:50 Blood Culture (Wb) - Pic Blood Culture - Final No growth in 5 days. 06/15/21 13:50 Sputum, Induced/Lukens Gram Stain - Final 06/15/21 13:50 Sputum, Induced/Lukens Respiratory Culture - Final Presumptive C albicans 06/11/21 09:34 Sputum, Induced/Lukens Gram Stain - Final 06/11/21 09:34 Sputum, Induced/Lukens Respiratory Culture - Final 06/11/21 11:00 Urine Catheter - Lewis Legionella Antigen - Final 06/11/21 11:00 Urine Catheter - Lewis Streptococcus pneumoniae Antigen (M - Final 06/08/21 03:45 Urine, Clean Catch Legionella Antigen - Final 06/08/21 03:45 Urine, Clean Catch Streptococcus pneumoniae Antigen (M - Final ABG Data ABG results: ABG 06/21/21 08:04 Specimen Type ART Sample Site R Radial pH 7.35 Bicarbonate Actual 26.9 H Total CO2 28 Base Excess 1 O2 Saturation 87 L O2 % 70 ABG pCO2 49.2 H ABG pO2 56 L Lex Test Positive Respiration Rate 15 O2 Delivery Device Adult Vent Vent Mode AC Tidal Volume 350 POC PEEP 12 Physical Exam Narrative Physical Examination: General: Awake, alert, unable to answer orientation questions secondary to intubated status, patient answering questions with head nod despite maximize sedation, fatigued appearance. Skin: Normal color, normal turgor, no icterus, no cyanosis. HEENT: AT/NC, EOMI, PERRLA, mildly dry MM, intubated. Lungs: Diffusely diminished, greater bilateral bases, intubated with symmetric rise, no rales, ronchi or wheezing. Heart: Regular rate and rhythm; no gallop, rub audible. Abdomen: Soft, morbidly obese, NTTP, ND, normalized bowel sounds. Extremities: No cyanosis, no clubbing, mild bilateral ankle edema. Neurological: Patient awake, alert, oriented as noted, cognitive function improved and despite sedation is able to interact however not completely baseline intact; pupils equally reactive to light and accommodation, cranial nerves grossly normal except limited given intubated and sedated status, moving all extremities, strength remains severely global decreased given acute presentation. Psychiatric: Affect appears alert and awake, head nodding answers, no acute evidence of depressive or anxiety feelings. Assessment & Plan Assessment/Plan (1) Pneumonia due to COVID-19 virus: (2) Acute hypoxemic respiratory failure: PLAN: The patient is a 55 y/o F w/ PMHx: HTN, Depression and Anxiety, Allergic rhinitis who presented to the [facility] ED on 06/07/21 secondary to 9 day history of worsening dyspnea, mildly productive cough, diarrhea as well as altered taste and smell with hypoxia noted in the ED with evidence of respiratory failure requiring BIPAP w/ + COVID testing. 1. Acute Hypoxic Respiratory Failure secondary to Acute Bilateral Pneumonia secondary to Acute Viral Syndrome, COVID-19 with unvaccinated status: Patient maintained in the ICU, 06/07/2021 CTPA with no demonstrated PE or dissection with bilateral pneumonia evident, Legionella as well as streptococcal antigens negative, 06/11/2021 respiratory culture with mixed organisms with repeat 06/15/2021 with noted presumptive albicans otherwise no organisms, 06/15/2021 blood culture with no growth, intubated 06/11 and prior to this had been maintained on BiPAP however worsened, organizational development consultant following, off quarantine 06/19/2021, treated with dexamethasone, remdesivir as well as barcitinib all completed. Completed 7-day course of IV Zosyn therapy for concern for superimposed bacterial infection. 06/19/2021 sputum culture with noted presumptive C albicans only. Patient has been intermittently febrile but this is suspected secondary to Precedex therapy. 06/22/2021 reinitiation of pulse dose Lasix. 2. Acute kidney injury: Secondary to likely acute presentation #1 and prerenal additionally, initial urine output has been decreased but is been improving. Admission BUN/Cr appropriate however function increased 06/13/2021 with BUN/creatinine 57/1.63 with baseline creatinine 0.89, most recently 06/17/21 BUN/Cr 55/1.53--> 06/22/2021 BUN/creatinine 43/1.18, still not at baseline, 06/22/2021 initiation pulse dose Lasix, continue to closely monitor renal function. 3. Hypertension: Patient BP decreased with recent pulse dose Lasix, hold on resumption of patient oral regimen given likely continue need for pulse dose Lasix. 4. Normocytic anemia: Presentation hemoglobin 13.5, trending downward since admission, 06/22/2021 hemoglobin 8.7, no evidence of any rectal bright red blood or melanotic stools. Patient has been initially hydrated and pulse dose diuresed, will continue to trend 5. Anxiety and depression: Continued on patient Prozac regimen. 6. Morbid Obesity: Nutrition consulted and following, tube feeds per nutrition, if extubated will encourage weight loss and lifestyle changes. 7. GI prophylaxis/GERD: Continued on PPI. 8. DVT prophylaxis: SCDs, Lovenox. 9. CODE STATUS: Full code. Charges/Coding Visit Charges Inpatient E&M: 14273 Subs Hosp L2
--- NOTE | 2021-06-22 06:49 | PN.CC_ITS ---
Assessment & Plan Assessment/Plan (1) Pneumonia due to COVID-19 virus: (2) Acute hypoxemic respiratory failure: PLAN: RECOMMENDATIONS: 1. Continue patient on assist control mode mechanical ventilation. Wean FiO2 and PEEP for saturations greater than 90%. 2. Maintain plateau pressures less than 30. Continue higher tidal volume. Wean PEEP if FiO2 50% 3. Continue current sedation regimen. 4. 7-day treatment course of antimicrobials completed. Continue prophylactic Lovenox along with baricitinib. 5. Continue appropriate GI prophylaxis. 6. Continue tube feeds as tolerated. 7. Attempt diuresis IMPRESSIONS: 1. Acute hypoxemic respiratory failure secondary to COVID-19 pneumonia The patient presented to the hospital with worsening dyspnea and hypoxemia. Given that she was within 10 days of symptom onset, remdesivir was initiated. The patient has since completed a treatment course of remdesivir and antimicrobials. She will be continued on baricitinib. There was no evidence for PE on CTA chest. Therefore, prophylactic Lovenox will be continued. Despite the aforementioned, the patient continued to worsen from a respiratory perspective and had to be transferred to the ICU and ultimately intubated on May, after she failed to respond to noninvasive positive pressure ventilatory support. Clinical suspicion for worsening overnight secondary to derecruitment. Continue to wean FiO2 as tolerated. If able to tolerate 50%, will wean PEEP. Patient will be given diuretics and potassium. 2. Acute kidney injury Likely prerenal in etiology. Creatinine is improving at this time. Urine output is improving. No current indication for renal replacement therapy. Avoid nephrotoxic medications. Patient 4 L positive for hospitalization. Diuretic challenge today. 3. Obesity/hypertension Complicates care, management, recovery and prognosis. Continue to hold home antihypertensives for now. 4. Persistent fever Patient has not shown any change in secretions or hemodynamic instability. Clinical suspicion for drug fever secondary to Precedex therapy. TIME: 34 minutes of critical care time, inclusive of procedures, was spent addressing the patient's acute hypoxemic respiratory failure secondary to COVID- 19 pneumonia, acute kidney injury, review of all data and collaboration with the care team. Subjective Subjective The patient did okay yesterday. Patient was down to 55% FiO2, but then there was a vent malfunction. This required changing events and patient was placed back on 100% secondary to loss of recruitment. Patient has improved overnight. No bleeding has been reported. Patient has had some slightly increased residuals, but not enough to hold tube feeds. Objective Data Objective Data Vital Signs: Vital Signs Temp Pulse Resp BP Pulse Ox 37.9 C H 98 22 H 131/87 H 93 06/22/21 04:00 06/22/21 06:00 06/22/21 06:00 06/22/21 06:00 06/22/21 06:00 Oxygen Flow Rate (L/min) 100 Oxygen Delivery Method Mechanical Ventilator Weight: 115.1 kg Body Mass Index (BMI) 40.4 Intake & Output: Intake and Output for Last 24 Hours 06/20/21 06/21/21 06/22/21 23:59 23:59 23:59 Intake Total 3689.16 / 3757.46 4080.67 / 4122.32 804.46 / 804.46 Output Total 2425 / 2425 3350 / 3450 350 / 350 Balance 1264.16 / 1332.46 730.67 / 672.32 454.46 / 454.46 Lab / Micro Data Result Diagrams: 06/22/21 04:00 06/22/21 04:00 Labs: Laboratory Results - last 24 hr 06/22/21 04:00: WBC 7.6, RBC 2.73 L, Hgb 8.7 L, Hct 26.7 L, MCV 97.8, MCH 31.9, MCHC 32.6, RDW Std Deviation 45.2 H, RDW Coeff of Brady 12.6, Plt Count 219, MPV 10.8, Immature Gran % (Auto) 0.700, Neut % (Auto) 82.9 H, Lymph % (Auto) 9.4 L, [place] % (Auto) 5.1, Eos % (Auto) 1.6, Baso % (Auto) 0.3, Absolute Neuts (auto) 6.3, Absolute Lymphs (auto) 0.72 L, Nucleated RBC % 0 06/22/21 04:00: Sodium 139, Potassium 3.6, Chloride 107, Carbon Dioxide 26.0, Anion Gap 6, BUN 43 H, Creatinine 1.18 H, Estim Creat Clear Calc 51.02, Est GFR (MDRD) Af Amer 61, Est GFR (MDRD) Non-Af 51 L, BUN/Creatinine Ratio 36.4 H, Glucose 165 H, Calcium 8.9, Total Bilirubin 0.60, AST 23, ALT 41, Alkaline Phosphatase 65, Total Protein 6.8, Albumin 1.7 L, Globulin 5.1 H, Albumin/Globulin Ratio 0.3 L Micro: Microbiology 06/19/21 12:00 Sputum, Induced/Lukens Gram Stain - Final 06/19/21 12:00 Sputum, Induced/Lukens Respiratory Culture - Final Presumptive C albicans 06/15/21 15:40 Blood Culture (Wb) - Right Hand Blood Culture - Final No growth in 5 days. 06/15/21 15:50 Blood Culture (Wb) - Pic Blood Culture - Final No growth in 5 days. 06/15/21 13:50 Sputum, Induced/Lukens Gram Stain - Final 06/15/21 13:50 Sputum, Induced/Lukens Respiratory Culture - Final Presumptive C albicans 06/11/21 09:34 Sputum, Induced/Lukens Gram Stain - Final 06/11/21 09:34 Sputum, Induced/Lukens Respiratory Culture - Final 06/11/21 11:00 Urine Catheter - Lewis Legionella Antigen - Final 06/11/21 11:00 Urine Catheter - Lewis Streptococcus pneumoniae Antigen (M - Final 06/08/21 03:45 Urine, Clean Catch Legionella Antigen - Final 06/08/21 03:45 Urine, Clean Catch Streptococcus pneumoniae Antigen (M - Final ABG Data ABG results: ABG 06/21/21 08:04 Specimen Type ART Sample Site R Radial pH 7.35 Bicarbonate Actual 26.9 H Total CO2 28 Base Excess 1 O2 Saturation 87 L O2 % 70 ABG pCO2 49.2 H ABG pO2 56 L Lex Test Positive Respiration Rate 15 O2 Delivery Device Adult Vent Vent Mode AC Tidal Volume 350 POC PEEP 12 Physical Exam Const Constitutional Narrative: No ventilator dyssynchrony. Tachypnea improved General Appearance: intubated and patient mechanically ventilated Nutritional Appearance: obese HEENT normocephalic and head/scalp atraumatic Mouth: endotracheal tube in place and OG tube in place Eyes PERRL and EOMs intact bilaterally Neck supple General: trachea midline Chest inspection of chest normal Chest: symmetrical chest wall rise; Negative for crepitus Resp Auscultation: diminished lung sounds; Negative for rales, rhonchi or wheezes Cardio regular rate and regular rhythm GI normal to inspection, nondistended, normoactive bowel sounds Extremity no clubbing, cyanosis or edema Skin no rashes or lesions noted Neuro Sensorium / Orientation: sedated on vent Charges/Coding Procedures Hospitalists Procedures: 33694 Critial Care 1st Hr
[2021-06-22] MEDS: Chlorhexidine 15 ML PO ×2 (08:40→21:51)
[2021-06-22] MEDS: Enoxaparin 40 MG/0.4 ML Syringe SC ×2 (08:41→21:54)
[2021-06-22] MEDS: guaiFENesin 10 ML UDC (200MG/10ML) 20 ML PO ×2 (08:42→21:54)
[2021-06-22] MEDS: Senna/Docusate Sodium 1 Tablet 2 TABLET GT (08:42)
[2021-06-22] MEDS: Polyethylene Glycol 3350 17 GM PACKET PO (08:42)
[2021-06-22] MEDS: Cholecalciferol (VIT D3) 25 MCG TABLET (1,000 UNITS) GT (08:42)
[2021-06-22] MEDS: Vital AF 1.2 Cal Liquid 1,000 ML 70 ML GT ×2 (08:44→21:54)
[2021-06-22] MEDS: Propofol 10MG/Ml 1,000 MG/100 ML Bottle 17.3 MG CONT INF (09:36)
[2021-06-22] MEDS: Dexmedetomidine 1,000 mcg in 0.9% NS 240 mL 43.2 MCG CONT INF ×3 (11:41→23:10)
[2021-06-22] MEDS: Propofol 10MG/Ml 1,000 MG/100 ML Bottle 20.7 MG CONT INF ×3 (13:33→21:53)
[2021-06-22] MEDS: Acetaminophen 650 MG/20 ML UDC GT ×2 (13:34→21:58)
[2021-06-22] MEDS: FLUoxetine 10 MG Capsule GT (21:54)
[2021-06-23] VITALS (37 sets, daily range): BP systolic 104–161; BP diastolic 64–96; PULSE 63–115; RESP 17–37; TEMP 38–38.8; O2SAT 17–94
[2021-06-23] MEDS: Propofol 10MG/Ml 1,000 MG/100 ML Bottle 20.7 MG CONT INF ×5 (03:41→21:00)
[2021-06-23 04:48] LABS: Absolute Lymphocyte Count 0.71 X10^3/uL (0.83-4.51); Absolute Neutrophil Count 5.2 X10^3/uL (2.0-7.7); Basophil# 0.02 X10^3/uL; Basophil% 0.3 % (0-1); Eosinophil# 0.12 X10^3/uL; Eosinophils% 1.9 % (0-5); Hematocrit 18.2 % (37-47); Hemoglobin 6.2 g/dL (12.0-15.0); Lymphocyte # 0.71 X10^3/ul (0.83-4.51); Mean Corp Hgb Conc 34.1 g/dL (32-36); Mean Corpuscular Hgb 33.5 pg (27.0-32.0); Mean Corpuscular Volume 98.4 fL (81-99); Mean Platelet Vol. 10.9 fl (6.2-12.0); Monocyte# 0.35 X10^3/uL; Monocyte% 5.4 % (0-10); NRBC Flagged by Analyzer 0 % (0-5); Neutrophil % 80.8 % (47-70); Platelet Count 238 K/mm3 (150-450); RBC Distribution Width CV 12.6 % (11.6-14.6); Red Blood Count 1.85 M/mm3 (4.2-5.4); White Blood Count 6.4 K/mm3 (4.4-11.0)
[2021-06-23] MEDS: Dexmedetomidine 1,000 mcg in 0.9% NS 240 mL 43.2 MCG CONT INF ×4 (05:01→22:24)
[2021-06-23 05:05] LABS: ALB/GLOB Ratio 0.3 RATIO (0.9-2.4); AST(SGOT) 24 U/L (15-37); Alanine Aminotransfer ALT/SGPT 38 U/L (13-56); Albumin, Serum 1.6 g/dL (3.2-5.0); Alkaline Phosphatase 51 U/L (45-117); Anion Gap 7 (5-15); BUN 40 mg/dL (7-18); Chloride 105 mmol/L (98-107); EST Glomerular Filtration Rate 61 mL/min (>60); Est Glom Filt Rate - Afr Amer 74 mL/min (>60); Estimated Creatinine Clearance 60.21 ml/min; Globulin 4.9 g/dL (2.2-4.2); Glucose 143 mg/dL (74-106); Potassium 3.6 mmol/L (3.5-5.1); Protein, Total 6.5 g/dL (6.4-8.2); Sodium Level 137 mmol/L (136-145)
[2021-06-23] MEDS: Potassium Chloride Oral Soln 20 MEQ/15 ML UDC 40 MEQ PO (06:02)
--- NOTE | 2021-06-23 06:26 | PN.HOSP_ITS ---
Subjective Subjective Patient overnight with significant hemoglobin decline down to a hemoglobin 6.2, slowly trending down since initial presentation, stool guaiac was obtained and was noted to be positive. Patient was administered 2 unit PRBC and following repeat hemoglobin 10.4. As result patient anticoagulation discontinued and pat ient maintained on IV PPI. Patient continued to be pulsed dosed with Lasix given renal function improvement. Patient with head-nodding denies fevers, chills, nausea, emesis, abdominal pain, chest pain. Objective Data Objective Data Vital Signs: Vital Signs Temp Pulse Resp BP Pulse Ox 100.4 F H 70 22 H 115/74 90 06/23/21 04:00 06/23/21 04:00 06/23/21 04:00 06/23/21 04:00 06/23/21 04:00 Oxygen Flow Rate (L/min) 100 Oxygen Delivery Method Mechanical Ventilator Weight: 253 lb 12.033 oz Body Mass Index (BMI) 40.4 Intake & Output: Intake and Output for Last 24 Hours 06/21/21 06/22/21 06/23/21 23:59 23:59 23:59 Intake Total 4080.67 / 4122.32 4845.20 / 4978.23 773.65 / 773.65 Output Total 3350 / 3450 3575 / 3825 450 / 450 Balance 730.67 / 672.32 1270.20 / 1153.23 323.65 / 323.65 Lab / Micro Data Result Diagrams: 06/23/21 16:15 06/23/21 04:40 Labs: Laboratory Results - last 24 hr 06/23/21 04:40: WBC 6.4, RBC 1.85 L, Hgb 6.2 L, Hct 18.2 L, MCV 98.4, MCH 33.5 H , MCHC 34.1, RDW Std Deviation 45.0 H, RDW Coeff of Brady 12.6, Plt Count 238, MPV 10.9, Immature Gran % (Auto) 0.600, Neut % (Auto) 80.8 H, Lymph % (Auto) 11.0 L, [place] % (Auto) 5.4, Eos % (Auto) 1.9, Baso % (Auto) 0.3, Absolute Neuts (auto) 5.2, Absolute Lymphs (auto) 0.71 L, Nucleated RBC % 0 06/23/21 04:40: Sodium 137, Potassium 3.6, Chloride 105, Carbon Dioxide 25.0, Anion Gap 7, BUN 40 H, Creatinine 1.00, Estim Creat Clear Calc 60.21, Est GFR (MDRD) Af Amer 74, Est GFR (MDRD) Non-Af 61, BUN/Creatinine Ratio 40.0 H, Glucose 143 H, Calcium 8.0 L, Total Bilirubin 0.70, AST 24, ALT 38, Alkaline Phosphatase 51, Total Protein 6.5, Albumin 1.6 L, Globulin 4.9 H, Album in/Globulin Ratio 0.3 L Micro: Microbiology 06/19/21 12:00 Sputum, Induced/Lukens Gram Stain - Final 06/19/21 12:00 Sputum, Induced/Lukens Respiratory Culture - Final Presumptive C albicans 06/15/21 15:40 Blood Culture (Wb) - Right Hand Blood Culture - Final No growth in 5 days. 06/15/21 15:50 Blood Culture (Wb) - Pic Blood Culture - Final No growth in 5 days. 06/15/21 13:50 Sputum, Induced/Lukens Gram Stain - Final 06/15/21 13:50 Sputum, Induced/Lukens Respiratory Culture - Final Presumptive C albicans 06/11/21 09:34 Sputum, Induced/Lukens Gram Stain - Final 06/11/21 09:34 Sputum, Induced/Lukens Respiratory Culture - Final 06/11/21 11:00 Urine Catheter - Lewis Legionella Antigen - Final 06/11/21 11:00 Urine Catheter - Lewis Streptococcus pneumoniae Antigen (M - Final 06/08/21 03:45 Urine, Clean Catch Legionella Antigen - Final 06/08/21 03:45 Urine, Clean Catch Streptococcus pneumoniae Antigen (M - Final Physical Exam Narrative Physical Examination: General: Awake, alert, unable to answer orientation questions secondary to intubated status, patient answering questions with head nod despite maximize sedation, fatigued appearance. Skin: Normal color, normal turgor, no icterus, no cyanosis. HEENT: AT/NC, EOMI, PERRLA, mildly dry MM, intubated. Lungs: Diffusely diminished, greater bilateral bases, intubated with symmetric rise, no rales, ronchi or wheezing. Heart: Regular rate and rhythm; no gallop, rub audible. Abdomen: Soft, morbidly obese, NTTP, moderately distended, hyperactive bowel sounds. Extremities: No cyanosis, no clubbing, mild bilateral ankle edema. Neurological: Patient awake, alert, oriented as noted, cognitive function improved and despite sedation is able to interact however not completely baseline intact; pupils equally reactive to light and accommodation, cranial nerves grossly normal except limited given intubated and sedated status, moving all extremities, strength remains severely global decreased given acute presentation. Psychiatric: Affect appears alert and awake, head nodding answers, no acute evidence of depressive or anxiety feelings. Assessment & Plan Assessment/Plan (1) Pneumonia due to COVID-19 virus: (2) Acute hypoxemic respiratory failure: PLAN: The patient is a 55 y/o F w/ PMHx: HTN, Depression and Anxiety, Allergic rhinitis who presented to the [facility] ED on 06/07/21 secondary to 9 day history of worsening dyspnea, mildly productive cough, diarrhea as well as altered taste and smell with hypoxia noted in the ED with evidence of respiratory failure requiring BIPAP w/ + COVID testing. 1. Acute Hypoxic Respiratory Failure secondary to Acute Bilateral Pneumonia secondary to Acute Viral Syndrome, COVID-19 with unvaccinated status: Patient maintained in the ICU, 06/07/2021 CTPA with no demonstrated PE or dissection with bilateral pneumonia evident, Legionella as well as streptococcal antigens negative, 06/11/2021 respiratory culture with mixed organisms with repeat 06/15/2021 with noted presumptive albicans otherwise no organisms, 06/15/2021 blood culture with no growth, intubated 06/11 and prior to this had been m aintained on BiPAP however worsened, glassware engraver following, off quarantine 06/19/2021, treated with dexamethasone, remdesivir as well as barcitinib all completed. Completed 7-day course of IV Zosyn therapy for concern for superimposed bacterial infection. 06/19/2021 sputum culture with noted presum ptive C albicans only. Patient has been intermittently febrile but this is suspected secondary to Precedex therapy. 06/22/2021 reinitiation of pulse dose Lasix with continued pulse dosing 06/23/2021. 2. Acute kidney injury: Secondary to likely acute presentation #1 and prerenal additionally, initial urine output has been decreased but is been improving. Admission BUN/Cr appropriate however function increased 06/13/2021 with BUN/creatinine 57/1.63 with baseline creatinine 0.89, most recently 06/17/21 BUN/Cr 55/1.53--> 06/22/2021 BUN/creatinine 43/1.18, still not at baseline, 06/22/2021 initiation pulse dose Lasix, continue to closely monitor renal function. 3. Acute GI Bleed w/ resultant Acute Blood Loss Anemia: Patient with hemoglobin trending downward since initial presentation, presentation hemoglobin 13.5 with decreased at its lowest 06/23/2021 6.2, 2 unit PRBC administered with repeat hemoglobin 10.4, guaiac positive, deferring fluids given acute presentation #1, continued actually on pulse dose Lasix, will continue H&H as per glassware engraver discretion, maintained currently on IV PPI, anticoagulant therapy discontinued. 4. Hypertension: Patient with ongoing pulse dosed IV Lasix. 5. Anxiety and depression: Continued on patient Prozac regimen. 6. Morbid Obesity: Nutrition consulted and following, if extubated will encourage weight loss and lifestyle changes. Given #3 will defer to feed continuation versus hold to glassware engraver team. 7. GI prophylaxis/GERD: Continued on IV PPI. 8. DVT prophylaxis: SCDs, previously on Lovenox, discontinued given evidence of GI bleeding as noted #3. 9. CODE STATUS: Full code. Charges/Coding Visit Charges Inpatient E&M: 50902 [facility] Hosp L3
[2021-06-23] MEDS: Chlorhexidine 15 ML PO ×2 (07:59→22:07)
[2021-06-23] MEDS: Senna/Docusate Sodium 1 Tablet 2 TABLET GT (08:02)
[2021-06-23] MEDS: Furosemide 40 MG/4 ML Vial IV ×2 (08:03→16:17)
[2021-06-23] MEDS: guaiFENesin 10 ML UDC (200MG/10ML) 20 ML PO ×2 (08:03→22:11)
[2021-06-23] MEDS: CHLORHEXIDINE GLUC 2% CLOTH 1 EACH TOWELETTE TOPICAL (08:04)
[2021-06-23] MEDS: Polyethylene Glycol 3350 17 GM PACKET PO (08:04)
[2021-06-23] MEDS: Cholecalciferol (VIT D3) 25 MCG TABLET (1,000 UNITS) GT (08:04)
--- NOTE | 2021-06-23 08:26 | PN.CC_ITS ---
Assessment & Plan Assessment/Plan (1) Pneumonia due to COVID-19 virus: (2) Acute hypoxemic respiratory failure: PLAN: RECOMMENDATIONS: 1. Continue patient on assist control mode mechanical ventilation. Wean FiO2 and PEEP for saturations greater than 90%. 2. Maintain plateau pressures less than 30. Continue higher tidal volume. Wean PEEP if FiO2 50% 3. Continue current sedation regimen. 4. Check stool guaiac. Transfuse 2 units of blood. 5. Continue appropriate GI prophylaxis. 6. Continue tube feeds as tolerated. 7. Possible CT ABD/Pelvis for retroperitoneal hematoma if guaiac negative IMPRESSIONS: 1. Acute hypoxemic respiratory failure secondary to COVID-19 pneumonia The patient presented to the hospital with worsening dyspnea and hypoxemia. Given that she was within 10 days of symptom onset, remdesivir was initiated. The patient has since completed a treatment course of remdesivir and antimicrobials. She will be continued on baricitinib. There was no evidence for PE on CTA chest. Therefore, prophylactic Lovenox will be continued. Despite the aforementioned, the patient continued to worsen from a respiratory perspective and had to be transferred to the ICU and ultimately intubated on June 11, after she failed to respond to noninvasive positive pressure ventilatory support. Clinical suspicion for worsening overnight secondary to derecruitment. Continue to wean FiO2 as tolerated. If able to tolerate 50%, will wean PEEP. Patient will be given diuretics and potassium as able. 2. Acute kidney injury Likely prerenal in etiology. Creatinine is improving at this time. Urine output is improving. No current indication for renal replacement therapy. Avoid nephrotoxic medications. Patient 5 L positive for hospitalization. Diuretic challenge today. 3. Obesity/hypertension Complicates care, management, recovery and prognosis. Continue to hold home antihypertensives for now. 4. Persistent fever Patient has not shown any change in secretions or hemodynamic instability. Clinical suspicion for drug fever secondary to Precedex therapy. 5. Acute blood loss anemia Unclear etiology. No obvious clinic signs of bleeding. Hold lovenox. Transfuse 2 units pRBCs. Recheck HH later. TIME: 38 minutes of critical care time, inclusive of procedures, was spent addressing the patient's acute hypoxemic respiratory failure secondary to COVID- 19 pneumonia, acute kidney injury, review of all data and collaboration with the care team. Subjective Subjective Patient did okay overnight from a hemodynamic standpoint. No clinical bleeding has been reported. Patient tolerating tube feeds. Oxygenation slightly improved. Patient denies pain. Objective Data Objective Data Vital Signs: Vital Signs Temp Pulse Resp BP Pulse Ox 38.1 C H 67 22 H 117/76 90 06/23/21 06:00 06/23/21 07:00 06/23/21 07:00 06/23/21 07:00 06/23/21 07:00 Oxygen Flow Rate (L/min) 100 Oxygen Delivery Method Mechanical Ventilator Weight: 111.1 kg Body Mass Index (BMI) 40.4 Intake & Output: Intake and Output for Last 24 Hours 06/21/21 06/22/21 06/23/21 23:59 23:59 23:59 Intake Total 4080.67 / 4122.32 4845.20 / 4978.23 946.42 / 946.42 Output Total 3350 / 3450 3575 / 3825 750 / 750 Balance 730.67 / 672.32 1270.20 / 1153.23 196.42 / 196.42 Lab / Micro Data Result Diagrams: 06/23/21 04:40 06/23/21 04:40 Labs: Laboratory Results - last 24 hr 06/23/21 04:40: WBC 6.4, RBC 1.85 L, Hgb 6.2 L, Hct 18.2 L, MCV 98.4, MCH 33.5 H , MCHC 34.1, RDW Std Deviation 45.0 H, RDW Coeff of Brady 12.6, Plt Count 238, MPV 10.9, Immature Gran % (Auto) 0.600, Neut % (Auto) 80.8 H, Lymph % (Auto) 11.0 L, [place] % (Auto) 5.4, Eos % (Auto) 1.9, Baso % (Auto) 0.3, Absolute Neuts (auto) 5.2, Absolute Lymphs (auto) 0.71 L, Nucleated RBC % 0 06/23/21 04:40: Sodium 137, Potassium 3.6, Chloride 105, Carbon Dioxide 25.0, Anion Gap 7, BUN 40 H, Creatinine 1.00, Estim Creat Clear Calc 60.21, Est GFR (MDRD) Af Amer 74, Est GFR (MDRD) Non-Af 61, BUN/Creatinine Ratio 40.0 H, Glucose 143 H, Calcium 8.0 L, Total Bilirubin 0.70, AST 24, ALT 38, Alkaline Phosphatase 51, Total Protein 6.5, Albumin 1.6 L, Globulin 4.9 H, Albumin/Globulin Ratio 0.3 L 06/23/21 06:30: Blood Type A POSITIVE, Antibody Screen NEGATIVE, Crossmatch See Detail Micro: Microbiology 06/19/21 12:00 Sputum, Induced/Lukens Gram Stain - Final 06/19/21 12:00 Sputum, Induced/Lukens Respiratory Culture - Final Presumptive C albicans 06/15/21 15:40 Blood Culture (Wb) - Right Hand Blood Culture - Final No growth in 5 days. 06/15/21 15:50 Blood Culture (Wb) - Pic Blood Culture - Final No growth in 5 days. 06/15/21 13:50 Sputum, Induced/Lukens Gram Stain - Final 06/15/21 13:50 Sputum, Induced/Lukens Respiratory Culture - Final Presumptive C albicans 06/11/21 09:34 Sputum, Induced/Lukens Gram Stain - Final 06/11/21 09:34 Sputum, Induced/Lukens Respiratory Culture - Final 06/11/21 11:00 Urine Catheter - Lewis Legionella Antigen - Final 06/11/21 11:00 Urine Catheter - Lewis Streptococcus pneumoniae Antigen (M - Final 06/08/21 03:45 Urine, Clean Catch Legionella Antigen - Final 06/08/21 03:45 Urine, Clean Catch Streptococcus pneumoniae Antigen (M - Final Physical Exam Const Constitutional Narrative: No ventilator dyssynchrony. Tachypnea improved General Appearance: intubated and patient mechanically ventilated Nutritional Appearance: obese HEENT normocephalic and head/scalp atraumatic Mouth: endotracheal tube in place and OG tube in place Eyes PERRL and EOMs intact bilaterally Neck supple General: trachea midline Chest inspection of chest normal Chest: symmetrical chest wall rise; Negative for crepitus Resp Auscultation: diminished lung sounds; Negative for rales, rhonchi or wheezes Cardio regular rate and regular rhythm GI normal to inspection, nondistended, normoactive bowel sounds Extremity no clubbing, cyanosis or edema Skin no rashes or lesions noted Skin Narrative: Punctate hematoma at lovenox sites. Varicosities of ankles. no bruising noted. Neuro Sensorium / Orientation: sedated on vent Charges/Coding Procedures Hospitalists Procedures: 00462 Critial Care 1st Hr
[2021-06-23] MEDS: Acetaminophen 650 MG/20 ML UDC GT ×2 (10:17→22:06)
--- NOTE | 2021-06-23 12:57 | CASEMGMT ---
Social Work SW participated in ICU rounds this morning. SW spoke w/ this afternoon, offered support. SW remains available for support to family as needed. CINDY Nunez
[2021-06-23] MEDS: Vital AF 1.2 Cal Liquid 1,000 ML 70 ML GT (14:43)
[2021-06-23 16:22] LABS: Hematocrit 30.9 % (37-47); Hemoglobin 10.4 g/dL (12.0-15.0)
[2021-06-23] MEDS: FLUoxetine 10 MG Capsule GT (22:11)
[2021-06-23] MEDS: 0.9% Saline Lock 10 ML Syringe IV (22:11)
[2021-06-23] MEDS: Loperamide 2 MG Capsule GT (22:12)
[2021-06-23 23:49] LABS: Hematocrit 27.8 % (37-47); Hemoglobin 9.5 g/dL (12.0-15.0)
[2021-06-24] VITALS (35 sets, daily range): BP systolic 100–132; BP diastolic 66–88; PULSE 64–89; RESP 12–84; TEMP 36.3–38.9; O2SAT 90–97
[2021-06-24] MEDS: Propofol 10MG/Ml 1,000 MG/100 ML Bottle 20.7 MG CONT INF ×2 (00:37→05:27)
--- NOTE | 2021-06-24 02:50 | NURSING ---
06/24/21 @ 0230- Previous marroquin catheter removed due to leaking and replaced with new marroquin catheter per GUY Grey.
[2021-06-24] MEDS: Dexmedetomidine 1,000 mcg in 0.9% NS 240 mL 43.2 MCG CONT INF (04:16)
[2021-06-24] MEDS: CHLORHEXIDINE GLUC 2% CLOTH 1 EACH TOWELETTE TOPICAL (04:17)
[2021-06-24 04:46] LABS: Absolute Lymphocyte Count 0.44 X10^3/uL (0.83-4.51); Absolute Neutrophil Count 6.1 X10^3/uL (2.0-7.7); Basophil# 0.02 X10^3/uL; Basophil% 0.3 % (0-1); Eosinophils% 1.4 % (0-5); Hemoglobin 9.9 g/dL (12.0-15.0); Lymphocyte # 0.44 X10^3/ul (0.83-4.51); Lymphocyte % 6.2 % (19-41); Mean Corp Hgb Conc 35.4 g/dL (32-36); Mean Corpuscular Hgb 33.2 pg (27.0-32.0); Mean Platelet Vol. 11.2 fl (6.2-12.0); Monocyte# 0.38 X10^3/uL; Monocyte% 5.3 % (0-10); NRBC Flagged by Analyzer 0 % (0-5); Neutrophil # 6.14 X10^3/uL (2.7-7.7); Neutrophil % 86.4 % (47-70); POSITIVE DIFFERENTIAL YES; Platelet Count 204 K/mm3 (150-450); RBC Distribution Width CV 13.6 % (11.6-14.6); RBC Distribution Width SD 46.4 fl (35.1-43.9); Red Blood Count 2.98 M/mm3 (4.2-5.4); White Blood Count 7.1 K/mm3 (4.4-11.0)
[2021-06-24 05:07] LABS: CPK Total, Creatine Kinase 81 U/L (26-192); Triglycerides 821 mg/dL
[2021-06-24 05:23] LABS: Differential Indicated SCAN CRITERIA MET
[2021-06-24 05:33] LABS: ALB/GLOB Ratio 0.3 RATIO (0.9-2.4); AST(SGOT) 34 U/L (15-37); Alanine Aminotransfer ALT/SGPT 37 U/L (13-56); Albumin, Serum 1.6 g/dL (3.2-5.0); Alkaline Phosphatase 52 U/L (45-117); Anion Gap 8 (5-15); BUN 38 mg/dL (7-18); BUN/Creat Ratio 40.3 RATIO (10-20); Calcium,Total 7.5 mg/dL (8.5-10.1); Chloride 104 mmol/L (98-107); Creatinine, Serum 0.94 mg/dL (0.55-1.02); EST Glomerular Filtration Rate 66 mL/min (>60); Est Glom Filt Rate - Afr Amer 79 mL/min (>60); Estimated Creatinine Clearance 64.05 ml/min; Globulin 4.9 g/dL (2.2-4.2); Glucose 143 mg/dL (74-106); Potassium 3.4 mmol/L (3.5-5.1); Protein, Total 6.5 g/dL (6.4-8.2); Sodium Level 137 mmol/L (136-145)
[2021-06-24] MEDS: Vital AF 1.2 Cal Liquid 1,000 ML 70 ML GT ×2 (05:45→20:37)
--- NOTE | 2021-06-24 06:49 | PN.HOSP_ITS ---
Subjective Subjective Patient overnight with no acute events per nursing report. Patient head-nodding and denies any complaints at this time. Hemoglobin remained stable at 9.2. Patient does remain off of anticoagulant therapy but is high risk given current presentation which was discussed with ICU physician. Patient vent settings re mained stable. Patient with continued pulse dose therapy of Lasix per operations recruiter discretion. Patient without evidence of chills, nausea, emesis, abdominal pain, chest pain or worsened appearance dyspnea. Objective Data Objective Data Vital Signs: Vital Signs Temp Pulse Resp BP Pulse Ox 100.2 F H 74 25 H 113/77 94 06/24/21 04:00 06/24/21 06:00 06/24/21 06:00 06/24/21 06:00 06/24/21 06:00 Oxygen Flow Rate (L/min) 100 Oxygen Delivery Method Mechanical Ventilator Weight: 247 lb 2.211 oz Body Mass Index (BMI) 40.4 Intake & Output: Intake and Output for Last 24 Hours 06/22/21 06/23/21 06/24/21 23:59 23:59 23:59 Intake Total 4845.20 / 4978.23 4108.50 / 4672.40 1469.23 / 1469.23 Output Total 3575 / 3825 4800 / 4950 500 / 500 Balance 1270.20 / 1153.23 -691.50 / -277.60 969.23 / 969.23 Lab / Micro Data Result Diagrams: 06/24/21 04:40 06/24/21 04:40 Labs: Laboratory Results - last 24 hr 06/23/21 06:30: Blood Type A POSITIVE, Antibody Screen NEGATIVE, Crossmatch See Detail 06/23/21 16:15: Hgb 10.4 L, Hct 30.9 L 06/23/21 23:43: Hgb 9.5 L, Hct 27.8 L 06/24/21 04:40: WBC 7.1, RBC 2.98 L, Hgb 9.9 L, Hct 28.0 L, MCV 94.0, MCH 33.2 H , MCHC 35.4, RDW Std Deviation 46.4 H, RDW Coeff of Brady 13.6, Plt Count 204, MPV 11.2, Immature Gran % (Auto) 0.400, Neut % (Auto) 86.4 H, Lymph % (Auto) 6.2 L, [place] % (Auto) 5.3, Eos % (Auto) 1.4, Baso % (Auto) 0.3, Absolute Neuts (auto) 6.1, Absolute Lymphs (auto) 0.44 L, Nucleated RBC % 0 06/24/21 04:40: Sodium 137, Potassium 3.4 L, Chloride 104, Carbon Dioxide 25.0, Anion Gap 8, BUN 38 H, Creatinine 0.94, Estim Creat Clear Calc 64.05, Est GFR (MDRD) Af Amer 79, Est GFR (MDRD) Non-Af 66, BUN/Creatinine Ratio 40.3 H, Glucose 143 H, Calcium 7.5 L, Total Bilirubin 0.90, AST 34, ALT 37, Alkaline Phosphatase 52, Total Protein 6.5, Albumin 1.6 L, Globulin 4.9 H, Albumin/Globulin Ratio 0.3 L 06/24/21 04:40: Total Creatine Kinase 81, Triglycerides 821 H Micro: Microbiology 06/23/21 10:30 Stool Stool Occult Blood (YASEMIN) - Final Occult Blood Positive 06/19/21 12:00 Sputum, Induced/Lukens Gram Stain - Final 06/19/21 12:00 Sputum, Induced/Lukens Respiratory Culture - Final Presumptive C albicans 06/15/21 15:40 Blood Culture (Wb) - Right Hand Blood Culture - Final No growth in 5 days. 06/15/21 15:50 Blood Culture (Wb) - Pic Blood Culture - Final No growth in 5 days. 06/15/21 13:50 Sputum, Induced/Lukens Gram Stain - Final 06/15/21 13:50 Sputum, Induced/Lukens Respiratory Culture - Final Presumptive C albicans 06/11/21 09:34 Sputum, Induced/Lukens Gram Stain - Final 06/11/21 09:34 Sputum, Induced/Lukens Respiratory Culture - Final 06/11/21 11:00 Urine Catheter - Lewis Legionella Antigen - Final 06/11/21 11:00 Urine Catheter - Lewis Streptococcus pneumoniae Antigen (M - Final 06/08/21 03:45 Urine, Clean Catch Legionella Antigen - Final 06/08/21 03:45 Urine, Clean Catch Streptococcus pneumoniae Antigen (M - Final Physical Exam Narrative Physical Examination: General: Awake, alert, unable to answer orientation questions secondary to intubated status, patient head nodding answering questions. Skin: Normal color, normal turgor, no icterus, no cyanosis. HEENT: AT/NC, EOMI, PERRLA, mildly dry MM, intubated. Lungs: Diffusely diminished, greater bilateral bases, intubated with symmetric rise, no rales, ronchi or wheezing. Heart: Regular rate and rhythm; no gallop, rub audible. Abdomen: Soft, morbidly obese, NTTP, less distended, still ongoing hyperactive bowel sounds. Extremities: No cyanosis, no clubbing, mild bilateral ankle edema. Neurological: Patient awake, alert, oriented as noted, cognitive function improved and despite sedation is able to interact however not completely baseline intact; pupils equally reactive to light and accommodation, cranial nerves grossly normal except limited given intubated and sedated status, moving all extremities, strength remains severely global decreased given acute presentation. Psychiatric: Affect appears alert and awake, head nodding answers, no acute evidence of depressive or anxiety feelings. Assessment & Plan Assessment/Plan (1) Pneumonia due to COVID-19 virus: (2) Acute hypoxemic respiratory failure: PLAN: The patient is a 55 y/o F w/ PMHx: HTN, Depression and Anxiety, Allergic rhinitis who presented to the [facility] ED on 06/07/21 secondary to 9 day history of worsening dyspnea, mildly productive cough, diarrhea as well as altered taste and smell with hypoxia noted in the ED with evidence of respiratory failure requiring BIPAP w/ + COVID testing. 1. Acute Hypoxic Respiratory Failure secondary to Acute Bilateral Pneumonia secondary to Acute Viral Syndrome, COVID-19 with unvaccinated status: Patient maintained in the ICU, 06/07/2021 CTPA with no demonstrated PE or dissection with bilateral pneumonia evident, Legionella as well as streptococcal antigens negative, 06/11/2021 respiratory culture with mixed organisms with repeat 06/15/2021 with noted presumptive albicans otherwise no organisms, 06/15/2021 blood culture with no growth, intubated 06/11 and prior to this had been maintained on BiPAP however worsened, operations recruiter following, off quarantine 06/19/2021, treated with dexamethasone, remdesivir as well as barcitinib all completed. Completed 7-day course of IV Zosyn therapy for concern for superimposed bacterial infection. 06/19/2021 sputum culture with noted presumptive C albicans only. Patient has been intermittently febrile but this is suspected secondary to Precedex therapy. 06/22/2021 reinitiation of pulse dose Lasix regimen per operations recruiter discretion. 2. Acute kidney injury: Secondary to likely acute presentation #1 and prerenal additionally, initial urine output has been decreased but is been improving. Admission BUN/Cr appropriate however function increased 06/13/2021 with BUN/creatinine 57/1.63 with baseline creatinine 0.89, 06/22/2021 BUN/creatinine 43/1.18 with 06/22/2021 reinitiation pulse dose Lasix, 06/24/2021 BUN/creatinine 38/0.94, continue to monitor. 3. Acute GI Bleed w/ resultant Acute Blood Loss Anemia: Patient with hemoglobin trending downward since initial presentation, presentation hemoglobin 13.5 with decreased at its lowest 06/23/2021 6.2, 2 unit PRBC administered with repeat hemoglobin 10.4, guaiac positive, deferring fluids given acute presentation #1, continued actually on pulse dose Lasix, continued on IV PPI, 06/24/2021 hemoglobin 9.9. We will continue to trend. 4. Hypertension: Patient with ongoing pulse dosed IV Lasix. 5. Anxiety and depression: Continued on patient Prozac regimen. 6. Morbid Obesity: Nutrition consulted and following, if extubated will encourage weight loss and lifestyle changes. Given #3 will defer to feed continuation versus hold to operations recruiter team. 7. GI prophylaxis/GERD: Continued on IV PPI. 8. DVT prophylaxis: SCDs, previously on Lovenox, discontinued given evidence of GI bleeding as noted #3. 9. CODE STATUS: Full code. Charges/Coding Visit Charges Inpatient E&M: 38221 Subs Hosp L2
[2021-06-24] MEDS: TITRATION PARAMETER CHANGE 1 EACH IV (06:52)
--- NOTE | 2021-06-24 06:56 | PN.CC_ITS ---
Assessment & Plan Assessment/Plan (1) Pneumonia due to COVID-19 virus: (2) Acute hypoxemic respiratory failure: PLAN: RECOMMENDATIONS: 1. Continue to wean FiO2 and PEEP for saturations greater than 90%. 2. Continue current sedation regimen. 3. Continue tube feeds as tolerated. 4. Continue PPI therapy twice daily. 5. Monitor H&H daily. Transfuse if hemoglobin is less than 7 g/dL. 6. Diuresis as tolerated by hemodynamics and renal function. 7. Goals of care discussion with the patient's family. IMPRESSIONS: 1. Acute hypoxemic respiratory failure secondary to COVID-19 pneumonia The patient presented to the hospital with worsening dyspnea and hypoxemia. Given that she was within 10 days of symptom onset, remdesivir was initiated. The patient has since completed a treatment course of remdesivir, antimicrobials, Decadron and baricitinib. There was no evidence for PE on CTA chest. Although she was initially placed on Lovenox, the medication was discontinued over concerns for GI blood loss. She is therefore not on any pharmacologic prophylaxis at the current time. She continues to have high FiO2 and PEEP requirements. Plan to continue tube feeds as tolerated. Will need to discuss goals of care with the patient's family. 2. Acute kidney injury Resolved. Likely prerenal in etiology. Continue attempts at diuresis as tolerated by hemodynamics and renal function. 3. Anemia Concern for GI source of blood loss. The patient has been transfused with appr opriate improvement in her blood counts. Continue to monitor H&H daily. Transfuse for hemoglobin less than 7 g/dL. Continue PPI therapy twice daily. 4. Hypokalemia Electrolyte repletion as indicated. Recheck levels in the morning. 5. Obesity/hypertension Complicates care, management, recovery and prognosis. Continue to hold home antihypertensives for now. TIME: 34 minutes of critical care time, independent of procedures, was spent addressing the patient's acute hypoxemic respiratory failure secondary to COVID- 19 pneumonia, acute kidney injury, anemia, review of all data and collaboration with the care team. Subjective Subjective The patient was seen and examined at the bedside this morning. Events from the last 24 hours have been reviewed. Today is vent day #14. The patient did have fevers overnight with a T-max noted to be 102 ?F. She remains on assist control mode of mechanical ventilation with an FiO2 requirement of 70% and PEEP of 12. She is currently tolerating tube feeds. She remains sedated on propofol, fent anyl and Precedex. She has completed a treatment course of antimicrobials, Decadron and baricitinib. Hemoglobin is stable this morning at 9.9 g/dL. Potassium is low at 3.4. Creatinine is stable. Objective Data Objective Data The patient's most recent lab work, culture data and imaging studies have all been personally reviewed. Rapid coronavirus antigen testing was positive on June 05. Strep and urine Legionella antigens were negative. Sputum culture is pending. MRSA screen was negative. Sputum culture was negative. Vital Signs: Vital Signs Temp Pulse Resp BP Pulse Ox 100.2 F H 68 27 H 113/77 93 06/24/21 04:00 06/24/21 06:52 06/24/21 06:52 06/24/21 06:00 06/24/21 06:52 Oxygen Flow Rate (L/min) 100 Oxygen Delivery Method Mechanical Ventilator Weight: 112.1 kg Body Mass Index (BMI) 40.4 Intake & Output: Intake and Output for Last 24 Hours 06/22/21 06/23/21 06/24/21 23:59 23:59 23:59 Intake Total 4845.20 / 4978.23 4108.50 / 4695.15 1645.18 / 1645.18 Output Total 3575 / 3825 4800 / 4950 500 / 500 Balance 1270.20 / 1153.23 -691.50 / -254.85 1145.18 / 1145.18 Lab / Micro Data Attestation: I reviewed the patient's lab results. Result Diagrams: 06/24/21 04:40 06/24/21 04:40 Labs: Laboratory Results - last 24 hr 06/23/21 06:30: Blood Type A POSITIVE, Antibody Screen NEGATIVE, Crossmatch See Detail 06/23/21 16:15: Hgb 10.4 L, Hct 30.9 L 06/23/21 23:43: Hgb 9.5 L, Hct 27.8 L 06/24/21 04:40: WBC 7.1, RBC 2.98 L, Hgb 9.9 L, Hct 28.0 L, MCV 94.0, MCH 33.2 H , MCHC 35.4, RDW Std Deviation 46.4 H, RDW Coeff of [place] 13.6, Plt Count 204, MPV 11.2, Immature Gran % (Auto) 0.400, Neut % (Auto) 86.4 H, Lymph % (Auto) 6.2 L, [place] % (Auto) 5.3, Eos % (Auto) 1.4, Baso % (Auto) 0.3, Absolute Neuts (auto) 6.1, Absolute Lymphs (auto) 0.44 L, Nucleated RBC % 0 06/24/21 04:40: Sodium 137, Potassium 3.4 L, Chloride 104, Carbon Dioxide 25.0, Anion Gap 8, BUN 38 H, Creatinine 0.94, Estim Creat Clear Calc 64.05, Est GFR (MDRD) Af Amer 79, Est GFR (MDRD) Non-Af 66, BUN/Creatinine Ratio 40.3 H, Glucose 143 H, Calcium 7.5 L, Total Bilirubin 0.90, AST 34, ALT 37, Alkaline Phosphatase 52, Total Protein 6.5, Albumin 1.6 L, Globulin 4.9 H, Albumin/Globulin Ratio 0.3 L 06/24/21 04:40: Total Creatine Kinase 81, Triglycerides 821 H Micro: Microbiology 06/23/21 10:30 Stool Stool Occult Blood (YASEMIN) - Final Occult Blood Positive 06/19/21 12:00 Sputum, Induced/Lukens Gram Stain - Final 06/19/21 12:00 Sputum, Induced/Lukens Respiratory Culture - Final Presumptive C albicans 06/15/21 15:40 Blood Culture (Wb) - Right Hand Blood Culture - Final No growth in 5 days. 06/15/21 15:50 Blood Culture (Wb) - Pic Blood Culture - Final No growth in 5 days. 06/15/21 13:50 Sputum, Induced/Lukens Gram Stain - Final 06/15/21 13:50 Sputum, Induced/Lukens Respiratory Culture - Final Presumptive C albicans 06/11/21 09:34 Sputum, Induced/Lukens Gram Stain - Final 06/11/21 09:34 Sputum, Induced/Lukens Respiratory Culture - Final 06/11/21 11:00 Urine Catheter - Lewis Legionella Antigen - Final 06/11/21 11:00 Urine Catheter - Lewis Streptococcus pneumoniae Antigen (M - Final 06/08/21 03:45 Urine, Clean Catch Legionella Antigen - Final 06/08/21 03:45 Urine, Clean Catch Streptococcus pneumoniae Antigen (M - Final Physical Exam Const Constitutional Narrative: No ventilator dyssynchrony. General Appearance: intubated and patient mechanically ventilated Nutritional Appearance: obese HEENT normocephalic and head/scalp atraumatic Mouth: endotracheal tube in place and OG tube in place Eyes PERRL and EOMs intact bilaterally Neck supple General: trachea midline Chest inspection of chest normal Resp Auscultation: diminished lung sounds; Negative for rales, rhonchi or wheezes Cardio regular rate and regular rhythm GI normal to inspection, nondistended, normoactive bowel sounds Extremity no clubbing, cyanosis or edema Skin no rashes or lesions noted Neuro Sensorium / Orientation: sedated on vent Charges/Coding Procedures Hospitalists Procedures: [id number] Critial Care 1st Hr
[2021-06-24] MEDS: Chlorhexidine 15 ML PO ×2 (08:03→21:19)
[2021-06-24] MEDS: Polyethylene Glycol 3350 17 GM PACKET PO (08:04)
[2021-06-24] MEDS: Cholecalciferol (VIT D3) 25 MCG TABLET (1,000 UNITS) GT (08:04)
[2021-06-24] MEDS: guaiFENesin 10 ML UDC (200MG/10ML) 20 ML PO ×2 (08:04→21:19)
[2021-06-24] MEDS: Furosemide 40 MG/4 ML Vial IV ×2 (08:52→16:42)
[2021-06-24] MEDS: Potassium Chloride 10mEq/100mL 10 MEQ/100 ML IV.SOLN. 100 MEQ IV BOLUS ×4 (08:52→12:21)
[2021-06-24] MEDS: Propofol 10MG/Ml 1,000 MG/100 ML Bottle 20.2 MG CONT INF ×3 (09:53→17:59)
[2021-06-24] MEDS: Dexmedetomidine 1,000 mcg in 0.9% NS 240 mL 42 MCG CONT INF ×3 (10:30→22:26)
--- NOTE | 2021-06-24 14:35 | CASEMGMT ---
Social Work SW attended ICU rounds. Pt continue on ventilator at this time. Care goals to be addressed with family. After rounds, phone call placed to pt Karma Harp and requested family meeting with physician to discuss care goals. Mr. Harp will be here at 0930 morning for family meeting. Dr. Robert vance. DEX Rudd
[2021-06-24] MEDS: 0.9% Saline Lock 10 ML Syringe IV (20:42)
[2021-06-24] MEDS: FLUoxetine 10 MG Capsule GT (21:19)
--- NOTE | 2021-06-24 21:31 | NURSING ---
when this rn came on shift propofol was running at 35 a hr.
[2021-06-24] MEDS: Propofol 10MG/Ml 1,000 MG/100 ML Bottle 23.5 MG CONT INF (22:23)
[2021-06-25] VITALS (33 sets, daily range): BP systolic 95–165; BP diastolic 62–97; PULSE 70–125; RESP 16–46; TEMP 36.2–38.6; O2SAT 87–97
[2021-06-25] MEDS: Propofol 10MG/Ml 1,000 MG/100 ML Bottle 20.2 MG CONT INF ×5 (02:44→21:00)
[2021-06-25 04:59] LABS: Absolute Lymphocyte Count 0.48 X10^3/uL (0.83-4.51); Absolute Neutrophil Count 5.4 X10^3/uL (2.0-7.7); Basophil# 0.01 X10^3/uL; Basophil% 0.2 % (0-1); Eosinophil# 0.12 X10^3/uL; Eosinophils% 1.9 % (0-5); Hematocrit 27.6 % (37-47); Hemoglobin 9.6 g/dL (12.0-15.0); Lymphocyte # 0.48 X10^3/ul (0.83-4.51); Lymphocyte % 7.4 % (19-41); Mean Corp Hgb Conc 34.8 g/dL (32-36); Mean Corpuscular Hgb 32.9 pg (27.0-32.0); Mean Corpuscular Volume 94.5 fL (81-99); Mean Platelet Vol. 11.5 fl (6.2-12.0); Monocyte# 0.38 X10^3/uL; Monocyte% 5.9 % (0-10); NRBC Flagged by Analyzer 0 % (0-5); Neutrophil % 83.7 % (47-70); POSITIVE DIFFERENTIAL YES; Platelet Count 208 K/mm3 (150-450); RBC Distribution Width CV 13.2 % (11.6-14.6); RBC Distribution Width SD 46.2 fl (35.1-43.9); Red Blood Count 2.92 M/mm3 (4.2-5.4); White Blood Count 6.5 K/mm3 (4.4-11.0)
[2021-06-25] MEDS: Dexmedetomidine 1,000 mcg in 0.9% NS 240 mL 42 MCG CONT INF (05:00)
[2021-06-25] MEDS: CHLORHEXIDINE GLUC 2% CLOTH 1 EACH TOWELETTE TOPICAL (05:13)
[2021-06-25 05:14] LABS: Differential Indicated SCAN CRITERIA MET
[2021-06-25 05:46] LABS: ALB/GLOB Ratio 0.3 RATIO (0.9-2.4); AST(SGOT) 34 U/L (15-37); Alanine Aminotransfer ALT/SGPT 36 U/L (13-56); Albumin, Serum 1.3 g/dL (3.2-5.0); Alkaline Phosphatase 47 U/L (45-117); Anion Gap 6 (5-15); BUN 35 mg/dL (7-18); BUN/Creat Ratio 39.5 RATIO (10-20); Calcium,Total 7.1 mg/dL (8.5-10.1); Chloride 103 mmol/L (98-107); Creatinine, Serum 0.89 mg/dL (0.55-1.02); EST Glomerular Filtration Rate 70 mL/min (>60); Est Glom Filt Rate - Afr Amer 85 mL/min (>60); Estimated Creatinine Clearance 67.65 ml/min; Globulin 4.8 g/dL (2.2-4.2); Glucose 141 mg/dL (74-106); Potassium 3.3 mmol/L (3.5-5.1); Protein, Total 6.1 g/dL (6.4-8.2); Sodium Level 134 mmol/L (136-145)
--- NOTE | 2021-06-25 06:09 | PN.CC_ITS ---
Assessment & Plan Assessment/Plan (1) Pneumonia due to COVID-19 virus: (2) Acute hypoxemic respiratory failure: PLAN: RECOMMENDATIONS: 1. Continue to wean FiO2 and PEEP for saturations greater than 90%. 2. Continue current sedation regimen. 3. Continue tube feeds as tolerated. 4. Continue PPI therapy twice daily. 5. Monitor H&H daily. Transfuse if hemoglobin is less than 7 g/dL. 6. Diuresis as tolerated by hemodynamics and renal function. 7. Potassium repletion as ordered. 8. Goals of care discussion with the patient's family. IMPRESSIONS: 1. Acute hypoxemic respiratory failure secondary to COVID-19 pneumonia The patient presented to the hospital with worsening dyspnea and hypoxemia. Given that she was within 10 days of symptom onset, remdesivir was initiated. The patient has since completed a treatment course of remdesivir, antimicrobials, Decadron and baricitinib. There was no evidence for PE on CTA chest. Although she was initially placed on Lovenox, the medication was discontinued over concerns for GI blood loss. She is therefore not on any pharmacologic prophylaxis at the current time. She continues to have high FiO2 and PEEP requirements. Plan to continue tube feeds as tolerated. Will need to discuss goals of care with the patient's family. 2. Acute kidney injury Resolved. Likely prerenal in etiology. Continue attempts at diuresis as tolerated by hemodynamics and renal function. 3. Anemia Concern for GI source of blood loss. The patient has been transfused with appropriate improvement in her blood counts. Continue to monitor H&H daily. Transfuse for hemoglobin less than 7 g/dL. Continue PPI therapy twice daily. 4. Hypokalemia Additional electrolyte repletion as indicated. Recheck levels in the morning. 5. Obesity/hypertension Complicates care, management, recovery and prognosis. Continue to hold home antihypertensives for now. UPDATE: Following my discussion with the patient's family this morning, they have elected to proceed with tracheostomy and PEG tube placement with eventual LTAC disposition. Consultation orders have been placed for general surgery and ENT. TIME: 38 minutes of critical care time, independent of procedures, was spent addressing the patient's acute hypoxemic respiratory failure secondary to COVID- 19 pneumonia, acute kidney injury, anemia, review of all data and collaboration with the care team. Subjective Subjective The patient was seen and examined at the bedside this morning. Events from the last 24 hours have been reviewed. Today is vent day #15. The patient is currently afebrile and hemodynamically stable. She remains on assist control mode mechanical ventilation with an FiO2 requirement of 65% and PEEP of 12. She remains sedated on a combination of propofol, fentanyl and Precedex. She is currently tolerating tube feeds. She has completed a treatment course of antimicrobials, Decadron and baricitinib. She is currently documented to be overall net +5.9 L for the hospitalization. Potassium is low this morning at 3.3. Creatinine is stable. Family meeting is planned for this morning to discuss overall goals of care. Objective Data Objective Data The patient's most recent lab work, culture data and imaging studies have all been personally reviewed. Rapid coronavirus antigen testing was positive on June 05. Strep and urine Legionella antigens were negative. Sputum culture is pending. MRSA screen was negative. Sputum culture was negative. Vital Signs: Vital Signs Temp Pulse Resp BP Pulse Ox 98.1 F 78 34 H 113/73 91 06/25/21 05:00 06/25/21 05:00 06/25/21 05:00 06/25/21 05:00 06/25/21 05:00 Oxygen Flow Rate (L/min) 1 Oxygen Delivery Method Mechanical Ventilator Weight: 112.8 kg Body Mass Index (BMI) 40.4 Intake & Output: Intake and Output for Last 24 Hours 06/23/21 06/24/21 06/25/21 23:59 23:59 23:59 Intake Total 4108.50 / 4695.15 5798.05 / 5883.55 556.20 / 556.20 Output Total 4800 / 4950 3050 / 4250 1600 / 1600 Balance -691.50 / -254.85 2748.05 / 1633.55 -1043.80 / -1043.80 Lab / Micro Data Result Diagrams: 06/25/21 04:40 06/25/21 04:40 Labs: Laboratory Results - last 24 hr 06/25/21 04:40: WBC 6.5, RBC 2.92 L, Hgb 9.6 L, Hct 27.6 L, MCV 94.5, MCH 32.9 H , MCHC 34.8, RDW Std Deviation 46.2 H, RDW Coeff of Brady 13.2, Plt Count 208, MPV 11.5, Immature Gran % (Auto) 0.900, Neut % (Auto) 83.7 H, Lymph % (Auto) 7.4 L, [place] % (Auto) 5.9, Eos % (Auto) 1.9, Baso % (Auto) 0.2, Absolute Neuts (auto) 5.4, Absolute Lymphs (auto) 0.48 L, Nucleated RBC % 0 06/25/21 04:40: Sodium 134 L, Potassium 3.3 L, Chloride 103, Carbon Dioxide 25.0, Anion Gap 6, BUN 35 H, Creatinine 0.89, Estim Creat Clear Calc 67.65, Est GFR (MDRD) Af Amer 85, Est GFR (MDRD) Non-Af 70, BUN/Creatinine Ratio 39.5 H, Glucose 141 H, Calcium 7.1 L, Total Bilirubin 1.00, AST 34, ALT 36, Alkaline Phosphatase 47, Total Protein 6.1 L, Albumin 1.3 L, Globulin 4.8 H, Albumin/Globulin Ratio 0.3 L Micro: Microbiology 06/23/21 10:30 Stool Stool Occult Blood (YASEMIN) - Final Occult Blood Positive 06/19/21 12:00 Sputum, Induced/Lukens Gram Stain - Final 06/19/21 12:00 Sputum, Induced/Lukens Respiratory Culture - Final Presumptive C albicans 06/15/21 15:40 Blood Culture (Wb) - Right Hand Blood Culture - Final No growth in 5 days. 06/15/21 15:50 Blood Culture (Wb) - Pic Blood Culture - Final No growth in 5 days. 06/15/21 13:50 Sputum, Induced/Lukens Gram Stain - Final 06/15/21 13:50 Sputum, Induced/Lukens Respiratory Culture - Final Presumptive C albicans 06/11/21 09:34 Sputum, Induced/Lukens Gram Stain - Final 06/11/21 09:34 Sputum, Induced/Lukens Respiratory Culture - Final 06/11/21 11:00 Urine Catheter - Lewis Legionella Antigen - Final 06/11/21 11:00 Urine Catheter - Lewis Streptococcus pneumoniae Antigen (M - Final 06/08/21 03:45 Urine, Clean Catch Legionella Antigen - Final 06/08/21 03:45 Urine, Clean Catch Streptococcus pneumoniae Antigen (M - Final Physical Exam Const Constitutional Narrative: No ventilator dyssynchrony. General Appearance: intubated and patient mechanically ventilated Nutritional Appearance: obese HEENT normocephalic and head/scalp atraumatic Mouth: endotracheal tube in place and OG tube in place Eyes PERRL and EOMs intact bilaterally Neck supple General: trachea midline Chest inspection of chest normal Resp Auscultation: diminished lung sounds; Negative for rales, rhonchi or wheezes Cardio regular rate and regular rhythm GI normal to inspection, nondistended, normoactive bowel sounds Extremity no clubbing, cyanosis or edema Skin no rashes or lesions noted Neuro Sensorium / Orientation: sedated on vent Charges/Coding Procedures Hospitalists Procedures: 09673 Critial Care 1st Hr
[2021-06-25] MEDS: TITRATION PARAMETER CHANGE 1 EACH IV (06:11)
--- NOTE | 2021-06-25 06:20 | PCM.PN.HOSP ---
Subjective Subjective Patient overnight with mild decrease from FiO2 need of 70 to 65% transiently, remained afebrile on propofol, fentanyl and Precedex. Patient with continued pulse dose Lasix administration. Family meeting today with decision to proceed with evaluation for PEG tube and tracheostomy placement. Patient with very flat affect today and less interactive than days prior. Discussed suspicion of depression. Patient denies fevers, chills, nausea, emesis, abdominal pain, chest pain. Objective Data Objective Data Vital Signs: Vital Signs Temp Pulse Resp BP Pulse Ox 98.1 F 79 25 H 108/74 93 06/25/21 05:00 06/25/21 06:00 06/25/21 06:00 06/25/21 06:00 06/25/21 06:00 Oxygen Flow Rate (L/min) 1 Oxygen Delivery Method Mechanical Ventilator Weight: 248 lb 10.903 oz Body Mass Index (BMI) 40.4 Intake & Output: Intake and Output for Last 24 Hours 06/23/21 06/24/21 06/25/21 23:59 23:59 23:59 Intake Total 4108.50 / 4695.15 5798.05 / 5883.55 556.20 / 556.20 Output Total 4800 / 4950 3050 / 4250 1600 / 1600 Balance -691.50 / -254.85 2748.05 / 1633.55 -1043.80 / -1043.80 Lab / Micro Data Result Diagrams: 06/25/21 04:40 06/25/21 04:40 Labs: Laboratory Results - last 24 hr 06/25/21 04:40: WBC 6.5, RBC 2.92 L, Hgb 9.6 L, Hct 27.6 L, MCV 94.5, MCH 32.9 H, MCHC 34.8, RDW Std Deviation 46.2 H, RDW Coeff of Brady 13.2, Plt Count 208, MPV 11.5, Immature Gran % (Auto) 0.900, Neut % (Auto) 83.7 H, Lymph % (Auto) 7.4 L, [place] % (Auto) 5.9, Eos % (Auto) 1.9, Baso % (Auto) 0.2, Absolute Neuts (auto) 5.4, Absolute Lymphs (auto) 0.48 L, Nucleated RBC % 0 06/25/21 04:40: Sodium 134 L, Potassium 3.3 L, Chloride 103, Carbon Dioxide 25.0, Anion Gap 6, BUN 35 H, Creatinine 0.89, Estim Creat Clear Calc 67.65, Est GFR (MDRD) Af Amer 85, Est GFR (MDRD) Non-Af 70, BUN/Creatinine Ratio 39.5 H, Glucose 141 H, Calcium 7.1 L, Total Bilirubin 1.00, AST 34, ALT 36, Alkaline Phosphatase 47, Total Protein 6.1 L, Albumin 1.3 L, Globulin 4.8 H, Albumin/Globulin Ratio 0.3 L Micro: Microbiology 06/23/21 10:30 Stool Stool Occult Blood (YASEMIN) - Final Occult Blood Positive 06/19/21 12:00 Sputum, Induced/Lukens Gram Stain - Final 06/19/21 12:00 Sputum, Induced/Lukens Respiratory Culture - Final Presumptive C albicans 06/15/21 15:40 Blood Culture (Wb) - Right Hand Blood Culture - Final No growth in 5 days. 06/15/21 15:50 Blood Culture (Wb) - Pic Blood Culture - Final No growth in 5 days. 06/15/21 13:50 Sputum, Induced/Lukens Gram Stain - Final 06/15/21 13:50 Sputum, Induced/Lukens Respiratory Culture - Final Presumptive C albicans 06/11/21 09:34 Sputum, Induced/Lukens Gram Stain - Final 06/11/21 09:34 Sputum, Induced/Lukens Respiratory Culture - Final 06/11/21 11:00 Urine Catheter - Lewis Legionella Antigen - Final 06/11/21 11:00 Urine Catheter - Lewis Streptococcus pneumoniae Antigen (M - Final 06/08/21 03:45 Urine, Clean Catch Legionella Antigen - Final 06/08/21 03:45 Urine, Clean Catch Streptococcus pneumoniae Antigen (M - Final Physical Exam Narrative Physical Examination: General: Awake, alert, unable to answer orientation questions secondary to intubated status, patient head-nodding but less interactive than prior, very flat affect, do suspect depression. Skin: Normal color, normal turgor, no icterus, no cyanosis. HEENT: AT/NC, EOMI, PERRLA, mildly dry MM, intubated. Lungs: Diffusely diminished, greater bilateral bases, intubated with symmetric rise, no rales, ronchi or wheezing. Heart: Regular rate and rhythm; no gallop, rub audible. Abdomen: Soft, morbidly obese, NTTP, less distended, still ongoing hyperactive bowel sounds. Extremities: No cyanosis, no clubbing, mild bilateral ankle edema. Neurological: Patient awake, alert, oriented as noted, cognitive function improved and despite sedation is able to interact however not completely baseline intact; pupils equally reactive to light and accommodation, cranial nerves grossly normal except limited given intubated and sedated status and less interactive than day prior, moving all extremities, strength remains severely global decreased given acute presentation. Psychiatric: Affect appears alert and awake, very flat affect today, do suspect depression, no anxiety evident. Assessment & Plan Assessment/Plan (1) Pneumonia due to COVID-19 virus: (2) Acute hypoxemic respiratory failure: PLAN: The patient is a 55 y/o F w/ PMHx: HTN, Depression and Anxiety, Allergic rhinitis who presented to the [facility] ED on 06/07/21 secondary to 9 day history of worsening dyspnea, mildly productive cough, diarrhea as well as altered taste and smell with hypoxia noted in the ED with evidence of respiratory failure requiring BIPAP w/ + COVID testing. 1. Acute Hypoxic Respiratory Failure secondary to Acute Bilateral Pneumonia secondary to Acute Viral Syndrome, COVID-19 with unvaccinated status: Patient maintained in the ICU, 06/07/2021 CTPA with no demonstrated PE or dissection with bilateral pneumonia evident, Legionella as well as streptococcal antigens negative, 06/11/2021 respiratory culture with mixed organisms with repeat 06/15/2021 with noted presumptive albicans otherwise no organisms, 06/15/2021 blood culture with no growth, intubated 06/11 and prior to this had been maintained on BiPAP however worsened, plastics heat welder following, off quarantine 06/19/2021, treated with dexamethasone, remdesivir as well as barcitinib all completed. Completed 7-day course of IV Zosyn therapy for concern for superimposed bacterial infection. 06/19/2021 sputum culture with noted presumptive C albicans only. Patient has been intermittently febrile but this is suspected secondary to Precedex therapy. 06/22/2021 reinitiation of pulse dose Lasix regimen per plastics heat welder discretion. Family meeting with plastics heat welder team 06/25/2021 given patient noted to be vent day #15 with 06/25/2021 general surgery consultation with placement of PEG tube and 06/25/2021 ENT evaluation for tracheostomy however peak pressures need to decrease further therefore ENT will reevaluate in 1 week for consideration trach placement. 2. Acute kidney injury: Secondary to likely acute presentation #1 and prerenal additionally, initial urine output has been decreased but is been improving. Admission BUN/Cr appropriate however function increased 06/13/2021 with BUN/creatinine 57/1.63 with baseline creatinine 0.89, 06/22/2021 BUN/creatinine 43/1.18 with 06/22/2021 reinitiation pulse dose Lasix, 06/25/2021 BUN/creatinine 35/0.89, continue to monitor. 3. Acute GI Bleed w/ resultant Acute Blood Loss Anemia: Patient with hemoglobin trending downward since initial presentation, presentation hemoglobin 13.5 with decreased at its lowest 06/23/2021 6.2, 2 unit PRBC administered with repeat hemoglobin 10.4, guaiac positive, deferring fluids given acute presentation #1, continued actually on pulse dose Lasix, continued on IV PPI, 06/25/2021 hemoglobin 9.6. 4. Hypokalemia: Admission K+ 3.3, supplementation given, repeat level in AM, magnesium and phosphorus levels additionally requested. 4. Hypertension: Patient with ongoing pulse dosed IV Lasix. 5. Anxiety and depression: Continued on patient Prozac regimen. 6. Morbid Obesity: Nutrition consulted and following, tube feeds per their recommendation. 7. GI prophylaxis/GERD: Continued on IV PPI. 8. DVT prophylaxis: SCDs, previously on Lovenox, discontinued given evidence of GI bleeding as noted #3. 9. CODE STATUS: Full code. Charges/Coding Visit Charges Inpatient E&M: 39630 Subs Hosp L2
[2021-06-25] MEDS: Potassium Chloride 10mEq/100mL 10 MEQ/100 ML IV.SOLN. 100 MEQ IV BOLUS ×4 (06:28→10:01)
[2021-06-25] MEDS: Chlorhexidine 15 ML PO ×2 (07:56→21:04)
[2021-06-25] MEDS: Furosemide 40 MG Tablet PO ×2 (11:11→18:20)
[2021-06-25] MEDS: Polyethylene Glycol 3350 17 GM PACKET PO (11:11)
[2021-06-25] MEDS: guaiFENesin 10 ML UDC (200MG/10ML) 20 ML PO (11:11)
[2021-06-25] MEDS: Senna/Docusate Sodium 1 Tablet 2 TABLET GT (11:12)
[2021-06-25] MEDS: Dexmedetomidine 1,000 mcg in 0.9% NS 240 mL 42.3 MCG CONT INF ×3 (11:12→23:00)
[2021-06-25] MEDS: Cholecalciferol (VIT D3) 25 MCG TABLET (1,000 UNITS) GT (11:12)
[2021-06-25] MEDS: Vital AF 1.2 Cal Liquid 1,000 ML 70 ML GT (12:32)
[2021-06-25] MEDS: Cefazolin 2 GM in 0.9% Normal Saline 100 ML IV (14:16)
[2021-06-25] MEDS: Etomidate 20 MG/10 ML Vial IV ×2 (14:42→14:58)
--- NOTE | 2021-06-25 14:42 | NURSING ---
Dr Paige at bedside for PEG tube placement Dr Jones had this RN turn the Propofol up to 14:40 50mcg/kg/min and fentanyl up to 300mcg/hr 14:42 Etomidate 20mg IV push given at this time. 14:47 Bolus of 50mcg OF propofol given. 14:49 100mg of Succinlcholine given. 14: 57 New ETT placed by DR Jones at this time. 24@lip 7.5 ETT. 14:58 100mg of Succinlcholine given and also 20mg Etomidate. 15:19 PEG tube successfully placed. By Dr. Paige
[2021-06-25] MEDS: Succinylcholine Chloride 200 MG/10 ML Vial 100 MG IV (14:49)
[2021-06-25] MEDS: Succinylcholine Chloride 200 MG/10 ML SYRINGE 100 MG IV (14:58)
--- NOTE | 2021-06-25 15:46 | CPS ---
ET tube cuff was blown during PEG tube placement. Patient was reintubated at this time.
--- NOTE | 2021-06-25 16:32 | OP.EGD_ITS ---
Patient Name: Iza Harp Procedure Date: 06/25/2021 2:44 PM Date of : 1965 Age: 55 Procedure: Upper GI endoscopy Indications: Place PEG because patient is unable to eat Providers: Charlotte Paige MD Medicines: See the Anesthesia note for documentation of the administered medications Patient Profile: Refer to note in patient chart for documentation of history and physical. Complications: No immediate complications. Procedure: Pre-Anesthesia Assessment: - see anesthesia note After obtaining informed consent, the endoscope was passed under direct vision. Throughout the procedure, the patient's blood pressure, pulse, and oxygen saturations were monitored continuously. The Endoscope was introduced through the mouth, and advanced to the second part of duodenum. The upper GI endoscopy was accomplished without difficulty. The patient tolerated the procedure well. Scope In: 2:45:03 PM Scope Out: 3:21:50 PM Total Procedure Duration Time 0 hours 36 minutes 47 seconds Findings: The first portion of the duodenum and second portion of the duodenum were normal. Diffuse moderately erythematous mucosa with stigmata of recent bleeding was found in the entire examined stomach. A small hiatal hernia was present. The patient was placed in the supine position for PEG placement. The stomach was insufflated to appose gastric and abdominal fuchs. A site was located in the body of the stomach with excellent transillumination for placement. The abdominal wall was marked and prepped in a sterile manner. The area was anesthetized with 2 mL of 0.5% lidocaine. The trocar needle was introduced through the abdominal wall and into the stomach under direct endoscopic view. A snare was introduced through the endoscope and opened in the gastric lumen. The guide wire was passed through the trocar and into the open snare. The snare was closed around the guide wire. The endoscope and snare were removed, pulling the wire out through the mouth. A skin incision was made at the site of needle insertion. The externally removable 14 Fr Bard gastrostomy tube was lubricated. The G-tube was tied to the guide wire and pulled through the mouth and into the stomach. The trocar needle was removed, and the gastrostomy tube was pulled out from the stomach through the skin. The external bumper was attached to the gastrostomy tube, and the tube was cut to remove the guide wire. The final position of the gastrostomy tube was confirmed by relook endoscopy, and skin marking noted to be 3.5 cm at the skin and 4.0 at the external bumper. The final tension and compression of the abdominal wall by the PEG tube and external bumper were checked and revealed that the bumper was moderately tight and mildly deforming the skin. The feeding tube was capped, and the tube site cleaned and dressed. Impression: - Normal first portion of the duodenum and second portion of the duodenum. - Erythematous mucosa in the stomach, friable. - Small hiatal hernia. - An externally removable PEG placement was successfully completed. - No specimens collected. Recommendation: - Please follow the post-PEG recommendations including: may use PEG tomorrow for feedings and clean site with soap and water daily and dry thoroughly. - Continue present medications. Procedure Code(s): --- Professional --- 18596, Esophagogastroduodenoscopy, flexible, transoral; with directed placement of percutaneous gastrostomy tube Diagnosis Code(s): --- Professional --- K31.89, Other diseases of stomach and duodenum K44.9, Diaphragmatic hernia without obstruction or gangrene R63.3, Feeding difficulties Z43.1, Encounter for attention to gastrostomy CPT copyright 2017 [employer]. All rights reserved. The codes documented in this report are preliminary and upon surgical coder review may be revised to meet current compliance requirements. MD Charlotte Cervantes MD 06/25/2021 4:32:19 PM This report has been signed electronically. Number of Addenda: 0 Note Initiated On: 06/25/2021 2:44 PM
--- NOTE | 2021-06-25 16:33 | OP.CCLET_ITS ---
06/25/2021 Iggy Myers MD Re : Upper GI endoscopy procedure for Iza Harp Dear Dr. Myers This procedure was performed on June. My impressions and recommendations are as follows: Impressions : - Normal first portion of the duodenum and second portion of the duodenum. - Erythematous mucosa in the stomach, friable. - Small hiatal hernia. - An externally removable PEG placement was successfully completed. - No specimens collected. Recommendations : - Please follow the post-PEG recommendations including: may use PEG tomorrow for feedings and clean site with soap and water daily and dry thoroughly. - Continue present medications. My findings are described in the full procedure note, which is enclosed. If I can be of further assistance, please feel free to contact me at Doctor phone number(s): , Work: . Sincerely, MD Charlotte Cervantes MD 06/25/2021 4:32:19 PM This report has been signed electronically.
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
--- NOTE | 2021-06-25 19:37 | RAD_ITS ---
STUDY: X-RAY CHEST REASON FOR EXAM: Female, 55 years old. CHEST PAIN ETT exchange TECHNIQUE: XR Chest 1 View COMPARISON: 06.15.21 FINDINGS: There is no demonstrated pleural abnormality. There is bilateral infiltrate. ET tube in place. There is a left PICC line. There is mild cardiac enlargement. Normal mediastinum and scott. Normal visualized pulmonary arteries. There is atherosclerotic calcification of the aortic arch with tortuosity. There are diffuse degenerative changes of the visualized thoracic spine. There is degenerative osteoarthritis of the bilateral shoulders. There is no demonstrated abnormality of the visualized soft tissue structures of the upper abdomen. RAD/Chest 1 View (Portable) IMPRESSION: Pulmonary findings appear worse. Electronically Signed: César Marroquin MD at 19:55 EST , Service support ,
[2021-06-25] MEDS: Acetaminophen 650 MG Suppository RC (20:11)
[2021-06-26] VITALS (33 sets, daily range): BP systolic 90–163; BP diastolic 66–96; PULSE 69–120; RESP 21–33; TEMP 34.9–37.6; O2SAT 87–98
[2021-06-26] MEDS: Propofol 10MG/Ml 1,000 MG/100 ML Bottle 20.2 MG CONT INF (01:27)
[2021-06-26] MEDS: CHLORHEXIDINE GLUC 2% CLOTH 1 EACH TOWELETTE TOPICAL (04:35)
[2021-06-26] MEDS: Dexmedetomidine 1,000 mcg in 0.9% NS 240 mL 42.3 MCG CONT INF (04:36)
[2021-06-26 05:02] LABS: Hematocrit 31.5 % (37-47); Hemoglobin 10.4 g/dL (12.0-15.0); Mean Corpuscular Hgb 31.7 pg (27.0-32.0); POSITIVE DIFFERENTIAL YES; Platelet Count 212 K/mm3 (150-450); RBC Distribution Width CV 13.1 % (11.6-14.6); RBC Distribution Width SD 46.5 fl (35.1-43.9); Red Blood Count 3.28 M/mm3 (4.2-5.4); White Blood Count 7.7 K/mm3 (4.4-11.0)
--- NOTE | 2021-06-26 05:40 | PN.CC_ITS ---
Assessment & Plan Assessment/Plan (1) Pneumonia due to COVID-19 virus: (2) Acute hypoxemic respiratory failure: PLAN: RECOMMENDATIONS: 1. Continue to wean FiO2 and PEEP for saturations greater than 90%. 2. Discontinue propofol given elevated triglyceride level. Continue Precedex and fentanyl. 3. Avoid additional Lasix given BRENDEN. 4. Restart tube feeds as tolerated. 5. Continue PPI therapy twice daily. 6. Monitor H&H daily. Transfuse if hemoglobin is less than 7 g/dL. 7. Tentative plans for tracheostomy next week. IMPRESSIONS: 1. Acute hypoxemic respiratory failure secondary to COVID-19 pneumonia The patient presented to the hospital with worsening dyspnea and hypoxemia. Given that she was within 10 days of symptom onset, remdesivir was initiated. The patient has since completed a treatment course of remdesivir, ant imicrobials, Decadron and baricitinib. There was no evidence for PE on CTA chest. Although she was initially placed on Lovenox, the medication was discontinued over concerns for GI blood loss. She is therefore not on any pharmacologic prophylaxis at the current time. Plan to continue tube feeds as tolerated. Continue to wean FiO2 and PEEP to maintain oxygen saturations at or above 90%. Following a family discussion, they have elected to pursue tracheostomy and PEG tube placement, with eventual LTACH disposition. 2. Acute kidney injury Likely prerenal in etiology. Hold diuretics today and reevaluate tomorrow. 3. Anemia Concern for GI source of blood loss. The patient has been transfused with appropriate improvement in her blood counts. Continue to monitor H&H daily. Transfuse for hemoglobin less than 7 g/dL. Continue PPI therapy twice daily. 4. Obesity/hypertension Complicates care, management, recovery and prognosis. Continue to hold home antihypertensives for now. TIME: 34 minutes of critical care time, independent of procedures, was spent addressing the patient's acute hypoxemic respiratory failure secondary to COVID- 19 pneumonia, acute kidney injury, anemia, review of all data and collaboration with the care team. Subjective Subjective The patient was seen and examined at the bedside this morning. Events from the last 24 hours have been reviewed. Today is vent day #16. The patient is currently afebrile and hemodynamically stable. She remains on assist control mode mechanical ventilation with an FiO2 requirement of 60% and PEEP of 12. She remains sedated on a combination of propofol, fentanyl and Precedex. The patient did undergo successful PEG tube placement yesterday at the bedside. 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 This was accomplished without complication. The patient is tentatively scheduled for tracheostomy on Tuesday. She is currently documented to be overall net +8.4 L for the hospitalization. Creatinine increased to 1.21 this morning. Triglycerides are elevated at 821. The patient did receive 2 doses of Lasix yesterday. Objective Data Objective Data The patient's most recent lab work, culture data and imaging studies have all been personally reviewed. Rapid coronavirus antigen testing was positive on June 05. Strep and urine Legionella antigens were negative. Sputum culture is pending. MRSA screen was negative. Sputum culture was negative. Vital Signs: Vital Signs Temp Pulse Resp BP Pulse Ox 97.0 F L 102 H 27 H 117/86 H 92 06/26/21 04:00 06/26/21 05:10 06/26/21 05:10 06/26/21 05:00 06/26/21 05:10 Oxygen Flow Rate (L/min) 1 Oxygen Delivery Method Mechanical Ventilator Weight: 115.7 kg Body Mass Index (BMI) 40.4 Intake & Output: Intake and Output for Last 24 Hours 06/24/21 06/25/21 06/26/21 23:59 23:59 23:59 Intake Total 5798.05 / 5883.55 3944.97 / 4027.47 370.48 / 370.48 Output Total 3050 / 4250 2550 / 2550 450 / 450 Balance 2748.05 / 1633.55 1394.97 / 1477.47 -79.52 / -79.52 Lab / Micro Data Attestation: I reviewed the patient's lab results. Result Diagrams: 06/26/21 04:45 06/26/21 04:45 Labs: Laboratory Results - last 24 hr 06/25/21 04:40: Sodium 134 L, Potassium 3.3 L, Chloride 103, Carbon Dioxide 25.0, Anion Gap 6, BUN 35 H, Creatinine 0.89, Estim Creat Clear Calc 67.65, Est GFR (MDRD) Af Amer 85, Est GFR (MDRD) Non-Af 70, BUN/Creatinine Ratio 39.5 H, Glucose 141 H, Calcium 7.1 L, Total Bilirubin 1.00, AST 34, ALT 36, Alkaline Phosphatase 47, Total Protein 6.1 L, Albumin 1.3 L, Globulin 4.8 H, Albumin/Globulin Ratio 0.3 L 06/26/21 04:45: WBC 7.7, RBC 3.28 L, Hgb 10.4 L, Hct 31.5 L, MCV 96.0, MCH 31.7, MCHC 33.0 D, RDW Std Deviation 46.5 H, RDW Coeff of Brady 13.1, Plt Count 212, MPV 11.0, Neut % (Auto) Not Reportable Micro: Microbiology 06/23/21 10:30 Stool Stool Occult Blood (YASEMIN) - Final Occult Blood Positive 06/19/21 12:00 Sputum, Induced/Lukens Gram Stain - Final 06/19/21 12:00 Sputum, Induced/Lukens Respiratory Culture - Final Presumptive C albicans 06/15/21 15:40 Blood Culture (Wb) - Right Hand Blood Culture - Final No growth in 5 days. 06/15/21 15:50 Blood Culture (Wb) - Pic Blood Culture - Final No growth in 5 days. 06/15/21 13:50 Sputum, Induced/Lukens Gram Stain - Final 06/15/21 13:50 Sputum, Induced/Lukens Respiratory Culture - Final Presumptive C albicans 06/11/21 09:34 Sputum, Induced/Lukens Gram Stain - Final 06/11/21 09:34 Sputum, Induced/Lukens Respiratory Culture - Final 06/11/21 11:00 Urine Catheter - Lewis Legionella Antigen - Final 06/11/21 11:00 Urine Catheter - Lewis Streptococcus pneumoniae Antigen (M - Final 06/08/21 03:45 Urine, Clean Catch Legionella Antigen - Final 06/08/21 03:45 Urine, Clean Catch Streptococcus pneumoniae Antigen (M - Final Radiography Diagnostic Testing: Radiology Impression Chest X-Ray 06/25/21 19:37 IMPRESSION: Pulmonary findings appear worse. Electronically Signed: César Marroquin MD at 19:55 EST , Service support , Physical Exam Const Constitutional Narrative: No ventilator dyssynchrony. General Appearance: intubated and patient mechanically ventilated Nutritional Appearance: obese HEENT normocephalic and head/scalp atraumatic Mouth: endotracheal tube in place Eyes PERRL and EOMs intact bilaterally Neck supple General: trachea midline Chest inspection of chest normal Resp Auscultation: diminished lung sounds; Negative for rales, rhonchi or wheezes Cardio regular rate and regular rhythm GI normal to inspection, nondistended, normoactive bowel sounds Inspection: GI tube present Extremity no clubbing, cyanosis or edema Skin no rashes or lesions noted Neuro Sensorium / Orientation: sedated on vent Charges/Coding Procedures Hospitalists Procedures: 99795 Critial Care 1st Hr
[2021-06-26 05:50] LABS: ALB/GLOB Ratio 0.3 RATIO (0.9-2.4); AST(SGOT) 27 U/L (15-37); Alanine Aminotransfer ALT/SGPT 36 U/L (13-56); Albumin, Serum 1.8 g/dL (3.2-5.0); Alkaline Phosphatase 68 U/L (45-117); Anion Gap 7 (5-15); BUN 38 mg/dL (7-18); BUN/Creat Ratio 31.4 RATIO (10-20); Calcium,Total 9.1 mg/dL (8.5-10.1); Chloride 106 mmol/L (98-107); Creatinine, Serum 1.21 mg/dL (0.55-1.02); EST Glomerular Filtration Rate 49 mL/min (>60); Est Glom Filt Rate - Afr Amer 59 mL/min (>60); Estimated Creatinine Clearance 49.76 ml/min; Globulin 5.7 g/dL (2.2-4.2); Glucose 155 mg/dL (74-106); Magnesium 2.2 mg/dL (1.6-2.6); Potassium 4.5 mmol/L (3.5-5.1); Protein, Total 7.5 g/dL (6.4-8.2); Sodium Level 139 mmol/L (136-145)
[2021-06-26 05:59] LABS: Phosphorus 4.5 mg/dL (2.5-4.9)
[2021-06-26] MEDS: Propofol 10MG/Ml 1,000 MG/100 ML Bottle 23.5 MG CONT INF (06:12)
[2021-06-26 06:23] LABS: Differential Indicated SCAN CRITERIA MET
[2021-06-26 06:24] LABS: Absolute Lymphocyte Count 0.55 X10^3/uL (0.83-4.51); Absolute Neutrophil Count 6.6 X10^3/uL (2.0-7.7)
--- NOTE | 2021-06-26 06:35 | PCM.PN.HOSP ---
Subjective Subjective Patient overnight with no acute events, similar vent settings. Patient this AM with notable TG elevations with alteration of propofol. ENT still awaiting peak pressure decrease for trach consideration placement. Patient without any issues with PEG tube with planned TF restart today. Patient denies fevers, chills, nausea, emesis, abdominal pain, chest pain. Objective Data Objective Data Vital Signs: Vital Signs Temp Pulse Resp BP Pulse Ox 97.0 F L 98 28 H 109/80 93 06/26/21 04:00 06/26/21 06:00 06/26/21 06:00 06/26/21 06:00 06/26/21 06:00 Oxygen Flow Rate (L/min) 1 Oxygen Delivery Method Mechanical Ventilator Weight: 255 lb 1.197 oz Body Mass Index (BMI) 40.4 Intake & Output: Intake and Output for Last 24 Hours 06/24/21 06/25/21 06/26/21 23:59 23:59 23:59 Intake Total 5798.05 / 5883.55 3944.97 / 4027.47 592.24 / 592.24 Output Total 3050 / 4250 2550 / 2550 450 / 450 Balance 2748.05 / 1633.55 1394.97 / 1477.47 142.24 / 142.24 Lab / Micro Data Result Diagrams: 06/26/21 04:45 06/26/21 04:45 Labs: Laboratory Results - last 24 hr 06/26/21 04:45: WBC 7.7, RBC 3.28 L, Hgb 10.4 L, Hct 31.5 L, MCV 96.0, MCH 31.7, MCHC 33.0 D, RDW Std Deviation 46.5 H, RDW Coeff of Brady 13.1, Plt Count 212, MPV 11.0, Neut % (Auto) Not Reportable, Absolute Neuts (auto) 6.6, Absolute Lymphs (auto) 0.55 L 06/26/21 04:45: Sodium 139, Potassium 4.5, Chloride 106, Carbon Dioxide 26.0, Anion Gap 7, BUN 38 H, Creatinine 1.21 H, Estim Creat Clear Calc 49.76, Est GFR (MDRD) Af Amer 59 L, Est GFR (MDRD) Non-Af 49 L, BUN/Creatinine Ratio 31.4 H, Glucose 155 H, Calcium 9.1, Magnesium 2.2, Total Bilirubin 1.60 H, AST 27, ALT 36, Alkaline Phosphatase 68, Total Protein 7.5, Albumin 1.8 L, Globulin 5.7 H, Albumin/Globulin Ratio 0.3 L 06/26/21 04:45: Phosphorus 4.5 Micro: Microbiology 06/23/21 10:30 Stool Stool Occult Blood (YASEMIN) - Final Occult Blood Positive 06/19/21 12:00 Sputum, Induced/Lukens Gram Stain - Final 06/19/21 12:00 Sputum, Induced/Lukens Respiratory Culture - Final Presumptive C albicans 06/15/21 15:40 Blood Culture (Wb) - Right Hand Blood Culture - Final No growth in 5 days. 06/15/21 15:50 Blood Culture (Wb) - Pic Blood Culture - Final No growth in 5 days. 06/15/21 13:50 Sputum, Induced/Lukens Gram Stain - Final 06/15/21 13:50 Sputum, Induced/Lukens Respiratory Culture - Final Presumptive C albicans 06/11/21 09:34 Sputum, Induced/Lukens Gram Stain - Final 06/11/21 09:34 Sputum, Induced/Lukens Respiratory Culture - Final 06/11/21 11:00 Urine Catheter - Lewis Legionella Antigen - Final 06/11/21 11:00 Urine Catheter - Lewis Streptococcus pneumoniae Antigen (M - Final 06/08/21 03:45 Urine, Clean Catch Legionella Antigen - Final 06/08/21 03:45 Urine, Clean Catch Streptococcus pneumoniae Antigen (M - Final Radiography Diagnostic Testing: Radiology Impression Chest X-Ray 06/25/21 19:37 IMPRESSION: Pulmonary findings appear worse. Electronically Signed: César Marroquin MD at 19:55 EST , Service support , Physical Exam Narrative Physical Examination: General: Awake, alert, unable to answer orientation questions secondary to intubated status, patient with improved interactions, discussed depression and she denied, patient is amenable to planned trach and recent PEG, no acute distress. Skin: Normal color, normal turgor, no icterus, no cyanosis. HEENT: AT/NC, EOMI, PERRLA, mildly dry MM, intubated. Lungs: Diffusely diminished, greater bilateral bases, intubated with symmetric rise, no rales, ronchi or wheezing. Heart: Regular rate and rhythm; no gallop, rub audible. Abdomen: Soft, morbidly obese, NTTP, less distended, still ongoing hyperactive bowel sounds. Extremities: No cyanosis, no clubbing, mild bilateral ankle edema. Neurological: Patient awake, alert, oriented as noted, cognitive function improved and despite sedation is able to interact however not completely baseline intact; pupils equally reactive to light and accommodation, cranial nerves grossly normal except limited given intubated and sedated status and less interactive than day prior, moving all extremities, strength remains severely global decreased given acute presentation. Psychiatric: Affect appears alert and awake, improved interaction, denies anxiety, no anxiety evident. Assessment & Plan Assessment/Plan (1) Pneumonia due to COVID-19 virus: (2) Acute hypoxemic respiratory failure: PLAN: The patient is a 55 y/o F w/ PMHx: HTN, Depression and Anxiety, Allergic rhinitis who presented to the [facility] ED on 06/07/21 secondary to 9 day history of worsening dyspnea, mildly productive cough, diarrhea as well as altered taste and smell with hypoxia noted in the ED with evidence of respiratory failure requiring BIPAP w/ + COVID testing. 1. Acute Hypoxic Respiratory Failure secondary to Acute Bilateral Pneumonia secondary to Acute Viral Syndrome, COVID-19 with unvaccinated status: Patient maintained in the ICU, 06/07/2021 CTPA with no demonstrated PE or dissection with bilateral pneumonia evident, Legionella as well as streptococcal antigens negative, 06/11/2021 respiratory culture with mixed organisms with repeat 06/15/2021 with noted presumptive albicans otherwise no organisms, 06/15/2021 blood culture with no growth, intubated 06/11 and prior to this had been maintained on BiPAP however worsened, commercial credit officer following, off quarantine 06/19/2021, treated with dexamethasone, remdesivir as well as barcitinib all completed. Completed 7-day course of IV Zosyn therapy for concern for superimposed bacterial infection. 06/19/2021 sputum culture with noted presumptive C albicans only. Patient has been intermittently febrile but this is suspected secondary to Precedex therapy. 06/22/2021 reinitiation of pulse dose Lasix regimen per commercial credit officer discretion. Family meeting with commercial credit officer team 06/25/2021 given patient noted to be vent day #15 with 06/25/2021 general surgery consultation with placement of PEG tube with planned 06/26/21 restart TFs. 06/25/2021 ENT evaluation for tracheostomy however peak pressures need to decrease further therefore ENT will reevaluate this coming week to consider trach placement, potentially Tuesday. Discussions starting regarding potential LTAC placement following trach placement. 2. Acute kidney injury: Secondary to likely acute presentation #1 and prerenal additionally, initial urine output has been decreased but is been improving. Admission BUN/Cr appropriate however function increased 06/13/2021 with BUN/creatinine 57/1.63 with baseline creatinine 0.89, 06/22/2021 BUN/creatinine 43/1.18 with 06/22/2021 reinitiation pulse dose Lasix, 06/26/2021 BUN/creatinine 38/1.21, continue to monitor. 3. Acute GI Bleed w/ resultant Acute Blood Loss Anemia: Patient with hemoglobin trending downward since initial presentation, presentation hemoglobin 13.5 with decreased at its lowest 06/23/2021 6.2, 2 unit PRBC administered with repeat hemoglobin 10.4, guaiac positive, deferring fluids given acute presentation #1, continued actually on pulse dose Lasix, continued on IV PPI, 06/26/2021 hemoglobin 10.4. 4. Hypokalemia: Admission K+ 3.3, supplementation given, 06/26/21 K 4.5, magnesium and phosphorus levels additionally requested. 4. Hypertension: Patient with ongoing pulse dosed IV Lasix although as noted #2 renal function increasing 06/26/21, continue to monitor. 5. Anxiety and depression: Continued on patient Prozac regimen. 6. Morbid Obesity: Nutrition consulted and following, tube feeds per their recommendation. 7. GI prophylaxis/GERD: Continued on IV PPI. 8. DVT prophylaxis: SCDs, previously on Lovenox, discontinued given evidence of GI bleeding as noted #3. 9. CODE STATUS: Full code. Charges/Coding Visit Charges Inpatient E&M: 08453 Subs Hosp L2
[2021-06-26] MEDS: Chlorhexidine 15 ML PO ×2 (08:00→21:39)
[2021-06-26] MEDS: Polyethylene Glycol 3350 17 GM PACKET PO (10:24)
[2021-06-26] MEDS: QUEtiapine 25 MG Tablet 50 MG PO ×2 (10:24→21:43)
[2021-06-26] MEDS: TITRATION PARAMETER CHANGE 1 EACH IV (10:25)
[2021-06-26] MEDS: guaiFENesin 10 ML UDC (200MG/10ML) 20 ML PO ×2 (10:25→21:37)
[2021-06-26] MEDS: Senna/Docusate Sodium 1 Tablet 2 TABLET GT (10:25)
[2021-06-26] MEDS: Cholecalciferol (VIT D3) 25 MCG TABLET (1,000 UNITS) GT (10:26)
[2021-06-26] MEDS: Vital AF 1.2 Cal Liquid 1,000 ML 70 ML GT (10:31)
[2021-06-26] MEDS: Dexmedetomidine 1,000 mcg in 0.9% NS 240 mL 43.4 MCG CONT INF ×3 (11:16→23:16)
--- NOTE | 2021-06-26 11:20 | CASEMGMT ---
Social Work SW attended ICU rounds. After rounds SW met with pt and and offered support. SW will remain available for further needs. DEX Rudd
--- NOTE | 2021-06-26 11:39 | CASEMGMT ---
Addendum entered by Ava Paula 06/26/21 11:44: Referral packet faxed to [facility] in [place]. Original Note: GUY FLOWER NOTE: Pt had PEG placed yesterday and is tentatively scheduled for Trach placement on Tuesday. GUY FLOWER to room to talk w/pt and who is at bedside. Discussed LTACH and is agreeable. states he is aware it would be self-pay. He states pt does not have ACFG or AA, but they do have an [facility] religion they belong to that offers financial assistance. Given list of local LTACH's and 1st choice is [facility] in [place]. TC to [facility] and referral made. She is aware of tentative trach placement on Tuesday. She states once trach is placed they require a minimum of 24 hrs before pt could be admitted to LTACH, and would also be dependent upon O2 requirements. Awaiting response from [facility] re: acceptance. Apolinar VARGAS RN, CM
[2021-06-26] MEDS: FLUoxetine 10 MG Capsule GT (21:37)
[2021-06-26] MEDS: 0.9% Saline Lock 10 ML Syringe IV (21:43)
[2021-06-27] VITALS (39 sets, daily range): BP systolic 126–212; BP diastolic 68–107; PULSE 82–128; RESP 26–41; TEMP 36.5–37.1; O2SAT 89–96
[2021-06-27] MEDS: Vital AF 1.2 Cal Liquid 1,000 ML 70 ML GT ×2 (03:00→20:00)
[2021-06-27] MEDS: CHLORHEXIDINE GLUC 2% CLOTH 1 EACH TOWELETTE TOPICAL (04:00)
[2021-06-27] MEDS: TITRATION PARAMETER CHANGE 1 EACH IV (04:06)
[2021-06-27 04:28] LABS: Absolute Lymphocyte Count 0.48 X10^3/uL (0.83-4.51); Absolute Neutrophil Count 4.1 X10^3/uL (2.0-7.7); Basophil# 0.01 X10^3/uL; Basophil% 0.2 % (0-1); Eosinophil# 0.13 X10^3/uL; Eosinophils% 2.6 % (0-5); Hematocrit 26.4 % (37-47); Hemoglobin 8.5 g/dL (12.0-15.0); Lymphocyte # 0.48 X10^3/ul (0.83-4.51); Lymphocyte % 9.4 % (19-41); Mean Corp Hgb Conc 32.2 g/dL (32-36); Mean Corpuscular Volume 96.4 fL (81-99); Mean Platelet Vol. 11.1 fl (6.2-12.0); Monocyte# 0.34 X10^3/uL; Monocyte% 6.7 % (0-10); NRBC Flagged by Analyzer 0 % (0-5); Neutrophil # 4.08 X10^3/uL (2.7-7.7); Neutrophil % 80.3 % (47-70); POSITIVE DIFFERENTIAL YES; Platelet Count 187 K/mm3 (150-450); RBC Distribution Width CV 13.2 % (11.6-14.6); RBC Distribution Width SD 46.5 fl (35.1-43.9); Red Blood Count 2.74 M/mm3 (4.2-5.4); White Blood Count 5.1 K/mm3 (4.4-11.0)
[2021-06-27 04:35] LABS: Differential Indicated SCAN CRITERIA MET
[2021-06-27 04:57] LABS: ALB/GLOB Ratio 0.3 RATIO (0.9-2.4); AST(SGOT) 20 U/L (15-37); Alanine Aminotransfer ALT/SGPT 32 U/L (13-56); Albumin, Serum 1.4 g/dL (3.2-5.0); Alkaline Phosphatase 54 U/L (45-117); Anion Gap 5 (5-15); BUN 30 mg/dL (7-18); BUN/Creat Ratio 39.3 RATIO (10-20); Calcium,Total 7.8 mg/dL (8.5-10.1); Chloride 110 mmol/L (98-107); Creatinine, Serum 0.76 mg/dL (0.55-1.02); EST Glomerular Filtration Rate 84 mL/min (>60); Est Glom Filt Rate - Afr Amer 101 mL/min (>60); Estimated Creatinine Clearance 79.22 ml/min; Globulin 4.8 g/dL (2.2-4.2); Glucose 136 mg/dL (74-106); Magnesium 1.9 mg/dL (1.6-2.6); Phosphorus 2.4 mg/dL (2.5-4.9); Potassium 3.1 mmol/L (3.5-5.1); Protein, Total 6.2 g/dL (6.4-8.2); Sodium Level 140 mmol/L (136-145)
[2021-06-27] MEDS: Dexmedetomidine 1,000 mcg in 0.9% NS 240 mL 42.2 MCG CONT INF ×3 (05:09→18:37)
--- NOTE | 2021-06-27 05:40 | PCM.PN.INT ---
Assessment & Plan Assessment/Plan (1) Pneumonia due to COVID-19 virus: (2) Acute hypoxemic respiratory failure: PLAN: RECOMMENDATIONS: 1. Continue to wean FiO2 and PEEP for saturations greater than 90%. 2. Continue Precedex and fentanyl. Titrate Seroquel dosing upward if needed. 3. Continue tube feeds as tolerated. 4. Continue PPI therapy twice daily. 5. Continue to monitor H&H daily. Transfuse if hemoglobin is less than 7 g/dL. 6. Tentative plans for tracheostomy on Tuesday. IMPRESSIONS: 1. Acute hypoxemic respiratory failure secondary to COVID-19 pneumonia The patient presented to the hospital with worsening dyspnea and hypoxemia. Given that she was within 10 days of symptom onset, remdesivir was initiated. The patient has since completed a treatment course of remdesivir, antimicrobials, Decadron and baricitinib. There was no evidence for PE on CTA chest. Although she was initially placed on Lovenox, the medication was discontinued over concerns for GI blood loss. She is therefore not on any pharmacologic prophylaxis at the current time. Plan to continue tube feeds as tolerated. Continue to wean FiO2 and PEEP to maintain oxygen saturations at or above 90%. Following a family discussion, they have elected to pursue tracheostomy and PEG tube placement, with eventual LTACH disposition. 2. Acute kidney injury Likely prerenal in etiology. Reattempt diuretic challenge as tolerated by hemodynamics and renal function. 3. Anemia Concern for GI source of blood loss. The patient has been transfused with appropriate improvement in her blood counts. Continue to monitor H&H daily. Transfuse for hemoglobin less than 7 g/dL. Continue PPI therapy twice daily. 4. Obesity/hypertension Complicates care, management, recovery and prognosis. Continue to hold home antihypertensives for now. TIME: 32 minutes of critical care time, independent of procedures, was spent addressing the patient's acute hypoxemic respiratory failure secondary to COVID-19 pneumonia, acute kidney injury, anemia, review of all data and collaboration with the care team. Subjective Subjective The patient was seen and examined at the bedside this morning. Events from the last 24 hours have been reviewed. Today is vent day #17. The patient is currently afebrile and hemodynamically stable. She remains on assist control mode mechanical ventilation with an FiO2 requirement of 50% and PEEP of 12. She remains sedated on a combination of fentanyl and Precedex. She is currently documented to be overall net +10.6 L for the hospitalization. However, prior use of diuretics has led to increases in her creatinine. Potassium is low at 3.1. Renal function has once again normalized. The patient is currently tolerating tube feeds. Objective Data Objective Data The patient's most recent lab work, culture data and imaging studies have all been personally reviewed. Rapid coronavirus antigen testing was positive on June 05. Strep and urine Legionella antigens were negative. Sputum culture is pending. MRSA screen was negative. Sputum culture was negative. Vital Signs: Vital Signs Temp Pulse Resp BP Pulse Ox 98.8 F 96 29 H 161/80 H 93 06/27/21 00:00 06/27/21 04:33 06/27/21 04:33 06/27/21 01:00 06/27/21 04:33 Oxygen Flow Rate (L/min) 1 Oxygen Delivery Method Mechanical Ventilator Weight: 112.4 kg Body Mass Index (BMI) 40.4 Intake & Output: Intake and Output for Last 24 Hours 06/25/21 06/26/21 06/27/21 23:59 23:59 23:59 Intake Total 3944.97 / 4027.47 3071.26 / 3623.84 860.75 / 860.75 Output Total 2550 / 2550 1400 / 1600 200 / 200 Balance 1394.97 / 1477.47 1671.26 / 2023.84 660.75 / 660.75 Lab / Micro Data Attestation: I reviewed the patient's lab results. Result Diagrams: 06/27/21 04:00 06/27/21 04:00 Labs: Laboratory Results - last 24 hr 06/26/21 04:45: Absolute Neuts (auto) 6.6, Absolute Lymphs (auto) 0.55 L 06/26/21 04:45: Sodium 139, Potassium 4.5, Chloride 106, Carbon Dioxide 26.0, Anion Gap 7, BUN 38 H, Creatinine 1.21 H, Estim Creat Clear Calc 49.76, Est GFR (MDRD) Af Amer 59 L, Est GFR (MDRD) Non-Af 49 L, BUN/Creatinine Ratio 31.4 H, Glucose 155 H, Calcium 9.1, Magnesium 2.2, Total Bilirubin 1.60 H, AST 27, ALT 36, Alkaline Phosphatase 68, Total Protein 7.5, Albumin 1.8 L, Globulin 5.7 H, Albumin/Globulin Ratio 0.3 L 06/26/21 04:45: Phosphorus 4.5 06/27/21 04:00: Sodium 140, Potassium 3.1 L, Chloride 110 H, Carbon Dioxide 25.0, Anion Gap 5, BUN 30 H, Creatinine 0.76, Estim Creat Clear Calc 79.22, Est GFR (MDRD) Af Amer 101, Est GFR (MDRD) Non-Af 84, BUN/Creatinine Ratio 39.3 H, Glucose 136 H, Calcium 7.8 L, Phosphorus 2.4 L, Magnesium 1.9, Total Bilirubin 0.90, AST 20, ALT 32, Alkaline Phosphatase 54, Total Protein 6.2 L, Albumin 1.4 L, Globulin 4.8 H, Albumin/Globulin Ratio 0.3 L 06/27/21 04:00: WBC 5.1, RBC 2.74 L, Hgb 8.5 L, Hct 26.4 L, MCV 96.4, MCH 31.0, MCHC 32.2, RDW Std Deviation 46.5 H, RDW Coeff of Brady 13.2, Plt Count 187, MPV 11.1, Immature Gran % (Auto) 0.800, Neut % (Auto) 80.3 H, Lymph % (Auto) 9.4 L, [place] % (Auto) 6.7, Eos % (Auto) 2.6, Baso % (Auto) 0.2, Absolute Neuts (auto) 4.1, Absolute Lymphs (auto) 0.48 L, Nucleated RBC % 0 Micro: Microbiology 06/23/21 10:30 Stool Stool Occult Blood (YASEMIN) - Final Occult Blood Positive 06/19/21 12:00 Sputum, Induced/Lukens Gram Stain - Final 06/19/21 12:00 Sputum, Induced/Lukens Respiratory Culture - Final Presumptive C albicans 06/15/21 15:40 Blood Culture (Wb) - Right Hand Blood Culture - Final No growth in 5 days. 06/15/21 15:50 Blood Culture (Wb) - Pic Blood Culture - Final No growth in 5 days. 06/15/21 13:50 Sputum, Induced/Lukens Gram Stain - Final 06/15/21 13:50 Sputum, Induced/Lukens Respiratory Culture - Final Presumptive C albicans 06/11/21 09:34 Sputum, Induced/Lukens Gram Stain - Final 06/11/21 09:34 Sputum, Induced/Lukens Respiratory Culture - Final 06/11/21 11:00 Urine Catheter - Lewis Legionella Antigen - Final 06/11/21 11:00 Urine Catheter - Lewis Streptococcus pneumoniae Antigen (M - Final 06/08/21 03:45 Urine, Clean Catch Legionella Antigen - Final 06/08/21 03:45 Urine, Clean Catch Streptococcus pneumoniae Antigen (M - Final Physical Exam Const alert Constitutional Narrative: No ventilator dyssynchrony. General Appearance: intubated and patient mechanically ventilated Nutritional Appearance: morbidly obese HEENT normocephalic and head/scalp atraumatic Mouth: endotracheal tube in place Eyes PERRL and EOMs intact bilaterally Neck supple General: trachea midline Chest inspection of chest normal Resp Effort and Inspection: tachypneic Auscultation: diminished lung sounds; Negative for rales, rhonchi or wheezes Cardio regular rate and regular rhythm GI normal to inspection, nondistended, normoactive bowel sounds Inspection: GI tube present Extremity no clubbing, cyanosis or edema Skin no rashes or lesions noted Neuro Neuro Narrative: Alert and able to follow simple commands. Sensorium / Orientation: sedated on vent Charges/Coding Procedures Hospitalists Procedures: [id number] Critial Care 1st Hr
[2021-06-27 05:48] LABS: Differential Comment SCANNED
[2021-06-27] MEDS: Potassium Chloride Oral Soln 20 MEQ/15 ML UDC 40 MEQ PO (06:08)
[2021-06-27] MEDS: Potassium Chloride 10mEq/100mL 10 MEQ/100 ML IV.SOLN. 100 MEQ IV BOLUS ×4 (06:09→09:45)
[2021-06-27] MEDS: Furosemide 40 MG/4 ML Vial IV (08:37)
[2021-06-27] MEDS: Chlorhexidine 15 ML PO ×2 (09:45→21:08)
[2021-06-27] MEDS: guaiFENesin 10 ML UDC (200MG/10ML) 20 ML PO ×2 (09:46→21:06)
[2021-06-27] MEDS: Polyethylene Glycol 3350 17 GM PACKET PO (09:46)
[2021-06-27] MEDS: QUEtiapine 25 MG Tablet 50 MG PO (09:46)
[2021-06-27] MEDS: Senna/Docusate Sodium 1 Tablet 2 TABLET GT (09:46)
[2021-06-27] MEDS: Cholecalciferol (VIT D3) 25 MCG TABLET (1,000 UNITS) GT (09:47)
[2021-06-27] MEDS: hydrALAZINE 20 MG/ML Vial 10 MG IV ×2 (10:08→20:10)
[2021-06-27] MEDS: Enalaprilat 1.25 MG/ML Vial 0.625 MG IV ×3 (12:03→22:00)
[2021-06-27] MEDS: 0.9% Saline Lock 10 ML Syringe IV ×3 (12:05→21:07)
[2021-06-27] MEDS: Albuterol 2.5 MG/3 ML VIAL.NEB. INHALATION (13:00)
--- NOTE | 2021-06-27 13:36 | PN.HOSP_ITS ---
Objective Data Objective Data Vital Signs: Vital Signs Temp Pulse Resp BP Pulse Ox 97.8 F 100 39 H 164/82 H 93 06/27/21 12:00 06/27/21 13:00 06/27/21 13:00 06/27/21 12:27 06/27/21 13:00 Oxygen Flow Rate (L/min) 1 Oxygen Delivery Method Mechanical Ventilator Weight: 112.4 kg Body Mass Index (BMI) 40.4 Intake & Output: Intake and Output for Last 24 Hours 06/25/21 06/26/21 06/27/21 23:59 23:59 23:59 Intake Total 3944.97 / 4027.47 3071.26 / 3623.84 2892.00 / 2892.00 Output Total 2550 / 2550 1400 / 1600 2700 / 2700 Balance 1394.97 / 1477.47 1671.26 / 2023.84 192.00 / 192.00 Lab / Micro Data Result Diagrams: 06/27/21 04:00 06/27/21 04:00 Labs: Laboratory Results - last 24 hr 06/27/21 04:00: Sodium 140, Potassium 3.1 L, Chloride 110 H, Carbon Dioxide 25.0, Anion Gap 5, BUN 30 H, Creatinine 0.76, Estim Creat Clear Calc 79.22, Est GFR (MDRD) Af Amer 101, Est GFR (MDRD) Non-Af 84, BUN/Creatinine Ratio 39.3 H, Glucose 136 H, Calcium 7.8 L, Phosphorus 2.4 L, Magnesium 1.9, Total Bilirubin 0.90, AST 20, ALT 32, Alkaline Phosphatase 54, Total Protein 6.2 L, Albumin 1.4 L, Globulin 4.8 H, Albumin/Globulin Ratio 0.3 L 06/27/21 04:00: WBC 5.1, RBC 2.74 L, Hgb 8.5 L, Hct 26.4 L, MCV 96.4, MCH 31.0, MCHC 32.2, RDW Std Deviation 46.5 H, RDW Coeff of Brady 13.2, Plt Count 187, MPV 11.1, Immature Gran % (Auto) 0.800, Neut % (Auto) 80.3 H, Lymph % (Auto) 9.4 L, [place] % (Auto) 6.7, Eos % (Auto) 2.6, Baso % (Auto) 0.2, Absolute Neuts (auto) 4.1, Absolute Lymphs (auto) 0.48 L, Nucleated RBC % 0, Differential Comment SCANNED Micro: Microbiology 06/23/21 10:30 Stool Stool Occult Blood (YASEMIN) - Final Occult Blood Positive 06/19/21 12:00 Sputum, Induced/Lukens Gram Stain - Final 06/19/21 12:00 Sputum, Induced/Lukens Respiratory Culture - Final Presumptive C albicans 06/15/21 15:40 Blood Culture (Wb) - Right Hand Blood Culture - Final No growth in 5 days. 06/15/21 15:50 Blood Culture (Wb) - Pic Blood Culture - Final No growth in 5 days. 06/15/21 13:50 Sputum, Induced/Lukens Gram Stain - Final 06/15/21 13:50 Sputum, Induced/Lukens Respiratory Culture - Final Presumptive C albicans 06/11/21 09:34 Sputum, Induced/Lukens Gram Stain - Final 06/11/21 09:34 Sputum, Induced/Lukens Respiratory Culture - Final 06/11/21 11:00 Urine Catheter - Lewis Legionella Antigen - Final 06/11/21 11:00 Urine Catheter - Lewis Streptococcus pneumoniae Antigen (M - Final 06/08/21 03:45 Urine, Clean Catch Legionella Antigen - Final 06/08/21 03:45 Urine, Clean Catch Streptococcus pneumoniae Antigen (M - Final Physical Exam Const alert and no apparent distress Constitutional Narrative: Morbidly obese white female, intubated, follows commands, nontoxic-appearing Nutritional Appearance: morbidly obese HEENT head/scalp atraumatic HEENT Narrative: ET tube in place Head and Scalp: normocephalic Resp normal respiratory effort, no retractions, no use of accessory muscles and clear to auscultation bilaterally Resp Narrative: Diffusely diminished Auscultation: Negative for crackles, rales, rhonchi or wheezes Cardio regular rate, regular rhythm, S1 normal heart sound, S2 normal heart sound, no murmurs, no rub, no gallops, no clicks and no JVD GI normal to inspection, nondistended, normoactive bowel sounds, soft to palpation, non-tender and non-distended Extremity no clubbing, cyanosis or edema Peripheral Pulses: Yes pulses 2+ throughout Neuro moves all extremities and no focal motor deficits Neuro Narrative: Follows all commands, no focal deficit noted Sensorium / Orientation: awake Assessment & Plan Assessment/Plan (1) Acute hypoxemic respiratory failure: (2) COVID-19: PLAN: Acute hypoxic respiratory failure secondary to COVID-19 pneumonia -Required intubation on 06/11/2021 -Completed remdesivir -Completed Decadron -Completed baricitinib -Completed antimicrobials for suspected bacterial pneumonia -Remains on mechanical ventilation with FiO2 of 50% and a PEEP of 12 -Still experiencing intermittent high peak pressures -Possible trach --> ENT is consulted -No current anticoagulation secondary to GI blood loss concerns -Mechanical prophylaxis at this time -Continue PPI -Plan for LTAC at discharge [facility] -Resolved -Monitor Hypokalemia -Replacement -Repeat BMP in a.m. -If remains low consider assessing magnesium level Hypophosphatemia -IV sodium Phos replacement -Repeat in a.m. Acute on chronic anemia -Suspected GI blood loss -Anticoagulation was discontinued -Continue PPI twice daily -Overall anemia is relatively stable Acute GI bleed -Continue PPI twice daily -Monitor hemoglobin Hypertension -Patient is on ARB at home -We will schedule enalaprilat 0.625 every 6 hours -Trend blood pressures -Continue as needed hydralazine Anxiety/depression -Continue Prozac Morbid obesity -Recommend weight loss -BMI is 40 -Complicates overall treatment, prognosis, outcomes DVT prophylaxis -SCDs CODE STATUS -Full code Charges/Coding Visit Charges Inpatient E&M: 20069 Subs Hosp L2
[2021-06-27] MEDS: LORazepam 2 MG/ML Syringe 1 MG IV (20:59)
[2021-06-27] MEDS: FLUoxetine 10 MG Capsule GT (21:07)
[2021-06-27] MEDS: QUEtiapine 100 MG Tablet PO (22:16)
[2021-06-28] VITALS (36 sets, daily range): BP systolic 108–175; BP diastolic 64–97; PULSE 85–142; RESP 22–33; TEMP 36.1–37.3; O2SAT 88–97
[2021-06-28] MEDS: Dexmedetomidine 1,000 mcg in 0.9% NS 240 mL 42.2 MCG CONT INF (00:33)
[2021-06-28 03:59] LABS: Absolute Lymphocyte Count 0.61 X10^3/uL (0.83-4.51); Basophil# 0.01 X10^3/uL; Basophil% 0.2 % (0-1); Eosinophil# 0.13 X10^3/uL; Eosinophils% 2.5 % (0-5); Hematocrit 26.3 % (37-47); Hemoglobin 8.5 g/dL (12.0-15.0); Lymphocyte # 0.61 X10^3/ul (0.83-4.51); Lymphocyte % 11.8 % (19-41); Mean Corp Hgb Conc 32.3 g/dL (32-36); Mean Corpuscular Hgb 31.3 pg (27.0-32.0); Mean Corpuscular Volume 96.7 fL (81-99); Mean Platelet Vol. 10.2 fl (6.2-12.0); Monocyte# 0.35 X10^3/uL; Monocyte% 6.8 % (0-10); NRBC Flagged by Analyzer 0 % (0-5); Neutrophil # 3.96 X10^3/uL (2.7-7.7); Neutrophil % 76.4 % (47-70); Platelet Count 192 K/mm3 (150-450); RBC Distribution Width CV 13.2 % (11.6-14.6); RBC Distribution Width SD 47.1 fl (35.1-43.9); Red Blood Count 2.72 M/mm3 (4.2-5.4); White Blood Count 5.2 K/mm3 (4.4-11.0)
[2021-06-28 04:26] LABS: ALB/GLOB Ratio 0.3 RATIO (0.9-2.4); AST(SGOT) 28 U/L (15-37); Alanine Aminotransfer ALT/SGPT 40 U/L (13-56); Albumin, Serum 1.4 g/dL (3.2-5.0); Alkaline Phosphatase 52 U/L (45-117); Anion Gap 6 (5-15); BUN 31 mg/dL (7-18); BUN/Creat Ratio 40.4 RATIO (10-20); Calcium,Total 7.7 mg/dL (8.5-10.1); Chloride 110 mmol/L (98-107); Creatinine, Serum 0.77 mg/dL (0.55-1.02); EST Glomerular Filtration Rate 83 mL/min (>60); Est Glom Filt Rate - Afr Amer 100 mL/min (>60); Estimated Creatinine Clearance 78.19 ml/min; Globulin 4.8 g/dL (2.2-4.2); Glucose 143 mg/dL (74-106); Potassium 3.5 mmol/L (3.5-5.1); Protein, Total 6.2 g/dL (6.4-8.2); Sodium Level 141 mmol/L (136-145)
[2021-06-28 04:37] LABS: Phosphorus 3.3 mg/dL (2.5-4.9)
[2021-06-28] MEDS: CHLORHEXIDINE GLUC 2% CLOTH 1 EACH TOWELETTE TOPICAL (05:00)
--- NOTE | 2021-06-28 05:42 | PCM.PN.INT ---
Assessment & Plan Assessment/Plan (1) Pneumonia due to COVID-19 virus: (2) Acute hypoxemic respiratory failure: PLAN: RECOMMENDATIONS: 1. Continue to wean FiO2 and PEEP for saturations greater than 90%. 2. Continue Precedex and fentanyl. Titrate Seroquel dosing upward if needed. 3. Continue tube feeds as tolerated. 4. Continue PPI therapy twice daily. 5. Continue to monitor H&H daily. Transfuse if hemoglobin is less than 7 g/dL. 6. Tentative plans for tracheostomy on Tuesday. IMPRESSIONS: 1. Acute hypoxemic respiratory failure secondary to COVID-19 pneumonia The patient presented to the hospital with worsening dyspnea and hypoxemia. Given that she was within 10 days of symptom onset, remdesivir was initiated. The patient has since completed a treatment course of remdesivir, antimicrobials, Decadron and baricitinib. There was no evidence for PE on CTA chest. Although she was initially placed on Lovenox, the medication was discontinued over concerns for GI blood loss. She is therefore not on any pharmacologic prophylaxis at the current time. Plan to continue tube feeds as tolerated. Continue to wean FiO2 and PEEP to maintain oxygen saturations at or above 90%. Following a family discussion, they have elected to pursue tracheostomy and PEG tube placement, with eventual LTACH disposition. 2. Acute kidney injury Likely prerenal in etiology. Reattempt diuretic challenge as tolerated by hemodynamics and renal function. 3. Anemia Concern for GI source of blood loss. The patient has been transfused with appropriate improvement in her blood counts. Continue to monitor H&H daily. Transfuse for hemoglobin less than 7 g/dL. Continue PPI therapy twice daily. 4. Obesity/hypertension Complicates care, management, recovery and prognosis. Continue home medications as indicated. TIME: 33 minutes of critical care time, independent of procedures, was spent addressing the patient's acute hypoxemic respiratory failure secondary to COVID-19 pneumonia, acute kidney injury, anemia, review of all data and collaboration with the care team. Subjective Subjective The patient was seen and examined at the bedside this morning. Events from the last 24 hours have been reviewed. Today is vent day #18. The patient is currently afebrile and hemodynamically stable. She remains on assist control mode mechanical ventilation with an FiO2 requirement of 60% and PEEP of 12. She remains sedated on a combination of fentanyl, Seroquel and Precedex. She is currently documented to be overall net +11.4 L for the hospitalization. However, prior use of diuretics has led to increases in her creatinine. The patient is currently tolerating tube feeds. Objective Data Objective Data The patient's most recent lab work, culture data and imaging studies have all been personally reviewed. Rapid coronavirus antigen testing was positive on June 05. Strep and urine Legionella antigens were negative. MRSA screen was negative. Sputum culture was negative. Vital Signs: Vital Signs Temp Pulse Resp BP Pulse Ox 98.0 F 90 27 H 132/68 H 94 06/28/21 04:00 06/28/21 04:00 06/28/21 04:00 06/28/21 04:00 06/28/21 04:00 Oxygen Flow Rate (L/min) 1 Oxygen Delivery Method Mechanical Ventilator Weight: 112.4 kg Body Mass Index (BMI) 40.4 Intake & Output: Intake and Output for Last 24 Hours 06/26/21 06/27/21 06/28/21 23:59 23:59 23:59 Intake Total 3071.26 / 3623.84 4917.73 / 5459.93 890.61 / 890.61 Output Total 1400 / 1600 4050 / 4050 300 / 300 Balance 1671.26 / 2023.84 867.73 / 1409.93 590.61 / 590.61 Lab / Micro Data Attestation: I reviewed the patient's lab results. Result Diagrams: 06/28/21 03:45 06/28/21 03:45 Labs: Laboratory Results - last 24 hr 06/27/21 04:00: Differential Comment SCANNED 06/28/21 03:45: WBC 5.2, RBC 2.72 L, Hgb 8.5 L, Hct 26.3 L, MCV 96.7, MCH 31.3, MCHC 32.3, RDW Std Deviation 47.1 H, RDW Coeff of Brady 13.2, Plt Count 192, MPV 10.2, Immature Gran % (Auto) 2.300 H, Neut % (Auto) 76.4 H, Lymph % (Auto) 11.8 L, [place] % (Auto) 6.8, Eos % (Auto) 2.5, Baso % (Auto) 0.2, Absolute Neuts (auto) 4.0, Absolute Lymphs (auto) 0.61 L, Nucleated RBC % 0 06/28/21 03:45: Sodium 141, Potassium 3.5, Chloride 110 H, Carbon Dioxide 25.0, Anion Gap 6, BUN 31 H, Creatinine 0.77, Estim Creat Clear Calc 78.19, Est GFR (MDRD) Af Amer 100, Est GFR (MDRD) Non-Af 83, BUN/Creatinine Ratio 40.4 H, Glucose 143 H, Calcium 7.7 L, Total Bilirubin 0.90, AST 28, ALT 40, Alkaline Phosphatase 52, Total Protein 6.2 L, Albumin 1.4 L, Globulin 4.8 H, Albumin/Globulin Ratio 0.3 L 06/28/21 03:45: Phosphorus 3.3 Micro: Microbiology 06/23/21 10:30 Stool Stool Occult Blood (YASEMIN) - Final Occult Blood Positive 06/19/21 12:00 Sputum, Induced/Lukens Gram Stain - Final 06/19/21 12:00 Sputum, Induced/Lukens Respiratory Culture - Final Presumptive C albicans 06/15/21 15:40 Blood Culture (Wb) - Right Hand Blood Culture - Final No growth in 5 days. 06/15/21 15:50 Blood Culture (Wb) - Pic Blood Culture - Final No growth in 5 days. 06/15/21 13:50 Sputum, Induced/Lukens Gram Stain - Final 06/15/21 13:50 Sputum, Induced/Lukens Respiratory Culture - Final Presumptive C albicans 06/11/21 09:34 Sputum, Induced/Lukens Gram Stain - Final 06/11/21 09:34 Sputum, Induced/Lukens Respiratory Culture - Final 06/11/21 11:00 Urine Catheter - Lewis Legionella Antigen - Final 06/11/21 11:00 Urine Catheter - Lewis Streptococcus pneumoniae Antigen (M - Final 06/08/21 03:45 Urine, Clean Catch Legionella Antigen - Final 06/08/21 03:45 Urine, Clean Catch Streptococcus pneumoniae Antigen (M - Final Physical Exam Const alert Constitutional Narrative: No ventilator dyssynchrony. General Appearance: intubated and patient mechanically ventilated Nutritional Appearance: morbidly obese HEENT normocephalic and head/scalp atraumatic Mouth: endotracheal tube in place Eyes PERRL and EOMs intact bilaterally Neck supple General: trachea midline Chest inspection of chest normal Resp Effort and Inspection: tachypneic Auscultation: diminished lung sounds; Negative for rales, rhonchi or wheezes Cardio regular rate and regular rhythm GI normal to inspection, nondistended, normoactive bowel sounds Inspection: GI tube present Extremity no clubbing, cyanosis or edema Skin no rashes or lesions noted Neuro Neuro Narrative: Alert and able to follow simple commands. Sensorium / Orientation: sedated on vent Charges/Coding Procedures Hospitalists Procedures: 32055 Critial Care 1st Hr
[2021-06-28] MEDS: TITRATION PARAMETER CHANGE 1 EACH IV (05:53)
[2021-06-28] MEDS: Enalaprilat 1.25 MG/ML Vial 0.625 MG IV (06:19)
[2021-06-28] MEDS: Dexmedetomidine 1,000 mcg in 0.9% NS 240 mL 43.8 MCG CONT INF ×3 (06:29→19:16)
[2021-06-28] MEDS: Potassium Chloride 20mEq/100mL 20 MEQ/100 ML IV.SOLN. 100 MEQ IV BOLUS ×2 (08:26→09:52)
[2021-06-28] MEDS: Furosemide 40 MG/4 ML Vial IV (08:26)
--- NOTE | 2021-06-28 09:27 | PCM.PN.HOSP ---
Subjective Subjective Patient shakes head no when asked if she is having any pain or has any complaints. She remains intubated. Still having elevated blood pressures and per discussion with nursing she seems to have a reaction to hydralazine therefore this is being discontinued. Objective Data Objective Data Vital Signs: Vital Signs Temp Pulse Resp BP Pulse Ox 98.0 F 102 H 30 H 156/79 H 92 06/28/21 04:00 06/28/21 08:00 06/28/21 07:29 06/28/21 07:00 06/28/21 07:29 Oxygen Flow Rate (L/min) 1 Oxygen Delivery Method Mechanical Ventilator Weight: 116.8 kg Body Mass Index (BMI) 40.4 Intake & Output: Intake and Output for Last 24 Hours 06/26/21 06/27/21 06/28/21 23:59 23:59 23:59 Intake Total 3071.26 / 3623.84 4917.73 / 5459.93 1377.15 / 1377.15 Output Total 1400 / 1600 4050 / 4050 475 / 475 Balance 1671.26 / 2023.84 867.73 / 1409.93 902.15 / 902.15 Lab / Micro Data Result Diagrams: 06/28/21 03:45 06/28/21 03:45 Labs: Laboratory Results - last 24 hr 06/28/21 03:45: WBC 5.2, RBC 2.72 L, Hgb 8.5 L, Hct 26.3 L, MCV 96.7, MCH 31.3, MCHC 32.3, RDW Std Deviation 47.1 H, RDW Coeff of Brady 13.2, Plt Count 192, MPV 10.2, Immature Gran % (Auto) 2.300 H, Neut % (Auto) 76.4 H, Lymph % (Auto) 11.8 L, [place] % (Auto) 6.8, Eos % (Auto) 2.5, Baso % (Auto) 0.2, Absolute Neuts (auto) 4.0, Absolute Lymphs (auto) 0.61 L, Nucleated RBC % 0 06/28/21 03:45: Sodium 141, Potassium 3.5, Chloride 110 H, Carbon Dioxide 25.0, Anion Gap 6, BUN 31 H, Creatinine 0.77, Estim Creat Clear Calc 78.19, Est GFR (MDRD) Af Amer 100, Est GFR (MDRD) Non-Af 83, BUN/Creatinine Ratio 40.4 H, Glucose 143 H, Calcium 7.7 L, Total Bilirubin 0.90, AST 28, ALT 40, Alkaline Phosphatase 52, Total Protein 6.2 L, Albumin 1.4 L, Globulin 4.8 H, Albumin/Globulin Ratio 0.3 L 06/28/21 03:45: Phosphorus 3.3 Micro: Microbiology 06/23/21 10:30 Stool Stool Occult Blood (YASEMIN) - Final Occult Blood Positive 06/19/21 12:00 Sputum, Induced/Lukens Gram Stain - Final 06/19/21 12:00 Sputum, Induced/Lukens Respiratory Culture - Final Presumptive C albicans 06/15/21 15:40 Blood Culture (Wb) - Right Hand Blood Culture - Final No growth in 5 days. 06/15/21 15:50 Blood Culture (Wb) - Pic Blood Culture - Final No growth in 5 days. 06/15/21 13:50 Sputum, Induced/Lukens Gram Stain - Final 06/15/21 13:50 Sputum, Induced/Lukens Respiratory Culture - Final Presumptive C albicans 06/11/21 09:34 Sputum, Induced/Lukens Gram Stain - Final 06/11/21 09:34 Sputum, Induced/Lukens Respiratory Culture - Final 06/11/21 11:00 Urine Catheter - Lewis Legionella Antigen - Final 06/11/21 11:00 Urine Catheter - Lewis Streptococcus pneumoniae Antigen (M - Final 06/08/21 03:45 Urine, Clean Catch Legionella Antigen - Final 06/08/21 03:45 Urine, Clean Catch Streptococcus pneumoniae Antigen (M - Final Physical Exam Const alert, oriented x3 and no apparent distress Constitutional Narrative: Morbidly obese white female, intubated, follows commands, nontoxic-appearing General Appearance: cooperative, well kempt and well developed Orientation / Consciousness: awake, oriented to person, oriented to place and oriented to time Nutritional Appearance: morbidly obese HEENT normocephalic, head/scalp atraumatic and moist oral mucous membranes Neck nuchal rigidity and thyroid normal General: trachea midline Resp normal respiratory effort, no retractions, no use of accessory muscles and clear to auscultation bilaterally Resp Narrative: Diffusely diminished Auscultation: Negative for crackles, rales, rhonchi or wheezes Cardio regular rhythm, S1 normal heart sound, S2 normal heart sound, no murmurs, no rub, no gallops, no clicks and no JVD Cardio Narrative: Mild tachycardia GI normal to inspection, nondistended, normoactive bowel sounds, soft to palpation, non-tender and non-distended GI Narrative: Patient is morbidly obese Extremity normal to inspection and no clubbing, cyanosis or edema Peripheral Pulses: Yes pulses 2+ throughout Skin Skin Narrative: PICC right upper extremity-clean and dry General Skin Exam: no breakdown Neuro moves all extremities and no focal motor deficits Neuro Narrative: Follows all commands, no focal deficit noted Sensorium / Orientation: awake and alert Psych thought process normal Assessment & Plan Assessment/Plan (1) Acute hypoxemic respiratory failure: (2) COVID-19: PLAN: Acute hypoxic respiratory failure secondary to COVID-19 pneumonia -Required intubation on 06/11/2021 -Completed remdesivir -Completed Decadron -Completed baricitinib -Completed antimicrobials for suspected bacterial pneumonia -Remains on mechanical ventilation with FiO2 of 60% and a PEEP of 12 and SPO2 92 to 95% -Still experiencing intermittent high peak pressures -Possible trach tomorrow--> ENT is consulted -No current anticoagulation secondary to GI blood loss concerns -Mechanical prophylaxis at this time -Continue PPI -Continue diuresis as able -Plan for LTAC at discharge [facility] -Resolved -Monitor Hypokalemia -Resolved Hypophosphatemia -Resolved Acute on chronic anemia -Suspected GI blood loss -Anticoagulation was discontinued -Hemoglobin now remained stable -Continue PPI twice daily Acute GI bleed -Continue PPI twice daily -Monitor hemoglobin--> stable at this time Hypertension -Patient is on ARB at home -Increase enalaprilat to 1.25 every 6 hours scheduled -Continue as needed hydralazine -Add as needed labetalol 20 mg every 6 hours for systolic blood pressure greater than 160 -Trend blood pressures Anxiety/depression -Continue Prozac Morbid obesity -Recommend weight loss -BMI is 40 -Complicates overall treatment, prognosis, outcomes DVT prophylaxis -SCDs CODE STATUS -Full code Charges/Coding Visit Charges Inpatient E&M: 51959 Subs Hosp L2
[2021-06-28] MEDS: Chlorhexidine 15 ML PO ×2 (10:53→22:55)
[2021-06-28] MEDS: Polyethylene Glycol 3350 17 GM PACKET GT (10:53)
[2021-06-28] MEDS: guaiFENesin 10 ML UDC (200MG/10ML) 20 ML GT ×2 (10:53→22:55)
[2021-06-28] MEDS: Senna/Docusate Sodium 1 Tablet 2 TABLET GT (10:54)
[2021-06-28] MEDS: Cholecalciferol (VIT D3) 25 MCG TABLET (1,000 UNITS) GT (10:54)
[2021-06-28] MEDS: QUEtiapine 100 MG Tablet GT ×2 (10:55→22:56)
[2021-06-28] MEDS: Enalaprilat 1.25 MG/ML Vial IV ×2 (11:00→17:50)
[2021-06-28] MEDS: Vital AF 1.2 Cal Liquid 1,000 ML 70 ML GT ×2 (11:08→22:45)
[2021-06-28] MEDS: 0.9% Saline Lock 10 ML Syringe IV ×3 (13:27→20:09)
[2021-06-28] MEDS: Labetalol (Prefilled) 20 MG/4 ML IV (20:09)
[2021-06-28] MEDS: Menthol/Lanolin/Calamine/Znox 113 GM Tube 1 APPLIC TOPICAL (22:55)
[2021-06-28] MEDS: FLUoxetine 10 MG Capsule GT (22:55)
[2021-06-29] VITALS (37 sets, daily range): BP systolic 103–183; BP diastolic 67–86; PULSE 86–122; RESP 22–30; TEMP 35.8–37.6; O2SAT 90–96; BMI 41.5
[2021-06-29] MEDS: Albuterol 2.5 MG/3 ML VIAL.NEB. INHALATION ×2 (00:15→08:58)
[2021-06-29] MEDS: Enalaprilat 1.25 MG/ML Vial IV ×4 (00:41→17:38)
[2021-06-29] MEDS: Dexmedetomidine 1,000 mcg in 0.9% NS 240 mL 43.8 MCG CONT INF ×4 (00:59→18:35)
[2021-06-29] MEDS: CHLORHEXIDINE GLUC 2% CLOTH 1 EACH TOWELETTE TOPICAL (04:00)
[2021-06-29 04:07] LABS: Absolute Lymphocyte Count 0.72 X10^3/uL (0.83-4.51); Absolute Neutrophil Count 5.2 X10^3/uL (2.0-7.7); Basophil# 0.03 X10^3/uL; Basophil% 0.4 % (0-1); Eosinophil# 0.19 X10^3/uL; Eosinophils% 2.8 % (0-5); Hematocrit 27.1 % (37-47); Hemoglobin 8.7 g/dL (12.0-15.0); Lymphocyte # 0.72 X10^3/ul (0.83-4.51); Lymphocyte % 10.7 % (19-41); Mean Corp Hgb Conc 32.1 g/dL (32-36); Mean Corpuscular Volume 96.4 fL (81-99); Mean Platelet Vol. 9.9 fl (6.2-12.0); Monocyte# 0.46 X10^3/uL; Monocyte% 6.9 % (0-10); NRBC Flagged by Analyzer 0 % (0-5); Neutrophil # 5.16 X10^3/uL (2.7-7.7); Neutrophil % 77.1 % (47-70); Platelet Count 196 K/mm3 (150-450); RBC Distribution Width CV 13.2 % (11.6-14.6); RBC Distribution Width SD 46.7 fl (35.1-43.9); Red Blood Count 2.81 M/mm3 (4.2-5.4); White Blood Count 6.7 K/mm3 (4.4-11.0)
[2021-06-29 04:26] LABS: ALB/GLOB Ratio 0.3 RATIO (0.9-2.4); AST(SGOT) 35 U/L (15-37); Alanine Aminotransfer ALT/SGPT 60 U/L (13-56); Albumin, Serum 1.5 g/dL (3.2-5.0); Alkaline Phosphatase 58 U/L (45-117); Anion Gap 7 (5-15); BUN 33 mg/dL (7-18); BUN/Creat Ratio 43.7 RATIO (10-20); Calcium,Total 7.9 mg/dL (8.5-10.1); Chloride 109 mmol/L (98-107); Creatinine, Serum 0.76 mg/dL (0.55-1.02); EST Glomerular Filtration Rate 85 mL/min (>60); Est Glom Filt Rate - Afr Amer 102 mL/min (>60); Estimated Creatinine Clearance 79.22 ml/min; Glucose 146 mg/dL (74-106); Potassium 3.7 mmol/L (3.5-5.1); Protein, Total 6.5 g/dL (6.4-8.2); Sodium Level 142 mmol/L (136-145)
[2021-06-29] MEDS: LORazepam 2 MG/ML Syringe IV (06:42)
--- NOTE | 2021-06-29 08:36 | PN.CC_ITS ---
Assessment & Plan Assessment/Plan (1) Pneumonia due to COVID-19 virus: (2) Acute hypoxemic respiratory failure: PLAN: RECOMMENDATIONS: 1. Continue to wean FiO2 and PEEP for saturations greater than 90%. 2. Continue Precedex and fentanyl. Titrate Seroquel dosing upward if needed. 3. Continue tube feeds as tolerated. 4. Continue PPI therapy twice daily. 5. Continue to monitor H&H daily. Transfuse if hemoglobin is less than 7 g/dL. 6. Tentative plans for tracheostomy today. IMPRESSIONS: 1. Acute hypoxemic respiratory failure secondary to COVID-19 pneumonia The patient presented to the hospital with worsening dyspnea and hypoxemia. Given that she was within 10 days of symptom onset, remdesivir was initiated. The patient has since completed a treatment course of remdesivir, antimicrobials, Decadron and baricitinib. There was no evidence for PE on CTA chest. Although she was initially placed on Lovenox, the medication was discontinued over concerns for GI blood loss. She is therefore not on any pharmacologic prophylaxis at the current time. Plan to continue tube feeds as tolerated. Continue to wean FiO2 and PEEP to maintain oxygen saturations at or above 90%. Patient should have tracheostomy today. Patient's peak pressures are in the 30s, but given a PEEP of 12 this is not uncommon. Anticipate tachyc ardia and hypertension secondary to discontinuation of propofol. 2. Acute kidney injury Likely prerenal in etiology. Reattempt diuretic challenge as tolerated by hemodynamics and renal function. 3. Anemia Concern for GI source of blood loss. The patient has been transfused with appropriate improvement in her blood counts. Continue to monitor H&H daily. Transfuse for hemoglobin less than 7 g/dL. Continue PPI therapy twice daily. 4. Obesity/hypertension Complicates care, management, recovery and prognosis. Continue home medications as indicated. Addendum 10 AM: Discussed with ENT. Peak pressures in the 50s. ENT concerned that the trach will be difficult to hold pressure. Patient was given an aerosol treatment with very little change. PEEP will be lowered to 10. Will attempt diuretics. TIME: 50 minutes of critical care time, independent of procedures, was spent addressing the patient's acute hypoxemic respiratory failure secondary to COVID- 19 pneumonia, acute kidney injury, anemia, review of all data and collaboration with the care team. Subjective Subjective Patient did okay overnight. Patient has been more agitated recently with hyp ertension and sinus tachycardia. Patient was tolerating tube feeds. Patient is tentatively scheduled for a tracheostomy today. Objective Data Objective Data Vital Signs: Vital Signs Temp Pulse Resp BP Pulse Ox 36.4 C L 95 25 H 142/78 H 94 06/29/21 04:00 06/29/21 08:00 06/29/21 07:16 06/29/21 07:00 06/29/21 07:16 Oxygen Flow Rate (L/min) 1 Oxygen Delivery Method Mechanical Ventilator Weight: 117.4 kg Body Mass Index (BMI) 41.5 Intake & Output: Intake and Output for Last 24 Hours 06/27/21 06/28/21 06/29/21 23:59 23:59 23:59 Intake Total 4917.73 / 5459.93 4222.54 / 4766.34 1436.15 / 1436.15 Output Total 4050 / 4050 2675 / 2675 500 / 500 Balance 867.73 / 1409.93 1547.54 / 2091.34 936.15 / 936.15 Lab / Micro Data Result Diagrams: 06/29/21 04:00 06/29/21 04:00 Labs: Laboratory Results - last 24 hr 06/29/21 04:00: WBC 6.7, RBC 2.81 L, Hgb 8.7 L, Hct 27.1 L, MCV 96.4, MCH 31.0, MCHC 32.1, RDW Std Deviation 46.7 H, RDW Coeff of Brady 13.2, Plt Count 196, MPV 9.9, Immature Gran % (Auto) 2.100 H, Neut % (Auto) 77.1 H, Lymph % (Auto) 10.7 L , [place] % (Auto) 6.9, Eos % (Auto) 2.8, Baso % (Auto) 0.4, Absolute Neuts (auto) 5.2, Absolute Lymphs (auto) 0.72 L, Nucleated RBC % 0 06/29/21 04:00: Sodium 142, Potassium 3.7, Chloride 109 H, Carbon Dioxide 26.0, Anion Gap 7, BUN 33 H, Creatinine 0.76, Estim Creat Clear Calc 79.22, Est GFR (MDRD) Af Amer 102, Est GFR (MDRD) Non-Af 85, BUN/Creatinine Ratio 43.7 H, Glucose 146 H, Calcium 7.9 L, Total Bilirubin 0.90, AST 35, ALT 60 H, Alkaline Phosphatase 58, Total Protein 6.5, Albumin 1.5 L, Globulin 5.0 H, Albumin/Globulin Ratio 0.3 L Micro: Microbiology 06/23/21 10:30 Stool Stool Occult Blood (YASEMIN) - Final Occult Blood Positive 06/19/21 12:00 Sputum, Induced/Lukens Gram Stain - Final 06/19/21 12:00 Sputum, Induced/Lukens Respiratory Culture - Final Presumptive C albicans 06/15/21 15:40 Blood Culture (Wb) - Right Hand Blood Culture - Final No growth in 5 days. 06/15/21 15:50 Blood Culture (Wb) - Pic Blood Culture - Final No growth in 5 days. 06/15/21 13:50 Sputum, Induced/Lukens Gram Stain - Final 06/15/21 13:50 Sputum, Induced/Lukens Respiratory Culture - Final Presumptive C albicans 06/11/21 09:34 Sputum, Induced/Lukens Gram Stain - Final 06/11/21 09:34 Sputum, Induced/Lukens Respiratory Culture - Final 06/11/21 11:00 Urine Catheter - Lewis Legionella Antigen - Final 06/11/21 11:00 Urine Catheter - Lewis Streptococcus pneumoniae Antigen (M - Final 06/08/21 03:45 Urine, Clean Catch Legionella Antigen - Final 06/08/21 03:45 Urine, Clean Catch Streptococcus pneumoniae Antigen (M - Final Physical Exam Const alert Constitutional Narrative: No ventilator dyssynchrony. General Appearance: intubated and patient mechanically ventilated Nutritional Appearance: morbidly obese HEENT normocephalic and head/scalp atraumatic Mouth: endotracheal tube in place Eyes PERRL and EOMs intact bilaterally Neck supple General: trachea midline Chest inspection of chest normal Resp Effort and Inspection: tachypneic Auscultation: diminished lung sounds; Negative for rales, rhonchi or wheezes Cardio regular rate and regular rhythm GI normal to inspection, nondistended, normoactive bowel sounds Inspection: GI tube present Extremity no clubbing, cyanosis or edema Skin no rashes or lesions noted Neuro Neuro Narrative: Alert and able to follow simple commands. Sensorium / Orientation: sedated on vent Charges/Coding Procedures Hospitalists Procedures: 72077 Critial Care 1st Hr
[2021-06-29] MEDS: Potassium Chloride Oral Soln 20 MEQ/15 ML UDC 40 MEQ GT (10:32)
[2021-06-29] MEDS: Menthol/Lanolin/Calamine/Znox 113 GM Tube 1 APPLIC TOPICAL ×2 (10:32→20:29)
[2021-06-29] MEDS: Furosemide 10 MG/ML Liquid 40 MG GT ×2 (10:33→17:37)
[2021-06-29] MEDS: Chlorhexidine 15 ML PO ×2 (10:33→20:46)
[2021-06-29] MEDS: Senna/Docusate Sodium 1 Tablet 2 TABLET GT (10:34)
[2021-06-29] MEDS: Polyethylene Glycol 3350 17 GM PACKET GT (10:34)
[2021-06-29] MEDS: guaiFENesin 10 ML UDC (200MG/10ML) 20 ML GT ×2 (10:34→20:30)
[2021-06-29] MEDS: QUEtiapine 100 MG Tablet GT ×2 (10:35→20:30)
[2021-06-29] MEDS: Cholecalciferol (VIT D3) 25 MCG TABLET (1,000 UNITS) GT (10:35)
[2021-06-29] MEDS: Labetalol (Prefilled) 20 MG/4 ML IV ×2 (11:17→20:19)
[2021-06-29] MEDS: Ipratropium/Albuterol Sulfate 3 ML AMPUL.NEB INHALATION ×2 (13:24→19:05)
--- NOTE | 2021-06-29 13:32 | PCM.PN.HOSP ---
Subjective Subjective Patient cachorro intubated and sedated and on a ventilator. FiO2 has been decreased to 45% PEEP is at 12. Possible trach later today. Objective Data Objective Data Vital Signs: Vital Signs Temp Pulse Resp BP Pulse Ox 99.1 F 89 26 H 144/77 H 92 06/29/21 12:00 06/29/21 13:00 06/29/21 13:00 06/29/21 13:00 06/29/21 13:00 Oxygen Flow Rate (L/min) 1 Oxygen Delivery Method Mechanical Ventilator Weight: 117.4 kg Body Mass Index (BMI) 41.5 Intake & Output: Intake and Output for Last 24 Hours 06/27/21 06/28/21 06/29/21 23:59 23:59 23:59 Intake Total 4917.73 / 5459.93 4222.54 / 4766.34 2254.04 / 2254.04 Output Total 4050 / 4050 2675 / 2675 750 / 750 Balance 867.73 / 1409.93 1547.54 / 2091.34 1504.04 / 1504.04 Lab / Micro Data Result Diagrams: 06/29/21 04:00 06/29/21 04:00 Labs: Laboratory Results - last 24 hr 06/29/21 04:00: WBC 6.7, RBC 2.81 L, Hgb 8.7 L, Hct 27.1 L, MCV 96.4, MCH 31.0, MCHC 32.1, RDW Std Deviation 46.7 H, RDW Coeff of Brady 13.2, Plt Count 196, MPV 9.9, Immature Gran % (Auto) 2.100 H, Neut % (Auto) 77.1 H, Lymph % (Auto) 10.7 L, [place] % (Auto) 6.9, Eos % (Auto) 2.8, Baso % (Auto) 0.4, Absolute Neuts (auto) 5.2, Absolute Lymphs (auto) 0.72 L, Nucleated RBC % 0 06/29/21 04:00: Sodium 142, Potassium 3.7, Chloride 109 H, Carbon Dioxide 26.0, Anion Gap 7, BUN 33 H, Creatinine 0.76, Estim Creat Clear Calc 79.22, Est GFR (MDRD) Af Amer 102, Est GFR (MDRD) Non-Af 85, BUN/Creatinine Ratio 43.7 H, Glucose 146 H, Calcium 7.9 L, Total Bilirubin 0.90, AST 35, ALT 60 H, Alkaline Phosphatase 58, Total Protein 6.5, Albumin 1.5 L, Globulin 5.0 H, Albumin/Globulin Ratio 0.3 L Micro: Microbiology 06/23/21 10:30 Stool Stool Occult Blood (YASEMIN) - Final Occult Blood Positive 06/19/21 12:00 Sputum, Induced/Lukens Gram Stain - Final 06/19/21 12:00 Sputum, Induced/Lukens Respiratory Culture - Final Presumptive C albicans 06/15/21 15:40 Blood Culture (Wb) - Right Hand Blood Culture - Final No growth in 5 days. 06/15/21 15:50 Blood Culture (Wb) - Pic Blood Culture - Final No growth in 5 days. 06/15/21 13:50 Sputum, Induced/Lukens Gram Stain - Final 06/15/21 13:50 Sputum, Induced/Lukens Respiratory Culture - Final Presumptive C albicans 06/11/21 09:34 Sputum, Induced/Lukens Gram Stain - Final 06/11/21 09:34 Sputum, Induced/Lukens Respiratory Culture - Final 06/11/21 11:00 Urine Catheter - Lewis Legionella Antigen - Final 06/11/21 11:00 Urine Catheter - Lewis Streptococcus pneumoniae Antigen (M - Final 06/08/21 03:45 Urine, Clean Catch Legionella Antigen - Final 06/08/21 03:45 Urine, Clean Catch Streptococcus pneumoniae Antigen (M - Final Physical Exam Const alert, oriented x3 and no apparent distress Constitutional Narrative: Morbidly obese white female, intubated, sleeping but does awaken and follows commands, nontoxic-appearing General Appearance: cooperative, well kempt and well developed Orientation / Consciousness: awake, oriented to person, oriented to place and oriented to time Nutritional Appearance: morbidly obese HEENT normocephalic, head/scalp atraumatic and moist oral mucous membranes HEENT Narrative: ET tube in place Head and Scalp: normocephalic Neck nuchal rigidity and thyroid normal General: trachea midline Resp normal respiratory effort, no retractions, no use of accessory muscles and clear to auscultation bilaterally Resp Narrative: Diffusely diminished Auscultation: Negative for crackles, rales, rhonchi or wheezes Cardio regular rate, regular rhythm, S1 normal heart sound, S2 normal heart sound, no murmurs, no rub, no gallops, no clicks and no JVD GI normal to inspection, nondistended, normoactive bowel sounds, soft to palpation, non-tender and non-distended GI Narrative: Patient is morbidly obese Extremity normal to inspection and no clubbing, cyanosis or edema Peripheral Pulses: Yes pulses 2+ throughout Skin Skin Narrative: PICC right upper extremity-clean and dry General Skin Exam: no breakdown Neuro moves all extremities and no focal motor deficits Neuro Narrative: Sleeping but awakens easily and follows commands Speech: speech normal Psych thought process normal Assessment & Plan Assessment/Plan (1) Acute hypoxemic respiratory failure: (2) COVID-19: PLAN: Acute hypoxic respiratory failure secondary to COVID-19 pneumonia -Required intubation on 06/11/2021 -Out of isolation -Completed remdesivir -Completed Decadron -Completed baricitinib -Completed antimicrobials for suspected bacterial pneumonia -Remains on mechanical ventilation with FiO2 of 45% and a PEEP of 12 and SPO2 90 to 95% -Should be able to wean PEEP if FiO2 remains below 50 -Possible trach today--> NT is following -No current anticoagulation secondary to GI blood loss concerns -Mechanical prophylaxis at this time -Continue PPI -Continue diuresis as able -Plan for LTAC at discharge Acute on chronic anemia -Suspected GI blood loss -Anticoagulation was discontinued -Hemoglobin now remained stable -Continue PPI twice daily Acute GI bleed -Continue PPI twice daily -Monitor hemoglobin--> stable at this time Hypertension -Patient is on ARB at home -Continue enalaprilat to 1.25 every 6 hours scheduled -as needed labetalol 20 mg every 6 hours for systolic blood pressure greater than 160 -Trend blood pressures Anxiety/depression -Continue Prozac Morbid obesity -Recommend weight loss -BMI is 40 -Complicates overall treatment, prognosis, outcomes DVT prophylaxis -SCDs CODE STATUS -Full code Charges/Coding Visit Charges Inpatient E&M: 17483 Subs Hosp L2
[2021-06-29] MEDS: Vital AF 1.2 Cal Liquid 1,000 ML 70 ML GT (19:31)
[2021-06-29] MEDS: Acetaminophen 650 MG/20 ML UDC GT (20:30)
[2021-06-29] MEDS: FLUoxetine 10 MG Capsule GT (20:30)
[2021-06-29] MEDS: 0.9% Saline Lock 10 ML Syringe IV (20:46)
[2021-06-30] VITALS (34 sets, daily range): BP systolic 110–144; BP diastolic 60–86; PULSE 84–110; RESP 18–37; TEMP 36.6–37.3; O2SAT 90–97
[2021-06-30] MEDS: Enalaprilat 1.25 MG/ML Vial IV ×5 (00:04→23:58)
[2021-06-30] MEDS: Dexmedetomidine 1,000 mcg in 0.9% NS 240 mL 43.8 MCG CONT INF ×5 (00:42→23:57)
[2021-06-30] MEDS: 0.9% Saline Lock 10 ML Syringe IV (03:12)
[2021-06-30 03:44] LABS: Absolute Lymphocyte Count 0.82 X10^3/uL (0.83-4.51); Absolute Neutrophil Count 5.2 X10^3/uL (2.0-7.7); Basophil# 0.03 X10^3/uL; Basophil% 0.4 % (0-1); Eosinophil# 0.31 X10^3/uL; Eosinophils% 4.5 % (0-5); Hemoglobin 8.7 g/dL (12.0-15.0); Lymphocyte # 0.82 X10^3/ul (0.83-4.51); Lymphocyte % 11.8 % (19-41); Mean Corp Hgb Conc 32.2 g/dL (32-36); Mean Corpuscular Hgb 31.1 pg (27.0-32.0); Mean Corpuscular Volume 96.4 fL (81-99); Mean Platelet Vol. 10.6 fl (6.2-12.0); Monocyte# 0.42 X10^3/uL; Monocyte% 6.1 % (0-10); NRBC Flagged by Analyzer 0 % (0-5); Neutrophil # 5.18 X10^3/uL (2.7-7.7); Neutrophil % 74.7 % (47-70); Platelet Count 204 K/mm3 (150-450); RBC Distribution Width CV 13.2 % (11.6-14.6); RBC Distribution Width SD 46.9 fl (35.1-43.9); White Blood Count 6.9 K/mm3 (4.4-11.0)
[2021-06-30] MEDS: CHLORHEXIDINE GLUC 2% CLOTH 1 EACH TOWELETTE TOPICAL (04:21)
[2021-06-30 04:27] LABS: ALB/GLOB Ratio 0.3 RATIO (0.9-2.4); AST(SGOT) 36 U/L (15-37); Alanine Aminotransfer ALT/SGPT 68 U/L (13-56); Albumin, Serum 1.6 g/dL (3.2-5.0); Alkaline Phosphatase 56 U/L (45-117); Anion Gap 8 (5-15); BUN 34 mg/dL (7-18); BUN/Creat Ratio 41.8 RATIO (10-20); Calcium,Total 8.2 mg/dL (8.5-10.1); Chloride 102 mmol/L (98-107); Creatinine, Serum 0.81 mg/dL (0.55-1.02); EST Glomerular Filtration Rate 78 mL/min (>60); Est Glom Filt Rate - Afr Amer 94 mL/min (>60); Estimated Creatinine Clearance 74.33 ml/min; Globulin 4.9 g/dL (2.2-4.2); Glucose 140 mg/dL (74-106); Potassium 3.5 mmol/L (3.5-5.1); Protein, Total 6.5 g/dL (6.4-8.2); Sodium Level 139 mmol/L (136-145)
[2021-06-30] MEDS: Ipratropium/Albuterol Sulfate 3 ML AMPUL.NEB INHALATION ×3 (06:39→19:00)
--- NOTE | 2021-06-30 07:03 | PN.CC_ITS ---
Assessment & Plan Assessment/Plan (1) Pneumonia due to COVID-19 virus: (2) Acute hypoxemic respiratory failure: PLAN: RECOMMENDATIONS: 1. Continue to wean FiO2 and PEEP for saturations greater than 90%. 2. Continue Precedex and fentanyl. Titrate Seroquel dosing upward if needed. 3. Continue tube feeds as tolerated. 4. Continue PPI therapy twice daily. 5. Continue to monitor H&H daily. Transfuse if hemoglobin is less than 7 g/dL. 6. Tentative plans for tracheostomy per ENT. 7. Continue to diurese aggressively in an effort to decrease peak pressures for tracheostomy IMPRESSIONS: 1. Acute hypoxemic respiratory failure secondary to COVID-19 pneumonia The patient presented to the hospital with worsening dyspnea and hypoxemia. Given that she was within 10 days of symptom onset, remdesivir was initiated. The patient has since completed a treatment course of remdesivir, antimicrobials, Decadron and baricitinib. There was no evidence for PE on CTA chest. Although she was initially placed on Lovenox, the medication was discontinued over concerns for GI blood loss. She is therefore not on any pharmacologic prophylaxis at the current time. Plan to continue tube feeds as tolerated. Continue to wean FiO2 and PEEP to maintain oxygen saturations at or above 90%. Patient needs tracheostomy, but ENT is requesting peak pressures less than 40. Patient has been doing well overnight. Unfortunately, propofol cannot be used given high triglycerides. 2. Acute kidney injury Likely prerenal in etiology. Diuretic challenge as tolerated by hemodynamics and renal function. More aggressive with diuretic therapy in an effort to allow patient to get tracheostomy 3. Anemia Concern for GI source of blood loss. The patient has been transfused with appropriate improvement in her blood counts. Continue to monitor H&H daily. H&H has remained stable. Transfuse for hemoglobin less than 7 g/dL. Continue PPI therapy twice daily. 4. Obesity/hypertension Complicates care, management, recovery and prognosis. Continue home medications as indicated. TIME: 32 minutes of critical care time, independent of procedures, was spent addressing the patient's acute hypoxemic respiratory failure secondary to COVID- 19 pneumonia, acute kidney injury, anemia, review of all data and collaboration with the care team. Subjective Subjective Patient did okay overnight. Patient remains on Precedex and fentanyl and peak pressures have been in the mid 30s throughout the evening. Patient continues to have moderate secretions. Patient was able to tolerate a decrease in PEEP yesterday. Objective Data Objective Data Vital Signs: Vital Signs Temp Pulse Resp BP Pulse Ox 36.7 C 89 31 H 119/68 94 06/30/21 03:00 06/30/21 06:40 06/30/21 06:40 06/30/21 06:00 06/30/21 06:40 Oxygen Flow Rate (L/min) 1 Oxygen Delivery Method Mechanical Ventilator Weight: 116.5 kg Body Mass Index (BMI) 41.5 Intake & Output: Intake and Output for Last 24 Hours 06/28/21 06/29/21 06/30/21 23:59 23:59 23:59 Intake Total 4222.54 / 4766.34 3941.43 / 4258.10 1222.50 / 1222.50 Output Total 2675 / 2675 3175 / 3775 1200 / 1200 Balance 1547.54 / 2091.34 766.43 / 483.10 22.50 / 22.50 Lab / Micro Data Result Diagrams: 06/30/21 03:15 06/30/21 03:15 Labs: Laboratory Results - last 24 hr 06/30/21 03:15: WBC 6.9, RBC 2.80 L, Hgb 8.7 L, Hct 27.0 L, MCV 96.4, MCH 31.1, MCHC 32.2, RDW Std Deviation 46.9 H, RDW Coeff of Brady 13.2, Plt Count 204, MPV 10.6, Immature Gran % (Auto) 2.500 H, Neut % (Auto) 74.7 H, Lymph % (Auto) 11.8 L, [place] % (Auto) 6.1, Eos % (Auto) 4.5, Baso % (Auto) 0.4, Absolute Neuts (auto) 5.2, Absolute Lymphs (auto) 0.82 L, Nucleated RBC % 0 06/30/21 03:15: Sodium 139, Potassium 3.5, Chloride 102, Carbon Dioxide 29.0, Anion Gap 8, BUN 34 H, Creatinine 0.81, Estim Creat Clear Calc 74.33, Est GFR (MDRD) Af Amer 94, Est GFR (MDRD) Non-Af 78, BUN/Creatinine Ratio 41.8 H, Glucose 140 H, Calcium 8.2 L, Total Bilirubin 1.20 H, AST 36, ALT 68 H, Alkaline Phosphatase 56, Total Protein 6.5, Albumin 1.6 L, Globulin 4.9 H, Albumin/Globulin Ratio 0.3 L Micro: Microbiology 06/23/21 10:30 Stool Stool Occult Blood (YASEMIN) - Final Occult Blood Positive 06/19/21 12:00 Sputum, Induced/Lukens Gram Stain - Final 06/19/21 12:00 Sputum, Induced/Lukens Respiratory Culture - Final Presumptive C albicans 06/15/21 15:40 Blood Culture (Wb) - Right Hand Blood Culture - Final No growth in 5 days. 06/15/21 15:50 Blood Culture (Wb) - Pic Blood Culture - Final No growth in 5 days. 06/15/21 13:50 Sputum, Induced/Lukens Gram Stain - Final 06/15/21 13:50 Sputum, Induced/Lukens Respiratory Culture - Final Presumptive C albicans 06/11/21 09:34 Sputum, Induced/Lukens Gram Stain - Final 06/11/21 09:34 Sputum, Induced/Lukens Respiratory Culture - Final 06/11/21 11:00 Urine Catheter - Lewis Legionella Antigen - Final 06/11/21 11:00 Urine Catheter - Lewis Streptococcus pneumoniae Antigen (M - Final 06/08/21 03:45 Urine, Clean Catch Legionella Antigen - Final 06/08/21 03:45 Urine, Clean Catch Streptococcus pneumoniae Antigen (M - Final Physical Exam Const alert Constitutional Narrative: No ventilator dyssynchrony. Patient does occasionally cough. Peak pressures in the mid 30s General Appearance: intubated and patient mechanically ventilated Nutritional Appearance: morbidly obese HEENT normocephalic and head/scalp atraumatic Mouth: endotracheal tube in place Eyes PERRL and EOMs intact bilaterally Neck supple General: trachea midline Chest inspection of chest normal Resp Effort and Inspection: tachypneic Auscultation: diminished lung sounds; Negative for rales, rhonchi or wheezes Cardio regular rate and regular rhythm GI normal to inspection, nondistended, normoactive bowel sounds Inspection: GI tube present Extremity no clubbing, cyanosis or edema Skin no rashes or lesions noted Neuro Neuro Narrative: Alert and able to follow simple commands. Sensorium / Orientation: sedated on vent Charges/Coding Procedures Hospitalists Procedures: 38702 Critial Care 1st Hr
[2021-06-30] MEDS: Chlorhexidine 15 ML PO ×2 (08:35→20:23)
[2021-06-30] MEDS: Potassium Chloride Oral Soln 20 MEQ/15 ML UDC 40 MEQ GT ×2 (08:36→20:23)
[2021-06-30] MEDS: Menthol/Lanolin/Calamine/Znox 113 GM Tube 1 APPLIC TOPICAL ×2 (08:36→20:23)
[2021-06-30] MEDS: Senna/Docusate Sodium 1 Tablet 2 TABLET GT (08:37)
[2021-06-30] MEDS: guaiFENesin 10 ML UDC (200MG/10ML) 20 ML GT ×2 (08:37→20:23)
[2021-06-30] MEDS: Polyethylene Glycol 3350 17 GM PACKET GT (08:37)
[2021-06-30] MEDS: Furosemide 40 MG/4 ML Vial IV ×2 (08:37→18:10)
[2021-06-30] MEDS: QUEtiapine 100 MG Tablet GT ×2 (08:38→20:24)
[2021-06-30] MEDS: Cholecalciferol (VIT D3) 25 MCG TABLET (1,000 UNITS) GT (08:38)
--- NOTE | 2021-06-30 09:56 | CASEMGMT ---
Addendum entered by Ava Paula 06/30/21 14:51: TC to Tayler @ [facility] to inform her trach is not being done today and plans are for it to be placed tomorrow. Per Tayler, she has spoken w/pt's and obtained [facility]undown information. She states, when pt closer to being ready for discharge, they will need a detailed list of medications pt will be discharged on so they can determine exact cost of medications in order to determine if they are able to work out an agreement w/[employer] [facility] for payment. Original Note: GUY FLOWER NOTE: TC to Tayler @ [facility] to notify her of possible trach placement today. Updated clinicals faxed to Tayler per her request. She will reach out to pt's today to discuss financial information with him. Apolinar VARGAS RN, CM
[2021-06-30] MEDS: Vital AF 1.2 Cal Liquid 1,000 ML 70 ML GT (11:16)
--- NOTE | 2021-06-30 12:24 | PCM.PN.HOSP ---
Subjective Subjective Patient remains intubated and sedated. No trach has been performed yet as ENT is concerned because her peak pressures are high. No significant issues overnight. Objective Data Objective Data Vital Signs: Vital Signs Temp Pulse Resp BP Pulse Ox 98.2 F 110 H 37 H 137/81 H 91 06/30/21 07:00 06/30/21 11:00 06/30/21 11:00 06/30/21 09:00 06/30/21 11:00 Oxygen Flow Rate (L/min) 1 Oxygen Delivery Method Mechanical Ventilator Weight: 116.5 kg Body Mass Index (BMI) 41.5 Intake & Output: Intake and Output for Last 24 Hours 06/28/21 06/29/21 06/30/21 23:59 23:59 23:59 Intake Total 4222.54 / 4766.34 3941.43 / 4258.10 1649.17 / 1649.17 Output Total 2675 / 2675 3175 / 3775 1900 / 1900 Balance 1547.54 / 2091.34 766.43 / 483.10 -250.83 / -250.83 Lab / Micro Data Result Diagrams: 06/30/21 03:15 06/30/21 03:15 Labs: Laboratory Results - last 24 hr 06/30/21 03:15: WBC 6.9, RBC 2.80 L, Hgb 8.7 L, Hct 27.0 L, MCV 96.4, MCH 31.1, MCHC 32.2, RDW Std Deviation 46.9 H, RDW Coeff of Brady 13.2, Plt Count 204, MPV 10.6, Immature Gran % (Auto) 2.500 H, Neut % (Auto) 74.7 H, Lymph % (Auto) 11.8 L, [place] % (Auto) 6.1, Eos % (Auto) 4.5, Baso % (Auto) 0.4, Absolute Neuts (auto) 5.2, Absolute Lymphs (auto) 0.82 L, Nucleated RBC % 0 06/30/21 03:15: Sodium 139, Potassium 3.5, Chloride 102, Carbon Dioxide 29.0, Anion Gap 8, BUN 34 H, Creatinine 0.81, Estim Creat Clear Calc 74.33, Est GFR (MDRD) Af Amer 94, Est GFR (MDRD) Non-Af 78, BUN/Creatinine Ratio 41.8 H, Glucose 140 H, Calcium 8.2 L, Total Bilirubin 1.20 H, AST 36, ALT 68 H, Alkaline Phosphatase 56, Total Protein 6.5, Albumin 1.6 L, Globulin 4.9 H, Albumin/Globulin Ratio 0.3 L Micro: Microbiology 06/23/21 10:30 Stool Stool Occult Blood (YASEMIN) - Final Occult Blood Positive 06/19/21 12:00 Sputum, Induced/Lukens Gram Stain - Final 06/19/21 12:00 Sputum, Induced/Lukens Respiratory Culture - Final Presumptive C albicans 06/15/21 15:40 Blood Culture (Wb) - Right Hand Blood Culture - Final No growth in 5 days. 06/15/21 15:50 Blood Culture (Wb) - Pic Blood Culture - Final No growth in 5 days. 06/15/21 13:50 Sputum, Induced/Lukens Gram Stain - Final 06/15/21 13:50 Sputum, Induced/Lukens Respiratory Culture - Final Presumptive C albicans 06/11/21 09:34 Sputum, Induced/Lukens Gram Stain - Final 06/11/21 09:34 Sputum, Induced/Lukens Respiratory Culture - Final 06/11/21 11:00 Urine Catheter - Lewis Legionella Antigen - Final 06/11/21 11:00 Urine Catheter - Lewis Streptococcus pneumoniae Antigen (M - Final 06/08/21 03:45 Urine, Clean Catch Legionella Antigen - Final 06/08/21 03:45 Urine, Clean Catch Streptococcus pneumoniae Antigen (M - Final Physical Exam Narrative Const alert, oriented x3 and no apparent distress Constitutional Narrative: Morbidly obese white female, intubated, sleeping but does awaken and follows commands, nontoxic-appearing General Appearance: cooperative, well kempt and well developed Orientation / Consciousness: awake, oriented to person, oriented to place and oriented to time Nutritional Appearance: morbidly obese HEENT normocephalic, head/scalp atraumatic and moist oral mucous membranes HEENT Narrative: ET tube in place Head and Scalp: normocephalic Neck nuchal rigidity and thyroid normal General: trachea midline Resp normal respiratory effort, no retractions, no use of accessory muscles and clear to auscultation bilaterally Resp Narrative: Diffusely diminished Auscultation: Negative for crackles, rales, rhonchi or wheezes Cardio regular rate, regular rhythm, S1 normal heart sound, S2 normal heart sound, no murmurs, no rub, no gallops, no clicks and no JVD Cardio Narrative: Mild tachycardia GI normal to inspection, nondistended, normoactive bowel sounds, soft to palpation, non-tender and non-distended GI Narrative: Patient is morbidly obese Extremity normal to inspection and no clubbing, cyanosis or edema Extremity Narrative: Left upper extremity PICC line-clean and dry-dressing intact Peripheral Pulses: Yes pulses 2+ throughout Skin General Skin Exam: no breakdown Neuro moves all extremities and no focal motor deficits Neuro Narrative: Sleeping but awakens easily and follows commands Sensorium / Orientation: awake and alert Speech: speech normal Psych thought process normal Assessment & Plan Assessment/Plan (1) Acute hypoxemic respiratory failure: (2) COVID-19: PLAN: Acute hypoxic respiratory failure secondary to COVID-19 pneumonia -Required intubation on 06/11/2021 -Out of isolation -Completed remdesivir -Completed Decadron -Completed baricitinib -Completed antimicrobials for suspected bacterial pneumonia -Remains on mechanical ventilation with FiO2 of 50% and a PEEP of 10 and SPO2 90 to 94% -Should be able to wean PEEP if FiO2 remains below 50 -Awaiting trach placement -No current anticoagulation secondary to GI blood loss concerns -Mechanical prophylaxis at this time -Continue PPI -Continue diuresis as able per pulmonary -Plan for LTAC at discharge Acute on chronic anemia -Suspected GI blood loss -Anticoagulation was discontinued -Hemoglobin now remained stable -Continue PPI twice daily Acute GI bleed -Continue PPI twice daily -Monitor hemoglobin--> stable at this time Hypertension -Patient is on ARB at home -Continue enalaprilat to 1.25 every 6 hours scheduled -as needed labetalol 20 mg every 6 hours for systolic blood pressure greater than 160 -Trend blood pressures Anxiety/depression -Continue Prozac Morbid obesity -Recommend weight loss -BMI is 40 -Complicates overall treatment, prognosis, outcomes DVT prophylaxis -SCDs CODE STATUS -Full code Charges/Coding Visit Charges Inpatient E&M: 84002 Subs Hosp L2
[2021-06-30] MEDS: FLUoxetine 10 MG Capsule GT (20:24)
[2021-07-01] VITALS (34 sets, daily range): BP systolic 106–139; BP diastolic 66–94; PULSE 25–103; RESP 11–31; TEMP 36.6–37.4; O2SAT 81–98
[2021-07-01 03:43] LABS: Absolute Lymphocyte Count 1.02 X10^3/uL (0.83-4.51); Absolute Neutrophil Count 5.7 X10^3/uL (2.0-7.7); Basophil# 0.03 X10^3/uL; Basophil% 0.4 % (0-1); Eosinophil# 0.28 X10^3/uL; Eosinophils% 3.7 % (0-5); Hematocrit 26.3 % (37-47); Hemoglobin 8.6 g/dL (12.0-15.0); Lymphocyte # 1.02 X10^3/ul (0.83-4.51); Lymphocyte % 13.5 % (19-41); Mean Corp Hgb Conc 32.7 g/dL (32-36); Mean Corpuscular Hgb 31.2 pg (27.0-32.0); Mean Corpuscular Volume 95.3 fL (81-99); Mean Platelet Vol. 10.8 fl (6.2-12.0); Monocyte% 5.3 % (0-10); NRBC Flagged by Analyzer 0 % (0-5); Neutrophil # 5.65 X10^3/uL (2.7-7.7); Neutrophil % 75.1 % (47-70); Platelet Count 201 K/mm3 (150-450); RBC Distribution Width CV 13.1 % (11.6-14.6); RBC Distribution Width SD 45.5 fl (35.1-43.9); Red Blood Count 2.76 M/mm3 (4.2-5.4); White Blood Count 7.5 K/mm3 (4.4-11.0)
[2021-07-01 03:54] LABS: Anion Gap 8 (5-15); BUN 43 mg/dL (7-18); BUN/Creat Ratio 39.4 RATIO (10-20); Calcium,Total 8.7 mg/dL (8.5-10.1); Chloride 102 mmol/L (98-107); Creatinine, Serum 1.09 mg/dL (0.55-1.02); EST Glomerular Filtration Rate 55 mL/min (>60); Est Glom Filt Rate - Afr Amer 67 mL/min (>60); Estimated Creatinine Clearance 55.23 ml/min; Glucose 164 mg/dL (74-106); Potassium 3.7 mmol/L (3.5-5.1); Sodium Level 140 mmol/L (136-145)
[2021-07-01] MEDS: CHLORHEXIDINE GLUC 2% CLOTH 1 EACH TOWELETTE TOPICAL (04:55)
[2021-07-01] MEDS: Dexmedetomidine 1,000 mcg in 0.9% NS 240 mL 43.8 MCG CONT INF (05:36)
[2021-07-01] MEDS: 0.9% Saline Lock 10 ML Syringe IV ×2 (05:37→20:02)
[2021-07-01] MEDS: Enalaprilat 1.25 MG/ML Vial IV ×3 (05:37→20:00)
[2021-07-01] MEDS: TITRATION PARAMETER CHANGE 1 EACH IV (06:17)
[2021-07-01] MEDS: Ipratropium/Albuterol Sulfate 3 ML AMPUL.NEB INHALATION ×3 (06:49→19:46)
--- NOTE | 2021-07-01 07:09 | PCM.PN.INT ---
Assessment & Plan Assessment/Plan (1) Pneumonia due to COVID-19 virus: (2) Acute hypoxemic respiratory failure: PLAN: RECOMMENDATIONS: 1. Continue to wean FiO2 and PEEP for saturations greater than 90%. 2. Continue Precedex and fentanyl. Titrate Seroquel dosing upward if needed. 3. Continue tube feeds as tolerated. 4. Continue PPI therapy twice daily. 5. Continue to monitor H&H daily. Transfuse if hemoglobin is less than 7 g/dL. 6. Tentative plans for tracheostomy per ENT. 7. Hold on diuresis for today IMPRESSIONS: 1. Acute hypoxemic respiratory failure secondary to COVID-19 pneumonia The patient presented to the hospital with worsening dyspnea and hypoxemia. Given that she was within 10 days of symptom onset, remdesivir was initiated. The patient has since completed a treatment course of remdesivir, antimicrobials, Decadron and baricitinib. There was no evidence for PE on CTA chest. Although she was initially placed on Lovenox, the medication was discontinued over concerns for GI blood loss. She is therefore not on any pharmacologic prophylaxis at the current time. Plan to continue tube feeds as tolerated. Continue to wean FiO2 and PEEP to maintain oxygen saturations at or above 90%. Patient's peak pressures have been less than 40 for over 24 hours. Will hold diuretics given bump in creatinine. Continue aggressive pulmonary toileting. 2. Acute kidney injury Likely prerenal in etiology. Diuretic challenge as tolerated by hemodynamics and renal function. Patient with a bump in creatinine. We will hold off on diuretics for 24 hours. 3. Anemia Concern for GI source of blood loss. The patient has been transfused with appropriate improvement in her blood counts. Continue to monitor H&H daily. H&H has remained stable. Transfuse for hemoglobin less than 7 g/dL. Continue PPI therapy twice daily. 4. Obesity/hypertension Complicates care, management, recovery and prognosis. Continue home medications as indicated. TIME: 34 minutes of critical care time, independent of procedures, was spent addressing the patient's acute hypoxemic respiratory failure secondary to COVID-19 pneumonia, acute kidney injury, anemia, review of all data and collaboration with the care team. Subjective Subjective Patient did okay overnight. Patient did have increased oral and endotracheal secretions reported by nursing and respiratory. Patient tolerating tube feeds, but they were held at midnight for possible tracheostomy later today. Objective Data Objective Data Vital Signs: Vital Signs Temp Pulse Resp BP Pulse Ox 37.1 C 87 23 H 130/69 H 91 07/01/21 04:00 07/01/21 07:00 07/01/21 07:00 07/01/21 07:00 07/01/21 07:00 Oxygen Flow Rate (L/min) 1 Oxygen Delivery Method Mechanical Ventilator Weight: 114.9 kg Body Mass Index (BMI) 41.5 Intake & Output: Intake and Output for Last 24 Hours 06/29/21 06/30/21 07/01/21 23:59 23:59 23:59 Intake Total 3941.43 / 4258.10 2760.84 / 2908.03 590.45 / 590.45 Output Total 3175 / 3775 3500 / 5250 2200 / 2200 Balance 766.43 / 483.10 -739.16 / -2341.97 -1609.55 / -1609.55 Lab / Micro Data Result Diagrams: 07/01/21 03:20 07/01/21 03:20 Labs: Laboratory Results - last 24 hr 07/01/21 03:20: Sodium 140, Potassium 3.7, Chloride 102, Carbon Dioxide 30.0, Anion Gap 8, BUN 43 H, Creatinine 1.09 H, Estim Creat Clear Calc 55.23, Est GFR (MDRD) Af Amer 67, Est GFR (MDRD) Non-Af 55 L, BUN/Creatinine Ratio 39.4 H, Glucose 164 H, Calcium 8.7 07/01/21 03:20: WBC 7.5, RBC 2.76 L, Hgb 8.6 L, Hct 26.3 L, MCV 95.3, MCH 31.2, MCHC 32.7, RDW Std Deviation 45.5 H, RDW Coeff of Brady 13.1, Plt Count 201, MPV 10.8, Immature Gran % (Auto) 2.000 H, Neut % (Auto) 75.1 H, Lymph % (Auto) 13.5 L, [place] % (Auto) 5.3, Eos % (Auto) 3.7, Baso % (Auto) 0.4, Absolute Neuts (auto) 5.7, Absolute Lymphs (auto) 1.02, Nucleated RBC % 0 Micro: Microbiology 06/23/21 10:30 Stool Stool Occult Blood (YASEMIN) - Final Occult Blood Positive 06/19/21 12:00 Sputum, Induced/Lukens Gram Stain - Final 06/19/21 12:00 Sputum, Induced/Lukens Respiratory Culture - Final Presumptive C albicans 06/15/21 15:40 Blood Culture (Wb) - Right Hand Blood Culture - Final No growth in 5 days. 06/15/21 15:50 Blood Culture (Wb) - Pic Blood Culture - Final No growth in 5 days. 06/15/21 13:50 Sputum, Induced/Lukens Gram Stain - Final 06/15/21 13:50 Sputum, Induced/Lukens Respiratory Culture - Final Presumptive C albicans 06/11/21 09:34 Sputum, Induced/Lukens Gram Stain - Final 06/11/21 09:34 Sputum, Induced/Lukens Respiratory Culture - Final 06/11/21 11:00 Urine Catheter - Lewis Legionella Antigen - Final 06/11/21 11:00 Urine Catheter - Lewis Streptococcus pneumoniae Antigen (M - Final 06/08/21 03:45 Urine, Clean Catch Legionella Antigen - Final 06/08/21 03:45 Urine, Clean Catch Streptococcus pneumoniae Antigen (M - Final Physical Exam Const alert Constitutional Narrative: No ventilator dyssynchrony. Patient does occasionally cough. Peak pressures in the mid 30s General Appearance: intubated and patient mechanically ventilated Nutritional Appearance: morbidly obese HEENT normocephalic and head/scalp atraumatic Mouth: endotracheal tube in place Eyes PERRL and EOMs intact bilaterally Neck supple General: trachea midline Chest inspection of chest normal Resp Effort and Inspection: tachypneic Auscultation: diminished lung sounds; Negative for rales, rhonchi or wheezes Cardio regular rate and regular rhythm GI normal to inspection, nondistended, normoactive bowel sounds Inspection: GI tube present Extremity no clubbing, cyanosis or edema Skin no rashes or lesions noted Neuro Neuro Narrative: Alert and able to follow simple commands. Sensorium / Orientation: sedated on vent Charges/Coding Procedures Hospitalists Procedures: [id number] Critial Care 1st Hr
[2021-07-01] MEDS: Chlorhexidine 15 ML PO ×2 (08:53→20:01)
[2021-07-01] MEDS: Menthol/Lanolin/Calamine/Znox 113 GM Tube 1 APPLIC TOPICAL ×2 (08:53→20:00)
[2021-07-01] MEDS: Dexmedetomidine 1,000 mcg in 0.9% NS 240 mL 43.1 MCG CONT INF ×3 (11:11→23:06)
--- NOTE | 2021-07-01 14:12 | PN.HOSP_ITS ---
Subjective Subjective Patient remains intubated and sedated although does awaken and follows commands. Denies any current issues. No issues overnight. Tentative plans are for trach this evening. Objective Data Objective Data Vital Signs: Vital Signs Temp Pulse Resp BP Pulse Ox 97.8 F 78 23 H 118/68 91 07/01/21 12:00 07/01/21 13:00 07/01/21 13:00 07/01/21 13:00 07/01/21 13:00 Oxygen Flow Rate (L/min) 1 Oxygen Delivery Method Mechanical Ventilator Weight: 114.9 kg Body Mass Index (BMI) 41.5 Intake & Output: Intake and Output for Last 24 Hours 06/29/21 06/30/21 07/01/21 23:59 23:59 23:59 Intake Total 3941.43 / 4258.10 2760.84 / 2908.03 962.75 / 962.75 Output Total 3175 / 3775 3500 / 5250 2525 / 2525 Balance 766.43 / 483.10 -739.16 / -2341.97 -1562.25 / -1562.25 Lab / Micro Data Result Diagrams: 07/01/21 03:20 07/01/21 03:20 Labs: Laboratory Results - last 24 hr 07/01/21 03:20: Sodium 140, Potassium 3.7, Chloride 102, Carbon Dioxide 30.0, Anion Gap 8, BUN 43 H, Creatinine 1.09 H, Estim Creat Clear Calc 55.23, Est GFR (MDRD) Af Amer 67, Est GFR (MDRD) Non-Af 55 L, BUN/Creatinine Ratio 39.4 H, Glucose 164 H, Calcium 8.7 07/01/21 03:20: WBC 7.5, RBC 2.76 L, Hgb 8.6 L, Hct 26.3 L, MCV 95.3, MCH 31.2, MCHC 32.7, RDW Std Deviation 45.5 H, RDW Coeff of Brady 13.1, Plt Count 201, MPV 10.8, Immature Gran % (Auto) 2.000 H, Neut % (Auto) 75.1 H, Lymph % (Auto) 13.5 L, [place] % (Auto) 5.3, Eos % (Auto) 3.7, Baso % (Auto) 0.4, Absolute Neuts (auto) 5.7, Absolute Lymphs (auto) 1.02, Nucleated RBC % 0 Micro: Microbiology 06/23/21 10:30 Stool Stool Occult Blood (YASEMIN) - Final Occult Blood Positive 06/19/21 12:00 Sputum, Induced/Lukens Gram Stain - Final 06/19/21 12:00 Sputum, Induced/Lukens Respiratory Culture - Final Presumptive C albicans 06/15/21 15:40 Blood Culture (Wb) - Right Hand Blood Culture - Final No growth in 5 days. 06/15/21 15:50 Blood Culture (Wb) - Pic Blood Culture - Final No growth in 5 days. 06/15/21 13:50 Sputum, Induced/Lukens Gram Stain - Final 06/15/21 13:50 Sputum, Induced/Lukens Respiratory Culture - Final Presumptive C albicans 06/11/21 09:34 Sputum, Induced/Lukens Gram Stain - Final 06/11/21 09:34 Sputum, Induced/Lukens Respiratory Culture - Final 06/11/21 11:00 Urine Catheter - Lewis Legionella Antigen - Final 06/11/21 11:00 Urine Catheter - Lewis Streptococcus pneumoniae Antigen (M - Final 06/08/21 03:45 Urine, Clean Catch Legionella Antigen - Final 06/08/21 03:45 Urine, Clean Catch Streptococcus pneumoniae Antigen (M - Final Physical Exam Narrative Const alert, oriented x3 and no apparent distress Constitutional Narrative: Morbidly obese white female, intubated, awake and follows commands, nontoxic-appearing General Appearance: cooperative, well kempt and well developed Orientation / Consciousness: awake, oriented to person, oriented to place and oriented to time Nutritional Appearance: morbidly obese HEENT normocephalic, head/scalp atraumatic and moist oral mucous membranes Head and Scalp: normocephalic Neck nuchal rigidity and thyroid normal General: trachea midline Resp normal respiratory effort, no retractions, no use of accessory muscles and clear to auscultation bilaterally Resp Narrative: Diffusely diminished Auscultation: Negative for crackles, rales, rhonchi or wheezes Cardio regular rate, regular rhythm, S1 normal heart sound, S2 normal heart sound, no murmurs, no rub, no gallops, no clicks and no JVD Cardio Narrative: Mild tachycardia GI normal to inspection, nondistended, normoactive bowel sounds, soft to palpation, non-tender and non-distended GI Narrative: Patient is morbidly obese Extremity normal to inspection and no clubbing, cyanosis or edema Extremity Narrative: Left upper extremity PICC line-clean and dry-dressing intact Peripheral Pulses: Yes pulses 2+ throughout Skin General Skin Exam: no breakdown Neuro moves all extremities and no focal motor deficits Sensorium / Orientation: awake and alert Speech: speech normal Psych thought process normal Assessment & Plan Assessment/Plan (1) Acute hypoxemic respiratory failure: (2) COVID-19: PLAN: Acute hypoxic respiratory failure secondary to COVID-19 pneumonia -Required intubation on 06/11/2021 -Out of isolation -Completed remdesivir -Completed Decadron -Completed baricitinib -Completed antimicrobials for suspected bacterial pneumonia -Remains on mechanical ventilation with FiO2 of 50% and a PEEP of 8 and SPO2 90 to 92% -Awaiting trach placement--> tentatively scheduled for this evening -No current anticoagulation secondary to GI blood loss concerns -Mechanical prophylaxis at this time -Continue PPI -Continue diuresis as able per pulmonary -Plan for LTAC at discharge Acute on chronic anemia -Suspected GI blood loss -Anticoagulation was discontinued -Hemoglobin now remained stable -Continue PPI twice daily Acute GI bleed -Continue PPI twice daily -Monitor hemoglobin--> stable at this time Hypertension -Patient is on ARB at home -Continue enalaprilat to 1.25 every 6 hours scheduled -Blood pressures are much better -We will transition to ARB via PEG after trach is done -as needed labetalol 20 mg every 6 hours for systolic blood pressure greater than 160 -Trend blood pressures Anxiety/depression -Continue Prozac Morbid obesity -Recommend weight loss -BMI is 40 -Complicates overall treatment, prognosis, outcomes DVT prophylaxis -SCDs CODE STATUS -Full code Charges/Coding Visit Charges Inpatient E&M: 47622 Subs Hosp L2
[2021-07-01] MEDS: Vital AF 1.2 Cal Liquid 1,000 ML 70 ML GT (14:14)
[2021-07-01] MEDS: QUEtiapine 100 MG Tablet GT ×2 (14:15→20:01)
[2021-07-01] MEDS: Polyethylene Glycol 3350 17 GM PACKET GT (14:15)
[2021-07-01] MEDS: Cholecalciferol (VIT D3) 25 MCG TABLET (1,000 UNITS) GT (14:15)
[2021-07-01] MEDS: Senna/Docusate Sodium 1 Tablet 2 TABLET GT (14:15)
[2021-07-01] MEDS: guaiFENesin 10 ML UDC (200MG/10ML) 20 ML GT ×2 (14:15→20:01)
[2021-07-01] MEDS: FLUoxetine 10 MG Capsule GT (20:01)
[2021-07-01] MEDS: Acetaminophen 650 MG/20 ML UDC GT (20:02)
[2021-07-02] VITALS (36 sets, daily range): BP systolic 101–148; BP diastolic 65–98; PULSE 70–103; RESP 2–40; TEMP 36.5–37.2; O2SAT 89–98
[2021-07-02] MEDS: Enalaprilat 1.25 MG/ML Vial IV ×5 (01:15→23:21)
[2021-07-02 04:44] LABS: Absolute Lymphocyte Count 0.82 X10^3/uL (0.83-4.51); Absolute Neutrophil Count 5.2 X10^3/uL (2.0-7.7); Basophil# 0.03 X10^3/uL; Basophil% 0.4 % (0-1); Eosinophil# 0.44 X10^3/uL; Eosinophils% 6.3 % (0-5); Hematocrit 26.7 % (37-47); Hemoglobin 8.6 g/dL (12.0-15.0); Lymphocyte # 0.82 X10^3/ul (0.83-4.51); Lymphocyte % 11.7 % (19-41); Mean Corp Hgb Conc 32.2 g/dL (32-36); Mean Corpuscular Hgb 31.2 pg (27.0-32.0); Mean Corpuscular Volume 96.7 fL (81-99); Mean Platelet Vol. 10.7 fl (6.2-12.0); Monocyte# 0.38 X10^3/uL; Monocyte% 5.4 % (0-10); NRBC Flagged by Analyzer 0 % (0-5); Neutrophil # 5.18 X10^3/uL (2.7-7.7); Neutrophil % 74.1 % (47-70); Platelet Count 184 K/mm3 (150-450); RBC Distribution Width CV 13.2 % (11.6-14.6); RBC Distribution Width SD 46.8 fl (35.1-43.9); Red Blood Count 2.76 M/mm3 (4.2-5.4)
[2021-07-02 04:57] LABS: Anion Gap 5 (5-15); BUN 40 mg/dL (7-18); BUN/Creat Ratio 46.1 RATIO (10-20); Calcium,Total 8.6 mg/dL (8.5-10.1); Chloride 105 mmol/L (98-107); Creatinine, Serum 0.87 mg/dL (0.55-1.02); EST Glomerular Filtration Rate 72 mL/min (>60); Est Glom Filt Rate - Afr Amer 87 mL/min (>60); Glucose 154 mg/dL (74-106); Potassium 3.7 mmol/L (3.5-5.1); Sodium Level 140 mmol/L (136-145)
[2021-07-02] MEDS: 0.9% Saline Lock 10 ML Syringe IV ×2 (05:10→23:21)
[2021-07-02] MEDS: CHLORHEXIDINE GLUC 2% CLOTH 1 EACH TOWELETTE TOPICAL (05:10)
[2021-07-02] MEDS: Dexmedetomidine 1,000 mcg in 0.9% NS 240 mL 43.1 MCG CONT INF ×4 (05:10→23:21)
[2021-07-02] MEDS: Ipratropium/Albuterol Sulfate 3 ML AMPUL.NEB INHALATION ×3 (06:46→19:02)
--- NOTE | 2021-07-02 07:20 | PN.CC_ITS ---
Assessment & Plan Assessment/Plan (1) Pneumonia due to COVID-19 virus: (2) Acute hypoxemic respiratory failure: PLAN: RECOMMENDATIONS: 1. Continue to wean FiO2 and PEEP for saturations greater than 90%. 2. Continue Precedex and fentanyl. Titrate Seroquel dosing upward if needed. 3. Continue tube feeds as tolerated. 4. Continue PPI therapy twice daily. 5. Continue to monitor H&H daily. Transfuse if hemoglobin is less than 7 g/dL. 6. Tentative plans for tracheostomy per ENT. 7. Possibly challenge with diuretics tomorrow IMPRESSIONS: 1. Acute hypoxemic respiratory failure secondary to COVID-19 pneumonia The patient presented to the hospital with worsening dyspnea and hypoxemia. Given that she was within 10 days of symptom onset, remdesivir was initiated. The patient has since completed a treatment course of remdesivir, antimicrobials, Decadron and baricitinib. There was no evidence for PE on CTA chest. Although she was initially placed on Lovenox, the medication was discontinued over concerns for GI blood loss. She is therefore not on any pharmacologic prophylaxis at the current time. Plan to continue tube feeds as tolerated. Continue to wean FiO2 and PEEP to maintain oxygen saturations at or above 90%. Continue aggressive pulmonary toileting. Do not believe a trial of extubation is appropriate given patient's oral and endotracheal secretions, PEEP of 8 and protracted intubation. Await trach later today 2. Acute kidney injury Likely prerenal in etiology. Diuretic challenge as tolerated by hemodynamics and renal function. Patient with a bump in creatinine. We will hold off on diuretics for an additional 24 hours. 3. Anemia Concern for GI source of blood loss. The patient has been transfused with appropriate improvement in her blood counts. Continue to monitor H&H daily. H&H has remained stable. Transfuse for hemoglobin less than 7 g/dL. Continue PPI therapy twice daily. 4. Obesity/hypertension Complicates care, management, recovery and prognosis. Continue home medications as indicated. TIME: 32 minutes of critical care time, independent of procedures, was spent addressing the patient's acute hypoxemic respiratory failure secondary to COVID- 19 pneumonia, acute kidney injury, anemia, review of all data and collaboration with the care team. Subjective Subjective Patient did well overnight. Patient continues to have oral and endotracheal secretions, but PEEP was able to be weaned to 8 and FiO2 to 50%. Patient is not reporting any pain. Patient reportedly is to have her tracheostomy at 5:30 PM per ENT. Objective Data Objective Data Vital Signs: Vital Signs Temp Pulse Resp BP Pulse Ox 36.6 C 83 27 H 126/79 H 93 07/02/21 04:00 07/02/21 07:00 07/02/21 07:00 07/02/21 07:00 07/02/21 07:00 Oxygen Flow Rate (L/min) 1 Oxygen Delivery Method Mechanical Ventilator Weight: 116.4 kg Body Mass Index (BMI) 41.5 Intake & Output: Intake and Output for Last 24 Hours 06/30/21 07/01/21 07/02/21 23:59 23:59 23:59 Intake Total 2760.84 / 2908.03 3562.41 / 3771.20 817.27 / 817.27 Output Total 3500 / 5250 2525 / 3125 950 / 950 Balance -739.16 / -2341.97 1037.41 / 646.20 -132.73 / -132.73 Lab / Micro Data Result Diagrams: 07/02/21 04:25 07/02/21 04:25 Labs: Laboratory Results - last 24 hr 07/02/21 04:25: Sodium 140, Potassium 3.7, Chloride 105, Carbon Dioxide 30.0, Anion Gap 5, BUN 40 H, Creatinine 0.87, Estim Creat Clear Calc 69.20, Est GFR (MDRD) Af Amer 87, Est GFR (MDRD) Non-Af 72, BUN/Creatinine Ratio 46.1 H, Glucose 154 H, Calcium 8.6 07/02/21 04:25: WBC 7.0, RBC 2.76 L, Hgb 8.6 L, Hct 26.7 L, MCV 96.7, MCH 31.2, MCHC 32.2, RDW Std Deviation 46.8 H, RDW Coeff of Brady 13.2, Plt Count 184, MPV 10.7, Immature Gran % (Auto) 2.100 H, Neut % (Auto) 74.1 H, Lymph % (Auto) 11.7 L, [place] % (Auto) 5.4, Eos % (Auto) 6.3 H, Baso % (Auto) 0.4, Absolute Neuts (auto) 5.2, Absolute Lymphs (auto) 0.82 L, Nucleated RBC % 0 Micro: Microbiology 06/23/21 10:30 Stool Stool Occult Blood (YASEMIN) - Final Occult Blood Positive 06/19/21 12:00 Sputum, Induced/Lukens Gram Stain - Final 06/19/21 12:00 Sputum, Induced/Lukens Respiratory Culture - Final Presumptive C albicans 06/15/21 15:40 Blood Culture (Wb) - Right Hand Blood Culture - Final No growth in 5 days. 06/15/21 15:50 Blood Culture (Wb) - Pic Blood Culture - Final No growth in 5 days. 06/15/21 13:50 Sputum, Induced/Lukens Gram Stain - Final 06/15/21 13:50 Sputum, Induced/Lukens Respiratory Culture - Final Presumptive C albicans 06/11/21 09:34 Sputum, Induced/Lukens Gram Stain - Final 06/11/21 09:34 Sputum, Induced/Lukens Respiratory Culture - Final 06/11/21 11:00 Urine Catheter - Lewis Legionella Antigen - Final 06/11/21 11:00 Urine Catheter - Lewis Streptococcus pneumoniae Antigen (M - Final 06/08/21 03:45 Urine, Clean Catch Legionella Antigen - Final 06/08/21 03:45 Urine, Clean Catch Streptococcus pneumoniae Antigen (M - Final Physical Exam Const alert Constitutional Narrative: No ventilator dyssynchrony. Patient does occasionally cough. Peak pressures in the upper 30s General Appearance: intubated and patient mechanically ventilated Nutritional Appearance: morbidly obese HEENT normocephalic and head/scalp atraumatic Mouth: endotracheal tube in place Eyes PERRL and EOMs intact bilaterally Neck supple General: trachea midline Chest inspection of chest normal Resp Effort and Inspection: tachypneic Auscultation: diminished lung sounds; Negative for rales, rhonchi or wheezes Cardio regular rate and regular rhythm GI normal to inspection, nondistended, normoactive bowel sounds Inspection: GI tube present Extremity no clubbing, cyanosis or edema Skin no rashes or lesions noted Neuro Neuro Narrative: Alert and able to follow simple commands. Sensorium / Orientation: sedated on vent Charges/Coding Procedures Hospitalists Procedures: [id number] Critial Care 1st Hr
[2021-07-02] MEDS: Chlorhexidine 15 ML PO ×2 (08:07→20:18)
[2021-07-02] MEDS: Menthol/Lanolin/Calamine/Znox 113 GM Tube 1 APPLIC TOPICAL ×2 (08:08→20:18)
--- NOTE | 2021-07-02 10:16 | PN.HOSP_ITS ---
Subjective Subjective Patient remains intubated and sedated but does interact and shakes head when asked if any issues at this time. Tentative plans are for tracheostomy tonight at 5:00. Patient remains on an FiO2 of 50% and PEEP has been reduced to 8. Objective Data Objective Data Vital Signs: Vital Signs Temp Pulse Resp BP Pulse Ox 98 F 79 22 H 128/73 H 97 07/02/21 04:00 07/02/21 08:00 07/02/21 08:00 07/02/21 08:00 07/02/21 08:00 Oxygen Flow Rate (L/min) 1 Oxygen Delivery Method Mechanical Ventilator Weight: 116.4 kg Body Mass Index (BMI) 41.5 Intake & Output: Intake and Output for Last 24 Hours 06/30/21 07/01/21 07/02/21 23:59 23:59 23:59 Intake Total 2760.84 / 2908.03 3562.41 / 3771.20 817.27 / 817.27 Output Total 3500 / 5250 2525 / 3125 950 / 950 Balance -739.16 / -2341.97 1037.41 / 646.20 -132.73 / -132.73 Lab / Micro Data Result Diagrams: 07/02/21 04:25 07/02/21 04:25 Labs: Laboratory Results - last 24 hr 07/02/21 04:25: Sodium 140, Potassium 3.7, Chloride 105, Carbon Dioxide 30.0, Anion Gap 5, BUN 40 H, Creatinine 0.87, Estim Creat Clear Calc 69.20, Est GFR (MDRD) Af Amer 87, Est GFR (MDRD) Non-Af 72, BUN/Creatinine Ratio 46.1 H, Glucose 154 H, Calcium 8.6 07/02/21 04:25: WBC 7.0, RBC 2.76 L, Hgb 8.6 L, Hct 26.7 L, MCV 96.7, MCH 31.2, MCHC 32.2, RDW Std Deviation 46.8 H, RDW Coeff of Brady 13.2, Plt Count 184, MPV 10.7, Immature Gran % (Auto) 2.100 H, Neut % (Auto) 74.1 H, Lymph % (Auto) 11.7 L, [place] % (Auto) 5.4, Eos % (Auto) 6.3 H, Baso % (Auto) 0.4, Absolute Neuts (auto) 5.2, Absolute Lymphs (auto) 0.82 L, Nucleated RBC % 0 Micro: Microbiology 06/23/21 10:30 Stool Stool Occult Blood (YASEMIN) - Final Occult Blood Positive 06/19/21 12:00 Sputum, Induced/Lukens Gram Stain - Final 06/19/21 12:00 Sputum, Induced/Lukens Respiratory Culture - Final Presumptive C albicans 06/15/21 15:40 Blood Culture (Wb) - Right Hand Blood Culture - Final No growth in 5 days. 06/15/21 15:50 Blood Culture (Wb) - Pic Blood Culture - Final No growth in 5 days. 06/15/21 13:50 Sputum, Induced/Lukens Gram Stain - Final 06/15/21 13:50 Sputum, Induced/Lukens Respiratory Culture - Final Presumptive C albicans 06/11/21 09:34 Sputum, Induced/Lukens Gram Stain - Final 06/11/21 09:34 Sputum, Induced/Lukens Respiratory Culture - Final 06/11/21 11:00 Urine Catheter - Lewis Legionella Antigen - Final 06/11/21 11:00 Urine Catheter - Lewis Streptococcus pneumoniae Antigen (M - Final 06/08/21 03:45 Urine, Clean Catch Legionella Antigen - Final 06/08/21 03:45 Urine, Clean Catch Streptococcus pneumoniae Antigen (M - Final Physical Exam Narrative Const alert, oriented x3 and no apparent distress Constitutional Narrative: Morbidly obese white female, intubated, awake and follows commands and interacts appropriately, nontoxic-appearing General Appearance: cooperative, well kempt and well developed Orientation / Consciousness: awake, oriented to person, oriented to place and oriented to time Exam Limitations: other limitations Nutritional Appearance: morbidly obese HEENT normocephalic, head/scalp atraumatic and moist oral mucous membranes HEENT Narrative: ET tube in place Head and Scalp: normocephalic Neck nuchal rigidity and thyroid normal General: trachea midline Resp normal respiratory effort, no retractions, no use of accessory muscles and clear to auscultation bilaterally Resp Narrative: Diffusely diminished Auscultation: Negative for crackles, rales, rhonchi or wheezes Cardio regular rate, regular rhythm, S1 normal heart sound, S2 normal heart sound, no murmurs, no rub, no gallops, no clicks and no JVD GI normal to inspection, nondistended, normoactive bowel sounds, soft to palpation, non-tender and non-distended GI Narrative: Patient is morbidly obese Extremity normal to inspection and no clubbing, cyanosis or edema Extremity Narrative: Left upper extremity PICC line-clean and dry-dressing intact Peripheral Pulses: Yes pulses 2+ throughout Skin General Skin Exam: no breakdown Neuro moves all extremities and no focal motor deficits Neuro Narrative: Generalized weakness Sensorium / Orientation: awake and alert Speech: speech normal Psych thought process normal Assessment & Plan Assessment/Plan (1) Acute hypoxemic respiratory failure: (2) COVID-19: PLAN: Acute hypoxic respiratory failure secondary to COVID-19 pneumonia -Required intubation on 06/11/2021 -Out of isolation -Completed remdesivir -Completed Decadron -Completed baricitinib -Completed antimicrobials for suspected bacterial pneumonia -Remains on mechanical ventilation with FiO2 of 50% and a PEEP of 8 and SPO2 90 to 92% -Awaiting trach placement--> now tentatively scheduled for this evening -No current anticoagulation secondary to GI blood loss concerns -Mechanical prophylaxis at this time -Continue PPI -Continue diuresis as able per pulmonary -Plan for LTAC at discharge Acute on chronic anemia -Suspected GI blood loss -Anticoagulation was discontinued -Hemoglobin now remained stable -Continue PPI twice daily Acute GI bleed -Continue PPI twice daily -Monitor hemoglobin--> stable at this time Hypertension -Patient is on ARB at home -Continue enalaprilat to 1.25 every 6 hours scheduled -Blood pressures are much better -We will transition to ARB via PEG after trach is done -as needed labetalol 20 mg every 6 hours for systolic blood pressure greater than 160 -Trend blood pressures Anxiety/depression -Continue Prozac Morbid obesity -Recommend weight loss -BMI is 40 -Complicates overall treatment, prognosis, outcomes DVT prophylaxis -SCDs CODE STATUS -Full code Charges/Coding Visit Charges Inpatient E&M: 18966 Subs Hosp L2
--- NOTE | 2021-07-02 13:54 | CASEMGMT ---
GUY FLOWER called Tayler at [facility] to update regarding trach placement scheduled for later today. GUY FLOWER will updated Tayler in am regarding trach placement and send updated clinicals.
[2021-07-02] MEDS: Polyethylene Glycol 3350 17 GM PACKET GT (17:11)
[2021-07-02] MEDS: Senna/Docusate Sodium 1 Tablet 2 TABLET GT (17:11)
[2021-07-02] MEDS: guaiFENesin 10 ML UDC (200MG/10ML) 20 ML GT ×2 (17:11→20:18)
[2021-07-02] MEDS: Cholecalciferol (VIT D3) 25 MCG TABLET (1,000 UNITS) GT (17:11)
[2021-07-02] MEDS: QUEtiapine 100 MG Tablet GT ×2 (17:12→20:19)
[2021-07-02] MEDS: FLUoxetine 10 MG Capsule GT (20:19)
[2021-07-03] VITALS (35 sets, daily range): BP systolic 111–174; BP diastolic 42–103; PULSE 65–107; RESP 10–45; TEMP 36.3–37.9; O2SAT 88–98
[2021-07-03 03:11] LABS: Absolute Lymphocyte Count 0.97 X10^3/uL (0.83-4.51); Basophil# 0.03 X10^3/uL; Basophil% 0.4 % (0-1); Eosinophil# 0.43 X10^3/uL; Eosinophils% 6.1 % (0-5); Hematocrit 27.2 % (37-47); Hemoglobin 8.7 g/dL (12.0-15.0); Lymphocyte # 0.97 X10^3/ul (0.83-4.51); Lymphocyte % 13.7 % (19-41); Mean Corpuscular Hgb 30.9 pg (27.0-32.0); Mean Corpuscular Volume 96.5 fL (81-99); Mean Platelet Vol. 10.9 fl (6.2-12.0); Monocyte% 5.7 % (0-10); NRBC Flagged by Analyzer 0 % (0-5); Neutrophil # 5.02 X10^3/uL (2.7-7.7); Platelet Count 183 K/mm3 (150-450); RBC Distribution Width CV 12.8 % (11.6-14.6); RBC Distribution Width SD 45.8 fl (35.1-43.9); Red Blood Count 2.82 M/mm3 (4.2-5.4); White Blood Count 7.1 K/mm3 (4.4-11.0)
[2021-07-03 03:27] LABS: Anion Gap 8 (5-15); BUN 31 mg/dL (7-18); BUN/Creat Ratio 39.7 RATIO (10-20); Calcium,Total 8.8 mg/dL (8.5-10.1); Chloride 106 mmol/L (98-107); Creatinine, Serum 0.78 mg/dL (0.55-1.02); EST Glomerular Filtration Rate 82 mL/min (>60); Est Glom Filt Rate - Afr Amer 99 mL/min (>60); Estimated Creatinine Clearance 77.19 ml/min; Glucose 120 mg/dL (74-106); Potassium 3.3 mmol/L (3.5-5.1); Sodium Level 141 mmol/L (136-145)
[2021-07-03] MEDS: CHLORHEXIDINE GLUC 2% CLOTH 1 EACH TOWELETTE TOPICAL (03:36)
[2021-07-03] MEDS: 0.9% Saline Lock 10 ML Syringe IV (05:20)
[2021-07-03] MEDS: Dexmedetomidine 1,000 mcg in 0.9% NS 240 mL 43.1 MCG CONT INF ×4 (05:20→22:56)
[2021-07-03] MEDS: Enalaprilat 1.25 MG/ML Vial IV (05:20)
[2021-07-03] MEDS: Ipratropium/Albuterol Sulfate 3 ML AMPUL.NEB INHALATION ×2 (06:46→19:46)
[2021-07-03] MEDS: Potassium Chloride Oral Soln 20 MEQ/15 ML UDC 40 MEQ PO (06:55)
--- NOTE | 2021-07-03 07:13 | PCM.PN.INT ---
Assessment & Plan Assessment/Plan (1) Pneumonia due to COVID-19 virus: (2) Acute hypoxemic respiratory failure: PLAN: RECOMMENDATIONS: 1. Continue to wean FiO2 and PEEP for saturations greater than 90%. 2. Continue Precedex and fentanyl. Likely discontinue Precedex following surgery 3. Continue tube feeds as tolerated following tracheostomy. 4. Continue PPI therapy twice daily. 5. Continue to monitor H&H daily. Transfuse if hemoglobin is less than 7 g/dL. 6. Tentative plans for tracheostomy per ENT at noon. 7. Transition to assist control following surgical intervention IMPRESSIONS: 1. Acute hypoxemic respiratory failure secondary to COVID-19 pneumonia The patient presented to the hospital with worsening dyspnea and hypoxemia. Given that she was within 10 days of symptom onset, remdesivir was initiated. The patient has since completed a treatment course of remdesivir, antimicrobials, Decadron and baricitinib. There was no evidence for PE on CTA chest. Although she was initially placed on Lovenox, the medication was discontinued over concerns for GI blood loss. She is therefore not on any pharmacologic prophylaxis at the current time. Plan to continue tube feeds as tolerated. Continue to wean FiO2 and PEEP to maintain oxygen saturations at or above 90%. Continue aggressive pulmonary toileting. Do not believe a trial of extubation is appropriate given patient's oral and endotracheal secretions, PEEP of 8 and protracted intubation. Await trach later today. Patient on SIMV for now, but will transition back to assist control following surgery. LTAC placement would be appropriate. 2. Acute kidney injury Likely prerenal in etiology. Diuretic challenge as tolerated by hemodynamics and renal function. Patient with a bump in creatinine. Challenge with diuretics following surgery 3. Anemia Concern for GI source of blood loss. The patient has been transfused with appropriate improvement in her blood counts. Continue to monitor H&H daily. H&H has remained stable. Transfuse for hemoglobin less than 7 g/dL. Continue PPI therapy twice daily for 30 days. 4. Obesity/hypertension Complicates care, management, recovery and prognosis. Continue home medications as indicated. TIME: 31 minutes of critical care time, independent of procedures, was spent addressing the patient's acute hypoxemic respiratory failure secondary to COVID-19 pneumonia, acute kidney injury, anemia, review of all data and collaboration with the care team. Subjective Subjective Tracheostomy delayed secondary to emergency in the OR overnight. Rescheduled for noon today. Patient did have a bowel movement overnight. Secretions are slightly improved. Patient has been tolerating SIMV well. Objective Data Objective Data Vital Signs: Vital Signs Temp Pulse Resp BP Pulse Ox 37.2 C 97 41 H 142/88 H 98 07/03/21 04:00 07/03/21 06:47 07/03/21 06:47 07/03/21 06:00 07/03/21 06:47 Oxygen Flow Rate (L/min) 1 Oxygen Delivery Method Mechanical Ventilator Weight: 116 kg Body Mass Index (BMI) 41.5 Intake & Output: Intake and Output for Last 24 Hours 07/01/21 07/02/21 07/03/21 23:59 23:59 23:59 Intake Total 3562.41 / 3771.20 1990.24 / 2128.26 452.06 / 452.06 Output Total 2525 / 3125 1725 / 2125 850 / 850 Balance 1037.41 / 646.20 265.24 / 3.26 -397.94 / -397.94 Lab / Micro Data Result Diagrams: 07/03/21 03:00 07/03/21 03:00 Labs: Laboratory Results - last 24 hr 07/03/21 03:00: Sodium 141, Potassium 3.3 L, Chloride 106, Carbon Dioxide 27.0, Anion Gap 8, BUN 31 H, Creatinine 0.78, Estim Creat Clear Calc 77.19, Est GFR (MDRD) Af Amer 99, Est GFR (MDRD) Non-Af 82, BUN/Creatinine Ratio 39.7 H, Glucose 120 H, Calcium 8.8 07/03/21 03:00: WBC 7.1, RBC 2.82 L, Hgb 8.7 L, Hct 27.2 L, MCV 96.5, MCH 30.9, MCHC 32.0, RDW Std Deviation 45.8 H, RDW Coeff of Brady 12.8, Plt Count 183, MPV 10.9, Immature Gran % (Auto) 3.100 H, Neut % (Auto) 71.0 H, Lymph % (Auto) 13.7 L, [place] % (Auto) 5.7, Eos % (Auto) 6.1 H, Baso % (Auto) 0.4, Absolute Neuts (auto) 5.0, Absolute Lymphs (auto) 0.97, Nucleated RBC % 0 Micro: Microbiology 06/23/21 10:30 Stool Stool Occult Blood (YASEMIN) - Final Occult Blood Positive 06/19/21 12:00 Sputum, Induced/Lukens Gram Stain - Final 06/19/21 12:00 Sputum, Induced/Lukens Respiratory Culture - Final Presumptive C albicans 06/15/21 15:40 Blood Culture (Wb) - Right Hand Blood Culture - Final No growth in 5 days. 06/15/21 15:50 Blood Culture (Wb) - Pic Blood Culture - Final No growth in 5 days. 06/15/21 13:50 Sputum, Induced/Lukens Gram Stain - Final 06/15/21 13:50 Sputum, Induced/Lukens Respiratory Culture - Final Presumptive C albicans 06/11/21 09:34 Sputum, Induced/Lukens Gram Stain - Final 06/11/21 09:34 Sputum, Induced/Lukens Respiratory Culture - Final 06/11/21 11:00 Urine Catheter - Lewis Legionella Antigen - Final 06/11/21 11:00 Urine Catheter - Lewis Streptococcus pneumoniae Antigen (M - Final 06/08/21 03:45 Urine, Clean Catch Legionella Antigen - Final 06/08/21 03:45 Urine, Clean Catch Streptococcus pneumoniae Antigen (M - Final Physical Exam Const alert Constitutional Narrative: No ventilator dyssynchrony. Patient does occasionally cough. Peak pressures in the 20s on spontaneous breathing General Appearance: intubated and patient mechanically ventilated Nutritional Appearance: morbidly obese HEENT normocephalic and head/scalp atraumatic Mouth: endotracheal tube in place Eyes PERRL and EOMs intact bilaterally Neck supple General: trachea midline Chest inspection of chest normal Resp Effort and Inspection: tachypneic Auscultation: diminished lung sounds; Negative for rales, rhonchi or wheezes Cardio regular rate and regular rhythm GI normal to inspection, nondistended, normoactive bowel sounds Inspection: GI tube present Extremity no clubbing, cyanosis or edema Skin no rashes or lesions noted Neuro Neuro Narrative: Alert and able to follow simple commands. Sensorium / Orientation: sedated on vent Charges/Coding Procedures Hospitalists Procedures: 75996 Critial Care 1st Hr
[2021-07-03] MEDS: Chlorhexidine 15 ML PO ×2 (08:27→21:10)
[2021-07-03] MEDS: Menthol/Lanolin/Calamine/Znox 113 GM Tube 1 APPLIC TOPICAL ×2 (08:27→21:09)
--- NOTE | 2021-07-03 12:07 | OP.PCM_ITS ---
Report of Operation Date of Procedure: 07/03/21 Pre-Operative Diagnosis: respiratory failure Post-Operative Diagnosis: respiratory failure Surgery/Procedure Performed:: tracheostomy with lexis flap Surgeon: Lee Pascual cloth edge singer: Chris Stuart Type of Anesthesia: General Description of Procedure: on the day of the procedure, after appropriate informed consent was obtained, the patient was brought to the operating room and placed in supine position on the operating table. she was placed under general endotracheal anesthesia by the anesthesiologist through her existing tube. the neck was prepped and draped in sterile fashion. a transverse incision was made two fingerbreadths superior to the sternal notch. a large lipectomy was performed with the bovie and an allis clamp. the infrahyoid strap muscles were divided at the midline raphe. the thyroid was encountered. the cricoid was skeletonized. given her short neck, the thyroid was divided with the bovie from superiorly to inferiorly. the cricoid and trachea were exposed and the pretracheal fascia was divided. tissues were lateralized with army/navy retractors. the endotracheal tube was deflated. the trachea was entered between tracheal rings one and two. a lexis flap was created with curved metsenbaum scissor. this was sutured to the inferior skin with a 2-0 ethibond. the trachea was suctioned, the endotracheal tube was retracted and a 6DCT was placed, cuff then inflated. end tidal CO2 was confirmed. the trach was sutured at 4 corners and an umbilical tie was placed. tegaderm was placed over the lexis stitch. she was transferred to the MICU in stable condition.
--- NOTE | 2021-07-03 13:03 | PN.HOSP_ITS ---
Subjective Subjective Trach not done yesterday and delayed secondary to OR time being lost related to an emergency. No issues overnight. Patient remains intubated. She currently denies any pain. Objective Data Objective Data Vital Signs: Vital Signs Temp Pulse Resp BP Pulse Ox 98.9 F 96 22 H 117/42 L 93 07/03/21 04:00 07/03/21 08:00 07/03/21 08:00 07/03/21 07:00 07/03/21 08:00 Oxygen Flow Rate (L/min) 1 Oxygen Delivery Method Mechanical Ventilator Weight: 116 kg Body Mass Index (BMI) 41.5 Intake & Output: Intake and Output for Last 24 Hours 07/01/21 07/02/21 07/03/21 23:59 23:59 23:59 Intake Total 3562.41 / 3771.20 1989.24 / 2128.26 1002.95 / 1002.95 Output Total 2525 / 3125 1725 / 2125 850 / 850 Balance 1037.41 / 646.20 265.24 / 3.26 152.95 / 152.95 Lab / Micro Data Result Diagrams: 07/03/21 03:00 07/03/21 03:00 Labs: Laboratory Results - last 24 hr 07/03/21 03:00: Sodium 141, Potassium 3.3 L, Chloride 106, Carbon Dioxide 27.0, Anion Gap 8, BUN 31 H, Creatinine 0.78, Estim Creat Clear Calc 77.19, Est GFR (MDRD) Af Amer 99, Est GFR (MDRD) Non-Af 82, BUN/Creatinine Ratio 39.7 H, Glucose 120 H, Calcium 8.8 07/03/21 03:00: WBC 7.1, RBC 2.82 L, Hgb 8.7 L, Hct 27.2 L, MCV 96.5, MCH 30.9, MCHC 32.0, RDW Std Deviation 45.8 H, RDW Coeff of Brady 12.8, Plt Count 183, MPV 10.9, Immature Gran % (Auto) 3.100 H, Neut % (Auto) 71.0 H, Lymph % (Auto) 13.7 L, Sawyer % (Auto) 5.7, Eos % (Auto) 6.1 H, Baso % (Auto) 0.4, Absolute Neuts (auto) 5.0, Absolute Lymphs (auto) 0.97, Nucleated RBC % 0 Micro: Microbiology 06/23/21 10:30 Stool Stool Occult Blood (YASEMIN) - Final Occult Blood Positive 06/19/21 12:00 Sputum, Induced/Lukens Gram Stain - Final 06/19/21 12:00 Sputum, Induced/Lukens Respiratory Culture - Final Presumptive C albicans 06/15/21 15:40 Blood Culture (Wb) - Right Hand Blood Culture - Final No growth in 5 days. 06/15/21 15:50 Blood Culture (Wb) - Pic Blood Culture - Final No growth in 5 days. 06/15/21 13:50 Sputum, Induced/Lukens Gram Stain - Final 06/15/21 13:50 Sputum, Induced/Lukens Respiratory Culture - Final Presumptive C albicans 06/11/21 09:34 Sputum, Induced/Lukens Gram Stain - Final 06/11/21 09:34 Sputum, Induced/Lukens Respiratory Culture - Final 06/11/21 11:00 Urine Catheter - Lewis Legionella Antigen - Final 06/11/21 11:00 Urine Catheter - Lewis Streptococcus pneumoniae Antigen (M - Final 06/08/21 03:45 Urine, Clean Catch Legionella Antigen - Final 06/08/21 03:45 Urine, Clean Catch Streptococcus pneumoniae Antigen (M - Fi nal Physical Exam Narrative Const alert, oriented x3 and no apparent distress Constitutional Narrative: Morbidly obese white female, intubated, awake and follows commands and interacts appropriately, nontoxic-appearing General Appearance: cooperative, well kempt and well developed Orientation / Consciousness: awake, oriented to person, oriented to place and oriented to time Exam Limitations: other limitations Nutritional Appearance: morbidly obese HEENT normocephalic, head/scalp atraumatic and moist oral mucous membranes Head and Scalp: normocephalic Neck nuchal rigidity and thyroid normal General: trachea midline Resp normal respiratory effort, no retractions, no use of accessory muscles and clear to auscultation bilaterally Resp Narrative: Diffusely diminished Auscultation: Negative for crackles, rales, rhonchi or wheezes Cardio regular rate, regular rhythm, S1 normal heart sound, S2 normal heart sound, no murmurs, no rub, no gallops, no clicks and no JVD GI normal to inspection, nondistended, normoactive bowel sounds, soft to palpation, non-tender and non-distended GI Narrative: Patient is morbidly obese Extremity normal to inspection and no clubbing, cyanosis or edema Extremity Narrative: Left upper extremity PICC line-clean and dry-dressing intact Peripheral Pulses: Yes pulses 2+ throughout Skin Skin Narrative: PICC right upper extremity-clean and dry General Skin Exam: no breakdown Neuro moves all extremities and no focal motor deficits Neuro Narrative: Generalized weakness, follows commands without hesitation Sensorium / Orientation: awake and alert Psych thought process normal Assessment & Plan Assessment/Plan (1) Acute hypoxemic respiratory failure: (2) COVID-19: PLAN: Acute hypoxic respiratory failure secondary to COVID-19 pneumonia -Required intubation on 06/11/2021 -Out of isolation -Completed remdesivir -Completed Decadron -Completed baricitinib -Completed antimicrobials for suspected bacterial pneumonia -Remains on mechanical ventilation with FiO2 of 50% and a PEEP of 8 and SPO2 90 to 98% -Awaiting trach placement--> tracheostomy placement was delayed yet again--> current plan is for trach at 12 noon today -Patient is at high risk for tracheal stenosis/tracheomalacia with prolonged oral intubation -No current anticoagulation secondary to GI blood loss concerns -Mechanical prophylaxis at this time -Continue PPI -Continue diuresis as able per pulmonary -Plan for LTAC at discharge Acute on chronic anemia -Suspected GI blood loss -Anticoagulation was discontinued -Hemoglobin now remained stable -Continue PPI twice daily Acute GI bleed -Continue PPI twice daily -Monitor hemoglobin--> stable at this time Hypertension -Patient is on ARB at home -Discontinue IV enalaprilat -Start home losartan via PEG -Hold home hydrochlorothiazide given the patient is getting periodic Lasix Anxiety/depression -Continue Prozac Morbid obesity -Recommend weight loss -BMI is 40 -Complicates overall treatment, prognosis, outcomes DVT prophylaxis -SCDs CODE STATUS -Full code Charges/Coding Visit Charges Inpatient E&M: 12859 Subs Hosp L2
--- NOTE | 2021-07-03 13:37 | CASEMGMT ---
Addendum entered by Iva Man 07/03/21 16:21: Received call back from Tayler, nasim and CM at [facility] still reviewing cost and financials. Green sheet on chart. Tayler to call unit if able to discharge over the weekend. Original Note: RN CM called Tayler at [facility] to updated regarding trach placement. Updated clinicals faxed to [facility], awaiting call back for acceptance date for transfer. CM will continue to follow this patient and plan for a safe discharge.
[2021-07-03] MEDS: Furosemide 40 MG/4 ML Vial IV (16:31)
[2021-07-03] MEDS: Losartan Potassium 50 MG Tablet GT (18:16)
[2021-07-03] MEDS: FLUoxetine 10 MG Capsule GT (21:10)
[2021-07-03] MEDS: guaiFENesin 10 ML UDC (200MG/10ML) 20 ML GT (21:11)
[2021-07-03] MEDS: QUEtiapine 100 MG Tablet GT (21:11)
[2021-07-03] MEDS: Acetaminophen 650 MG/20 ML UDC GT (21:11)
[2021-07-03] MEDS: Vital High Protein 1,000 ML 30 ML GT (21:45)
[2021-07-04] VITALS (37 sets, daily range): BP systolic 102–179; BP diastolic 57–98; PULSE 70–103; RESP 17–42; TEMP 36.4–37.6; O2SAT 90–94
[2021-07-04 04:56] LABS: Anion Gap 8 (5-15); BUN 26 mg/dL (7-18); BUN/Creat Ratio 28.7 RATIO (10-20); Calcium,Total 8.7 mg/dL (8.5-10.1); Chloride 104 mmol/L (98-107); Creatinine, Serum 0.91 mg/dL (0.55-1.02); EST Glomerular Filtration Rate 69 mL/min (>60); Est Glom Filt Rate - Afr Amer 83 mL/min (>60); Estimated Creatinine Clearance 66.16 ml/min; Glucose 160 mg/dL (74-106); Potassium 3.3 mmol/L (3.5-5.1); Sodium Level 140 mmol/L (136-145)
[2021-07-04] MEDS: Dexmedetomidine 1,000 mcg in 0.9% NS 240 mL 28.7 MCG CONT INF (05:33)
[2021-07-04] MEDS: Vital High Protein 1,000 ML 40 ML GT (05:40)
[2021-07-04] MEDS: Potassium Chloride Oral Soln 20 MEQ/15 ML UDC 40 MEQ GT (06:01)
--- NOTE | 2021-07-04 07:08 | PN.CC_ITS ---
Assessment & Plan Assessment/Plan (1) Pneumonia due to COVID-19 virus: (2) Acute hypoxemic respiratory failure: PLAN: RECOMMENDATIONS: 1. Continue to wean FiO2 and PEEP for saturations greater than 90%. 2. Discontinue Precedex. Possibly transition to OxyIR for pain control 3. Continue tube feeds 4. Continue PPI therapy twice daily. 5. Continue to monitor H&H daily. Transfuse if hemoglobin is less than 7 g/dL. 6. Await disposition to LTAC IMPRESSIONS: 1. Acute hypoxemic respiratory failure secondary to COVID-19 pneumonia The patient presented to the hospital with worsening dyspnea and hypoxemia. Given that she was within 10 days of symptom onset, remdesivir was initiated. The patient has since completed a treatment course of remdesivir, antimicrobials, Decadron and baricitinib. There was no evidence for PE on CTA chest. Although she was initially placed on Lovenox, the medication was discontinued over concerns for GI blood loss. She is therefore not on any pharmacologic prophylaxis at the current time. Plan to continue tube feeds as tolerated. Continue to wean FiO2 and PEEP to maintain oxygen saturations at or above 90%. Continue aggressive pulmonary toileting. Patient received tracheostomy on 07/03/2021 and tolerated well. Await LTAC placement. 2. Acute kidney injury Likely prerenal in etiology. Diuretic challenge as tolerated by hemodynamics and renal function. Patient with a bump in creatinine. Likely challenge with diuretic therapy again tomorrow 3. Anemia Concern for GI source of blood loss. The patient has been transfused with appropriate improvement in her blood counts. Continue to monitor H&H daily. H&H has remained stable. Transfuse for hemoglobin less than 7 g/dL. Continue PPI therapy twice daily for 30 days. 4. Obesity/hypertension Complicates care, management, recovery and prognosis. Continue home medications as indicated. Subjective Subjective Patient did okay overnight. Patient continues to be weaned from Precedex therapy. Patient with no complaints this morning. Patient has been tolerating tube feeds. Patient with good urine output following Lasix overnight. Objective Data Objective Data Vital Signs: Vital Signs Temp Pulse Resp BP Pulse Ox 37.6 C H 78 20 H 102/57 L 91 07/04/21 04:00 07/04/21 06:00 07/04/21 06:00 07/04/21 06:00 07/04/21 06:00 Oxygen Flow Rate (L/min) 1 Oxygen Delivery Method Mechanical Ventilator Weight: 117 kg Body Mass Index (BMI) 41.5 Intake & Output: Intake and Output for Last 24 Hours 07/02/21 07/03/21 07/04/21 23:59 23:59 23:59 Intake Total 1989. / 2127.2061.64 685.10 / 685.10 Output Total 1725 / 2125 3250 / 3250 600 / 600 Balance 265.24 / 3.26 -1242.96 / -1187.36 85.10 / 85.10 Lab / Micro Data Result Diagrams: 07/03/21 03:00 07/04/21 04:00 Labs: Laboratory Results - last 24 hr 07/04/21 04:00: Sodium 140, Potassium 3.3 L, Chloride 104, Carbon Dioxide 28.0, Anion Gap 8, BUN 26 H, Creatinine 0.91, Estim Creat Clear Calc 66.16, Est GFR (MDRD) Af Amer 83, Est GFR (MDRD) Non-Af 69, BUN/Creatinine Ratio 28.7 H, Gluco se 160 H, Calcium 8.7 Micro: Microbiology 06/23/21 10:30 Stool Stool Occult Blood (YASEMIN) - Final Occult Blood Positive 06/19/21 12:00 Sputum, Induced/Lukens Gram Stain - Final 06/19/21 12:00 Sputum, Induced/Lukens Respiratory Culture - Final Presumptive C albicans 06/15/21 15:40 Blood Culture (Wb) - Right Hand Blood Culture - Final No growth in 5 days. 06/15/21 15:50 Blood Culture (Wb) - Pic Blood Culture - Final No growth in 5 days. 06/15/21 13:50 Sputum, Induced/Lukens Gram Stain - Final 06/15/21 13:50 Sputum, Induced/Lukens Respiratory Culture - Final Presumptive C albicans 06/11/21 09:34 Sputum, Induced/Lukens Gram Stain - Final 06/11/21 09:34 Sputum, Induced/Lukens Respiratory Culture - Final 06/11/21 11:00 Urine Catheter - Lewis Legionella Antigen - Final 06/11/21 11:00 Urine Catheter - Lewis Streptococcus pneumoniae Antigen (M - Final 06/08/21 03:45 Urine, Clean Catch Legionella Antigen - Final 06/08/21 03:45 Urine, Clean Catch Streptococcus pneumoniae Antigen (M - Final Physical Exam Const alert Constitutional Narrative: No ventilator dyssynchrony. Tracheostomy is clean, dry and intact General Appearance: patient mechanically ventilated Nutritional Appearance: morbidly obese HEENT normocephalic and head/scalp atraumatic Eyes PERRL and EOMs intact bilaterally Neck supple Neck Narrative: Sutures in place. General: trachea midline and tracheostomy present Chest inspection of chest normal Resp Effort and Inspection: tachypneic Auscultation: diminished lung sounds; Negative for rales, rhonchi or wheezes Cardio regular rate and regular rhythm GI normal to inspection, nondistended, normoactive bowel sounds Inspection: GI tube present Extremity no clubbing, cyanosis or edema Skin no rashes or lesions noted Neuro CN's II-XII intact bilaterally, moves all extremities and no focal motor deficits Neuro Narrative: Alert and able to follow simple commands. Charges/Coding Visit Charges Inpatient E&M: 14878 Subs Hosp L3
[2021-07-04] MEDS: Ipratropium/Albuterol Sulfate 3 ML AMPUL.NEB INHALATION ×3 (07:21→18:53)
[2021-07-04] MEDS: Chlorhexidine 15 ML PO ×2 (10:29→22:41)
[2021-07-04] MEDS: Menthol/Lanolin/Calamine/Znox 113 GM Tube 1 APPLIC TOPICAL ×2 (10:29→21:56)
[2021-07-04] MEDS: Cholecalciferol (VIT D3) 25 MCG TABLET (1,000 UNITS) GT (10:30)
[2021-07-04] MEDS: QUEtiapine 100 MG Tablet GT ×2 (10:30→22:42)
[2021-07-04] MEDS: Losartan Potassium 50 MG Tablet GT (10:31)
[2021-07-04] MEDS: guaiFENesin 10 ML UDC (200MG/10ML) 20 ML GT ×2 (10:31→21:55)
[2021-07-04] MEDS: Labetalol (Prefilled) 20 MG/4 ML IV (12:36)
[2021-07-04] MEDS: CHLORHEXIDINE GLUC 2% CLOTH 1 EACH TOWELETTE TOPICAL (12:36)
--- NOTE | 2021-07-04 15:07 | PN.HOSP_ITS ---
Subjective Subjective Patient was seen and Weber today, she does not appear in any distress, she remains on the ventilator at this time and is alert. Objective Data Objective Data Vital Signs: Vital Signs Temp Pulse Resp BP Pulse Ox 99 F 94 40 H 163/74 H 91 07/04/21 14:00 07/04/21 15:00 07/04/21 15:00 07/04/21 15:00 07/04/21 15:00 Oxygen Flow Rate (L/min) 1 Oxygen Delivery Method Mechanical Ventilator Weight: 117 kg Body Mass Index (BMI) 41.5 Intake & Output: Intake and Output for Last 24 Hours 07/02/21 07/03/21 07/04/21 23:59 23:59 23:59 Intake Total 1989.24 / 2127.26 2006. / 2061.64 211.54 / 2114.54 Output Total 1724 / 2124 3250 / 3250 1150 / 1150 Balance 265.24 / 3.26 -1242.96 / -1187.36 965.54 / 965.54 Lab / Micro Data Result Diagrams: 07/03/21 03:00 07/04/21 04:00 Labs: Laboratory Results - last 24 hr 07/04/21 04:00: Sodium 140, Potassium 3.3 L, Chloride 104, Carbon Dioxide 28.0, Anion Gap 8, BUN 26 H, Creatinine 0.91, Estim Creat Clear Calc 66.16, Est GFR (MDRD) Af Amer 83, Est GFR (MDRD) Non-Af 69, BUN/Creatinine Ratio 28.7 H, Glucose 160 H, Calcium 8.7 Micro: Microbiology 06/23/21 10:30 Stool Stool Occult Blood (YASEMIN) - Final Occult Blood Positive 06/19/21 12:00 Sputum, Induced/Lukens Gram Stain - Final 06/19/21 12:00 Sputum, Induced/Lukens Respiratory Culture - Final Presumptive C albicans 06/15/21 15:40 Blood Culture (Wb) - Right Hand Blood Culture - Final No growth in 5 days. 06/15/21 15:50 Blood Culture (Wb) - Pic Blood Culture - Final No growth in 5 days. 06/15/21 13:50 Sputum, Induced/Lukens Gram Stain - Final 06/15/21 13:50 Sputum, Induced/Lukens Respiratory Culture - Final Presumptive C albicans 06/11/21 09:34 Sputum, Induced/Lukens Gram Stain - Final 06/11/21 09:34 Sputum, Induced/Lukens Respiratory Culture - Final 06/11/21 11:00 Urine Catheter - Lewis Legionella Antigen - Final 06/11/21 11:00 Urine Catheter - Lewis Streptococcus pneumoniae Antigen (M - Final 06/08/21 03:45 Urine, Clean Catch Legionella Antigen - Final 06/08/21 03:45 Urine, Clean Catch Streptococcus pneumoniae Antigen (M - Final Physical Exam Const alert, oriented x3 and no apparent distress General Appearance: cooperative, well kempt and well developed Orientation / Consciousness: awake, oriented to person, oriented to place and or iented to time HEENT normocephalic and moist oral mucous membranes HEENT Narrative: Tracheostomy is in place Head and Scalp: normocephalic Eyes PERRL, EOMs intact bilaterally and conjunctivae normal Neck nuchal rigidity, supple, no JVD, thyroid normal and no carotid bruits General: trachea midline Resp normal respiratory effort, no retractions, no use of accessory muscles and clear to auscultation bilaterally Auscultation: Negative for rales, rhonchi or wheezes Cardio regular rate, regular rhythm, S1 normal heart sound, S2 normal heart sound, no murmurs, no rub and no gallops GI normal to inspection, nondistended, normoactive bowel sounds, soft to palpation, non-tender and non-distended Extremity normal to inspection and no clubbing, cyanosis or edema Skin no rashes or lesions noted General Skin Exam: no breakdown Neuro CN's II-XII intact bilaterally and no focal motor deficits Sensorium / Orientation: awake and alert Psych thought process normal and affect normal Assessment & Plan Assessment/Plan (1) Pneumonia due to COVID-19 virus: (2) Acute hypoxemic respiratory failure: (3) COVID-19: PLAN: #1 COVID-19 pneumonia-patient has undergone tracheostomy yesterday, she is comfortable on the vent at this time. Patient has completed dexamethasone, remdesivir, and baricitinib. #2 acute hypoxic respiratory failure secondary to COVID-19 pneumonia #3 hypokalemia-patient was given potassium supplementation today #4 acute debility secondary to COVID-19 pneumonia and acute hypoxic respiratory failure-we are awaiting placement in an LTAC for the patient, she remains on the ventilator at this time, continue PT and OT #5 acute anemia requiring blood transfusion-the exact etiology unclear at this time, patient has been transfused packed red blood cells, patient's hemoglobin appears to be stable at this time #6 morbid obesity #7 chronic depression #8 essential hypertension Charges/Coding Visit Charges Inpatient E&M: 74468 Subs Hosp L2
--- NOTE | 2021-07-04 15:45 | RAD_ITS ---
STUDY: X-RAY CHEST REASON FOR EXAM: Female, 55 years old. SOB TECHNIQUE: Frontal view COMPARISON: 06/25/2021 FINDINGS: Endotracheal tube has been replaced by a tracheostomy tube. The lungs are expanded. Bilateral patchy pulmonary infiltrates similar to previous study. Normal size heart. Normal mediastinum and scott. Normal visualized pulmonary arteries. Normal visualized aortic arch and descending thoracic aorta. Degenerative changes of the thoracic spine. Normal visualized ribs, clavicles, and shoulders. There is no demonstrated abnormality of the visualized soft tissue structures of the upper abdomen. RAD/Chest 1 View (Portable) IMPRESSION: Persistent bilateral infiltrates. Electronically Signed: Khris Amin DO at 16:11 EST Tel [phone], Service support ,
[2021-07-04] MEDS: oxyCODONE 5 MG Tablet GT ×2 (15:58→21:56)
[2021-07-04 18:11] LABS: Allen Test POS; Blood Gas Specimen Type ART; FI02 45; Mode A-C; PEEP 8; RR 12; SITE L RADIAL; Time Given 1535; Vt 400
[2021-07-04 18:12] LABS: Base Excess 2 mmol/L (-2 to +2); Bicarbonate 26.2 mmol/L (22-26); PO2 53 mmHG (75-100); SO2 89 % (95-99); Total Carbon Dioxide 27 mmol/L; pCO2 36.6 mmHg (35-45); pH 7.46 (7.35-7.45)
[2021-07-04] MEDS: Ondansetron 4 MG/2 ML Vial IV (18:54)
[2021-07-04] MEDS: 0.9% Saline Lock 10 ML Syringe IV (18:55)
[2021-07-04] MEDS: MELATONIN 3 MG TABLET GT (21:56)
[2021-07-04] MEDS: FLUoxetine 10 MG Capsule GT (21:57)
[2021-07-04] MEDS: Acetaminophen 650 MG/20 ML UDC GT (22:42)
[2021-07-04] MEDS: QUEtiapine 25 MG Tablet 50 MG GT (22:42)
[2021-07-04] MEDS: Dexmedetomidine 1,000 mcg in 0.9% NS 240 mL 17.2 MCG CONT INF (22:47)
[2021-07-05] VITALS (35 sets, daily range): BP systolic 96–181; BP diastolic 53–133; PULSE 85–117; RESP 21–39; TEMP 36.1–36.9; O2SAT 90–100
[2021-07-05 02:49] LABS: Anion Gap 5 (5-15); BUN 28 mg/dL (7-18); BUN/Creat Ratio 35.1 RATIO (10-20); Calcium,Total 8.8 mg/dL (8.5-10.1); Chloride 107 mmol/L (98-107); EST Glomerular Filtration Rate 80 mL/min (>60); Est Glom Filt Rate - Afr Amer 96 mL/min (>60); Estimated Creatinine Clearance 75.26 ml/min; Glucose 138 mg/dL (74-106); Potassium 3.3 mmol/L (3.5-5.1); Sodium Level 142 mmol/L (136-145)
[2021-07-05] MEDS: Potassium Chloride 20mEq/100mL 20 MEQ/100 ML IV.SOLN. 100 MEQ IV BOLUS ×2 (04:52→06:14)
--- NOTE | 2021-07-05 07:19 | PN.CC_ITS ---
Assessment & Plan Assessment/Plan (1) Pneumonia due to COVID-19 virus: (2) Acute hypoxemic respiratory failure: PLAN: RECOMMENDATIONS: 1. Continue to wean FiO2 and PEEP for saturations greater than 90%. 2. Discontinue Precedex. Possibly transition to OxyIR for pain control 3. Continue tube feeds 4. Continue PPI therapy twice daily. 5. Continue to monitor H&H daily. Transfuse if hemoglobin is less than 7 g/dL. 6. Await disposition to LTAC IMPRESSIONS: 1. Acute hypoxemic respiratory failure secondary to COVID-19 pneumonia The patient presented to the hospital with worsening dyspnea and hypoxemia. Given that she was within 10 days of symptom onset, remdesivir was initiated. The patient has since completed a treatment course of remdesivir, antimicrobials, Decadron and baricitinib. There was no evidence for PE on CTA chest. Although she was initially placed on Lovenox, the medication was discontinued over concerns for GI blood loss. She is therefore not on any pharmacologic prophylaxis at the current time. Plan to continue tube feeds as tolerated. Continue to wean FiO2 and PEEP to maintain oxygen saturations at or above 90%. Continue aggressive pulmonary toileting. Patient received tracheostomy on 07/03/2021 and tolerated well. Sutures should be kept in place until 07/10/2021 at a minimum. Await LTAC placement. 2. Acute kidney injury Likely prerenal in etiology. Diuretic challenge as tolerated by hemodynamics and renal function. Challenge with Lasix today 3. Anemia Concern for GI source of blood loss. The patient has been transfused with appropriate improvement in her blood counts. Continue to monitor H&H daily. H&H has remained stable. Transfuse for hemoglobin less than 7 g/dL. Continue PPI therapy twice daily for 30 days. 4. Obesity/hypertension Complicates care, management, recovery and prognosis. Continue home medications as indicated. Subjective Subjective Patient did okay overnight. Patient did have some tachypnea yesterday afternoon. Patient was given an extra 50 mg dose of Seroquel with good results overnight. Oxygenation has been maintained. Patient is off of her Precedex. Patient is not reporting any pain at this time. Objective Data Objective Data Vital Signs: Vital Signs Temp Pulse Resp BP Pulse Ox 36.9 C 98 25 H 143/68 H 93 07/05/21 04:00 07/05/21 06:00 07/05/21 06:00 07/05/21 06:00 07/05/21 06:00 Oxygen Flow Rate (L/min) 45 Oxygen Delivery Method Mechanical Ventilator Weight: 118 kg Body Mass Index (BMI) 41.5 Intake & Output: Intake and Output for Last 24 Hours 07/03/21 07/04/21 07/05/21 23:59 23:59 23:59 Intake Total 2006. / 2061. 3149.67 / 3554.07 1089.38 / 1089.38 Output Total 3250 / 3250 1250 / 1700 950 / 950 Balance -1242.96 / -1187.36 1899.67 / 1854.07 139.38 / 139.38 Lab / Micro Data Result Diagrams: 07/03/21 03:00 07/05/21 02:20 Labs: Laboratory Results - last 24 hr 07/05/21 02:20: Sodium 142, Potassium 3.3 L, Chloride 107, Carbon Dioxide 30.0, Anion Gap 5, BUN 28 H, Creatinine 0.80, Estim Creat Clear Calc 75.26, Est GFR (MDRD) Af Amer 96, Est GFR (MDRD) Non-Af 80, BUN/Creatinine Ratio 35.1 H, Glucose 138 H, Calcium 8.8 Micro: Microbiology 06/23/21 10:30 Stool Stool Occult Blood (YASEMIN) - Final Occult Blood Positive 06/19/21 12:00 Sputum, Induced/Lukens Gram Stain - Final 06/19/21 12:00 Sputum, Induced/Lukens Respiratory Culture - Final Presumptive C albicans 06/15/21 15:40 Blood Culture (Wb) - Right Hand Blood Culture - Final No growth in 5 days. 06/15/21 15:50 Blood Culture (Wb) - Pic Blood Culture - Final No growth in 5 days. 06/15/21 13:50 Sputum, Induced/Lukens Gram Stain - Final 06/15/21 13:50 Sputum, Induced/Lukens Respiratory Culture - Final Presumptive C albicans 06/11/21 09:34 Sputum, Induced/Lukens Gram Stain - Final 06/11/21 09:34 Sputum, Induced/Lukens Respiratory Culture - Final 06/11/21 11:00 Urine Catheter - Lewis Legionella Antigen - Final 06/11/21 11:00 Urine Catheter - Lewis Streptococcus pneumoniae Antigen (M - Final 06/08/21 03:45 Urine, Clean Catch Legionella Antigen - Final 06/08/21 03:45 Urine, Clean Catch Streptococcus pneumoniae Antigen (M - Final ABG Data ABG results: ABG 07/04/21 15:35 Specimen Type ART Sample Site L RADIAL pH 7.46 H Bicarbonate Actual 26.2 H Total CO2 27 Base Excess 2 O2 Saturation 89 L O2 % 45 ABG pCO2 36.6 ABG pO2 53 L Lex Test POS Respiration Rate 12 Vent Mode A-C Tidal Volume 400 POC PEEP 8 Crit Call To/Read Back Yes Blood Gas Notified Whom ICU MD Blood Gas Notified Time 1530 Radiography Diagnostic Testing: Radiology Impression Chest X-Ray 07/04/21 15:45 IMPRESSION: Persistent bilateral infiltrates. Electronically Signed: Khris Amin DO at 16:11 EST Tel [phone], Service support , Physical Exam Const alert Constitutional Narrative: No ventilator dyssynchrony. Tracheostomy is clean, dry and intact. General Appearance: patient mechanically ventilated Nutritional Appearance: morbidly obese HEENT normocephalic and head/scalp atraumatic Eyes PERRL and EOMs intact bilaterally Neck supple Neck Narrative: Sutures in place. General: trachea midline and tracheostomy present Chest inspection of chest normal Resp Effort and Inspection: tachypneic Auscultation: diminished lung sounds; Negative for rales, rhonchi or wheezes Cardio regular rate and regular rhythm GI normal to inspection, nondistended, normoactive bowel sounds Inspection: GI tube present Extremity no clubbing, cyanosis or edema Skin no rashes or lesions noted Neuro CN's II-XII intact bilaterally, moves all extremities and no focal motor deficit s Neuro Narrative: Alert and able to follow simple commands. Charges/Coding Visit Charges Inpatient E&M: 97526 Subs Hosp L3
[2021-07-05] MEDS: Ipratropium/Albuterol Sulfate 3 ML AMPUL.NEB INHALATION ×3 (07:50→18:59)
[2021-07-05] MEDS: Menthol/Lanolin/Calamine/Znox 113 GM Tube 1 APPLIC TOPICAL ×2 (10:07→21:49)
[2021-07-05] MEDS: Chlorhexidine 15 ML PO ×2 (10:09→21:49)
[2021-07-05] MEDS: Senna/Docusate Sodium 1 Tablet 2 TABLET GT (10:12)
[2021-07-05] MEDS: Polyethylene Glycol 3350 17 GM PACKET GT (10:12)
[2021-07-05] MEDS: guaiFENesin 10 ML UDC (200MG/10ML) 20 ML GT ×2 (10:13→21:53)
[2021-07-05] MEDS: Losartan Potassium 50 MG Tablet GT (10:14)
[2021-07-05] MEDS: Potassium Chloride Oral Soln 20 MEQ/15 ML UDC 40 MEQ PO ×2 (10:16→21:51)
[2021-07-05] MEDS: Furosemide 40 MG Tablet PO ×2 (10:17→16:39)
[2021-07-05] MEDS: QUEtiapine 100 MG Tablet GT (10:32)
[2021-07-05] MEDS: Cholecalciferol (VIT D3) 25 MCG TABLET (1,000 UNITS) GT (10:32)
--- NOTE | 2021-07-05 16:35 | PCM.PN.HOSP ---
Subjective Subjective Patient was seen and examined today, she remains on the ventilator at this time. Objective Data Objective Data Vital Signs: Vital Signs Temp Pulse Resp BP Pulse Ox 96.9 F L 112 H 29 H 162/79 H 94 07/05/21 12:00 07/05/21 13:34 07/05/21 13:34 07/05/21 12:00 07/05/21 15:08 Oxygen Flow Rate (L/min) 45 Oxygen Delivery Method Mechanical Ventilator Weight: 118 kg Body Mass Index (BMI) 41.5 Intake & Output: Intake and Output for Last 24 Hours 07/03/21 07/04/21 07/05/21 23:59 23:59 23:59 Intake Total 2006.04 / 2061.64 3149.67 / 3554.07 1779.38 / 1779.38 Output Total 3250 / 3250 1250 / 1700 1500 / 1500 Balance -1242.96 / -1187.36 1899.67 / 1854.07 279.38 / 279.38 Lab / Micro Data Result Diagrams: 07/03/21 03:00 07/05/21 02:20 Labs: Laboratory Results - last 24 hr 07/05/21 02:20: Sodium 142, Potassium 3.3 L, Chloride 107, Carbon Dioxide 30.0, Anion Gap 5, BUN 28 H, Creatinine 0.80, Estim Creat Clear Calc 75.26, Est GFR (MDRD) Af Amer 96, Est GFR (MDRD) Non-Af 80, BUN/Creatinine Ratio 35.1 H, Glucose 138 H, Calcium 8.8 Micro: Microbiology 06/23/21 10:30 Stool Stool Occult Blood (YASEMIN) - Final Occult Blood Positive 06/19/21 12:00 Sputum, Induced/Lukens Gram Stain - Final 06/19/21 12:00 Sputum, Induced/Lukens Respiratory Culture - Final Presumptive C albicans 06/15/21 15:40 Blood Culture (Wb) - Right Hand Blood Culture - Final No growth in 5 days. 06/15/21 15:50 Blood Culture (Wb) - Pic Blood Culture - Final No growth in 5 days. 06/15/21 13:50 Sputum, Induced/Lukens Gram Stain - Final 06/15/21 13:50 Sputum, Induced/Lukens Respiratory Culture - Final Presumptive C albicans 06/11/21 09:34 Sputum, Induced/Lukens Gram Stain - Final 06/11/21 09:34 Sputum, Induced/Lukens Respiratory Culture - Final 06/11/21 11:00 Urine Catheter - Lewis Legionella Antigen - Final 06/11/21 11:00 Urine Catheter - Lewis Streptococcus pneumoniae Antigen (M - Final 06/08/21 03:45 Urine, Clean Catch Legionella Antigen - Final 06/08/21 03:45 Urine, Clean Catch Streptococcus pneumoniae Antigen (M - Final ABG Data ABG results: ABG 07/04/21 07/04/21 15:35 15:35 Specimen Type ART ART Sample Site L RADIAL L Radial pH 7.46 H 7.46 H Bicarbonate Actual 26.2 H 26.2 H Total CO2 27 27 Base Excess 2 2 O2 Saturation 89 L 89 L O2 % 45 45 ABG pCO2 36.6 36.6 ABG pO2 53 L 53 L Lex Test POS Positive Respiration Rate 12 12 O2 Delivery Device Adult Vent Vent Mode A-C AC Tidal Volume 400 400 POC PEEP 8 8 Crit Call To/Read Back Yes Blood Gas Notified Whom ICU MD Blood Gas Notified Time 1535 Physical Exam Narrative t alert, oriented x3 and no apparent distress General Appearance: cooperative, well kempt and well developed Orientation / Consciousness: awake, oriented to person, oriented to place and oriented to time HEENT normocephalic and moist oral mucous membranes HEENT Narrative: Tracheostomy is in place Head and Scalp: normocephalic Eyes PERRL, EOMs intact bilaterally and conjunctivae normal Neck nuchal rigidity, supple, no JVD, thyroid normal and no carotid bruits General: trachea midline Resp normal respiratory effort, no retractions, no use of accessory muscles and clear to auscultation bilaterally Auscultation: Negative for rales, rhonchi or wheezes Cardio regular rate, regular rhythm, S1 normal heart sound, S2 normal heart sound, no murmurs, no rub and no gallops GI normal to inspection, nondistended, normoactive bowel sounds, soft to palpation, non-tender and non-distended Extremity normal to inspection and no clubbing, cyanosis or edema Skin no rashes or lesions noted General Skin Exam: no breakdown Neuro CN's II-XII intact bilaterally and no focal motor deficits Sensorium / Orientation: awake and alert Psych thought process normal and affect normal Assessment & Plan Assessment/Plan (1) Pneumonia due to COVID-19 virus: (2) Acute hypoxemic respiratory failure: (3) COVID-19: PLAN: #1 COVID-19 pneumonia-patient has undergone tracheostomy yesterday, she is comfortable on the vent at this time. Patient has completed dexamethasone, remdesivir, and baricitinib. We are currently awaiting an LTAC to take the patient, we have not heard from the LTAC at this time. #2 acute hypoxic respiratory failure secondary to COVID-19 pneumonia #3 hypokalemia-patient was given potassium supplementation today #4 acute debility secondary to COVID-19 pneumonia and acute hypoxic respiratory failure-we are awaiting placement in an LTAC for the patient, she remains on the ventilator at this time, continue PT and OT #5 acute anemia requiring blood transfusion-the exact etiology unclear at this time, patient has been transfused packed red blood cells, patient's hemoglobin appears to be stable at this time #6 morbid obesity #7 chronic depression #8 essential hypertension Charges/Coding Visit Charges Inpatient E&M: 29471 Subs Hosp L2
[2021-07-05] MEDS: CHLORHEXIDINE GLUC 2% CLOTH 1 EACH TOWELETTE TOPICAL (16:40)
[2021-07-05] MEDS: FLUoxetine 10 MG Capsule GT (21:52)
[2021-07-05] MEDS: QUEtiapine 100 MG Tablet 150 MG PO (21:53)
[2021-07-06] VITALS (41 sets, daily range): BP systolic 127–201; BP diastolic 67–170; PULSE 87–126; RESP 22–46; TEMP 36.4–37.6; O2SAT 88–98
--- NOTE | 2021-07-06 06:31 | PN.CC_ITS ---
Assessment & Plan Assessment/Plan (1) Pneumonia due to COVID-19 virus: (2) Acute hypoxemic respiratory failure: PLAN: RECOMMENDATIONS: 1. Continue to wean FiO2 and PEEP for saturations greater than 90%. 2. Continue PPI therapy twice daily. 3. Continue to monitor H&H daily. Transfuse if hemoglobin is less than 7 g/dL. 4. Await disposition to LTACH 5. Mobilize patient as tolerated. 6. Attempt continuous tube feeds at low rate. IMPRESSIONS: 1. Acute hypoxemic respiratory failure secondary to COVID-19 pneumonia The patient presented to the hospital with worsening dyspnea and hypoxemia. Given that she was within 10 days of symptom onset, remdesivir was initiated. The patient has since completed a treatment course of remdesivir, antimicrobials, Decadron and baricitinib. There was no evidence for PE on CTA chest. Although she was initially placed on Lovenox, the medication was discontinued over concerns for GI blood loss. She is therefore not on any pharmacologic prophylaxis at the current time. The patient is now status post tracheostomy and PEG tube placement. Oxygenation status is slowly improving. Continue to wean FiO2 for saturations greater than 90%. Start tube feeds at a continuous low infusion rate. Continue appropriate GI prophylaxis. Await LTACH disposition. 2. Anemia Concern for GI source of blood loss. The patient has been transfused with appropriate improvement in her blood counts. Continue to monitor H&H daily. Transfuse for hemoglobin less than 7 g/dL. Continue PPI therapy twice daily for 30 days. 3. Obesity/hypertension Complicates care, management, recovery and prognosis. Continue home medications as indicated. This note was generated with [employer] dictation software. It may contain incorrect words, spelling, and punctuation that were not noted in checking the note before signing. Subjective Subjective The patient was seen and examined at the bedside this morning. Events from the last 24 hours have been reviewed. The patient is currently afebrile, hemodynamically stable and maintaining appropriate oxygen saturations on assist control mode of mechanical ventilation with an FiO2 requirement of 45%. Per nursing report, the patient did have an episode of projectile vomiting yesterday. Her tube feeds were subsequently placed on hold. She did report some mild pain at her PEG site overnight. The patient is currently documented to be overall net +14 L for the hospitalization. Potassium is low this morning at 3.3. Renal function remains within normal limits. Objective Data Objective Data The patient's most recent lab work, culture data and imaging studies have all been personally reviewed. Rapid coronavirus antigen testing was positive on June 05. Strep and urine Legionella antigens were negative. Vital Signs: Vital Signs Temp Pulse Resp BP Pulse Ox 97.6 F L 111 H 41 H 176/82 H 93 07/06/21 04:00 07/06/21 05:00 07/06/21 05:00 07/06/21 05:00 07/06/21 05:00 Oxygen Flow Rate (L/min) 45 Oxygen Delivery Method Mechanical Ventilator Weight: 118 kg Body Mass Index (BMI) 41.5 Intake & Output: Intake and Output for Last 24 Hours 07/04/21 07/05/21 07/06/21 23:59 23:59 23:59 Intake Total 3149.67 / 3554.07 2189.38 / 2339.38 150 / 150 Output Total 1250 / 1700 2050 / 2050 Balance 1899.67 / 1854.07 139.38 / 289.38 150 / 150 Lab / Micro Data Attestation: I reviewed the patient's lab results. Result Diagrams: 07/03/21 03:00 07/06/21 07:00 Micro: Microbiology 06/23/21 10:30 Stool Stool Occult Blood (YASEMIN) - Final Occult Blood Positive 06/19/21 12:00 Sputum, Induced/Lukens Gram Stain - Final 06/19/21 12:00 Sputum, Induced/Lukens Respiratory Culture - Final Presumptive C albicans 06/15/21 15:40 Blood Culture (Wb) - Right Hand Blood Culture - Final No growth in 5 days. 06/15/21 15:50 Blood Culture (Wb) - Pic Blood Culture - Final No growth in 5 days. 06/15/21 13:50 Sputum, Induced/Lukens Gram Stain - Final 06/15/21 13:50 Sputum, Induced/Lukens Respiratory Culture - Final Presumptive C albicans 06/11/21 09:34 Sputum, Induced/Lukens Gram Stain - Final 06/11/21 09:34 Sputum, Induced/Lukens Respiratory Culture - Final 06/11/21 11:00 Urine Catheter - Lewis Legionella Antigen - Final 06/11/21 11:00 Urine Catheter - Lewis Streptococcus pneumoniae Antigen (M - Final 06/08/21 03:45 Urine, Clean Catch Legionella Antigen - Final 06/08/21 03:45 Urine, Clean Catch Streptococcus pneumoniae Antigen (M - Final ABG Data ABG results: ABG 07/04/21 07/04/21 15:35 15:35 Specimen Type Cancelled Sample Site Cancelled pH Cancelled Bicarbonate Actual Cancelled Total CO2 Cancelled Base Excess Cancelled O2 Saturation Cancelled O2 % Cancelled ABG pCO2 Cancelled ABG pO2 Cancelled Lex Test Cancelled Respiration Rate Cancelled O2 Delivery Device Cancelled Liter Flow Cancelled Minute Volume Cancelled Vent Mode Cancelled Inspiratory Time Cancelled Expiratory Time Cancelled Tidal Volume Cancelled Mean Airway Pressure Cancelled POC PEEP Cancelled Peak Inspir Pressure Cancelled POC Pressure Suppt Cancelled Pressure Control Cancelled Pressure High Cancelled Pressure Low Cancelled Time High Cancelled Time Low Cancelled EPAP Cancelled IPAP Cancelled Blood Gas Comments Cancelled Crit Call To/Read Back Cancelled Blood Gas Notified Whom Cancelled Blood Gas Notified Time Cancelled Clinical Comments Cancelled Physical Exam Const alert and no apparent distress General Appearance: cooperative and patient mechanically ventilated Nutritional Appearance: obese HEENT normocephalic and head/scalp atraumatic Eyes PERRL, EOMs intact bilaterally and conjunctivae normal Neck supple Neck Narrative: Tracheostomy site intact. General: trachea midline Chest inspection of chest normal Resp Effort and Inspection: tachypneic Auscultation: diminished lung sounds Cardio S1 normal heart sound and S2 normal heart sound Rate: tachycardic GI normal to inspection, nondistended, normoactive bowel sounds Inspection: GI tube present Extremity no clubbing, cyanosis or edema Skin no rashes or lesions noted Neuro Neuro Narrative: Alert and able to follow simple commands. Charges/Coding Visit Charges Inpatient E&M: 41153 Subs Hosp L3
[2021-07-06] MEDS: CHLORHEXIDINE GLUC 2% CLOTH 1 EACH TOWELETTE TOPICAL (06:51)
[2021-07-06] MEDS: Ipratropium/Albuterol Sulfate 3 ML AMPUL.NEB INHALATION ×2 (06:52→19:40)
[2021-07-06 07:21] LABS: Anion Gap 8 (5-15); BUN 20 mg/dL (7-18); Calcium,Total 9.1 mg/dL (8.5-10.1); Chloride 106 mmol/L (98-107); Creatinine, Serum 0.77 mg/dL (0.55-1.02); EST Glomerular Filtration Rate 83 mL/min (>60); Est Glom Filt Rate - Afr Amer 100 mL/min (>60); Estimated Creatinine Clearance 78.19 ml/min; Glucose 129 mg/dL (74-106); Potassium 3.3 mmol/L (3.5-5.1); Sodium Level 143 mmol/L (136-145)
[2021-07-06] MEDS: Potassium Chloride 10mEq/100mL 10 MEQ/100 ML IV.SOLN. 100 MEQ IV BOLUS ×4 (07:50→11:49)
[2021-07-06] MEDS: Senna/Docusate Sodium 1 Tablet 2 TABLET GT (09:38)
[2021-07-06] MEDS: QUEtiapine 100 MG Tablet GT (09:38)
[2021-07-06] MEDS: Polyethylene Glycol 3350 17 GM PACKET GT (09:38)
[2021-07-06] MEDS: guaiFENesin 10 ML UDC (200MG/10ML) 20 ML GT ×2 (09:38→21:27)
[2021-07-06] MEDS: Losartan Potassium 50 MG Tablet GT (09:38)
[2021-07-06] MEDS: Chlorhexidine 15 ML PO ×2 (09:38→22:00)
[2021-07-06] MEDS: Cholecalciferol (VIT D3) 25 MCG TABLET (1,000 UNITS) GT (09:39)
[2021-07-06] MEDS: Menthol/Lanolin/Calamine/Znox 113 GM Tube 1 APPLIC TOPICAL (09:42)
--- NOTE | 2021-07-06 10:11 | CASEMGMT ---
Addendum entered by Ava Paula 07/06/21 10:29: GUY FLOWER spoke w/Nelida @ [facility]. Approx cost to transfer pt from [facility] to [facility] LT in [place] is $1,495. They do not require payment up-front, they will bill pt. GUY FLOWER to pt's room and spoke w/pt and her who is at bedside. They were made aware of above. inquired if he would be permitted to ride in the ambulance to [facility] w/pt. TC back to [facility] and spoke w/Chris'. He states this would be up to the discretion of the crew transporting pt and to inquire of them when they pick pt up. /pt made aware. Per Tayler, visiting hours @ [facility] are 7 AM to 9 PM and only one visitor allowed/per day. Pt/ made aware. They deny having any further questions at this time. Original Note: GUY FLOWER NOTE: TC to Tayler @ [facility] in [place] re: when they will be able to take pt, as she has been medically ready for discharge since Tuesday. Tayler states their CM is working on it and they will present cost/finances to pt's taoist today. She anticipates they will have an answer today, and if so, they may be able to take pt today. Updated clinicals faxed to [facility] at this time. Awaiting call back from Tayler @ [facility]. Aoplinar VARGAS RN, CM
--- NOTE | 2021-07-06 13:13 | PN.HOSP_ITS ---
Subjective Subjective Patient seen and examined. was by her bedside. She had no active complaints and review of systems otherwise negative. She is awaiting placement in an LTAC. Blood pressure remains poorly controlled. She is on the vent via tracheostomy. Objective Data Objective Data Vital Signs: Vital Signs Temp Pulse Resp BP Pulse Ox 99.1 F 104 H 40 H 170/82 H 94 07/06/21 12:00 07/06/21 12:00 07/06/21 12:00 07/06/21 12:00 07/06/21 12:00 Oxygen Flow Rate (L/min) 45 Oxygen Delivery Method Mechanical Ventilator Weight: 240 lb 11.916 oz Body Mass Index (BMI) 41.5 Intake & Output: Intake and Output for Last 24 Hours 07/04/21 07/05/21 07/06/21 23:59 23:59 23:59 Intake Total 3149.67 / 3554.07 2189.38 / 2339.38 1027.75 / 1027.75 Output Total 1250 / 1700 2050 / 2050 Balance 1899.67 / 1854.07 139.38 / 289.38 1027.75 / 1027.75 Lab / Micro Data Result Diagrams: 07/03/21 03:00 07/06/21 07:00 Labs: Laboratory Results - last 24 hr 07/06/21 07:00: Sodium 143, Potassium 3.3 L, Chloride 106, Carbon Dioxide 29.0, Anion Gap 8, BUN 20 H, Creatinine 0.77, Estim Creat Clear Calc 78.19, Est GFR (MDRD) Af Amer 100, Est GFR (MDRD) Non-Af 83, BUN/Creatinine Ratio 26.0 H, Glucose 129 H, Calcium 9.1 Micro: Microbiology 06/23/21 10:30 Stool Stool Occult Blood (YASEMIN) - Final Occult Blood Positive 06/19/21 12:00 Sputum, Induced/Lukens Gram Stain - Final 06/19/21 12:00 Sputum, Induced/Lukens Respiratory Culture - Final Presumptive C albicans 06/15/21 15:40 Blood Culture (Wb) - Right Hand Blood Culture - Final No growth in 5 days. 06/15/21 15:50 Blood Culture (Wb) - Pic Blood Culture - Final No growth in 5 days. 06/15/21 13:50 Sputum, Induced/Lukens Gram Stain - Final 06/15/21 13:50 Sputum, Induced/Lukens Respiratory Culture - Final Presumptive C albicans 06/11/21 09:34 Sputum, Induced/Lukens Gram Stain - Final 06/11/21 09:34 Sputum, Induced/Lukens Respiratory Culture - Final 06/11/21 11:00 Urine Catheter - Lewis Legionella Antigen - Final 06/11/21 11:00 Urine Catheter - Lewis Streptococcus pneumoniae Antigen (M - Final 06/08/21 03:45 Urine, Clean Catch Legionella Antigen - Final 06/08/21 03:45 Urine, Clean Catch Streptococcus pneumoniae Antigen (M - Final ABG Data ABG results: ABG 07/04/21 07/04/21 15:35 15:35 Specimen Type Cancelled Sample Site Cancelled pH Cancelled Bicarbonate Actual Cancelled Total CO2 Cancelled Base Excess Cancelled O2 Saturation Cancelled O2 % Cancelled ABG pCO2 Cancelled ABG pO2 Cancelled Lex Test Cancelled Respiration Rate Cancelled O2 Delivery Device Cancelled Liter Flow Cancelled Minute Volume Cancelled Vent Mode Cancelled Inspiratory Time Cancelled Expiratory Time Cancelled Tidal Volume Cancelled Mean Airway Pressure Cancelled POC PEEP Cancelled Peak Inspir Pressure Cancelled POC Pressure Suppt Cancelled Pressure Control Cancelled Pressure High Cancelled Pressure Low Cancelled Time High Cancelled Time Low Cancelled EPAP Cancelled IPAP Cancelled Blood Gas Comments Cancelled Crit Call To/Read Back Cancelled Blood Gas Notified Whom Cancelled Blood Gas Notified Time Cancelled Clinical Comments Cancelled Physical Exam Const alert, oriented x3 and no apparent distress Exam Limitations: no limitations HEENT head/scalp atraumatic and moist oral mucous membranes HEENT Narrative: has a tracheostomy in place Head and Scalp: normocephalic Neck no lymphadenopathy Resp Resp Narrative: diminished breath sounds bibasally, no wheezes or crackles. On vent via tracheostomy. tachypneic Cardio regular rhythm, S1 normal heart sound and S2 normal heart sound Cardio Narrative: tachycardic GI normal to inspection, nondistended, normoactive bowel sounds, soft to palpation, non-tender, non-distended and hepatosplenomegaly Extremity normal to inspection, full ROM and no clubbing, cyanosis or edema Peripheral Pulses: Yes pulses 2+ throughout Skin no rashes or lesions noted Neuro oriented x3, CN's II-XII intact bilaterally and moves all extremities Sensorium / Orientation: awake and alert Psych affect normal Assessment & Plan Assessment/Plan (1) Pneumonia due to COVID-19 virus: (2) Acute hypoxemic respiratory failure: PLAN: #Acute hypoxic respiratory failure due to COVID-19 pneumonia * On the ventilator via tracheostomy. * Completed a course of dexamethasone, remdesivir and baricitinib * Breathing treatments of bronchodilators. Titrate oxygen to maintain saturation above 90% * #Hypokalemia: Resolved #Debility due to Covid and respiratory failure: Awaiting placement in LTAC. PT OT on board. #Hypertension: * Blood pressure remains poorly controlled. * Blood pressure up in the 170s today. Will adjust medications IV labetalol as needed * On losartan. We will add on metoprolol in light of patient's tachycardia as well. * IV labetalol as needed #Anemia: Has been transfused during this admission. Hemoglobin is stable now. #Hypokalemia: Potassium is 3.3. Will replace and trend. Nutrition: On tube feed GI prophylaxis: On PPI Disposition: Awaiting placement in LTAC Charges/Coding Visit Charges Inpatient E&M: 57040 Subs Hosp L3
[2021-07-06] MEDS: Metoprolol Tartrate 25 MG Tablet GT ×2 (14:07→21:28)
[2021-07-06] MEDS: Vital High Protein 1,000 ML 20 ML GT (16:58)
[2021-07-06] MEDS: Labetalol (Prefilled) 20 MG/4 ML IV (19:36)
[2021-07-06] MEDS: 0.9% Saline Lock 10 ML Syringe IV (19:36)
[2021-07-06] MEDS: QUEtiapine 100 MG Tablet 150 MG PO (21:27)
[2021-07-06] MEDS: FLUoxetine 10 MG Capsule GT (21:27)
[2021-07-07] VITALS (37 sets, daily range): BP systolic 124–180; BP diastolic 75–98; PULSE 75–113; RESP 29–45; TEMP 35.9–37.6; O2SAT 89–96
[2021-07-07] MEDS: Labetalol (Prefilled) 20 MG/4 ML IV (01:20)
[2021-07-07] MEDS: 0.9% Saline Lock 10 ML Syringe IV (01:20)
--- NOTE | 2021-07-07 06:07 | PCM.PN.INT ---
Assessment & Plan Assessment/Plan (1) Pneumonia due to COVID-19 virus: (2) Acute hypoxemic respiratory failure: PLAN: RECOMMENDATIONS: 1. Continue to wean FiO2 and PEEP for saturations greater than 90%. 2. Continue PPI therapy twice daily. 3. Continue to monitor H&H daily. Transfuse if hemoglobin is less than 7 g/dL. 4. Await disposition to LTACH 5. Mobilize patient as tolerated. 6. Tube feeds as tolerated. IMPRESSIONS: 1. Acute hypoxemic respiratory failure secondary to COVID-19 pneumonia The patient presented to the hospital with worsening dyspnea and hypoxemia. Given that she was within 10 days of symptom onset, remdesivir was initiated. The patient has since completed a treatment course of remdesivir, antimicrobials, Decadron and baricitinib. There was no evidence for PE on CTA chest. Although she was initially placed on Lovenox, the medication was discontinued over concerns for GI blood loss. She is therefore not on any pharmacologic prophylaxis at the current time. The patient is now status post tracheostomy and PEG tube placement. Oxygenation status is slowly improving. Continue to wean FiO2 for saturations greater than 90%. Continue tube feeds as tolerated. Continue appropriate GI prophylaxis. Await LTACH disposition. 2. Anemia Concern for GI source of blood loss. The patient has been transfused with appropriate improvement in her blood counts. Continue to monitor H&H daily. Transfuse for hemoglobin less than 7 g/dL. Continue PPI therapy twice daily for 30 days. 3. Obesity/hypertension Complicates care, management, recovery and prognosis. Continue home medications as indicated. This note was generated with [employer] dictation software. It may contain incorrect words, spelling, and punctuation that were not noted in checking the note before signing. Subjective Subjective The patient was seen and examined at the bedside this morning. Events from the last 24 hours have been reviewed. The patient is currently afebrile, hemodynamically stable and maintaining appropriate oxygen saturations on assist control mode mechanical ventilation with an FiO2 requirement of 45%. The patient is currently documented to be overall net +14.8 L for the hospitalization. She is currently tolerating tube feeds. Nursing staff did report secretions from her endotracheal tube. Blood pressures remain on the high side. Objective Data Objective Data The patient's most recent lab work, culture data and imaging studies have all been personally reviewed. Rapid coronavirus antigen testing was positive on June 05. Strep and urine Legionella antigens were negative. Vital Signs: Vital Signs Temp Pulse Resp BP Pulse Ox 96.6 F L 75 44 H 152/83 H 95 07/07/21 00:00 07/07/21 06:00 07/07/21 06:00 07/07/21 06:00 07/07/21 04:00 Oxygen Flow Rate (L/min) 45 Oxygen Delivery Method Mechanical Ventilator Weight: 109.2 kg Body Mass Index (BMI) 41.5 Intake & Output: Intake and Output for Last 24 Hours 07/05/21 07/06/21 07/07/21 23:59 23:59 23:59 Intake Total 2189.38 / 2339.38 1316.75 / 1316.75 75 / 75 Output Total 2049 / 2049 850 / 850 300 / 300 Balance 139.38 / 289.38 466.75 / 466.75 -225 / -225 Lab / Micro Data Attestation: I reviewed the patient's lab results. Result Diagrams: 07/03/21 03:00 07/06/21 07:00 Labs: Laboratory Results - last 24 hr 07/06/21 07:00: Sodium 143, Potassium 3.3 L, Chloride 106, Carbon Dioxide 29.0, Anion Gap 8, BUN 20 H, Creatinine 0.77, Estim Creat Clear Calc 78.19, Est GFR (MDRD) Af Amer 100, Est GFR (MDRD) Non-Af 83, BUN/Creatinine Ratio 26.0 H, Glucose 129 H, Calcium 9.1 Micro: Microbiology 06/23/21 10:30 Stool Stool Occult Blood (YASEMIN) - Final Occult Blood Positive 06/19/21 12:00 Sputum, Induced/Lukens Gram Stain - Final 06/19/21 12:00 Sputum, Induced/Lukens Respiratory Culture - Final Presumptive C albicans 06/15/21 15:40 Blood Culture (Wb) - Right Hand Blood Culture - Final No growth in 5 days. 06/15/21 15:50 Blood Culture (Wb) - Pic Blood Culture - Final No growth in 5 days. 06/15/21 13:50 Sputum, Induced/Lukens Gram Stain - Final 06/15/21 13:50 Sputum, Induced/Lukens Respiratory Culture - Final Presumptive C albicans 06/11/21 09:34 Sputum, Induced/Lukens Gram Stain - Final 06/11/21 09:34 Sputum, Induced/Lukens Respiratory Culture - Final 06/11/21 11:00 Urine Catheter - Lewis Legionella Antigen - Final 06/11/21 11:00 Urine Catheter - Lewis Streptococcus pneumoniae Antigen (M - Final 06/08/21 03:45 Urine, Clean Catch Legionella Antigen - Final 06/08/21 03:45 Urine, Clean Catch Streptococcus pneumoniae Antigen (M - Final ABG Data ABG results: ABG 07/04/21 07/04/21 15:35 15:35 Specimen Type Cancelled Sample Site Cancelled pH Cancelled Bicarbonate Actual Cancelled Total CO2 Cancelled Base Excess Cancelled O2 Saturation Cancelled O2 % Cancelled ABG pCO2 Cancelled ABG pO2 Cancelled Lex Test Cancelled Respiration Rate Cancelled O2 Delivery Device Cancelled Liter Flow Cancelled Minute Volume Cancelled Vent Mode Cancelled Inspiratory Time Cancelled Expiratory Time Cancelled Tidal Volume Cancelled Mean Airway Pressure Cancelled POC PEEP Cancelled Peak Inspir Pressure Cancelled POC Pressure Suppt Cancelled Pressure Control Cancelled Pressure High Cancelled Pressure Low Cancelled Time High Cancelled Time Low Cancelled EPAP Cancelled IPAP Cancelled Blood Gas Comments Cancelled Crit Call To/Read Back Cancelled Blood Gas Notified Whom Cancelled Blood Gas Notified Time Cancelled Clinical Comments Cancelled Physical Exam Const alert and no apparent distress General Appearance: cooperative and patient mechanically ventilated Nutritional Appearance: obese HEENT normocephalic and head/scalp atraumatic Eyes PERRL, EOMs intact bilaterally and conjunctivae normal Neck supple Neck Narrative: Tracheostomy site intact. Surrounding erythema noted. General: trachea midline Chest inspection of chest normal Resp Effort and Inspection: tachypneic Auscultation: diminished lung sounds Cardio regular rate, regular rhythm, S1 normal heart sound and S2 normal heart sound GI normal to inspection, nondistended, normoactive bowel sounds Inspection: GI tube present Extremity no clubbing, cyanosis or edema Skin no rashes or lesions noted Neuro Neuro Narrative: Alert and able to follow simple commands. Psych cooperative Charges/Coding Visit Charges Inpatient E&M: 70680 Subs Hosp L3
[2021-07-07] MEDS: Ipratropium/Albuterol Sulfate 3 ML AMPUL.NEB INHALATION ×2 (06:36→19:34)
[2021-07-07] MEDS: CHLORHEXIDINE GLUC 2% CLOTH 1 EACH TOWELETTE TOPICAL (07:26)
[2021-07-07] MEDS: Losartan Potassium 50 MG Tablet GT (07:26)
[2021-07-07] MEDS: amLODIPine 5 MG Tablet PO (07:26)
[2021-07-07] MEDS: Chlorhexidine 15 ML PO ×2 (10:16→22:13)
[2021-07-07] MEDS: Cholecalciferol (VIT D3) 25 MCG TABLET (1,000 UNITS) GT (10:17)
[2021-07-07] MEDS: Metoprolol Tartrate 25 MG Tablet GT ×2 (10:17→22:00)
[2021-07-07] MEDS: QUEtiapine 100 MG Tablet GT (10:17)
[2021-07-07] MEDS: guaiFENesin 10 ML UDC (200MG/10ML) 20 ML GT ×2 (10:17→21:59)
--- NOTE | 2021-07-07 12:21 | CASEMGMT ---
Addendum entered by Ava Paula 07/07/21 15:50: Spoke w/Timbo @ [place]. She states she did receive the referral packet and they are able to accept pt. [facility] does not require pre-cert. She requests for updated clinicals to be faxed to [facility] Wed AM. They would need to speak w/their physician for final approval and could take pt as early as tomorrow. D/C Plan: LTAC-- Plan A[facility] in [place] if [id number] can be approved w/[facility] Plan B: [facility] Addendum entered by Ava Paula 07/07/21 14:30: states if the insurance co does not approve pt going to [facility], he would be agreeable to her going to [facility]. TC placed to Timbo @ [place]. She states they are in-network w/[facility] and they may have a bed available as early as tomorrow. Referral packet faxed to [facility] at this time. Addendum entered by Ava Paula 07/07/21 13:52: TC received from Tayler stating that pt has [facility] (non-profit organization) and they are not in-network w/[facility]. They would need upfront payment for 2 wks before they could accept pt. She states she has spoken w/pt's who has been instructed to contact [facility] to present case to them to see if they would approve paying for 2-wk LTAC stay upfront. GUY FLOWER to room to talk w/pt's . He states he has reached out to his deacon who deals with this insurance co who instructed him () to contact [facility]. states [facility], who states they are in-network and she is requesting [facility] Tax ID #. GUY FLOWER placed call to Lenora @ [employer] @ . She was made aware, that per Tayler @ [facility], [facility] is in network, but [facility] is not. Lenora states would like to talk w/Tayler to verify this. She states, if it is verified that they are not in-network, that may be able to approve pt on a one-time agreement. TC placed to Tayler and she was made aware. Tayler was provided w/Lenora's direct # and states she will call Lenora at this time. Original Note: GUY FLOWER NOTE: Updated clinicals faxed to Tayler @ [facility] in [place]. TC to Tayler to inquire about insurance acceptance/approval. No answer. VM left for Tayler to return call to GUY FLOWER. Apolinar VARGAS RN, CM
--- NOTE | 2021-07-07 13:59 | PN.HOSP_ITS ---
Subjective Subjective Patient seen and examined. She had no complaints. She remains on the ventilator via tracheostomy. She is awaiting placement. She is tachypneic and tachycardic today. Objective Data Objective Data Vital Signs: Vital Signs Temp Pulse Resp BP Pulse Ox 98.8 F 108 H 45 H 154/84 H 92 07/07/21 12:00 07/07/21 13:00 07/07/21 13:00 07/07/21 13:31 07/07/21 13:00 Oxygen Flow Rate (L/min) 45 Oxygen Delivery Method Mechanical Ventilator Weight: 238 lb 8.642 oz Body Mass Index (BMI) 41.5 Intake & Output: Intake and Output for Last 24 Hours 07/05/21 07/06/21 07/07/21 23:59 23:59 23:59 Intake Total 2189.38 / 2339.38 1316.75 / 1316.75 744 / 744 Output Total 2050 / 2050 850 / 850 700 / 700 Balance 139.38 / 289.38 466.75 / 466.75 44 / 44 Lab / Micro Data Result Diagrams: 07/03/21 03:00 07/06/21 07:00 Micro: Microbiology 06/23/21 10:30 Stool Stool Occult Blood (YASEMIN) - Final Occult Blood Positive 06/19/21 12:00 Sputum, Induced/Lukens Gram Stain - Final 06/19/21 12:00 Sputum, Induced/Lukens Respiratory Culture - Final Presumptive C albicans 06/15/21 15:40 Blood Culture (Wb) - Right Hand Blood Culture - Final No growth in 5 days. 06/15/21 15:50 Blood Culture (Wb) - Pic Blood Culture - Final No growth in 5 days. 06/15/21 13:50 Sputum, Induced/Lukens Gram Stain - Final 06/15/21 13:50 Sputum, Induced/Lukens Respiratory Culture - Final Presumptive C albicans 06/11/21 09:34 Sputum, Induced/Lukens Gram Stain - Final 06/11/21 09:34 Sputum, Induced/Lukens Respiratory Culture - Final 06/11/21 11:00 Urine Catheter - Lewis Legionella Antigen - Final 06/11/21 11:00 Urine Catheter - Lewis Streptococcus pneumoniae Antigen (M - Final 06/08/21 03:45 Urine, Clean Catch Legionella Antigen - Final 06/08/21 03:45 Urine, Clean Catch Streptococcus pneumoniae Antigen (M - Final Physical Exam Const alert and no apparent distress General Appearance: cooperative, well kempt and well developed Orientation / Consciousness: awake, oriented to person, oriented to place and oriented to time Exam Limitations: no limitations Nutritional Appearance: morbidly obese HEENT normocephalic, head/scalp atraumatic and moist oral mucous membranes HEENT Narrative: tracheostomy in pace Head and Scalp: normocephalic Eyes PERRL, EOMs intact bilaterally and conjunctivae normal Neck nuchal rigidity, no lymphadenopathy, supple, no JVD, thyroid normal and no carotid bruits General: trachea midline Resp Resp Narrative: diminished breath sounds bibasally, no wheezes or crackles. On vent via tracheostomy. tachypneic Auscultation: Negative for crackles, rales, rhonchi or wheezes Cardio regular rhythm, S1 normal heart sound, S2 normal heart sound, no murmurs, no rub, no gallops, no clicks and no JVD Cardio Narrative: tachycardic GI normal to inspection, nondistended, normoactive bowel sounds, soft to palpation, non-tender, non-distended and hepatosplenomegaly Extremity normal to inspection, full ROM and no clubbing, cyanosis or edema Skin no rashes or lesions noted General Skin Exam: no breakdown Neuro oriented x3, CN's II-XII intact bilaterally, moves all extremities and no focal motor deficits Sensorium / Orientation: awake and alert Speech: speech normal Psych thought process normal and affect normal Assessment & Plan Assessment/Plan (1) Pneumonia due to COVID-19 virus: (2) Acute hypoxemic respiratory failure: PLAN: #Acute hypoxic respiratory failure due to COVID-19 pneumonia * On the ventilator via tracheostomy. * Completed a course of dexamethasone, remdesivir and baricitinib * Breathing treatments with bronchodilators. Titrate oxygen to maintain saturation above 90% * #Hypokalemia: Resolved #Debility due to Covid and respiratory failure: Awaiting placement in LTAC. PT OT on board. #Hypertension: * Blood pressure remains poorly controlled. * IV labetalol as needed * On losartan and metoprolol 25mg bid. * IV labetalol as needed #Anemia: Has been transfused during this admission. Hemoglobin is stable now. #Hypokalemia: Potassium is 3.3. Will replace and trend. Nutrition: On tube feed GI prophylaxis: On PPI Disposition: Awaiting placement in LTAC Charges/Coding Visit Charges Inpatient E&M: 13391 Subs Hosp L2
--- NOTE | 2021-07-07 16:29 | PCM.DC.SUM ---
Providers Date of Admission: 06/07/21 Primary Care Physician: Dr. Iggy Myers MD Consultations 06/07/21 21:31 Consult: Infectious Disease Routine Consulting Provider: Trey Thomson Reason for Consult: severe covid pneumonia EMERGENT Consult: No Notified: Yes Date Notified: 06/08/21 Time Notified: 07:31 Method of Notification: Text 06/10/21 11:10 Consult: Community Organization Aide / Pulmonary Medicine Routine Consulting Provider: [facility] Reason for Consult: resp failure EMERGENT Consult: No Notified: Yes Date Notified: 06/10/21 Time Notified: 10:17 Method of Notification: Text 06/25/21 10:46 Consult: ENT Routine Consulting Provider: Lee Pascual Reason for Consult: Trach placement EMERGENT Consult: No Notified: Yes Date Notified: 06/25/21 Time Notified: 10:46 Method of Notification: Page Consult: General Surgery Routine Consulting Provider: Charlotte Paige Reason for Consult: PEG placement EMERGENT Consult: No Notified: Yes Date Notified: 06/25/21 Time Notified: 10:48 Method of Notification: Verbal Reason For Visit: COVID 19, HYPOXIC RESPIRATORY FAILURE Diagnosis Discharge Diagnosis (1) Pneumonia due to COVID-19 virus: Status: Acute Code(s): U07.1 - COVID-19; J12.82 - Pneumonia due to coronavirus disease 2019 (2) Acute hypoxemic respiratory failure: Status: Acute Code(s): J96.01 - Acute respiratory failure with hypoxia Medications at Discharge Home Medications cholecalciferol (vitamin D3) [Vitamin D3] 25 mcg PO DAILY 06/05/21 dexamethasone [Decadron] 6 mg PO DAILY #9 tab 06/05/21 fluoxetine 10 mg PO DAILY 06/05/21 loratadine 10 mg PO DAILY 06/05/21 potassium chloride [Klor-Con M20] 20 meq PO BID 06/05/21 amlodipine 5 mg PO DAILY #30 tab 07/07/21 hydrochlorothiazide 12.5 mg FEEDING TUBE DAILY #0 cap 07/07/21 losartan 50 mg FEEDING TUBE DAILY #0 tab 07/07/21 metoprolol tartrate 25 mg G-TUBE BID #60 tab 07/07/21 pantoprazole 40 mg PO BID #60 tab 07/07/21 Hospital Course Operations None Procedures None Summary of Care Provided Minutes Spent on Discharge: 50 Hospital Course: Patient is a 55-year-old female with a past medical history as outlined who was admitted through the ED on 06/07/2021 with a 9-day history of progressively worsening shortness of breath associated with cough and production of clear sputum. She had a still loose stools but denied any fever or chills and admitted to loss of taste and smell. She had previously been at a hospital 2 days previously and was discharged home on oxygen but was hypoxic even while was on 5 L of oxygen. She was admitted and managed for acute hypoxic respiratory failure due to COVID-19 pneumonia. She tested positive for Covid. CTA of the chest was negative for PE. She was started on remdesivir and Decadron. She completed a course of antimicrobials as well as baricitinib and Decadron. She was initially placed on Lovenox for DVT prophylaxis but this was subsequently stopped due to concerns of GI blood loss. She had a protracted hospital course and she could not be weaned off of oxygen. Family elected to have tracheostomy and PEG tube placed. She was continued on tube feeding. Patient was transfused during this admission on account of anemia with concerns for GI blood loss. She was started on PPI. Patient was discharged to LTAC on 07/07/2021. Patient seen and examined prior to discharge. Please refer to progress notes dated 07/07/2021 for physical examination findings. Physical Exam Const alert, oriented x3 and no apparent distress General Appearance: cooperative, well kempt and well developed Orientation / Consciousness: awake, oriented to person, oriented to place and oriented to time Exam Limitations: no limitations Nutritional Appearance: morbidly obese HEENT normocephalic, head/scalp atraumatic and moist oral mucous membranes Eyes PERRL, EOMs intact bilaterally and conjunctivae normal Neck nuchal rigidity, no lymphadenopathy, supple, no JVD, thyroid normal and no carotid bruits General: trachea midline Resp normal respiratory effort, no retractions, no use of accessory muscles and clear to auscultation bilaterally Resp Narrative: diminished breath sounds bibasally, no wheezes or crackles. On vent via tracheostomy. tachypneic Auscultation: Negative for crackles, rales, rhonchi or wheezes Cardio regular rhythm, S1 normal heart sound, S2 normal heart sound, no murmurs, no rub, no gallops, no clicks and no JVD Cardio Narrative: tachycardic GI normal to inspection, nondistended, normoactive bowel sounds, soft to palpation, non-tender, non-distended and hepatosplenomegaly Extremity normal to inspection, full ROM and no clubbing, cyanosis or edema Skin no rashes or lesions noted General Skin Exam: no breakdown Neuro oriented x3, CN's II-XII intact bilaterally, moves all extremities and no focal motor deficits Sensorium / Orientation: awake and alert Speech: speech normal Psych thought process normal and affect normal Weight / BMI Weight Weight: 238 lb 8.642 oz Body Mass Index (BMI) 41.5 ABG / Lab / Microbiology Data Result Diagrams: 07/03/21 03:00 07/06/21 07:00 Microbiology: Microbiology 06/23/21 10:30 Stool Stool Occult Blood (YASEMIN) - Final Occult Blood Positive 06/19/21 12:00 Sputum, Induced/Lukens Gram Stain - Final 06/19/21 12:00 Sputum, Induced/Lukens Respiratory Culture - Final Presumptive C albicans 06/15/21 15:40 Blood Culture (Wb) - Right Hand Blood Culture - Final No growth in 5 days. 06/15/21 15:50 Blood Culture (Wb) - Pic Blood Culture - Final No growth in 5 days. 06/15/21 13:50 Sputum, Induced/Lukens Gram Stain - Final 06/15/21 13:50 Sputum, Induced/Lukens Respiratory Culture - Final Presumptive C albicans 06/11/21 09:34 Sputum, Induced/Lukens Gram Stain - Final 06/11/21 09:34 Sputum, Induced/Lukens Respiratory Culture - Final 06/11/21 11:00 Urine Catheter - Lewis Legionella Antigen - Final 06/11/21 11:00 Urine Catheter - Lewis Streptococcus pneumoniae Antigen (M - Final 06/08/21 03:45 Urine, Clean Catch Legionella Antigen - Final 06/08/21 03:45 Urine, Clean Catch Streptococcus pneumoniae Antigen (M - Final D/C Instructions Discharge Diet: - (tube feeding) Weight Bearing Status: Weight bearing as tolerated Call your doctor if you observe: Fever of 101 or Higher, Shortness of breath, Dizziness, Swelling in the ankles and Increased palpitations (irregular heartbeat) Meaningful Use Info Meaningful Use Diagnoses (Choose all that apply): None applicable Discharge Plan Admission Admit Date/Time: 06/07/21 20:10 Primary Reason for Your Visit: acute hypoxic respiratory failure due to COVID Attending Provider: Karo Montoya Primary Care Provider: Iggy Myers Consulting Providers: Trey Thomson ; Rubén Baker ; Satinder Jones ; Daija Toure FLAKE DRIER ; Lee Pascual ; Charlotte Paige Discharge Orders/Prescriptions Prescriptions: New amlodipine 5 mg Tablet 5 mg PO DAILY Qty: 30 RF: 1 metoprolol tartrate 25 mg Tablet 25 mg G-tube BID Qty: 60 RF: 1 pantoprazole 40 mg tablet,delayed release (DR/EC) 40 mg PO BID Qty: 60 RF: 0 Continued potassium chloride [Klor-Con M20] 20 mEq Tablet,Er Particles/Crystals 20 meq PO BID RF: 0 fluoxetine 10 mg Capsule 10 mg PO DAILY RF: 0 loratadine 10 mg Tablet 10 mg PO DAILY RF: 0 cholecalciferol (vitamin D3) [Vitamin D3] 25 mcg (1,000 unit) Capsule 25 mcg PO DAILY RF: 0 dexamethasone [Decadron] 6 mg tablet 6 mg PO DAILY Qty: 9 RF: 0 Changed losartan 50 mg Tablet 50 mg feeding tube DAILY Qty: 0 RF: 0 hydrochlorothiazide 12.5 mg Capsule 12.5 mg feeding tube DAILY Qty: 0 RF: 0 Referrals / Follow Up: Iggy Myers MD [Primary Care Provider] - Within 1 Week Disposition Disposition (needs filled in before D/C Order can be placed): Electrical [employer]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
--- NOTE | 2021-07-07 16:38 | PCM.TXEXTCAR ---
Diet 06/10/21 15:34 Diet: Nothing Per Oral Routine Orders/Code Status Enema Type: Fleetz Enema Frequency: Daily PRN Suppository Type: Dulcolax 10mg Suppository Frequency: Daily PRN O2 Frequency: Continuous Keep PO Greater than or Equal to (%): 90 Wound(s) Left Upper Abdomen: Wound Type: Puncture Therapies Weight Bearing: Weight bearing as tolerated Physical Therapy: Eval and Treat Occupational Therapy: Eval and Treat Problem/Diagnosis (1) Pneumonia due to COVID-19 virus: Status: Acute (2) Acute hypoxemic respiratory failure: Status: Acute Allergies/Procedures Done in Hospital Allergies No Known Allergies Allergy (Verified 06/07/21 17:00) Procedures: Peg tube placement and - (tracheostomy) Type of Care/Length of Stay Estimated LOS: More Than 30 Days Type of Care Needed: LTAC Rehab Potential: Fair Prognosis: Fair Additional Orders/Day of Discharge Day of Discharge: 07/07/21 Dietary and Speech Recommendations Dietitian Recommendations/Changes: NPO; Will adjust EN as ordered to Vital HP via PEG at goal rate of 60mL/hour w/ 75mL H2O flush every 4 hours to provide 1440 calories, 125 g protein, and 1653mL total fluid/day Discharge Plan Admission Admit Date/Time: 06/07/21 20:10 Primary Reason for Your Visit: acute hypoxic respiratory failure due to COVID Attending Provider: Karo Montoya Primary Care Provider: Iggy Myers Consulting Providers: Trey Thomson ; Rubén Baker ; Satinder Jones ; Daija Toure GOVERNMENT RELATIONS ANALYST ; Lee Pascual ; Charlotte Paige Discharge Orders/Prescriptions Prescriptions: New amlodipine 5 mg Tablet 5 mg PO DAILY Qty: 30 RF: 1 metoprolol tartrate 25 mg Tablet 25 mg G-tube BID Qty: 60 RF: 1 pantoprazole 40 mg tablet,delayed release (DR/EC) 40 mg PO BID Qty: 60 RF: 0 Continued potassium chloride [Klor-Con M20] 20 mEq Tablet,Er Particles/Crystals 20 meq PO BID RF: 0 fluoxetine 10 mg Capsule 10 mg PO DAILY RF: 0 loratadine 10 mg Tablet 10 mg PO DAILY RF: 0 cholecalciferol (vitamin D3) [Vitamin D3] 25 mcg (1,000 unit) Capsule 25 mcg PO DAILY RF: 0 dexamethasone [Decadron] 6 mg tablet 6 mg PO DAILY Qty: 9 RF: 0 Changed losartan 50 mg Tablet 50 mg feeding tube DAILY Qty: 0 RF: 0 hydrochlorothiazide 12.5 mg Capsule 12.5 mg feeding tube DAILY Qty: 0 RF: 0 Referrals / Follow Up: Iggy Myers MD [Primary Care Provider] - Within 1 Week Disposition Disposition (needs filled in before D/C Order can be placed): Skilled Nursing Acute Care
[2021-07-07] MEDS: Vital High Protein 1,000 ML 60 ML GT (20:07)
[2021-07-07] MEDS: FLUoxetine 10 MG Capsule GT (21:59)
[2021-07-07] MEDS: Acetaminophen 650 MG/20 ML UDC GT (21:59)
[2021-07-07] MEDS: QUEtiapine 100 MG Tablet 150 MG PO (22:00)
[2021-07-08] VITALS (25 sets, daily range): BP systolic 133–184; BP diastolic 73–109; PULSE 3–115; RESP 28–50; TEMP 36.8–37.2; O2SAT 90–95
--- NOTE | 2021-07-08 06:10 | PN.CC_ITS ---
Assessment & Plan Assessment/Plan (1) Pneumonia due to COVID-19 virus: (2) Acute hypoxemic respiratory failure: PLAN: RECOMMENDATIONS: 1. Continue to wean FiO2 and PEEP for saturations greater than 90%. 2. Continue PPI therapy twice daily. 3. Continue to monitor H&H daily. Transfuse if hemoglobin is less than 7 g/dL. 4. Await disposition to LTACH 5. Mobilize patient as tolerated. 6. Tube feeds as tolerated. IMPRESSIONS: 1. Acute hypoxemic respiratory failure secondary to COVID-19 pneumonia The patient presented to the hospital with worsening dyspnea and hypoxemia. Given that she was within 10 days of symptom onset, remdesivir was initiated. The patient has since completed a treatment course of remdesivir, antimicrobia ls, Decadron and baricitinib. There was no evidence for PE on CTA chest. Although she was initially placed on Lovenox, the medication was discontinued over concerns for GI blood loss. She is therefore not on any pharmacologic prophylaxis at the current time. The patient is now status post tracheostomy and PEG tube placement. Oxygenation status is slowly improving. Continue to wean FiO2 for saturations greater than 90%. Continue tube feeds as tolerated. Continue appropriate GI prophylaxis. Await LTACH disposition. 2. Anemia Concern for GI source of blood loss. The patient has been transfused with appropriate improvement in her blood counts. Continue to monitor H&H daily. Transfuse for hemoglobin less than 7 g/dL. Continue PPI therapy twice daily for 30 days. 3. Obesity/hypertension Complicates care, management, recovery and prognosis. Continue home medications as indicated. This note was generated with [employer] dictation software. It may contain incorrect words, spelling, and punctuation that were not noted in checking the note before signing. Subjective Subjective The patient was seen and examined at the bedside this morning. Events from the last 24 hours have been reviewed. The patient is currently afebrile, hemodynamically stable and maintaining appropriate oxygen saturations on assist control mode mechanical ventilation with an FiO2 requirement of 50%. The patient is currently documented to be overall net +15.8 L for the hospitalization. She is currently tolerating tube feeds. A few high blood pres sure readings were noted overnight. Objective Data Objective Data The patient's most recent lab work, culture data and imaging studies have all been personally reviewed. Rapid coronavirus antigen testing was positive on Nov ember 12. Strep and urine Legionella antigens were negative. Vital Signs: Vital Signs Temp Pulse Resp BP Pulse Ox 99 F 95 40 H 148/109 H 92 07/08/21 00:00 07/08/21 04:53 07/08/21 04:53 07/08/21 00:00 07/08/21 04:53 Oxygen Flow Rate (L/min) 45 Oxygen Delivery Method Mechanical Ventilator Weight: 108.2 kg Body Mass Index (BMI) 41.5 Intake & Output: Intake and Output for Last 24 Hours 07/06/21 07/07/21 07/08/21 23:59 23:59 23:59 Intake Total 1316.75 / 1316.75 1151 / 1776 625 / 625 Output Total 850 / 850 900 / 1100 200 / 200 Balance 466.75 / 466.75 251 / 676 425 / 425 Lab / Micro Data Attestation: I reviewed the patient's lab results. Result Diagrams: 07/03/21 03:00 07/06/21 07:00 Micro: Microbiology 06/23/21 10:30 Stool Stool Occult Blood (YASEMIN) - Final Occult Blood Positive 06/19/21 12:00 Sputum, Induced/Lukens Gram Stain - Final 06/19/21 12:00 Sputum, Induced/Lukens Respiratory Culture - Final Presumptive C albicans 06/15/21 15:40 Blood Culture (Wb) - Right Hand Blood Culture - Final No growth in 5 days. 06/15/21 15:50 Blood Culture (Wb) - Pic Blood Culture - Final No growth in 5 days. 06/15/21 13:50 Sputum, Induced/Lukens Gram Stain - Final 06/15/21 13:50 Sputum, Induced/Lukens Respiratory Culture - Final Presumptive C albicans 06/11/21 09:34 Sputum, Induced/Lukens Gram Stain - Final 06/11/21 09:34 Sputum, Induced/Lukens Respiratory Culture - Final 06/11/21 11:00 Urine Catheter - Lewis Legionella Antigen - Final 06/11/21 11:00 Urine Catheter - Lewis Streptococcus pneumoniae Antigen (M - Final 06/08/21 03:45 Urine, Clean Catch Legionella Antigen - Final 06/08/21 03:45 Urine, Clean Catch Streptococcus pneumoniae Antigen (M - Final Physical Exam Const alert and no apparent distress General Appearance: cooperative and patient mechanically ventilated Nutritional Appearance: obese HEENT normocephalic and head/scalp atraumatic Eyes PERRL, EOMs intact bilaterally and conjunctivae normal Neck supple Neck Narrative: Tracheostomy site intact. Surrounding erythema noted. General: trachea midline Chest inspection of chest normal Resp Effort and Inspection: tachypneic Auscultation: diminished lung sounds Cardio regular rate, regular rhythm, S1 normal heart sound and S2 normal heart sound GI normal to inspection, nondistended, normoactive bowel sounds Inspection: GI tube present Extremity no clubbing, cyanosis or edema Skin no rashes or lesions noted Neuro Neuro Narrative: Alert and able to follow simple commands. Psych cooperative Charges/Coding Visit Charges Inpatient E&M: 84070 Subs Hosp L3
[2021-07-08] MEDS: Ipratropium/Albuterol Sulfate 3 ML AMPUL.NEB INHALATION (06:51)
[2021-07-08] MEDS: Cholecalciferol (VIT D3) 25 MCG TABLET (1,000 UNITS) GT (08:03)
[2021-07-08] MEDS: Metoprolol Tartrate 25 MG Tablet GT (08:03)
[2021-07-08] MEDS: guaiFENesin 10 ML UDC (200MG/10ML) 20 ML GT (08:03)
[2021-07-08] MEDS: Losartan Potassium 50 MG Tablet GT (08:04)
[2021-07-08] MEDS: QUEtiapine 100 MG Tablet GT (08:04)
[2021-07-08] MEDS: amLODIPine 5 MG Tablet PO (08:04)
[2021-07-08] MEDS: Chlorhexidine 15 ML PO (08:07)
[2021-07-08] MEDS: CHLORHEXIDINE GLUC 2% CLOTH 1 EACH TOWELETTE TOPICAL (08:07)
[2021-07-08] MEDS: Vital High Protein 1,000 ML 60 ML GT (08:24)
[2021-07-08] MEDS: 0.9% Saline Lock 10 ML Syringe IV (08:33)
--- NOTE | 2021-07-08 08:46 | NURSING ---
medicating with am bp meds
[2021-07-08] MEDS: Labetalol (Prefilled) 20 MG/4 ML IV (11:18)
--- NOTE | 2021-07-08 11:28 | CASEMGMT ---
GUY FLOWER called Tayler at [facility] on status of insurance approval, no update at this time. GUY FLOWER told Tayler that if no update by noon that we would change referral to [place]. Tayler voiced understanding. GUY FLOWER called Happy at [place] and sent updated clinical information. Per Happy they are able to accept the patient today. CM will continue to follow this patient and plan for a safe discharge.
--- NOTE | 2021-07-08 12:45 | CASEMGMT ---
GUY FLOWER received call back from Tayler at [facility] and they are not able to accept the patient after not being able to come to agreement on one time contract. GUY FLOWER call Timbo at [facility] and confirmed acceptance. Happy states they are ready to accept the patient and she will be going to room 4506. GUY FLOWER faxed discharge paperwork. GUY FLOWER updated nursing unit clerk to arrange transport. CM will continue to plan for a safe discharge.
--- NOTE | 2021-07-08 13:25 | PCM.DC.SUM ---
Providers Date of Admission: 06/07/21 Primary Care Physician: Dr. 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 Routine Consulting Provider: Pulmonary Medicine [facility] Reason for Consult: resp failure EMERGENT Consult: No Notified: Yes Date Notified: 06/10/21 Time Notified: 10:17 Method of Notification: Text 06/25/21 10:46 Consult: ENT Routine Consulting Provider: Lee Pascual Reason for Consult: Trach placement EMERGENT Consult: No Notified: Yes Date Notified: 06/25/21 Time Notified: 10:46 Method of Notification: Page Consult: General Surgery Routine Consulting Provider: Charlotte Paige Reason for Consult: PEG placement EMERGENT Consult: No Notified: Yes Date Notified: 06/25/21 Time Notified: 10:48 Method of Notification: Verbal Reason For Visit: COVID 19, HYPOXIC RESPIRATORY FAILURE Diagnosis Discharge Diagnosis (1) Pneumonia due to COVID-19 virus: Status: Acute Code(s): U07.1 - COVID-19; J12.82 - Pneumonia due to coronavirus disease 2019 (2) Acute hypoxemic respiratory failure: Status: Acute Code(s): J96.01 - Acute respiratory failure with hypoxia Medications at Discharge Home Medications cholecalciferol (vitamin D3) [Vitamin D3] 25 mcg PO DAILY 06/05/21 dexamethasone [Decadron] 6 mg PO DAILY #9 tab 06/05/21 fluoxetine 10 mg PO DAILY 06/05/21 loratadine 10 mg PO DAILY 06/05/21 potassium chloride [Klor-Con M20] 20 meq PO BID 06/05/21 amlodipine 5 mg PO DAILY #30 tab 07/07/21 hydrochlorothiazide 12.5 mg FEEDING TUBE DAILY #0 cap 07/07/21 losartan 50 mg FEEDING TUBE DAILY #0 tab 07/07/21 metoprolol tartrate 25 mg G-TUBE BID #60 tab 07/07/21 pantoprazole 40 mg PO BID #60 tab 07/07/21 Hospital Course Operations None Procedures Peg tube placement and - (tracheostomy) Summary of Care Provided Minutes Spent on Discharge: 45 Hospital Course: Patient is a 55-year-old female with a past medical history as outlined who was admitted through the ED on 06/07/2021 with a 9-day history of progressively worsening shortness of breath associated with cough and production of clear sputum. She had a still loose stools but denied any fever or chills and admitted to loss of taste and smell. She had previously been at a hospital 2 days previously and was discharged home on oxygen but was hypoxic even while was on 5 L of oxygen. She was admitted and managed for acute hypoxic respiratory failure due to COVID-19 pneumonia. She tested positive for Covid. CTA of the chest was negative for PE. She was started on remdesivir and Decadron. She completed a course of antimicrobials as well as baricitinib and Decadron. She was initially placed on Lovenox for DVT prophylaxis but this was subsequently stopped due to concerns of GI blood loss. She had a protracted hospital course and she could not be weaned off of oxygen. Family elected to have tracheostomy and PEG tube placed. She was continued on tube feeding. Patient was transfused during this admission on account of anemia with concerns for GI blood loss. She was started on PPI. Patient was discharged to [facility] on 07/08/2021. Patient seen and examined prior to discharge. was by her bedside. She had no complaints and review of systems was otherwise negative. Physical Exam Const alert, oriented x3 and no apparent distress General Appearance: cooperative, well kempt and well developed Orientation / Consciousness: awake, oriented to person, oriented to place and oriented to time Exam Limitations: no limitations Nutritional Appearance: morbidly obese HEENT normocephalic, head/scalp atraumatic and moist oral mucous membranes HEENT Narrative: tracheostomy tube in place Eyes PERRL, EOMs intact bilaterally and conjunctivae normal Neck nuchal rigidity, no lymphadenopathy, supple, no JVD, thyroid normal and no carotid bruits General: trachea midline Resp normal respiratory effort, no retractions, no use of accessory muscles and clear to auscultation bilaterally Resp Narrative: diminished breath sounds bibasally, no wheezes or crackles. On vent via tracheostomy. tachypneic Auscultation: Negative for crackles, rales, rhonchi or wheezes Cardio regular rhythm, S1 normal heart sound, S2 normal heart sound, no murmurs, no rub, no gallops, no clicks and no JVD Cardio Narrative: tachycardic GI normal to inspection, nondistended, normoactive bowel sounds, soft to palpation, non-tender and non-distended GI Narrative: PEG tube in place Extremity normal to inspection, full ROM and no clubbing, cyanosis or edema Skin no rashes or lesions noted General Skin Exam: no breakdown Neuro oriented x3, CN's II-XII intact bilaterally, moves all extremities and no focal motor deficits Sensorium / Orientation: awake and alert Speech: speech normal Psych thought process normal and affect normal Weight / BMI Weight Weight: 236 lb 5.369 oz Body Mass Index (BMI) 41.5 ABG / Lab / Microbiology Data Result Diagrams: 07/03/21 03:00 07/06/21 07:00 Microbiology: Microbiology 06/23/21 10:30 Stool Stool Occult Blood (YASEMIN) - Final Occult Blood Positive 06/19/21 12:00 Sputum, Induced/Lukens Gram Stain - Final 06/19/21 12:00 Sputum, Induced/Lukens Respiratory Culture - Final Presumptive C albicans 06/15/21 15:40 Blood Culture (Wb) - Right Hand Blood Culture - Final No growth in 5 days. 06/15/21 15:50 Blood Culture (Wb) - Pic Blood Culture - Final No growth in 5 days. 06/15/21 13:50 Sputum, Induced/Lukens Gram Stain - Final 06/15/21 13:50 Sputum, Induced/Lukens Respiratory Culture - Final Presumptive C albicans 06/11/21 09:34 Sputum, Induced/Lukens Gram Stain - Final 06/11/21 09:34 Sputum, Induced/Lukens Respiratory Culture - Final 06/11/21 11:00 Urine Catheter - Lewis Legionella Antigen - Final 06/11/21 11:00 Urine Catheter - Lewis Streptococcus pneumoniae Antigen (M - Final 06/08/21 03:45 Urine, Clean Catch Legionella Antigen - Final 06/08/21 03:45 Urine, Clean Catch Streptococcus pneumoniae Antigen (M - Final D/C Instructions Discharge Diet: - (tube feeding) Weight Bearing Status: Weight bearing as tolerated Call your doctor if you observe: Fever of 101 or Higher, Shortness of breath, Dizziness, Swelling in the ankles and Increased palpitations (irregular heartbeat) Meaningful Use Info Meaningful Use Diagnoses (Choose all that apply): None applicable Discharge Plan Admission Admit Date/Time: 06/07/21 20:10 Primary Reason for Your Visit: acute hypoxic respiratory failure due to COVID Attending Provider: Karo Montoya Primary Care Provider: Iggy Myers Consulting Providers: Trey Thomson ; Rubén Baker ; Satinder Jones ; Daija Toure NP ; Lee Pascual ; Charlotte Paige Discharge Orders/Prescriptions Prescriptions: New amlodipine 5 mg Tablet 5 mg PO DAILY Qty: 30 RF: 1 metoprolol tartrate 25 mg Tablet 25 mg G-tube BID Qty: 60 RF: 1 pantoprazole 40 mg tablet,delayed release (DR/EC) 40 mg PO BID Qty: 60 RF: 0 Continued potassium chloride [Klor-Con M20] 20 mEq Tablet,Er Particles/Crystals 20 meq PO BID RF: 0 fluoxetine 10 mg Capsule 10 mg PO DAILY RF: 0 loratadine 10 mg Tablet 10 mg PO DAILY RF: 0 cholecalciferol (vitamin D3) [Vitamin D3] 25 mcg (1,000 unit) Capsule 25 mcg PO DAILY RF: 0 dexamethasone [Decadron] 6 mg tablet 6 mg PO DAILY Qty: 9 RF: 0 Changed losartan 50 mg Tablet 50 mg feeding tube DAILY Qty: 0 RF: 0 hydrochlorothiazide 12.5 mg Capsule 12.5 mg feeding tube DAILY Qty: 0 RF: 0 Referrals / Follow Up: Iggy Myers MD [Primary Care Provider] - Within 1 Week Disposition Disposition (needs filled in before D/C Order can be placed): 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
== END 2021-07-08 16:39 | DRG 4 ==
LOC: ED 17:58 → PCU 20:59 → ICU 06-11 05:12
PROVIDERS: Family Medicine; Internal Medicine; Internal Medicine Critical Care Medicine; Internal Medicine Infectious Disease; Otolaryngology; Surgery; Admitting Provider Hospitalist; Emergency Provider Student in an Organized Health Care Education/Training Program; PCP Family Medicine; Visit Provider Student in an Organized Health Care Education/Training Program
PROC: 0DJ08ZZ Inspection of Upper Intestinal Tract, Via Natural or Artificial Opening Endoscopic (ICD-10-PCS; CPT 43235; principal; 2021-06-25 13:55)
PROC: 0B110F4 Bypass Trachea to Cutaneous with Tracheostomy Device, Open Approach (ICD-10-PCS; principal; 2021-07-03 11:45)
DX: U07.1 COVID-19 (principal); J12.82 Pneumonia due to coronavirus disease 2019; J96.01 Acute respiratory failure with hypoxia; J15.9 Unspecified bacterial pneumonia; D62 Acute posthemorrhagic anemia; N17.9 Acute kidney failure, unspecified; Z68.41 Body mass index [BMI] 40.0-44.9, adult; K92.2 Gastrointestinal hemorrhage, unspecified; K44.9 Diaphragmatic hernia without obstruction or gangrene; E78.1 Pure hyperglyceridemia; E87.6 Hypokalemia; E83.39 Other disorders of phosphorus metabolism; F32.A Depression, unspecified; F41.9 Anxiety disorder, unspecified; E66.01 Morbid (severe) obesity due to excess calories; I10 Essential (primary) hypertension
CPT/HCPCS: 31500; 31720; 36415; 36569; 36600; 71045; 71275; 74018; 80048; 80053; 82274; 82550; 82803; 83735; 83880; 84100; 84145; 84478; 84484; 85014; 85018; 85025; 85027; 85379; 85610; 86850; 86900; 86901; 86922; 87040; 87070; 87205; 87449; 87641; 93005; 94002; 94003; 94640; 97110; 97162; 97166; 97530; 97535; 97802; 97803; 99251; 99285; J7050; P9016; Q9967; A4216; G0463; J0330; J1940; J2405; J3010

== ENCOUNTER → 2024-03-07 | Outpatient (CLI) | payer OTHER, SELFPAY | END | disposition home or self-care (01) | PROVIDERS: PCP Family Medicine | DX: G47.33 Obstructive sleep apnea (adult) (pediatric) (principal); I27.20 Pulmonary hypertension, unspecified | CPT/HCPCS: 95810 ==

== ENCOUNTER → 2024-11-15 | Outpatient (CLI) | payer OTHER, SELFPAY ==
--- NOTE | 2024-11-15 10:08 | PCM.PR.HP ---
History of Present Illness General Arrival date:: 11/15/24 Arrival time:: 10:08 Date of Referral:: 10/29/24 Date of Evaluation: 11/15/24 Referring Physician: Dr. Layne Jones Primary Diagnosis: Post Covid, dyspnea History of Present Pulmonary Event mMRC Breathless Scale: When is the patient short of breath? Y/N Grade: Description of Breathlessness: 0 I only get breathless with strenuous exercise. 1 I get short of breath when hurrying on level ground or walking up a slight hill. 2 On level ground, I walk slower than people of the same age because of breathless, or have to stop for breath when walking at my own pace. 3 I stop for breath after walking 100 yards or after a few minutes on level ground. 4 I am too breathless to leave the house or I am breathless when dressing. Respiratory Problems: Yes Retain Secretions, Fatigue, Able to Speak in Full Sentences, Dyspnea with Activity, Dyspnea Lying Down Flat and Cough with Secretions; No Limited Range of Motion, Chest Pain, Wheezing, Dizziness, Ankle Swelling, Hoarseness, Anxiety, Panic or Dyspnea at Rest Medications Home Medications cholecalciferol (vitamin D3) 25 mcg (1,000 unit) capsule (Vitamin D3) 25 mcg PO DAILY 06/05/21 dexamethasone 6 mg tablet (Decadron) 6 mg PO DAILY #9 tabs 06/05/21 fluoxetine 10 mg capsule 10 mg PO DAILY 06/05/21 loratadine 10 mg tablet 10 mg PO DAILY 06/05/21 potassium chloride 20 mEq tablet,extended release(part/cryst) (Klor-Con M) 20 meq PO BID 06/05/21 amlodipine 5 mg tablet 5 mg PO DAILY #30 tabs 07/07/21 hydrochlorothiazide 12.5 mg capsule 12.5 mg feeding tube DAILY #0 caps 07/07/21 losartan 50 mg tablet 50 mg feeding tube DAILY #0 tabs 07/07/21 metoprolol tartrate 25 mg tablet 25 mg G-tube BID #60 tabs 07/07/21 pantoprazole 40 mg tablet,delayed release 40 mg PO BID #60 tabs 07/07/21 Allergies Allergies No Known Allergies Allergy (Verified 06/07/21 17:00) Secretions Normal Color:: clear Thick:: Yes Amount/Day:: 1 TSP Cough:: Yes AM: Yes Sleep Disorder Evaluation Hx of Sleep Apnea: No Do you snore loudly (louder than talking or can be heard through closed doors)?: No Do you often feel tired/ fatigued/ sleepy during daytime?: No Has anyone observed you stop breathing during sleep?: No History of Hypertension (for STOP score): Yes STOP Results: Negative Medical Utilization Medical Devices Do you use a peak flow meter at home?: Yes Do you use a spacer device with your inhalers?: No Medical Utilization Number of hospital visits in the last year?: 0 Number of emergency room visits in the last year?: 0 Do you see your physician on a regular schedule?: Yes How often?: twice a year Advanced Directives Advanced Directives Do you have a Healthcare Power of Painter And Paperhanger Apprentice?: No Living Will: No Advance Directives Information Provided: No DNR Order?:: No Past Medical History Covid-19 Screening Physicial Symptoms Other Clinical Concerns Exposure Risk Pertinent Comorbidities Has a chronic lung disease or moderate to severe asthma:: Yes Severely obese (Body Mass Index of 40 or higher):: Yes Has chronic kidney disease undergoing dialysis:: Yes Medical History Medical History Depression Hypertension Meniscal injury Surgical History Past Surgical History (Updated 06/07/21 @ 20:[address] Paramjit Mcclain MD) H/O knee surgery Z98.890 Previous back surgery Z98.890 History of hysterectomy Z90.710 Social History Smoking History Smoking Status: Never smoker Alcohol Use Alcohol Usage: No Substance Abuse Hx Substance Use: No Occupation Occupation (List type of work in comments):: Unemployed Functioning ADL/IADL Current Ability Current Ability: Independent: Self-Care (e.g.,grooming, dressing, & bathing), Independent: Ambulation and Independent: Transfer Pt Functioning Prior to Problem Prior Functioning: Self-Care (e.g.,grooming, dressing, & bathing): Independent, Ambulation: Independent, Transfer: Independent and Household tasks (e.g., light meal prep, laundry, shopping): Independent Social Environment Status Marital Status: Current Living Arrangements Living Environment:: Family Children How many children do you have?: 5 Do any of your children live nearby?: Yes Safety Do you feel safe in your surroundings?: Yes Assistance Do you need any assistance at home?: no Review of Systems Review of Systems Review of Systems Respiratory: Reports Cough, Hemoptysis, SOB upon Exertion, Sputum production, Appetite, Normal, Fatigue and Sleep, Normal; Denies Pleuritic Pain, SOB at Rest, Wheezing, Dizziness/Lightheadedness, PVD or Sexual changes Pain Is Patient Pain Free?: Yes Risk Factor Assessment Chief Complaint Chief Complaint: Post Covid, dyspnea Vital Signs Pulse Rate: 59 Pulse Ox: 97 Blood Pressure: 138/84 Obesity Height: 5 ft 6 in Weight:: 280 lb Weight in Pounds: 280.0 lbs Body Mass Index (BMI): 45.1 Nutritional Referral for Obesity: No (declines) Physical Activity Physical Inactivity: Physically demanding job Risk Stratification Risk Guidelines: Lowest Risk: Risk Factor for Smoking, Moderate Risk: Risk Factor for Dyslipidemia, Risk Factor for Diabetes, Risk Factor for Sedentary Lifestyle and Risk Factor for Depression and Highest Risk: Risk Factor for Obesity and Risk Factor for Hypertension For Smoking Smoking Risk Guidelines For Dyslipidemia Dyslipidemia Risk Guidelines For Diabetes Mellitus Diabetes Risk Guidelines For Obesity/Overweight Obesity/Overweight Risk Guidelines For Hypertension Hypertension Risk Guidelines For Sedentary Lifestyle Sedentary Lifestyle Risk Guidelines For Depression Depression Risk Guidelines Motivation Motivation to Participate On a scale of 1 to 10, how prepared are you to commit to attending program?: 6 What do you see as barriers to successfully being able to complete the program?: nothing What do you see as the benefits of succesfully completing the program? In other words, what do you hope to get out of participating in the program?: more energy, breath easier Are there issues you are dealing with that will interfere with completing the program?: no Do you have a spouse or signficant other, family or friends who will help support you to complete the program?: yes Diagnostic Data Review Pulmonary Function Test FEV1:: 63 FVC:: 54 FEV1/FVC%:: 117
[2024-11-15 10:37] VITALS: PULSE 59; O2SAT 97
--- NOTE | 2024-11-15 11:06 | PR.ITP_ITS ---
General Information2 General Information Admitting Diagnosis: Post Covid Secondary Diagnosis: dyspnea PFT FEV1:: 63 FVC:: 54 FEV1/FVC%:: 117 Personal Learning Style/Barriers Personal Learning Style:: Audio/Visual Barriers to Learning: None Stage of change r/t lifestyle modifications: Contemplation Education/Goals [place] Patient Goals: Experience less dyspnea: Initial Assessment, Improve energy level: Initial Assessment, Participate in home exercise: Initial Assessment, Improve the ability to cope with ADLs: Initial Assessment, Improve knowledge of lung disease: Initial Assessment and Increase knowledge of oxygen use: Initial Assessment Exercise - Initial Assessment Visit Date of Eval: 11/15/24 (initial eval ) Problem/Goals Problems: Deconditioning, No regular exercise, Knowledge deficit exercise guidelines and Knowledge deficit exercise safety Goals:: Aerobic exercise 30-60 mins x 12 weeks [36 sessions] Physician Prescribed Exercise Modalities: Treadmill, Rower, [employer] AD-7, [employer] Stepper, [employer] Pro- II Ergometer and [employer] Intensity: 60-80% of age predicted maximum heart rate reserve Current METSs:: 2 Target HR:: 122 (97-122) Resting Blood Pressure: 138/84 Minimum SpO2 with exercise: 97 (With 3L pulsed) Plan Plan and Plan to Review:: Benefits of exercise, Core components of exercise, How to measure dyspnea level, How to monitor dyspnea level, Exercise intensity, Exercise safety guideline, Home exercise guidelines and Eduardo: 3-4/11-13 Home Exercise Mode: Other Nutrition/Wt Mgmt - Initial Visit Date of Eval: 11/15/24 (initial eval ) Problems/Goals Problems: Overweight Goals: Wt Loss 1-2 lbs per week Weight Management Knowledge Deficit Management of:: Overweight and Role of exercise in weight control Admit Height:: 5 ft 6 in Admit Weight:: 280 lb Admit BMI:: 45.1 Intervention Referral to dietitian:: No (declines) Will attend diet classes:: Yes Intervention/Plan: Instruct on ideal BMI & set weight loss goal w/patient, Assist pt to ID & incorporate diet changes for weight loss by S9, Refer to Structured Weight Loss program as appropriate, Encourage goal of using 250- 300dcal per session for weight loss and Other additional plan/interventions Plan Nutrition Plan: Yes: Review BMI or WC & identify target wt & strategies for wt control, Yes: Nutrition education class:, Yes: Medication education class [Prednisone]:, Yes: Weight control education class:, Yes: Education re: Need for ongoing weight monitoring, Yes: Food diary: and Yes: Physical activity log: Nutrition/Wt Mgmt - 30-Day Weight Management Height: 5 ft 6 in Weight:: 280 lb BMI: 45.1 Nutrition/Wt Mgmt - 60-Day Weight Management Height: 5 ft 6 in Weight:: 280 lb BMI: 45.1 Nutrition/Wt Mgmt - 90-Day Weight Management Height: 5 ft 6 in Weight:: 280 lb BMI: 45.1 Nutrition/Wt Mgmt - Final Weight Management Height: 5 ft 6 in Weight:: 280 lb BMI: 45.1 Psychosocial - Initial Assess Visit Date of Eval: 11/15/24 (initial eval ) Problems/Goals History of Emotional Disorders: None Psychosocial Goals: 1. Patient is free from overwhelming symtoms of depression (or anxiety, 2. Identifies personal stressors & states the strategies for managing, 3. Identifies activities to decrease isolation and/or symptoms of, 4. Improved psychosocial coping skills., 5. Verbalizes coping strategies., 6. Adequate treatment of depression. and 7. Improved Q.O.L. Psychosocial Test PHQ-9 Score: 2 Referred to MD for counseling:: No Referral to Behavioral Health PS - Interventions: Yes: Attend Stress Management Classes Intervention/Plan: See List Interventions/Plan:: Assess stressors,coping strategies & signs of derpression on admission, Instruct/assist pt to develop coping & personal stress Mgt strategies, Refer to Behavioral Health if appropriate, Refer to Physician if appropriate, Instruct patient to recognize signs & symptoms of depression and Instruct patient to recog Psychosocial - 30-Day Problems/Goals History of Emotional Disorders: None Psychosocial Goals: 1. Patient is free from overwhelming symtoms of depression (or anxiety, 2. Identifies personal stressors & states the strategies for managing, 3. Identifies activities to decrease isolation and/or symptoms of, 4. Improved psychosocial coping skills., 5. Verbalizes coping strategies., 6. Adequate treatment of depression. and 7. Improved Q.O.L. Psychosocial Test PHQ-9 Score: 2 Referred to MD for counseling:: No Referral to Behavioral Health PS - Interventions: Yes: Attend Stress Management Classes Plan Interventions/Plan:: Assess stressors,coping strategies & signs of derpression on admission, Instruct/assist pt to develop coping & personal stress Mgt strategies, Refer to Behavioral Health if appropriate, Refer to Physician if appropriate, Instruct patient to recognize signs & symptoms of depression and Instruct patient to recog Psychosocial - 60-Day Problems/Goals History of Emotional Disorders: None Psychosocial Goals: 1. Patient is free from overwhelming symtoms of depression (or anxiety, 2. Identifies personal stressors & states the strategies for managing, 3. Identifies activities to decrease isolation and/or symptoms of, 4. Improved psychosocial coping skills., 5. Verbalizes coping strategies., 6. Adequate treatment of depression. and 7. Improved Q.O.L. Psychosocial Test PHQ-9 Score: 2 Referred to MD for counseling:: No Referral to Behavioral Health PS - Interventions: Yes: Attend Stress Management Classes Plan Interventions/Plan:: Assess stressors,coping strategies & signs of derpression on admission, Instruct/assist pt to develop coping & personal stress Mgt strategies, Refer to Behavioral Health if appropriate, Refer to Physician if appropriate, Instruct patient to recognize signs & symptoms of depression and Instruct patient to recog Psychosocial - 90-Day Problems/Goals History of Emotional Disorders: None Psychosocial Goals: 1. Patient is free from overwhelming symtoms of depression (or anxiety, 2. Identifies personal stressors & states the strategies for managing, 3. Identifies activities to decrease isolation and/or symptoms of, 4. Improved psychosocial coping skills., 5. Verbalizes coping strategies., 6. Adequate treatment of depression. and 7. Improved Q.O.L. Psychosocial Test PHQ-9 Score: 2 Referred to MD for counseling:: No Referral to Behavioral Health PS - Interventions: Yes: Attend Stress Management Classes Plan Interventions/Plan:: Assess stressors,coping strategies & signs of derpression on admission, Instruct/assist pt to develop coping & personal stress Mgt strategies, Refer to Behavioral Health if appropriate, Refer to Physician if appropriate, Instruct patient to recognize signs & symptoms of depression and Instruct patient to recog Psychosocial - Final Assess Problems/Goals History of Emotional Disorders: None Psychosocial Goals: 1. Patient is free from overwhelming symtoms of depression (or anxiety, 2. Identifies personal stressors & states the strategies for managing, 3. Identifies activities to decrease isolation and/or symptoms of, 4. Improved psychosocial coping skills., 5. Verbalizes coping strategies., 6. Adequate treatment of depression. and 7. Improved Q.O.L. Psychosocial Test PHQ-9 Score: 2 Referred to MD for counseling:: No Referral to Behavioral Health PS - Interventions: Yes: Attend Stress Management Classes Plan Interventions/Plan:: Assess stressors,coping strategies & signs of derpression on admission, Instruct/assist pt to develop coping & personal stress Mgt strategies, Refer to Behavioral Health if appropriate, Refer to Physician if appropriate, Instruct patient to recognize signs & symptoms of depression and Instruct patient to recog Oxygen & Oxygen Titration Init Visit Date of Eval: 11/15/24 (initial eval ) Initial Assessment Oxygen on Admission: Continuous home use SpO2:: 97 (With 3L pulsed) Patient Reports:: Prod cough daily <1 Tbsp and 0-1/yr respiratory infection Goal Oxygen & Oxygen Tritration Goals: Effective hypoxemia control and Uses O2 as Rx'd/safely Plans Plan: Monitor SpO2 rest & with exercise, Recommend appropriate FiO2 to Pt/MD, Assist to contact DME for O2, Train appropriate O2 use at rest, Train appropriate O2 use with exercise and Train O2 safety & systems Reviewed prescribed medications:: Purpose, Schedule, Side effects and Importance of compliance Instruct correct technique/timing & care:: MDI, DPI, Nebulizer and Return demo use of inhaler Bronchial Hygiene Plan: Controlled cough, CPT, Vibratory PEP device, VEST, Role of exercise in secretion clearance, NS Nasal spray, Hydration, Hand hygiene, Evaluate sputum, When to call MD, Signs/symptoms to report:, Influenza/Pneumovax vaccines and Cleaning of respiratory equipment Oxygen & Oxygen Titration 30D Reassessment SpO2:: 97 (With 3L pulsed) Oxygen & Oxygen Titration 60D Reassessment SpO2:: 97 (With 3L pulsed) Oxygen & Oxygen Titration 90D Reassessment SpO2:: 97 (With 3L pulsed) Oxygen & Oxygen Titration WILLY Reassessment SpO2:: 97 (With 3L pulsed) Core Components - Initial Visit Date of Eval: 11/15/24 (initial eval ) Hypertension Hypertension Diagnosis:: Hypertension ICD-10 I10 BP: 138/84 [place] [employer] Hypertension Guidelines Outcomes/Goals: Able to verbalize/achieve optimal blood pressure <130/80 and Incorporates diet changes & exercise for blood pressure control by DC Tobacco - Initial Assessment Tobacco Program Goals Tobacco Use: Non-smoker Exacerbation Mgmt & Airway Clearance Problems:: Needs O2 Rx recommendation and Poor knowledge of O2 use/safety Hypoxemia Goals:: Hypoxemia managed, Port system and Using O2 as Rx's safely Goals: Pt demonstrates effective cough, effective secretion clearance. Patient Reports:: Prod cough daily <1 Tbsp and 0-1/yr respiratory infection Plan: Monitor SpO2 rest & with exercise, Recommend appropriate FiO2 to Pt/MD, Assist to contact DME for O2, Train appropriate O2 use at rest, Train appropriate O2 use with exercise and Train O2 safety & systems Instruct correct technique/timing & care:: MDI, DPI, Nebulizer and Return demo use of inhaler Bronchial Hygiene Plan: Controlled cough, CPT, Vibratory PEP device, VEST, Role of exercise in secretion clearance, NS Nasal spray, Hydration, Hand hygiene, Evaluate sputum, When to call MD, Signs/symptoms to report:, Influenza/Pneumovax vaccines and Cleaning of respiratory equipment Medication Interventions/plans: Instruct on medication effects & side effects, Review medication list w/patient every two weeks and Instruct importance of taking meds as ordered & assist problem solving Medication Goals: Adherence to prescribed medications and Correct technique/timing & care of MDI, DPI, nebulizer, and spacer. Does pt report taking home meds as prescribed?: Yes Reviewed prescribed medications:: Purpose, Schedule, Side effects and Importance of compliance Diabetes Diabetes:: No Referral to dietitian:: No (declines) Will attend diet classes:: Yes Core Components - 30 DAYS Hypertension Hypertension Diagnosis:: Hypertension ICD-10 I10 Resting Blood Pressure:: 138/84 [place] [employer] Hypertension Guidelines Outcomes/Goals: Able to verbalize/achieve optimal blood pressure <130/80 and Incorporates diet changes & exercise for blood pressure control by DC Tobacco - 30-Day Tobacco Program Goals Tobacco Use: Non-smoker Diabetes Diabetes:: No Core Components - 60 DAYS Hypertension Hypertension Diagnosis:: Hypertension ICD-10 I10 Resting Blood Pressure:: 138/84 [place] [employer] Hypertension Guidelines Outcomes/Goals: Able to verbalize/achieve optimal blood pressure <130/80 and Incorporates diet changes & exercise for blood pressure control by DC Tobacco - 60-Day Tobacco Program Goals Tobacco Use: Non-smoker Diabetes Diabetes:: No Core Components - 90 DAYS Hypertension Hypertension Diagnosis:: Hypertension ICD-10 I10 Resting Blood Pressure:: 138/84 [place] [employer] Hypertension Guidelines Outcomes/Goals: Able to verbalize/achieve optimal blood pressure <130/80 and Incorporates diet changes & exercise for blood pressure control by DC Tobacco - 90-Day Tobacco Program Goals Tobacco Use: Non-smoker Diabetes Diabetes:: No Core Components - Final Hypertension Hypertension Diagnosis:: Hypertension ICD-10 I10 Resting Blood Pressure:: 138/84 [place] [employer] Hypertension Guidelines Outcomes/Goals: Able to verbalize/achieve optimal blood pressure <130/80 and Incorporates diet changes & exercise for blood pressure control by DC Tobacco - Final Tobacco Program Goals Tobacco Use: Non-smoker Diabetes Diabetes:: No Patient Health Questionnaire PHQ-9 Screening Initial Assessment: 1. Little interest or pleasure in doing things: Not at all 2. Feeling down, depressed, or hopeless: Not at all 3. Trouble falling or staying asleep, or sleeping too much: Several days 4. Feeling tired or having little energy: Several days 5. Poor appetite or overeating: Not at all 6. Feeling bad about yourself -- or that you are a failure or have let yo urself or your family down: Not at all 7. Trouble concentrating on things, such as reading the newspaper or watching television: Not at all 8. Moving or speaking so slowly that other people could have noticed. Or the opposite - being so fidgety or restless that you have been moving around a lot more than usual: Not at all 9. Thoughts that you would be better off , or of hurting yourself in some way: Not at all How difficult have these problems made it for you to do your work, take care of things at home, or get along with other people?: Not difficult at all Total Score: 2 Knowledge Questionaire (BCKQ) Information Information: [place] COPD Knowledge Questionnaire (BCKQ) This questionnaire is designed to find out what you know about your lung problem. It should be completed without help form anyone else. This usually takes between 10 and 20 minutes. Your answers will help us to find out what information you need to help you to understand and manage your lung condition. [place] which you think is the correct answer. COPD Assessment Test [CAT] Questions Never cough = 0, Cough all the time = 5: 3 No phlegm = 0, Chest full of phlegm = 5: 3 No chest tightness = 0, Chest very tight = 5: 0 No breathless w/exertion = 0, Very breathless w/exertion = 5: 5 No limitations w/activity = 0, Very limited w/activity = 5: 3 Confident leaving home = 0, Not at all confident = 5: 3 Sleep soundly = 0, Don't sleep soundly = 5: 3 Lots of energy = 0, No energy at all = 5: 0 Total CAT score:: 20 Self-Efficacy 6-Item Scale Initial Assessment: We would like to know how confident you are in doing certain activities. Please select your confidence level for: Fatigue Select Number: 5 Physical Discomfort or Pain Select Number: 5 Emotional Distress Select Number: 3 Other Symptoms or Health Problems Select Number: 3 Different Tasks and Activities Select Number: 3 Medication Select Number: 3 Total Score:: 3 Nutrition Survey Nutrition Survey Instructions Scoring Instructions Nutrition Survey Initial: Have you lost >10 lbs over the past 2 months without trying?: No Are you following a special diet at home for diabetes, low fat, or low salt?: No Are you interested in meeting with a dietitian for help understanding your diet?: No Do you eat less than 3 meals a day?: No Do you eat fatty meats (tariq, sausage, ribs, etc), fried foods, desserts, large amounts of salad dressings, margarine, butter, or cheese most days?: No Do you have food allergies? [Enter types in comment field]: No Do you eat in restaurants more than 3 times a week?: No Do you season food with salt, seasoning salt, or garlic salt?: Yes Do you used canned, boxed, frozen meals, or soups, seasoning packets?: No Total Score:: 1
[2024-11-15 11:18] VITALS: BP 138/84; O2SAT 97; BMI 45.1
[2024-11-15 11:20] VITALS: BP 138/84; BMI 45.1
== END | disposition home or self-care (01) ==
LOC: PR 10:02
PROVIDERS: PCP Family Medicine
DX: R06.09 Other forms of dyspnea (principal); U09.9 Post COVID-19 condition, unspecified

== ENCOUNTER 2024-11-21 10:00 | Outpatient (RCR) | payer OTHER, SELFPAY ==
[2024-11-15 11:18] VITALS: BMI 45.1
== END 2024-11-21 23:59 ==
LOC: PR 10:00
PROVIDERS: PCP Family Medicine
DX: R06.09 Other forms of dyspnea (principal); U09.9 Post COVID-19 condition, unspecified
CPT/HCPCS: 97150; 94626

== ENCOUNTER 2024-12-21 10:00 | Outpatient (RCR) | payer OTHER, SELFPAY ==
[2024-11-15 11:18] VITALS: BMI 45.1
--- NOTE | 2024-12-13 07:00 | PR.ITP_ITS ---
Exercise - Initial Assessment Visit Session Number:: 11 Physician Prescribed Exercise Modalities: Treadmill, SciFit Stepper and SciFit Pro-II Ergometer Current METSs:: 1.8 Target HR:: 122 (97-122) Current RPD:: 2-3 Maximum Exercise HR:: 77 Resting Blood Pressure: 114/72 Maximum Exercise Blood Pressure: 132/82 Minimum SpO2 with exercise: 91 EKG Type: SB to NSR Nutrition/Wt Mgmt - Initial Visit Date of Eval: 12/13/24 Session Number:: 11 Weight Management Admit Height:: 5 ft 6 in Admit Weight:: 283 lb Admit BMI:: 45.6 Nutrition/Wt Mgmt - 30-Day Visit Date of Eval: 12/13/24 Session Number:: 11 Weight Management Height: 5 ft 6 in Weight:: 283 lb BMI: 45.6 Weight Goals Progress:: Progressing (Pt is scheduled to attend nutrition class. Pt encouraged to eat aheart healthy low sodium diet. Food diary encouraged for our review.) Nutrition/Wt Mgmt - 60-Day Visit Session Number:: 11 Weight Management Height: 5 ft 6 in Weight:: 283 lb BMI: 45.6 Nutrition/Wt Mgmt - 90-Day Visit Session Number:: 11 Weight Management Height: 5 ft 6 in Weight:: 283 lb BMI: 45.6 Nutrition/Wt Mgmt - Final Visit Session Number:: 11 Weight Management Height: 5 ft 6 in Weight:: 283 lb BMI: 45.6 Psychosocial - Initial Assess Visit Date of Eval: 12/13/24 Session Number:: 11 Problems/Goals History of Emotional Disorders: None Psychosocial Goals: 1. Patient is free from overwhelming symtoms of depression (or anxiety, 2. Identifies personal stressors & states the strategies for managing, 3. Identifies activities to decrease isolation and/or symptoms of, 4. Improved psychosocial coping skills., 5. Verbalizes coping strategies., 6. Adequate treatment of depression. and 7. Improved Q.O.L. Psychosocial Test Tool Used:: Pulmonary QOL and PHQ-9 Questionnaire PHQ-9 Score: 2 Referral to Behavioral Health PS - Interventions: Yes: Attend Stress Management Classes Intervention/Plan: See List Interventions/Plan:: Assess stressors,coping strategies & signs of derpression on admission, Instruct/assist pt to develop coping & personal stress Mgt strategies, Refer to Behavioral Health if appropriate, Refer to Physician if appropriate, Instruct patient to recognize signs & symptoms of depression and Instruct patient to recog Comments:: Pt will attend stress management class. Psychosocial - 30-Day Visit Date of Eval: 12/13/24 Session Number:: 11 Problems/Goals History of Emotional Disorders: None Psychosocial Goals: 1. Patient is free from overwhelming symtoms of depression (or anxiety, 2. Identifies personal stressors & states the strategies for managing, 3. Identifies activities to decrease isolation and/or symptoms of, 4. Improved psychosocial coping skills., 5. Verbalizes coping strategies., 6. Adequate treatment of depression. and 7. Improved Q.O.L. Psychosocial Test Tool Used:: Pulmonary QOL and PHQ-9 Questionnaire PHQ-9 Score: 2 Referral to Behavioral Health PS - Interventions: Yes: Attend Stress Management Classes Plan Interventions/Plan:: Assess stressors,coping strategies & signs of derpression on admission, Instruct/assist pt to develop coping & personal stress Mgt strategies, Refer to Behavioral Health if appropriate, Refer to Physician if appropriate, Instruct patient to recognize signs & symptoms of depression and Instruct patient to recog Comments:: Pt will attend stress management class. Psychosocial - 60-Day Visit Session Number:: 11 Problems/Goals History of Emotional Disorders: None Psychosocial Goals: 1. Patient is free from overwhelming symtoms of depression (or anxiety, 2. Identifies personal stressors & states the strategies for managing, 3. Identifies activities to decrease isolation and/or symptoms of, 4. Improved psychosocial coping skills., 5. Verbalizes coping strategies., 6. Adequate treatment of depression. and 7. Improved Q.O.L. Psychosocial Test Tool Used:: Pulmonary QOL and PHQ-9 Questionnaire PHQ-9 Score: 2 Referral to Behavioral Health PS - Interventions: Yes: Attend Stress Management Classes Plan Interventions/Plan:: Assess stressors,coping strategies & signs of derpression on admission, Instruct/assist pt to develop coping & personal stress Mgt strategies, Refer to Behavioral Health if appropriate, Refer to Physician if appropriate, Instruct patient to recognize signs & symptoms of depression and Instruct patient to recog Comments:: Pt will attend stress management class. Psychosocial - 90-Day Visit Session Number:: 11 Problems/Goals History of Emotional Disorders: None Psychosocial Goals: 1. Patient is free from overwhelming symtoms of depression (or anxiety, 2. Identifies personal stressors & states the strategies for managing, 3. Identifies activities to decrease isolation and/or symptoms of, 4. Improved psychosocial coping skills., 5. Verbalizes coping strategies., 6. Adequate treatment of depression. and 7. Improved Q.O.L. Psychosocial Test Tool Used:: Pulmonary QOL and PHQ-9 Questionnaire PHQ-9 Score: 2 Referral to Behavioral Health PS - Interventions: Yes: Attend Stress Management Classes Plan Interventions/Plan:: Assess stressors,coping strategies & signs of derpression on admission, Instruct/assist pt to develop coping & personal stress Mgt strategies, Refer to Behavioral Health if appropriate, Refer to Physician if appropriate, Instruct patient to recognize signs & symptoms of depression and Instruct patient to recog Comments:: Pt will attend stress management class. Psychosocial - Final Assess Visit Session Number:: 11 Problems/Goals History of Emotional Disorders: None Psychosocial Goals: 1. Patient is free from overwhelming symtoms of depression (or anxiety, 2. Identifies personal stressors & states the strategies for managing, 3. Identifies activities to decrease isolation and/or symptoms of, 4. Improved psychosocial coping skills., 5. Verbalizes coping strategies., 6. Adequate treatment of depression. and 7. Improved Q.O.L. Psychosocial Test Tool Used:: Pulmonary QOL and PHQ-9 Questionnaire PHQ-9 Score: 2 Referral to Behavioral Health PS - Interventions: Yes: Attend Stress Management Classes Plan Interventions/Plan:: Assess stressors,coping strategies & signs of derpression on admission, Instruct/assist pt to develop coping & personal stress Mgt strategies, Refer to Behavioral Health if appropriate, Refer to Physician if appropriate, Instruct patient to recognize signs & symptoms of depression and Instruct patient to recog Comments:: Pt will attend stress management class. Oxygen & Oxygen Titration Init Visit Date of Eval: 12/13/24 Session Number:: 11 Initial Assessment Oxygen on Admission: Continuous home use (3 L) SpO2:: 91 Port O2:: yes Patient Reports:: No cough Goal Oxygen & Oxygen Tritration Goals: Effective hypoxemia control and Uses O2 as Rx'd/safely Plans Plan: Monitor SpO2 rest & with exercise, Recommend appropriate FiO2 to Pt/MD, Assist to contact DME for O2, Train appropriate O2 use at rest, Train appropriate O2 use with exercise and Train O2 safety & systems Reviewed prescribed medications:: Purpose, Schedule, Side effects and Importance of compliance Instruct correct technique/timing & care:: MDI, DPI, Nebulizer and Return demo use of inhaler Bronchial Hygiene Plan: Controlled cough, CPT, Vibratory PEP device, VEST, Role of exercise in secretion clearance, NS Nasal spray, Hydration, Hand hygiene, Evaluate sputum, When to call MD, Signs/symptoms to report:, Influenza/Pneumovax vaccines and Cleaning of respiratory equipment Oxygen & Oxygen Titration 30D Visit Date of Eval: 12/13/24 Session Number:: 11 Reassessment SpO2:: 91 Oxygen & Oxygen Titration 60D Visit Date of Eval: 12/13/24 Session Number:: 11 Reassessment SpO2:: 91 Oxygen & Oxygen Titration 90D Visit Date of Eval: 12/13/24 Session Number:: 11 Reassessment SpO2:: 91 Oxygen & Oxygen Titration WILLY Visit Date of Eval: 12/13/24 Session Number:: 11 Reassessment SpO2:: 91 Core Components - Initial Visit Date of Eval: 12/13/24 Session Number:: 11 Hypertension Hypertension Diagnosis:: Hypertension ICD-10 I10 BP: 114/72 [place] [employer] Hypertension Guidelines Outcomes/Goals: Able to verbalize/achieve optimal blood pressure <130/80 and Incorporates diet changes & exercise for blood pressure control by DC Tobacco - Initial Assessment Tobacco Program Goals Tobacco Use: Non-smoker Education Schedule Given:: Yes Gave Education Materials For:: Tobacco Triggers, Pulmonary Disease, Risk Factors, Breathing Techniques, Medical Compliance, Pulmonary A&P, Exacerbation Signs & Symptoms and Stress & Relaxation Exacerbation Mgmt & Airway Clearance Patient Reports:: No cough Plan: Monitor SpO2 rest & with exercise, Recommend appropriate FiO2 to Pt/MD, Assist to contact DME for O2, Train appropriate O2 use at rest, Train appropriate O2 use with exercise and Train O2 safety & systems Instruct correct technique/timing & care:: MDI, DPI, Nebulizer and Return demo use of inhaler Bronchial Hygiene Plan: Controlled cough, CPT, Vibratory PEP device, VEST, Role of exercise in secretion clearance, NS Nasal spray, Hydration, Hand hygiene, Evaluate sputum, When to call MD, Signs/symptoms to report:, Influenza/Pneumovax vaccines and Cleaning of respiratory equipment Medication Reviewed prescribed medications:: Purpose, Schedule, Side effects and Importance of compliance Diabetes Diabetes:: No Core Components - 30 DAYS Visit Date of Eval: 12/13/24 Session Number:: 11 Hypertension Hypertension Diagnosis:: Hypertension ICD-10 I10 Resting Blood Pressure:: 114/72 [place] [employer] Hypertension Guidelines Change in medication: No Outcomes/Goals: Able to verbalize/achieve optimal blood pressure <130/80 and Incorporates diet changes & exercise for blood pressure control by DC Interventions/plan: Instruct on optimal blood pressure, hypertension & medications and Instruct on effects of sodium, alcohol, stress, exercise &hypertension 30 day Reassessments:: Progressing Reassessment Notes & Comments:: Pt's BP's are within AHA normal limits on most days. Will continue to monitor and encourages a low sodium heart healthy diet. Tobacco - 30-Day Tobacco Program Goals Tobacco Use: Non-smoker Education Schedule Given:: Yes Gave Education Materials For:: Tobacco Triggers, Pulmonary Disease, Risk Factors, Breathing Techniques, Medical Compliance, Pulmonary A&P, Exacerbation S igns & Symptoms and Stress & Relaxation 30-day Reassessments:: Not Met Reassessment Notes & Comments:: Pt is a nonsmoker Exacerbation Mgmt & Airway Clearance Reassessment: Demonstrates knowledge of O2 Rx at rest, Demonstrates knowledge of O2 Rx with exercise, Using O2 as prescribed, Has home O2 as prescribed and Uses port O2 as prescribed Bronchial Hygiene Plan: Yes: Pt demonstrates correctly for effective cough, Yes: Pt demo correct for CPT, Yes: Pt demo correct for device, Yes: Pt demo correct for NS nasal spray, Yes: Pt demo correct for sputum management, Yes: Pt demo correct for improved hydration, Yes: Pt demo correct for hand hygiene, Yes: Pt demo correct for evalute sputum, Yes: Pt demo correct for verbalize when to call MD and Yes: Pt demo correct for cleaning of respiratory equipment Medication Medication list reviewed:: Yes Taking medications 100% of the time:: Met (Pt taking meds as prescribed.) Medication reassessment: Yes: Pt demonstrates correct technique timing for MDI, Yes: Pt demonstrates correct technique timing for DPI, Yes: Pt demonstrates correct technique timing for NEB and Yes: Pt demonstrates correct technique timing for spacer Diabetes Diabetes:: No Core Components - 60 DAYS Visit Session Number:: 11 Hypertension Hypertension Diagnosis:: Hypertension ICD-10 I10 Resting Blood Pressure:: 114/72 [place] [employer] Hypertension Guidelines Change in medication: No Outcomes/Goals: Able to verbalize/achieve optimal blood pressure <130/80 and Incorporates diet changes & exercise for blood pressure control by DC Interventions/plan: Instruct on optimal blood pressure, hypertension & medications and Instruct on effects of sodium, alcohol, stress, exercise &hypertension 60 day Reassessments:: Progressing Reassessment Notes & Comments:: Pt's BP's are within AHA normal limits on most days. Will continue to monitor and encourages a low sodium heart healthy diet. Tobacco - 60-Day Tobacco Program Goals Tobacco Use: Non-smoker Education Schedule Given:: Yes Gave Education Materials For:: Tobacco Triggers, Pulmonary Disease, Risk Factors, Breathing Techniques, Medical Compliance, Pulmonary A&P, Exacerbation Signs & Symptoms and Stress & Relaxation 60-day Reassessments:: Not Met Reassessment Notes & Comments:: Pt is a nonsmoker Exacerbation Mgmt & Airway Clearance Reassessment: Demonstrates knowledge of O2 Rx at rest, Demonstrates knowledge of O2 Rx with exercise, Using O2 as prescribed, Has home O2 as prescribed and Uses port O2 as prescribed Bronchial Hygiene Plan: Yes: Pt demonstrates correctly for effective cough, Yes: Pt demo correct for CPT, Yes: Pt demo correct for device, Yes: Pt demo correct for NS nasal spray, Yes: Pt demo correct for sputum management, Yes: Pt demo correct for improved hydration, Yes: Pt demo correct for hand hygiene, Yes: Pt demo correct for evalute sputum, Yes: Pt demo correct for verbalize when to call MD and Yes: Pt demo correct for cleaning of respiratory equipment Medication Taking medications 100% of the time:: Met (Pt taking meds as prescribed.) Medication reassessment: Yes: Pt demonstrates correct technique timing for MDI, Yes: Pt demonstrates correct technique timing for DPI, Yes: Pt demonstrates correct technique timing for NEB and Yes: Pt demonstrates correct technique timing for spacer Diabetes Diabetes:: No Core Components - 90 DAYS Visit Session Number:: 11 Hypertension Hypertension Diagnosis:: Hypertension ICD-10 I10 Resting Blood Pressure:: 114/72 [place] [employer] Hypertension Guidelines Outcomes/Goals: Able to verbalize/achieve optimal blood pressure <130/80 and Incorporates diet changes & exercise for blood pressure control by DC Interventions/plan: Instruct on optimal blood pressure, hypertension & medications and Instruct on effects of sodium, alcohol, stress, exercise &hypertension 90 day Reassessments:: Progressing Reassessment Notes & Comments:: Pt's BP's are within AHA normal limits on most days. Will continue to monitor and encourages a low sodium heart healthy diet. Tobacco - 90-Day Tobacco Program Goals Tobacco Use: Non-smoker Education Schedule Given:: Yes Gave Education Materials For:: Tobacco Triggers, Pulmonary Disease, Risk Factors, Breathing Techniques, Medical Compliance, Pulmonary A&P, Exacerbation Signs & Symptoms and Stress & Relaxation 90-day Reassessments:: Not Met Reassessment Notes & Comments:: Pt is a nonsmoker Exacerbation Mgmt & Airway Clearance Bronchial Hygiene Plan: Yes: Pt demonstrates correctly for effective cough, Yes: Pt demo correct for CPT, Yes: Pt demo correct for device, Yes: Pt demo correct for NS nasal spray, Yes: Pt demo correct for sputum management, Yes: Pt demo correct for improved hydration, Yes: Pt demo correct for hand hygiene, Yes: Pt demo correct for evalute sputum, Yes: Pt demo correct for verbalize when to call MD and Yes: Pt demo correct for cleaning of respiratory equipment Medication Medication reassessment: Yes: Pt demonstrates correct technique timing for MDI, Yes: Pt demonstrates correct technique timing for DPI, Yes: Pt demonstrates correct technique timing for NEB and Yes: Pt demonstrates correct technique timing for spacer Diabetes Diabetes:: No Core Components - Final Visit Session Number:: 11 Hypertension Hypertension Diagnosis:: Hypertension ICD-10 I10 Resting Blood Pressure:: 114/72 [place] [employer] Hypertension Guidelines Outcomes/Goals: Able to verbalize/achieve optimal blood pressure <130/80 and Incorporates diet changes & exercise for blood pressure control by DC Tobacco - Final Tobacco Program Goals Tobacco Use: Non-smoker Education Schedule Given:: Yes Exacerbation Mgmt & Airway Clearance Bronchial Hygiene Plan: Yes: Pt demonstrates correctly for effective cough, Yes: Pt demo correct for CPT, Yes: Pt demo correct for device, Yes: Pt demo correct for NS nasal spray, Yes: Pt demo correct for sputum management, Yes: Pt demo correct for improved hydration, Yes: Pt demo correct for hand hygiene, Yes: Pt demo correct for evalute sputum, Yes: Pt demo correct for verbalize when to call MD and Yes: Pt demo correct for cleaning of respiratory equipment Medication Medication reassessment: Yes: Pt demonstrates correct technique timing for MDI, Yes: Pt demonstrates correct technique timing for DPI, Yes: Pt demonstrates correct technique timing for NEB and Yes: Pt demonstrates correct technique timing for spacer Diabetes Diabetes:: No Patient Health Questionnaire PHQ-9 Screening 30-Day Re-eval Assessment: 1. Little interest or pleasure in doing things: Not at all 2. Feeling down, depressed, or hopeless: Not at all 3. Trouble falling or staying asleep, or sleeping too much: Several days 4. Feeling tired or having little energy: Several days 5. Poor appetite or overeating: Not at all 6. Feeling bad about yourself -- or that you are a failure or have let yourself or your family down: Not at all 7. Trouble concentrating on things, such as reading the newspaper or watching television: Not at all 8. Moving or speaking so slowly that other people could have noticed. Or the opposite - being so fidgety or restless that you have been moving around a lot more than usual: Not at all 9. Thoughts that you would be better off , or of hurting yourself in some way: Not at all How difficult have these problems made it for you to do your work, take care of things at home, or get along with other people?: Not difficult at all Total Score: 2 Knowledge Questionaire (BCKQ) Information Information: [facility] COPD Knowledge Questionnaire (BCKQ) This questionnaire is designed to find out what you know about your lung problem. It should be completed without help form anyone else. This usually takes between 10 and 20 minutes. Your answers will help us to find out what information you need to help you to understand and manage your lung condition. [place] which you think is the correct answer. Self-Efficacy 6-Item Scale 30-Day Re-eval Assessment: We would like to know how confident you are in doing certain activities. Please select your confidence level for: Fatigue Select Number: 5 Physical Discomfort or Pain Select Number: 5 Emotional Distress Select Number: 3 Other Symptoms or Health Problems Select Number: 3 Different Tasks and Activities Select Number: 3 Medication Select Number: 3 Total Score:: 3 Nutrition Survey Nutrition Survey Instructions Scoring Instructions
[2024-12-13 07:14] VITALS: BP 114/72; O2SAT 91; BMI 45.6
== END 2024-12-22 23:59 ==
LOC: PR 10:00
PROVIDERS: PCP Family Medicine
DX: R06.09 Other forms of dyspnea (principal)
CPT/HCPCS: 97150; 94626

== ENCOUNTER 2025-01-21 10:00 | Outpatient (RCR) | payer OTHER, SELFPAY ==
[2024-12-13 07:14] VITALS: BMI 45.6
[2024-12-23 00:14] VITALS: BP 114/72; BMI 45.6
--- NOTE | 2025-01-11 08:06 | PR.ITP_ITS ---
Exercise - Initial Assessment Visit Session Number:: 22 Physician Prescribed Exercise Modalities: Treadmill, SciFit Stepper and SciFit Pro-II Ergometer Target HR:: 122 (97-122) Current RPD:: 2 Maximum Exercise HR:: 76 Resting Blood Pressure: 118/76 Maximum Exercise Blood Pressure: 140/82 Minimum SpO2 with exercise: 90 (Pt is on 3L) EKG Type: SB to NSR Nutrition/Wt Mgmt - Initial Visit Session Number:: 22 Weight Management Admit Height:: 5 ft 6 in Admit Weight:: 280 lb 8 oz Admit BMI:: 45.2 Nutrition/Wt Mgmt - 30-Day Visit Date of Eval: 01/11/25 Session Number:: 22 Weight Management Height: 5 ft 6 in Weight:: 280 lb 8 oz BMI: 45.2 Nutrition/Wt Mgmt - 60-Day Visit Date of Eval: 01/11/25 Session Number:: 22 Weight Management Height: 5 ft 6 in Weight:: 280 lb 8 oz BMI: 45.2 Weight Goals Progress:: Progressing (Pt has lost 2.5 lbs) Nutrition/Wt Mgmt - 90-Day Visit Session Number:: 22 Weight Management Height: 5 ft 6 in Weight:: 280 lb 8 oz BMI: 45.2 Weight Goals Progress:: Progressing (Pt has lost 2.5 lbs) Nutrition/Wt Mgmt - Final Visit Session Number:: 22 Weight Management Height: 5 ft 6 in Weight:: 280 lb 8 oz BMI: 45.2 Psychosocial - Initial Assess Visit Session Number:: 22 Problems/Goals History of Emotional Disorders: None Psychosocial Goals: 1. Patient is free from overwhelming symtoms of depression (or anxiety, 2. Identifies personal stressors & states the strategies for managing, 3. Identifies activities to decrease isolation and/or symptoms of, 4. Improved psychosocial coping skills., 5. Verbalizes coping strategies. and 7. Improved Q.O.L. Psychosocial Test Tool Used:: PHQ-9 Questionnaire PHQ-9 Score: 2 Referral to Behavioral Health PS - Interventions: Yes: Attend Stress Management Classes Intervention/Plan: See List Interventions/Plan:: Assess stressors,coping strategies & signs of derpression on admission, Instruct/assist pt to develop coping & personal stress Mgt strategies, Refer to Behavioral Health if appropriate, Refer to Physician if appropriate, Instruct patient to recognize signs & symptoms of depression and Instruct patient to recog Comments:: Pt will attend stress management class. Psychosocial - 30-Day Visit Date of Eval: 01/11/25 Session Number:: 22 Problems/Goals History of Emotional Disorders: None Psychosocial Goals: 1. Patient is free from overwhelming symtoms of depression (or anxiety, 2. Identifies personal stressors & states the strategies for managing, 3. Identifies activities to decrease isolation and/or symptoms of, 4. Improved psychosocial coping skills., 5. Verbalizes coping strategies. and 7. Improved Q.O.L. Psychosocial Test Tool Used:: PHQ-9 Questionnaire PHQ-9 Score: 2 Referral to Behavioral Health PS - Interventions: Yes: Attend Stress Management Classes Plan Interventions/Plan:: Assess stressors,coping strategies & signs of derpression on admission, Instruct/assist pt to develop coping & personal stress Mgt strategies, Refer to Behavioral Health if appropriate, Refer to Physician if appropriate, Instruct patient to recognize signs & symptoms of depression and Instruct patient to recog Comments:: Pt will attend stress management class. Psychosocial - 60-Day Visit Date of Eval: 01/11/25 Session Number:: 22 Problems/Goals History of Emotional Disorders: None Psychosocial Goals: 1. Patient is free from overwhelming symtoms of depression (or anxiety, 2. Identifies personal stressors & states the strategies for managing, 3. Identifies activities to decrease isolation and/or symptoms of, 4. Improved psychosocial coping skills., 5. Verbalizes coping strategies. and 7. Improved Q.O.L. Psychosocial Test Tool Used:: PHQ-9 Questionnaire PHQ-9 Score: 2 Referral to Behavioral Health PS - Interventions: Yes: Attend Stress Management Classes Plan Interventions/Plan:: Assess stressors,coping strategies & signs of derpression on admission, Instruct/assist pt to develop coping & personal stress Mgt strategies, Refer to Behavioral Health if appropriate, Refer to Physician if appropriate, Instruct patient to recognize signs & symptoms of depression and Instruct patient to recog Comments:: Pt will attend stress management class. Psychosocial - -Day Visit Session Number:: 22 Problems/Goals History of Emotional Disorders: None Psychosocial Goals: 1. Patient is free from overwhelming symtoms of depression (or anxiety, 2. Identifies personal stressors & states the strategies for managing, 3. Identifies activities to decrease isolation and/or symptoms of, 4. Improved psychosocial coping skills., 5. Verbalizes coping strategies. and 7. Improved Q.O.L. Psychosocial Test Tool Used:: PHQ-9 Questionnaire PHQ-9 Score: 2 Referral to Behavioral Health PS - Interventions: Yes: Attend Stress Management Classes Plan Interventions/Plan:: Assess stressors,coping strategies & signs of derpression on admission, Instruct/assist pt to develop coping & personal stress Mgt strategies, Refer to Behavioral Health if appropriate, Refer to Physician if appropriate, Instruct patient to recognize signs & symptoms of depression and Instruct patient to recog Comments:: Pt will attend stress management class. Psychosocial - Final Assess Visit Session Number:: 22 Problems/Goals History of Emotional Disorders: None Psychosocial Goals: 1. Patient is free from overwhelming symtoms of depression (or anxiety, 2. Identifies personal stressors & states the strategies for managing, 3. Identifies activities to decrease isolation and/or symptoms of, 4. Improved psychosocial coping skills., 5. Verbalizes coping strategies. and 7. Improved Q.O.L. Psychosocial Test Tool Used:: PHQ-9 Questionnaire PHQ-9 Score: 2 Referral to Behavioral Health PS - Interventions: Yes: Attend Stress Management Classes Plan Interventions/Plan:: Assess stressors,coping strategies & signs of derpression on admission, Instruct/assist pt to develop coping & personal stress Mgt strategies, Refer to Behavioral Health if appropriate, Refer to Physician if appropriate, Instruct patient to recognize signs & symptoms of depression and Instruct patient to recog Comments:: Pt will attend stress management class. Oxygen & Oxygen Titration Init Visit Session Number:: 22 Initial Assessment SpO2:: 90 (Pt is on 3L) Oxygen & Oxygen Titration 30D Visit Date of Eval: 01/11/25 Session Number:: 22 Reassessment SpO2:: 90 (Pt is on 3L) Oxygen & Oxygen Titration 60D Visit Date of Eval: 01/11/25 Session Number:: 22 Reassessment Reassessment- 60 Days: Demonstrate knowledge of O2 Rx at rest & w/exercise, Using O2 as Rx'd, Has home O2 as Rx'd and Uses port O2 as Rx'd SpO2:: 90 (Pt is on 3L) Oxygen & Oxygen Titration 90D Visit Date of Eval: 01/11/25 Session Number:: 22 Reassessment SpO2:: 90 (Pt is on 3L) Oxygen & Oxygen Titration WILLY Visit Date of Eval: 01/11/25 Session Number:: 22 Reassessment SpO2:: 90 (Pt is on 3L) [employer] - Initial Visit Session Number:: 22 Hypertension Hypertension Diagnosis:: Hypertension ICD-10 I10 BP: 118/76 [employer] Hypertension Guidelines Blood Pressure: 140/82 Outcomes/Goals: Able to verbalize/achieve optimal blood pressure <130/80 and Incorporates diet changes & exercise for blood pressure control by DC Tobacco - Initial Assessment Tobacco Program Goals Tobacco Use: Non-smoker Diabetes Diabetes:: No Heart Failure Documenting weight daily for CHF: Yes [employer] - 30 DAYS Visit Date of Eval: 01/11/25 Session Number:: 22 Hypertension Hypertension Diagnosis:: Hypertension ICD-10 I10 Resting Blood Pressure:: 118/76 [place] Hypertension Guidelines Peak Exercise Blood Pressure:: 140/82 Change in medication: No Outcomes/Goals: Able to verbalize/achieve optimal blood pressure <130/80 and Incorporates diet changes & exercise for blood pressure control by DC Interventions/plan: Instruct on optimal blood pressure, hypertension & medications, Instruct on effects of sodium, alcohol, stress, exercise &hypertension and Other additional plan/interventions 30 day Reassessments:: Progressing Reassessment Notes & Comments:: Pt's BP's are within AHA normal limits on most days. Tobacco - 30-Day Tobacco Program Goals Tobacco Use: Non-smoker Exacerbation Mgmt & Airway Clearance Reassessment: Demonstrates knowledge of O2 Rx at rest, Demonstrates knowledge of O2 Rx with exercise, Using O2 as prescribed, Has home O2 as prescribed and Uses port O2 as prescribed Bronchial Hygiene Plan: Yes: Pt demonstrates correctly for effective cough, Yes: Pt demo correct for CPT, Yes: Pt demo correct for device, Yes: Pt demo correct for NS nasal spray, Yes: Pt demo correct for sputum management, Yes: Pt demo correct for improved hydration, Yes: Pt demo correct for hand hygiene, Yes: Pt demo correct for evalute sputum, Yes: Pt demo correct for verbalize when to call MD and Yes: Pt demo correct for cleaning of respiratory equipment Medication Medication reassessment: Yes: Pt demonstrates correct technique timing for MDI, Yes: Pt demonstrates correct technique timing for DPI, Yes: Pt demonstrates correct technique timing for NEB and Yes: Pt demonstrates correct technique timing for spacer Diabetes Diabetes:: No Heart Failure Documenting weight carlos: Yes [employer] - 60 DAYS Visit Date of Eval: 01/11/25 Session Number:: 22 Hypertension Hypertension Diagnosis:: Hypertension ICD-10 I10 Resting Blood Pressure:: 118/76 [place] Hypertension Guidelines Peak Exercise Blood Pressure:: 140/82 Change in medication: No Outcomes/Goals: Able to verbalize/achieve optimal blood pressure <130/80 and Incorporates diet changes & exercise for blood pressure control by DC Interventions/plan: Instruct on optimal blood pressure, hypertension & medications, Instruct on effects of sodium, alcohol, stress, exercise &hypertension and Other additional plan/interventions 60 day Reassessments:: Progressing Reassessment Notes & Comments:: Pt's BP's are within AHA normal limits on most days. Tobacco - 60-Day Tobacco Program Goals Tobacco Use: Non-smoker Exacerbation Mgmt & Airway Clearance Reassessment: Demonstrates knowledge of O2 Rx at rest, Demonstrates knowledge of O2 Rx with exercise, Using O2 as prescribed, Has home O2 as prescribed and Uses port O2 as prescribed Bronchial Hygiene Plan: Yes: Pt demonstrates correctly for effective cough, Yes: Pt demo correct for CPT, Yes: Pt demo correct for device, Yes: Pt demo correct for NS nasal spray, Yes: Pt demo correct for sputum management, Yes: Pt demo correct for improved hydration, Yes: Pt demo correct for hand hygiene, Yes: Pt demo correct for evalute sputum, Yes: Pt demo correct for verbalize when to call MD and Yes: Pt demo correct for cleaning of respiratory equipment Medication Medication list reviewed:: Yes Taking medications 100% of the time:: Met Medication reassessment: Yes: Pt demonstrates correct technique timing for MDI, Yes: Pt demonstrates correct technique timing for DPI, Yes: Pt demonstrates correct technique timing for NEB and Yes: Pt demonstrates correct technique timing for spacer 60-day Reassessments:: Met Diabetes Diabetes:: No Heart Failure Documenting weight carlos: Yes [employer] - 90 DAYS Visit Session Number:: 22 Hypertension Hypertension Diagnosis:: Hypertension ICD-10 I10 Resting Blood Pressure:: 118/76 [place] [employer] Hypertension Guidelines Peak Exercise Blood Pressure:: 140/82 Outcomes/Goals: Able to verbalize/achieve optimal blood pressure <130/80 and Incorporates diet changes & exercise for blood pressure control by DC Interventions/plan: Instruct on optimal blood pressure, hypertension & medications, Instruct on effects of sodium, alcohol, stress, exercise &hypertension and Other additional plan/interventions 90 day Reassessments:: Progressing Reassessment Notes & Comments:: Pt's BP's are within AHA normal limits on most days. Tobacco - 90-Day Tobacco Program Goals Tobacco Use: Non-smoker Exacerbation Mgmt & Airway Clearance Bronchial Hygiene Plan: Yes: Pt demonstrates correctly for effective cough, Yes: Pt demo correct for CPT, Yes: Pt demo correct for device, Yes: Pt demo correct for NS nasal spray, Yes: Pt demo correct for sputum management, Yes: Pt demo correct for improved hydration, Yes: Pt demo correct for hand hygiene, Yes: Pt demo correct for evalute sputum, Yes: Pt demo correct for verbalize when to call MD and Yes: Pt demo correct for cleaning of respiratory equipment Medication Medication reassessment: Yes: Pt demonstrates correct technique timing for MDI, Yes: Pt demonstrates correct technique timing for DPI, Yes: Pt demonstrates correct technique timing for NEB and Yes: Pt demonstrates correct technique timing for spacer Diabetes Diabetes:: No [employer] - Final Visit Session Number:: 22 Hypertension Hypertension Diagnosis:: Hypertension ICD-10 I10 Resting Blood Pressure:: 118/76 [place] [employer] Hypertension Guidelines Peak Exercise Blood Pressure:: 140/82 Outcomes/Goals: Able to verbalize/achieve optimal blood pressure <130/80 and Incorporates diet changes & exercise for blood pressure control by DC Tobacco - Final Tobacco Program Goals Tobacco Use: Non-smoker Exacerbation Mgmt & Airway Clearance Bronchial Hygiene Plan: Yes: Pt demonstrates correctly for effective cough, Yes: Pt demo correct for CPT, Yes: Pt demo correct for device, Yes: Pt demo correct for NS nasal spray, Yes: Pt demo correct for sputum management, Yes: Pt demo correct for improved hydration, Yes: Pt demo correct for hand hygiene, Yes: Pt demo correct for evalute sputum, Yes: Pt demo correct for verbalize when to call MD and Yes: Pt demo correct for cleaning of respiratory equipment Medication Medication reassessment: Yes: Pt demonstrates correct technique timing for MDI, Yes: Pt demonstrates correct technique timing for DPI, Yes: Pt demonstrates correct technique timing for NEB and Yes: Pt demonstrates correct technique timing for spacer Diabetes Diabetes:: No Knowledge Questionaire (BCKQ) Information Information: [facility] COPD Knowledge Questionnaire (BCKQ) This questionnaire is designed to find out what you know about your lung problem. It should be completed without help form anyone else. This usually takes between 10 and 20 minutes. Your answers will help us to find out what information you need to help you to understand and manage your lung condition. Valentin the ho-chunk which you think is the correct answer. Nutrition Survey Nutrition Survey Instructions Scoring Instructions
[2025-01-11 08:16] VITALS: BP 118/76; BP 140/82; O2SAT 90; BMI 45.2
== END 2025-01-21 23:59 ==
LOC: PR 10:00
PROVIDERS: PCP Family Medicine
DX: R06.09 Other forms of dyspnea (principal)
CPT/HCPCS: 97150; 94626

== ENCOUNTER 2025-02-15 10:15 | Outpatient (RCR) | payer OTHER, SELFPAY ==
[2025-01-11 08:16] VITALS: BMI 45.2
--- NOTE | 2025-02-07 06:49 | PR.ITP_ITS ---
Exercise - Initial Assessment Visit Session Number:: 32 Physician Prescribed Exercise Modalities: Treadmill, SciFit Stepper and SciFit Pro-II Ergometer Current METSs:: 2.1 Target HR:: 122 (97-122) Current RPD:: 2 Maximum Exercise HR:: 81 Resting Blood Pressure: 100/70 Maximum Exercise Blood Pressure: 122/82 Minimum SpO2 with exercise: 90 (Pt is currently using 2 L with exercise.) EKG Type: NSR Nutrition/Wt Mgmt - Initial Visit Session Number:: 32 Weight Management Admit Height:: 5 ft 6 in Admit Weight:: 278 lb Admit BMI:: 44.9 Nutrition/Wt Mgmt - 30-Day Visit Date of Eval: 02/07/25 Session Number:: 32 Weight Management Height: 5 ft 6 in Weight:: 278 lb BMI: 44.9 Nutrition/Wt Mgmt - 60-Day Visit Session Number:: 32 Weight Management Height: 5 ft 6 in Weight:: 278 lb BMI: 44.9 Weight Goals Progress:: Progressing (Pt has lost 2 lbs this month. Pt has attended nutrition class. Will continue to encourage.) Nutrition/Wt Mgmt - 90-Day Visit Date of Eval: 02/07/25 Session Number:: 32 Weight Management Height: 5 ft 6 in Weight:: 278 lb BMI: 44.9 Weight Goals Progress:: Progressing (Pt has lost 2 lbs this month. Pt has attended nutrition class. Will continue to encourage.) Nutrition/Wt Mgmt - Final Visit Session Number:: 32 Weight Management Height: 5 ft 6 in Weight:: 278 lb BMI: 44.9 Psychosocial - Initial Assess Visit Session Number:: 32 Problems/Goals History of Emotional Disorders: None Psychosocial Goals: 1. Patient is free from overwhelming symtoms of depression (or anxiety, 2. Identifies personal stressors & states the strategies for managing, 3. Identifies activities to decrease isolation and/or symptoms of, 4. Improved psychosocial coping skills., 5. Verbalizes coping strategies., 6. Adequate treatment of depression. and 7. Improved Q.O.L. Psychosocial Test Tool Used:: PHQ-9 Questionnaire Pulmonary QOL Score: 2 Referred to MD for counseling:: No Referral to Behavioral Health PS - Interventions: Yes: Attend Stress Management Classes Intervention/Plan: See List Interventions/Plan:: Assess stressors,coping strategies & signs of derpression on admission, Instruct/assist pt to develop coping & personal stress Mgt strategies, Refer to Behavioral Health if appropriate, Refer to Physician if appropriate, Instruct patient to recognize signs & symptoms of depression and Instruct patient to recog Comments:: Pt denies any psychosocial issues at this time. Pt has attended stress management class. Psychosocial - 30-Day Visit Date of Eval: 02/07/25 Session Number:: 32 Problems/Goals History of Emotional Disorders: None Psychosocial Goals: 1. Patient is free from overwhelming symtoms of depression (or anxiety, 2. Identifies personal stressors & states the strategies for managing, 3. Identifies activities to decrease isolation and/or symptoms of, 4. Improved psychosocial coping skills., 5. Verbalizes coping strategies., 6. Adequate treatment of depression. and 7. Improved Q.O.L. Psychosocial Test Tool Used:: PHQ-9 Questionnaire Pulmonary QOL Score: 2 Referred to MD for counseling:: No Referral to Behavioral Health PS - Interventions: Yes: Attend Stress Management Classes Plan Interventions/Plan:: Assess stressors,coping strategies & signs of derpression on admission, Instruct/assist pt to develop coping & personal stress Mgt strategies, Refer to Behavioral Health if appropriate, Refer to Physician if appropriate, Instruct patient to recognize signs & symptoms of depression and Instruct patient to recog Comments:: Pt denies any psychosocial issues at this time. Pt has attended stress management class. Psychosocial - 60-Day Visit Session Number:: 32 Problems/Goals History of Emotional Disorders: None Psychosocial Goals: 1. Patient is free from overwhelming symtoms of depression (or anxiety, 2. Identifies personal stressors & states the strategies for managing, 3. Identifies activities to decrease isolation and/or symptoms of, 4. Improved psychosocial coping skills., 5. Verbalizes coping strategies., 6. Adequate treatment of depression. and 7. Improved Q.O.L. Psychosocial Test Tool Used:: PHQ-9 Questionnaire Pulmonary QOL Score: 2 Referred to MD for counseling:: No Referral to Behavioral Health PS - Interventions: Yes: Attend Stress Management Classes Plan Interventions/Plan:: Assess stressors,coping strategies & signs of derpression on admission, Instruct/assist pt to develop coping & personal stress Mgt strategies, Refer to Behavioral Health if appropriate, Refer to Physician if appropriate, Instruct patient to recognize signs & symptoms of depression and Instruct patient to recog Comments:: Pt denies any psychosocial issues at this time. Pt has attended stress management class. Psychosocial - 90-Day Visit Date of Eval: 02/07/25 Session Number:: 32 Problems/Goals History of Emotional Disorders: None Psychosocial Goals: 1. Patient is free from overwhelming symtoms of depression (or anxiety, 2. Identifies personal stressors & states the strategies for managing, 3. Identifies activities to decrease isolation and/or symptoms of, 4. Improved psychosocial coping skills., 5. Verbalizes coping strategies., 6. Adequate treatment of depression. and 7. Improved Q.O.L. Psychosocial Test Tool Used:: PHQ-9 Questionnaire Pulmonary QOL Score: 2 Referred to MD for counseling:: No Referral to Behavioral Health PS - Interventions: Yes: Attend Stress Management Classes Plan Interventions/Plan:: Assess stressors,coping strategies & signs of derpression on admission, Instruct/assist pt to develop coping & personal stress Mgt strategies, Refer to Behavioral Health if appropriate, Refer to Physician if appropriate, Instruct patient to recognize signs & symptoms of depression and Instruct patient to recog Comments:: Pt denies any psychosocial issues at this time. Pt has attended stress management class. Psychosocial - Final Assess Visit Session Number:: 32 Problems/Goals History of Emotional Disorders: None Psychosocial Goals: 1. Patient is free from overwhelming symtoms of depression (or anxiety, 2. Identifies personal stressors & states the strategies for managing, 3. Identifies activities to decrease isolation and/or symptoms of, 4. Improved psychosocial coping skills., 5. Verbalizes coping strategies., 6. Adequate treatment of depression. and 7. Improved Q.O.L. Psychosocial Test Tool Used:: PHQ-9 Questionnaire Pulmonary QOL Score: 2 Referred to MD for counseling:: No Referral to Behavioral Health PS - Interventions: Yes: Attend Stress Management Classes Plan Interventions/Plan:: Assess stressors,coping strategies & signs of derpression on admission, Instruct/assist pt to develop coping & personal stress Mgt strategies, Refer to Behavioral Health if appropriate, Refer to Physician if appropriate, Instruct patient to recognize signs & symptoms of depression and Instruct patient to recog Comments:: Pt denies any psychosocial issues at this time. Pt has attended stress management class. Oxygen & Oxygen Titration Init Visit Session Number:: 32 Initial Assessment SpO2:: 90 (Pt is currently using 2 L with exercise.) Oxygen & Oxygen Titration 30D Visit Date of Eval: 02/07/25 Session Number:: 32 Reassessment Breath Sounds:: Clear SpO2:: 90 (Pt is currently using 2 L with exercise.) Oxygen & Oxygen Titration 60D Visit Date of Eval: 02/07/25 Session Number:: 32 Reassessment Breath Sounds:: Clear SpO2:: 90 (Pt is currently using 2 L with exercise.) Oxygen & Oxygen Titration 90D Visit Date of Eval: 02/07/25 Session Number:: 32 Reassessment Oxygen & Oxygen Titration 90 days: Continuous Home Use Breath Sounds:: Clear SpO2:: 90 (Pt is currently using 2 L with exercise.) Oxygen & Oxygen Titration WILLY Visit Date of Eval: 02/07/25 Session Number:: 32 Reassessment Breath Sounds:: Clear SpO2:: 90 (Pt is currently using 2 L with exercise.) Core Components - Initial Visit Session Number:: 32 Hypertension Hypertension Diagnosis:: Hypertension ICD-10 I10 BP: 100/70 [employer] Hypertension Guidelines Blood Pressure: 122/82 Outcomes/Goals: Able to verbalize/achieve optimal blood pressure <130/80 and Incorporates diet changes & exercise for blood pressure control by DC Tobacco - Initial Assessment Tobacco Program Goals Tobacco Use: Non-smoker Diabetes Diabetes:: No Core Components - 30 DAYS Visit Date of Eval: 02/07/25 Session Number:: 32 Hypertension Hypertension Diagnosis:: Hypertension ICD-10 I10 Resting Blood Pressure:: 100/70 [employer] Hypertension Guidelines Peak Exercise Blood Pressure:: 122/82 Outcomes/Goals: Able to verbalize/achieve optimal blood pressure <130/80 and Incorporates diet changes & exercise for blood pressure control by DC Interventions/plan: Instruct on optimal blood pressure, hypertension & medications and Instruct on effects of sodium, alcohol, stress, exercise &hypertension 30 day Reassessments:: Met Reassessment Notes & Comments:: Pt's BP's are within AHA normal limits Tobacco - 30-Day Tobacco Program Goals Tobacco Use: Non-smoker Exacerbation Mgmt & Airway Clearance Bronchial Hygiene Plan: Yes: Pt demonstrates correctly for effective cough, Yes: Pt demo correct for CPT, Yes: Pt demo correct for device, Yes: Pt demo correct for NS nasal spray, Yes: Pt demo correct for sputum management, Yes: Pt demo correct for improved hydration, Yes: Pt demo correct for hand hygiene, Yes: Pt demo correct for evalute sputum, Yes: Pt demo correct for verbalize when to call MD and Yes: Pt demo correct for cleaning of respiratory equipment Medication Medication reassessment: Yes: Pt demonstrates correct technique timing for MDI, Yes: Pt demonstrates correct technique timing for DPI, Yes: Pt demonstrates correct technique timing for NEB and Yes: Pt demonstrates correct technique timing for spacer Diabetes Diabetes:: No Core Components - 60 DAYS Visit Session Number:: 32 Hypertension Hypertension Diagnosis:: Hypertension ICD-10 I10 Resting Blood Pressure:: 100/70 [employer] Hypertension Guidelines Peak Exercise Blood Pressure:: 122/82 Outcomes/Goals: Able to verbalize/achieve optimal blood pressure <130/80 and Incorporates diet changes & exercise for blood pressure control by DC Interventions/plan: Instruct on optimal blood pressure, hypertension & medications and Instruct on effects of sodium, alcohol, stress, exercise &hypertension 60 day Reassessments:: Met Reassessment Notes & Comments:: Pt's BP's are within AHA normal limits Tobacco - 60-Day Tobacco Program Goals Tobacco Use: Non-smoker Exacerbation Mgmt & Airway Clearance Bronchial Hygiene Plan: Yes: Pt demonstrates correctly for effective cough, Yes: Pt demo correct for CPT, Yes: Pt demo correct for device, Yes: Pt demo correct for NS nasal spray, Yes: Pt demo correct for sputum management, Yes: Pt demo correct for improved hydration, Yes: Pt demo correct for hand hygiene, Yes: Pt demo correct for evalute sputum, Yes: Pt demo correct for verbalize when to call MD and Yes: Pt demo correct for cleaning of respiratory equipment Medication Medication reassessment: Yes: Pt demonstrates correct technique timing for MDI, Yes: Pt demonstrates correct technique timing for DPI, Yes: Pt demonstrates correct technique timing for NEB and Yes: Pt demonstrates correct technique timing for spacer Diabetes Diabetes:: No Core Components - 90 DAYS Visit Date of Eval: 02/07/25 Session Number:: 32 Hypertension Hypertension Diagnosis:: Hypertension ICD-10 I10 Resting Blood Pressure:: 100/70 [employer] Hypertension Guidelines Peak Exercise Blood Pressure:: 122/82 Outcomes/Goals: Able to verbalize/achieve optimal blood pressure <130/80 and Incorporates diet changes & exercise for blood pressure control by DC Interventions/plan: Instruct on optimal blood pressure, hypertension & medications and Instruct on effects of sodium, alcohol, stress, exercise &hypertension 90 day Reassessments:: Met Reassessment Notes & Comments:: Pt's BP's are within AHA normal limits Tobacco - 90-Day Tobacco Program Goals Tobacco Use: Non-smoker Exacerbation Mgmt & Airway Clearance Reassessment: Demonstrates knowledge of O2 Rx at rest, Demonstrates knowledge of O2 Rx with exercise, Using O2 as prescribed, Has home O2 as prescribed and Uses port O2 as prescribed Bronchial Hygiene Plan: Yes: Pt demonstrates correctly for effective cough, Yes: Pt demo correct for CPT, Yes: Pt demo correct for device, Yes: Pt demo correct for NS nasal spray, Yes: Pt demo correct for sputum management, Yes: Pt demo correct for improved hydration, Yes: Pt demo correct for hand hygiene, Yes: Pt demo correct for evalute sputum, Yes: Pt demo correct for verbalize when to call MD and Yes: Pt demo correct for cleaning of respiratory equipment Medication Medication list reviewed:: Yes Taking medications 100% of the time:: Met (Pt takes meds as prescribed.) Medication reassessment: Yes: Pt demonstrates correct technique timing for MDI, Yes: Pt demonstrates correct technique timing for DPI, Yes: Pt demonstrates co rrect technique timing for NEB and Yes: Pt demonstrates correct technique timing for spacer Diabetes Diabetes:: No Heart Failure Documenting weight daily: Yes Core Components - Final Visit Session Number:: 32 Hypertension Hypertension Diagnosis:: Hypertension ICD-10 I10 Resting Blood Pressure:: 100/70 [employer] Hypertension Guidelines Peak Exercise Blood Pressure:: 122/82 Outcomes/Goals: Able to verbalize/achieve optimal blood pressure <130/80 and Incorporates diet changes & exercise for blood pressure control by DC Tobacco - Final Tobacco Program Goals Tobacco Use: Non-smoker Exacerbation Mgmt & Airway Clearance Bronchial Hygiene Plan: Yes: Pt demonstrates correctly for effective cough, Yes: Pt demo correct for CPT, Yes: Pt demo correct for device, Yes: Pt demo correct for NS nasal spray, Yes: Pt demo correct for sputum management, Yes: Pt demo correct for improved hydration, Yes: Pt demo correct for hand hygiene, Yes: Pt demo correct for evalute sputum, Yes: Pt demo correct for verbalize when to call MD and Yes: Pt demo correct for cleaning of respiratory equipment Medication Medication reassessment: Yes: Pt demonstrates correct technique timing for MDI, Yes: Pt demonstrates correct technique timing for DPI, Yes: Pt demonstrates correct technique timing for NEB and Yes: Pt demonstrates correct technique timing for spacer Diabetes Diabetes:: No Knowledge Questionaire (BCKQ) Information Information: [place] COPD Knowledge Questionnaire (BCKQ) This questionnaire is designed to find out what you know about your lung problem. It should be completed without help form anyone else. This usually takes between 10 and 20 minutes. Your answers will help us to find out what information you need to help you to understand and manage your lung condition. [place] the [place] which you think is the correct answer. Nutrition Survey Nutrition Survey Instructions Scoring Instructions
[2025-02-07 07:00] VITALS: BP 100/70; BP 122/82; O2SAT 90; BMI 44.9
== END 2025-02-21 23:59 ==
LOC: PR 10:15
PROVIDERS: PCP Family Medicine
DX: R06.09 Other forms of dyspnea (principal)
CPT/HCPCS: 97150; 94626